=== PATIENT | male | born 1960 | race Hispanic/Latino ===

== ENCOUNTER 2019-07-04 15:20 | Emergency (ER) | payer MEDICARE, SELFPAY ==
--- NOTE | ~2019-07-04 | CT_ITS ---
EXAMINATION: CTA brain carotid EXAM DATE: 07/04/2019 16:27 INDICATION: Altered mental status, right hemiparesis. TECHNIQUE: Noncontrast head CT. Spiral CTA of the carotid arteries was performed with intravenous i njection 100 cc of Omnipaque 350. Axial, coronal, sagittal reformatted images reviewed. Additional r eformatted images created on dedicated 3-D workstation. NASCET comparable standard used to assess th e degree of arterial stenosis. Spiral CT angiogram cerebral arteries performed with the same intrave nous injection of contrast. Source images of the brain CTA transferred to dedicated workstation for 3 -D rotational image creation. Coronal, sagittal maximum intensity pixel images also reviewed. The d ose-length product (DLP) for this examination was 1791.91 mGy-cm. The exposure was tailored accordi ng to patient size, and iterative reconstruction (ASIR) was used as additional dose reduction techniq ue. There is no prior study for comparison. FINDINGS: There is 0% carotid stenosis bilaterally, no appreciable focal carotid plaque. There is no carotid or vertebral basilar arterial dissection or fibromuscular dysplasia. There are no cerebral a rtery aneurysms. There is symmetric cerebral artery arborization. The sagittal, transverse and sigmoi d sinuses enhance normally, no venous sinus thrombosis. Internal cerebral veins also enhance normally . There is no acute intraparenchymal hemorrhage. No evidence of intraparenchymal brain mass lesion. N o evidence of acute infarction. There is mild periventricular and subcortical hypodensity, nonspecifi c but probably related to small vessel ischemic disease. There is mild prominence of the sulci and ventricles related to cerebral atrophy. There is intracranial carotid arteriosclerosis. There is no mass effect or midline shift. There is no obstructive hydrocephalus suspected. There are no extra -axial collections. There are no calvarial acute fractures. There is varying degrees but overall mo derate mucoperiosteal thickening, opacity within the ethmoid sphenoid and maxillary sinuses. IMPRESSION: 1. No cervical arterial dissection or cerebral artery aneurysm. 2. No carotid stenosis. 3. Moderate sinus opacity. Reviewed, dictated and finalized at location B.
[2019-07-04 15:30] VITALS: BP 175/79; PULSE 99; RESP 16; TEMP 36.3; O2SAT 95
[2019-07-04 15:57] VITALS: BP 162/95; PULSE 95; RESP 23; TEMP 36.6; O2SAT 97
--- NOTE | 2019-07-04 16:02 | ED.SEIZURE ---
HPI - Seizure General Chief Complaint: Seizure Stated Complaint: seizure Time Seen by Provider: 07/04/19 16:04 Source: patient, family ( at bedside), RN notes reviewed and other (ED nurse) Mode of arrival: ambulatory Limitations: no limitations History of Present Illness HPI Narrative: Pt is a 59 y/o male presenting to the ED c/o Sz's. ED nurse reports the pt has had 3 Sz's within his time in the ED. Per nurse, the first episode lasted 1.5 minutes and the pt was given Ativan x2 IM. The pt's 2nd episode lasted a minute a few minutes after the 1st episode and the pt was given another dose of Ativan intranasal. Pt's ED nurse states the pt's 3rd episode lasted 45 seconds and the pt has been given Valium. Pt's at bedside reports the pt has not been feeling well since he had a different brand of his prescription of Dilantin switched 6 days ago. Per , the pt reported his Sx of not feeling well worsened 2 days ago and developed mild aphasia along with a frontal TALAVERA 2 days ago. Pt's notes the pt took a nap earlier today around 1300 and woke up with slurred speech. Pt's notes the pt did not have a Sz at home, stating his first episode was in the car on the way to the ED, and reports his current Sz's are similar to previous Sz's. Pt's notes the pt sees Dr. Delgado as his Neurologist and has been having Sz's since 2007 after having a Liver transplant. Per , the pt is normally able to ambulate and states his last Sz was a year ago. Pt's notes the pt had a different brand of Dilantin prescribed to him today as well in which he has taken 2 doses of. HPI is limited due to pt's clinical condition. All information provided by ED nurse and pt's at bedside. Onset (ago): unknown (Earlier today) Description of Episode: tonic-clonic movement Seizure History: Yes Associated symptoms: other (Slurred speech; Mild aphasia; Frontal TALAVERA) Related Data Home Medications Medication Instructions Recorded Confirmed donepezil mg 07/04/19 phenytoin sodium extended PO 07/04/19 Allergies Allergy/AdvReac Type Severity Reaction Status Date / Time No Known Allergies Allergy Unverified 02/14/15 15:35 Review of Systems Review of Systems: Narrative: Neurological: Positive for slurred speech, frontal headache, mild aphasia, and Seizures. ROS is limited due to pt's clinical condition. All Sx's provided by pt's at bedside. All systems reviewed & are unremarkable except as noted in HPI and below PMFSH Past Medical History Medical History Bronchitis COPD (chronic obstructive pulmonary disease) CVA (cerebral vascular accident) Depression Encephalopathy ESRD (end stage renal disease) Hepatitis C History of renal dialysis HLD (hyperlipidemia) IBS (irritable bowel syndrome) Peripheral neuropathy Pneumonia Seizures Surgical History Surgical History History of cholecystectomy Liver transplanted Family History Family History Father Family history of heart disease in male family member before age 55 Mother Family history of liver disease Social History Social History Smoking status: Current every day smoker Second hand tobacco smoke exposure: No Alcohol intake: never Exam Const: General: no acute distress and well developed Orientation/consciousness: oriented to person HENMT: Head: normocephalic Ears: external ears normal General nose exam: Normal external nose present Eyes: General: appearance normal, both eyes and all related structures Conjunctivae: conjunctivae normal Neck: Neck: normal visual inspection and full ROM Chest: Chest palpation & inspection: normal inspection of the chest and no tenderness Resp: Effort & Inspection: normal respiratory effort Auscultation: clear to auscultation bilaterally Cardio: Rate: regular
[2019-07-04 16:35] LABS: Basophils Absolute Auto 0.1 K/mm3 (0.0-0.1); Basophils Percent Auto 0.6 % (0.2-1.2); Eosinophils Absolute Auto 0.9 K/mm3 (0-0.3); Eosinophils Percent Auto 10.1 % (0-4.4); Hematocrit 44.4 % (42.0-52.0); Hemoglobin 15.3 g/dL (14.0-18.0); Immature Granulocyte Absolute 0.06 K/mm3 (0.00-0.031); Immature Granulocyte Percent A 0.7 % (0-0.5); Lymphocytes Absolute Auto 2.94 K/mm3 (0.9-3.2); Mean Corpuscular HGB Conc 34.5 g/dl (32-36); Mean Corpuscular Hemoglobin 30.7 pg (26-34); Mean Corpuscular Volume 89.2 fl (80-100); Mean Platelet Volume 10.6 fl (7.4-10.4); Monocytes Absolute Auto 0.7 K/mm3 (0.1-0.6); Monocytes Percent Auto 8.1 % (2.6-8.5); Neutrophils Percent Auto 46.5 % (45.5-73.1); Platelet Count Result 232 k/mm3 (150-375); Red Blood Count 4.98 M/mm3 (4.6-6.20); Red Cell Distribution Width 12.3 % (11.5-14.5); White Blood Count 8.6 K/mm3 (4.5-10.0)
--- NOTE | 2019-07-04 16:43 | PC.NURSE ---
1540: Patient noted to be seizing in wheelchair, Nursing staff with patient. Verbal order of Dr. Nettles to give 2 mg IN ativan q 5 minutes for seizure control prior to IV access. After IV access he has verbal order for 5 mg of diazepam given q 5 minutes for seizure control. This seizure lasted 45 seconds and involved a right gaze with eye and facial twitching along with shaking of his right arm and right leg. 1545: Patient had seizure that lasted approximately one minute. Seizure the same as the one described prior. Patient was given 2 mg Ativan IN at this time as per the above orders. Following this seizure the patient would respond to verbal stimuli however he was not oriented and was not able to answer questions. 1553: Patient had another seizure, this one lasted approximately 55 seconds and resolved shortly after medication. Seizure was the same as previously described. Per the verbal order of Dr. Nettles, the patient was given 2 mg Ativan IN. This was followed by similar postictal period as with previous seizures. states that these are how his seizures happen and are what she describes as his normal seizure activity. 1600: Seizure activity noted again lasting 1 minute, resolving shortly after medication administered. Same as previously described. IV in place and 5 mg diazepam was given IVP as per verbal order of Dr. Nettles. Charge nurse called and EDP requested to room at this time. 1608: Patient again noted to have seizure activity as previously described. This seizure lasted approximately 1 and a half minutes and was slower to respond after IV diazepam was given. the order was per the verbal order of Dr. Nettles as written above for [address] Montano in room as medications were given to the patient. Similar postictal period of confusion noted following the seizure.
[2019-07-04 16:46] VITALS: BP 122/69; PULSE 96; RESP 19; TEMP 36.4; O2SAT 98
[2019-07-04 16:46] LABS: Prothrombin Time 12.5 Seconds (11.1-14.7)
[2019-07-04 16:47] LABS: Partial Thromboplastin Time 29.5 SECONDS (22.3-36.8)
[2019-07-04 16:52] LABS: Alanine Aminotransferase 24 U/L (4-50); Albumin Level 4.2 g/dL (3.5-5.1); Alkaline Phosphatase 191 U/L (38-126); Aspartate Amino Transferase 25 U/L (17-59); Bilirubin,Total 0.4 mg/dL (0.2-1.3); Blood Urea Nitrogen 12 mg/dL (9-20); Calcium 8.9 mg/dL (8.4-10.2); Carbon Dioxide 25 mmol/L (22-30); Chloride 103 mmol/L (98-107); Estimated CRCL calculation 127 ml/min; Estimated Glomerular Filt Rate > 60; Glucose 125 mg/dL (75-110); Phenytoin Dilantin 8 ug/mL (10-20); Potassium 3.7 mmol/L (3.4-5.0); Sodium 138 mmol/L (137-145)
[2019-07-04 17:41] VITALS: O2SAT 98
--- NOTE | 2019-07-04 18:26 | PC.NURSE ---
This RN went into pts room to give medication. Pt stated that he wanted to go home. I informed pt that he would not receive medication if he went home. Pt stated that he had Keppra at home. Pt stated that he wanted to go home and have his take care of him, because she can take better care of him . I asked pt several times if he was sure that he wanted to go home. Pt stated that yes. I informed Dr. Albright that pt wanted to leave AMA and he stated that was fine. This RN took AMA paper into room and again asked pt if he wanted to leave, pt stated yes and signed paper. Pt was wheeled out to awaiting to vehicle.
== END 2019-07-04 19:44 | disposition left against medical advice (07) ==
PROVIDERS: Emergency Provider Emergency Medicine; PCP Family Medicine
DX: G40.909 Epilepsy, unspecified, not intractable, without status epilepticus (principal); G81.91 Hemiplegia, unspecified affecting right dominant side; Z94.4 Liver transplant status; J44.9 Chronic obstructive pulmonary disease, unspecified; Z86.73 Personal history of transient ischemic attack (TIA), and cerebral infarction without residual deficits; N18.6 End stage renal disease; Z99.2 Dependence on renal dialysis; E78.5 Hyperlipidemia, unspecified; K58.9 Irritable bowel syndrome, unspecified; G62.9 Polyneuropathy, unspecified; F17.200 Nicotine dependence, unspecified, uncomplicated
CPT/HCPCS: 36415; 70496; 70498; 80053; 80185; 85025; 85610; 85730; 99284; J2060; J3360; Q9967

== ENCOUNTER 2019-10-28 12:30 | Emergency (ER) | payer MEDICARE, SELFPAY ==
--- NOTE | ~2019-10-28 | XR_ITS ---
XR shoulder RT min 2V DATE: 10/28/2019 13:33 INDICATION: Shoulder pain and anterior chest pain following a fall 3 days ago TECHNIQUE: 3 views COMPARISON: None FINDINGS: Mild degenerative spurring at the right acromioclavicular joint. No fracture or dislocation, periosteal reaction or bone destruction. No abnormal soft tissue calcif ication. Surgical clips overlying the upper abdomen. IMPRESSION: Mild degenerative change at the right acromioclavicular joint Reviewed, dictated and finalized at location B.
--- NOTE | ~2019-10-28 | XR_ITS ---
EXAMINATION: [id number]_[id number]_CR DATE: 10/28/2019 13:33 INDICATION: Right anterior chest pain. TECHNIQUE: A frontal view of the chest and 2 views of the right ribs were obtained. COMPARISON: Chest 2 views 04/26/2018 FINDINGS: There is mild atelectasis in lingula. No pleural effusion or pneumothorax. The heart size i s normal. There are surgical clips in right abdomen. IMPRESSION: 1. No rib fracture. 2. Mild atelectasis in lingula. Reviewed, dictated and finalized at location A.
[2019-10-28 12:46] VITALS: BP 113/76; PULSE 86; RESP 16; TEMP 37; O2SAT 98
--- NOTE | 2019-10-28 12:57 | ED.GENADULT ---
HPI - General Adult General Chief complaint: Fall Stated complaint: right side pain,fall Time Seen by Provider: 10/28/19 12:57 Source: patient Mode of arrival: ambulatory Limitations: no limitations History of Present Illness HPI narrative: 59-year-old male patient presents to the [facility] with complaints right shoulder and right-sided chest pain after a fall Monday night. Patient states that he got up to go to the bathroom late at night when he was walking back tripped hitting his dresser, his dressers, some drawers and then fell onto some carpet. Denies hitting his head or loss of consciousness. Patient states he is having pain when he tries to take a deep breath then laugh or cough to the right side of the chest. Patient also complaining of some right shoulder pain and states that he is not able to raise it all the way or wrap around his back. Related Data Home Medications Medication Instructions Recorded Confirmed donepezil mg 07/04/19 phenytoin sodium extended PO 07/04/19 Aspir-81 10/28/19 Vimpat 10/28/19 cyclosporine 10/28/19 gabapentin 10/28/19 levetiracetam PO 10/28/19 Allergies Allergy/AdvReac Type Severity Reaction Status Date / Time No Known Allergies Allergy Unverified 02/14/15 15:35 Review of Systems Review of Systems: Narrative: CONSTITUTIONAL: Denies fever, chills, or sweats. EYES: Denies visual changes, redness, or discharge. ENT: Denies rhinorrhea, congestion, sore throat, or otalgia. CARDIOVASCULAR: Positive right-sided chest pain, denies palpitations, or edema. RESPIRATORY: Denies cough or dyspnea. GASTROINTESTINAL: Denies abdominal pain, nausea, vomiting, or diarrhea. GENITOURINARY: Denies dysuria or hematuria. SKIN: Denies rash or itching. MUSCULOSKELETAL: Denies back pain, joint pain, or myalgia. Positive right shoulder pain NEUROLOGIC: Denies headache, numbness, or weakness. PSYCHIATRIC: Denies anxiety or depression. [facility] Past Medical History Medical History Bronchitis COPD (chronic obstructive pulmonary disease) CVA (cerebral vascular accident) Depression Encephalopathy ESRD (end stage renal disease) Hepatitis C History of renal dialysis HLD (hyperlipidemia) IBS (irritable bowel syndrome) Peripheral neuropathy Pneumonia Seizures Surgical History Surgical History History of cholecystectomy Liver transplanted Family History Family History Father Family history of heart disease in male family member before age 55 Mother Family history of liver disease Social History Social History Smoking status: Current every day smoker Second hand tobacco smoke exposure: No Alcohol intake: never Comments At the time of my signature I agree with nursing past medical history, surgical, social, and family history. There is no relevant family history pertinent to the presenting complaint. Exam Narrative: Exam Narrative: GENERAL: Well-appearing, well-nourished, and in no acute distress. HEAD: Normocephalic, atraumatic. EYES: PERRLA and EOMI. ENT: Nares clear, no rhinorrhea or epistaxis. Mucous membranes moist. NECK: Supple. No lymphadenopathy CHEST: Clear to auscultation. No respiratory distress. Patient does have some bruising noted around the right third and fourth rib. Patient has tenderness all over the right chest and unable to really palpate very deeply. Patient has pain under the axilla to the lateral side of the right chest. Patient unable to take a deep breath due to pain. HEART: Regular rate and rhythm. No murmur heard. Normal peripheral pulses. ABDOMEN: Soft, nontender, nondistended, normal active bowel sounds. EXTREMITIES: The R shoulder is without obvious asymmetry or deformity when compared to the L shoulder. No surface trauma, ecchymos
== END 2019-10-28 14:32 | disposition home or self-care (01) ==
PROVIDERS: Emergency Provider Nurse Practitioner Family; PCP Family Medicine
DX: J98.11 Atelectasis (principal); M25.511 Pain in right shoulder; R07.89 Other chest pain; W01.0XXA Fall on same level from slipping, tripping and stumbling without subsequent striking against object, initial encounter; J44.9 Chronic obstructive pulmonary disease, unspecified; F32.9 Major depressive disorder, single episode, unspecified; G40.909 Epilepsy, unspecified, not intractable, without status epilepticus; E78.5 Hyperlipidemia, unspecified; Z86.19 Personal history of other infectious and parasitic diseases; Z86.73 Personal history of transient ischemic attack (TIA), and cerebral infarction without residual deficits; G62.9 Polyneuropathy, unspecified; Z94.4 Liver transplant status; G93.40 Encephalopathy, unspecified
CPT/HCPCS: 71101; 73030; 99214; G0463

== ENCOUNTER 2020-04-20 09:36 | Inpatient (IN) | payer MEDICARE, SELFPAY ==
[2020-04-20] VITALS (33 sets, daily range): BP systolic 98–169; BP diastolic 64–107; PULSE 72–106; RESP 18–41; TEMP 36.6–37.2; O2SAT 93–99; BMI 35.3
--- NOTE | ~2020-04-20 | XR_ITS ---
EXAMINATION: XR chest 1V EXAM DATE: 04/20/2020 10:32 INDICATION: Transient Level Of Awareness . TECHNIQUE: Portable AP frontal chest x-ray was obtained. Comparison is made to prior examination from 04/26/2018. FINDINGS: Moderate amount of scattered bilateral peripheral predominant opacities, appearance suspici ous for subacute COVID pneumonia. No pneumothorax or pleural effusion. Elevated right hemidiaphragm. Cardiomediastinal silhouette is normal. There are mild bony degenerative changes. IMPRESSION: Moderate amount of bilateral peripheral opacities suspicious for COVID pneumonia. Reviewed, dictated and finalized at location B. [employer]ULLER IMPRESSION: Moderate amount of bilateral peripheral opacities suspicious for CO VID pneumonia.
--- NOTE | ~2020-04-20 | CT_ITS ---
EXAMINATION: CT abdomen pelvis wo con EXAM DATE: 04/20/2020 10:27 INDICATION: hematuria. TECHNIQUE: Spiral CT of the abdomen and pelvis was performed without contrast. Axial, coronal and s agittal images were reviewed. The dose-length product (DLP) for this examination was 1730.24 mGy-cm. The exposure was tailored according to patient size (auto mA exposure control), and iterative recon struction (ASIR) was used as additional dose reduction technique. There is no prior study for compar sarah. FINDINGS: The liver, spleen, adrenal glands and pancreas are unremarkable. Gallbladder is unremarkab le. No biliary obstruction. There is no nephrolithiasis or hydronephrosis. The prostate is unrema rkable. The bladder is unremarkable. There is no retroperitoneal or pelvic lymphadenopathy. The appendix is normal. The stomach and small bowel are unremarkable. There is expected amount of c olonic stool. No free intraperitoneal gas. The heart is normal in size. There are no pericardial or pleural effusions. Moderate amount of bilateral peripheral opacities with regions of confluence, thickened reticulation, most likely subacute COVID pneumonia. The bones are unremarkable. IMPRESSION: 1. Basilar peripheral opacities most likely COVID pneumonia. 2. No nephrolithiasis, hydronephrosis or suspicious genitourinary findings. Reviewed, dictated and finalized at location B. GER FRONT
--- NOTE | ~2020-04-20 | CT_ITS ---
EXAMINATION: CT brain wo con EXAM DATE: 04/20/2020 10:27 INDICATION: Transient level of awareness. Altered mental status. TECHNIQUE: Spiral CT of the head was performed without contrast. Axial, coronal and sagittal images were reviewed. The dose-length product (DLP) for this examination was 605.33 mGy-cm. The exposure w as tailored according to patient size, and iterative reconstruction (ASIR) was used as additional dos e reduction technique. Comparison is made to prior examination from 07/04/2019. FINDINGS: There is no acute intraparenchymal hemorrhage. No evidence of intraparenchymal brain mass lesion. No evidence of acute infarction. Please note that initial head CT has limited sensitivity f or small or acute infarctions. There is mild to moderate periventricular and subcortical hypodensity, nonspecific but probably related to small vessel ischemic disease. There is ventricular prominence out of proportion to sulci which is suspected most likely central atrophy rather than hydrocephalus. Normal pressure hydrocephalus cannot be excluded (clinical triad ataxia/gait disturbance, dementia, urinary incontinence). There is intracranial carotid arteriosclerosis. There are no extra-axial c ollections. There is no mass effect or midline shift. The orbits are unremarkable. Soft tissue is unremarkable. Chronically opacified right sphenoid sinus with wall thickening. There is no interval change. IMPRESSION: 1. No acute intracranial findings. 2. Dilated ventricles, probably central atrophy. 3. Microangiopathy. Reviewed, dictated and finalized at location B. LER
--- NOTE | ~2020-04-20 | CT_ITS ---
EXAMINATION: CTA chest PE protocol EXAM DATE: 04/20/2020 11:43 INDICATION: Shortness of breath, COVID. TECHNIQUE: Spiral CTA of the chest (pulmonary arteries) was performed with 100 cc Omnipaque 350 intr avenous contrast injection. Images were acquired during the pulmonary arterial phase. Coronal maxi mum intensity projection 3D-reconstructions were created by the technologist on dedicated workstation . Axial, coronal and sagittal reformatted images were reviewed. The dose-length product (DLP) for t his examination was 860.45 mGy-cm. The exposure was tailored according to patient size (auto mA exp osure control), and iterative reconstruction (ASIR) was used as additional dose reduction technique. There is no prior study for comparison. FINDINGS: There are no pulmonary emboli in the 1st through 3rd order (central and interlobar) pulmon mary arteries. Some loss of attenuation in the segmental pulmonary arteries due to respiratory motion , but no intraluminal filling defects suspected. No thoracic aortic dissection. Moderate amount of peripheral patchy regions of consolidation, appearance is most consistent with subacute COVID 19 pne umonia. There are no pleural or pericardial effusions. Tracheobronchial tree is patent. Some jes ctive right hilar lymphadenopathy. There is no pneumothorax. Heart normal in size. There is mild to moderate coronary arterial calcification, arterial sclerosis. Upper abdomen is unremarkable. T here is thoracic spondylosis without osteoblastic or osteolytic lesions identified. IMPRESSION: 1. Limited segmental evaluation, but no pulmonary emboli are suspected. 2. Moderate amount of airspace disease likely COVID pneumonia. Reviewed, dictated and finalized at location B. [employer] OPERATOR
[2020-04-20 09:58] LABS: Basophils Absolute Auto 0.1 K/mm3 (0.0-0.1); Basophils Percent Auto 0.9 % (0.2-1.2); Eosinophils Absolute Auto 0.2 K/mm3 (0-0.3); Eosinophils Percent Auto 2.6 % (0-4.4); Hematocrit 43.2 % (42.0-52.0); Hemoglobin 14.7 g/dL (14.0-18.0); Immature Granulocyte Absolute 0.31 K/mm3 (0.00-0.031); Immature Granulocyte Percent A 4.5 % (0-0.5); Lymphocytes Absolute Auto 2.38 K/mm3 (0.9-3.2); Lymphocytes Percent Auto 34.7 % (18.3-44.2); Mean Corpuscular Hemoglobin 30.2 pg (26-34); Mean Corpuscular Volume 88.7 fl (80-100); Mean Platelet Volume 9.7 fl (7.4-10.4); Monocytes Absolute Auto 0.8 K/mm3 (0.1-0.6); Monocytes Percent Auto 12.3 % (2.6-8.5); Neutrophils Absolute Auto 3.1 K/mm3 (1.3-6.7); Platelet Count Result 336 k/mm3 (150-375); Red Blood Count 4.87 M/mm3 (4.6-6.20); Red Cell Distribution Width 12.2 % (11.5-14.5); White Blood Count 6.9 K/mm3 (4.5-10.0)
--- NOTE | 2020-04-20 10:02 | ED.GENADULT ---
HPI - General Adult General Chief complaint: Seizure Stated complaint: having seizures Time Seen by Provider: 04/20/20 09:38 Source: patient, family and old records reviewed Mode of arrival: ambulatory Limitations: altered mental status History of Present Illness HPI narrative: Patient is a 59-year-old male who presents with his from home for evaluation of altered mentation and tremors over the course of the last 2 to 3 days patient was brought in by his today as he became more altered this morning but has been confused over the last several days with uncontrolled shaking denies similar occurrence in the past patient is a liver transplant patient followed by [facility] transplant was around 2007 patient has not had any complications from this per his . denies any injury or trauma. denies any seizure activity. notes that sometimes he shakes like this before he is about to have a seizure. notes that he has been compliant with all his medications and took his Keppra this morning and takes Dilantin at night and Vimpat as well. Patient on arrival denying any pain. Patient is alert and oriented to person place and is able to follow commands and answer questions. Patient does have some issues with fluency as well as uncontrolled shaking on arrival. does note history of CVA. notes that he did have a few loose stools over the last couple of days which has resolved and also notes that she noticed what could have been blood in his urine. and patient denies any URI symptoms. Patient denies headache lightheadedness or dizziness chest pain shortness of breath. Related Data Home Medications Medication Instructions Recorded Confirmed phenytoin sodium extended 400 mg PO HS 07/04/19 Aspir-81 10/28/19 cyclosporine 25 mg BID 10/28/19 gabapentin 800 mg TID 10/28/19 levetiracetam 1,500 mg PO BID 10/28/19 budesonide-formoterol [Symbicort] INHALATION BID 04/20/20 cyclosporine 100 mg PO BID 04/20/20 lacosamide [Vimpat] 200 mg PO Q12H 04/20/20 Allergies Allergy/AdvReac Type Severity Reaction Status Date / Time No Known Allergies Allergy Unverified 02/14/15 15:35 Review of Systems Review of Systems: Narrative: Limited secondary to altered mentation All systems reviewed & are unremarkable except as noted in HPI and below PMFSH Past Medical History Medical History (Updated 04/20/20 @ 13:03 by Murtaza Cisneros PA-C) Bronchitis COPD (chronic obstructive pulmonary disease) CVA (cerebral vascular accident) Depression Encephalopathy ESRD (end stage renal disease) Hepatitis C History of renal dialysis HLD (hyperlipidemia) IBS (irritable bowel syndrome) Peripheral neuropathy Pneumonia Seizures Surgical History Surgical History History of cholecystectomy Liver transplanted Family History Family History Father Family history of heart disease in male family member before age 55 Mother Family history of liver disease Social History Social History Smoking status: Current every day smoker Second hand tobacco smoke exposure: No Alcohol intake: never Exam Narrative: Exam Narrative: GENERAL: Well-appearing, obese, and in no acute distress. HEAD: Normocephalic, atraumatic. EYES: PERRLA and EOMI. ENT: Nares clear, no rhinorrhea or epistaxis. Mucous membranes moist. Oropharynx without tonsillar hypertrophy exudate or other lesions. Bilateral TMs pearly chandra nonbulging NECK: Supple. No adenopathy or masses. No carotid bruits or JVD CHEST: Clear to auscultation. No respiratory distress. No wheezes rales or rhonchi HEART: Regular rate and rhythm. No murmur heard. Normal peripheral pulses. ABDOMEN: Soft, mild tenderness abdomen on palpation, nondistended, EXTREMITIES: Normal range of motion. No kermit
[2020-04-20 10:10] LABS: Alveolar/Arterial O2 Gradient 48.8 mmHg; Base Excess ABG -0.5 mEq/l (+/-2.0); Fractional Inspired Oxygen 21 %; HCO3 ABG 23.4 mEq/l (22.0-26.0); Methemoglobin ABG 0.2 %THb (0-1.5); Oxygen Saturation ABG 90.8 % (95.0-100.0); Oxyhemoglobin 88.9 % THb (90.0-100.0); PCO2 ABG 36.2 mmHg (35.0-45.0); PO2 ABG 57.6 mmHg (80.0-100.0); PO2 FiO2 Ratio Arterial Blood 2.74 %; Reduced Hemoglobin 9.9 %THb (0-5.0); Total Hemoglobin 14.4 g/dL (12.0-18.0); pH ABG 7.428 (7.350-7.450)
[2020-04-20] MEDS: LORazepam INJ (*CRX) 2 MG/ML VIAL 1 MG IV PUSH (10:10)
[2020-04-20] MEDS: SODIUM CHLORIDE 0.9% IV 1,000 ML 999 ML IV CONT (10:10)
[2020-04-20 10:11] LABS: Device ROOM AIR; Modified Allen's Test Pass; Site Drawn RIGHT RADIAL
[2020-04-20 10:16] LABS: INR 1.1; Prothrombin Time 14.4 Seconds (11.1-14.7)
[2020-04-20 10:17] LABS: Partial Thromboplastin Time 30.6 SECONDS (22.3-36.8)
[2020-04-20 10:20] LABS: Lactic Acid Reflex 2.7 mmol/L (0.7-2.1)
[2020-04-20 10:24] LABS: Alanine Aminotransferase 196 U/L (4-50); Albumin Level 3.6 g/dL (3.5-5.1); Alkaline Phosphatase 108 U/L (38-126); Anion Gap 7 mmol/L (8-16); Aspartate Amino Transferase 200 U/L (17-59); Bilirubin,Total 0.8 mg/dL (0.2-1.3); Blood Urea Nitrogen 9 mg/dL (9-20); Calcium 8.6 mg/dL (8.4-10.2); Carbon Dioxide 31 mmol/L (22-30); Chloride 101 mmol/L (98-107); Estimated Glomerular Filt Rate > 60; Glucose 131 mg/dL (75-110); Lipase 128 U/L (23-300); Phenytoin Dilantin 6 ug/mL (10-20); Potassium 4.3 mmol/L (3.4-5.0); Sodium 139 mmol/L (137-145)
[2020-04-20 10:27] LABS: D Dimer 1.05 ug/mL (<0.48)
[2020-04-20 10:32] LABS: Troponin I < 0.012 ng/mL (0.000-0.034)
[2020-04-20 10:33] LABS: Creatine Kinase 68 U/L (55-170); Lactate Dehydrogenase 1038 U/L (313-618)
[2020-04-20 11:38] LABS: Ammonia 12 umol/L (9-30)
[2020-04-20 11:47] LABS: Add Urine Microscopic? YES; Appearance Urine Clear (Clear); Bacteria Urine Trace /hpf; Bilirubin Urine 1+ (Negative); Blood Urine Negative (Negative); Color Urine Amber (Yellow); Glucose Urine UA Negative (Negative); Ketones Urine Trace mg/dL (Negative); Leukocyte Esterase Ur Negative LEU/UL (Negative); Mucus Urine Rare /lpf; Nitrate Urine Negative (Negative); Protein Urine 2+ mg/dL (Negative); RBC Urine 0-2 /hpf (0-2); WBC Urine 0-3 /hpf
[2020-04-20 11:48] LABS: Specific Grav Ur 1.033 (1.001-1.035)
[2020-04-20 11:59] LABS: Amphetamine Screen Urine Negative (Negative); Barbiturate Screen Urine Negative (Negative); Benzodiazepines Screen Urine Negative (Negative); Cannabinoid Screen Urine Negative (Negative); Cocaine Screen Urine Negative (Negative); Methadone Screen Urine Negative (Negative); Opiate Screen Urine Negative (Negative); Phencyclidine Screen Urine Negative (Negative)
[2020-04-20 12:56] LABS: Reflex Lactic Acid Yes or No Add Lactic
[2020-04-20] MEDS: DEXAMETHASONE SOD PHOS INJ 4 MG/ML VIAL 6 MG IV PUSH (13:02)
--- NOTE | 2020-04-20 13:03 | ECG_ITS ---
Measurements Intervals [place] Rate: 74 P: 51 MD: 139 QRS: -4 QRSD: 118 T: 27 QT: 405 QTc: 450 Interpretive Statements SINUS RHYTHM INCOMPLETE RIGHT BUNDLE BRANCH BLOCK BORDERLINE ST-T WAVE ABNORMALITY- ANTEROLAT/INF LEADS BASELINE WANDER- I, II, AVR, AVL, AVF, V1-V6 BORDERLINE ECG Electronically Signed On 04-20-2020 13:19:13 [employer] by Jonathon Payne D.O.
[2020-04-20] MEDS: SODIUM CHLORIDE 0.9% IV 1,000 ML 80 ML IV CONT (15:30)
[2020-04-20 15:58] LABS: Lactic Acid 1.4 mmol/L (0.7-2.1)
[2020-04-20] MEDS: LACOSAMIDE (*CRX) 200 MG TABLET PO (18:48)
[2020-04-20] MEDS: levETIRAcetam 500 MG TABLET 1500 MG PO (18:50)
[2020-04-20] MEDS: GABAPENTIN 400 MG CAPSULE 800 MG PO (18:50)
--- NOTE | 2020-04-20 20:00 | PC.NURSE ---
Per BULMARO Escalante verbal order read back, hold off on dose of Phenytoin that is administered with cyclosporine.
--- NOTE | 2020-04-20 20:46 | PM.IMHP ---
H&P: HPI History of Present Illness Date/Time: 04/20/20 20:46 Chief Complaint: Right upper extremity tremors, dyspnea, diarrhea Narrative: Yonis Boone is a 59 year old male with past medical history of hepatitis C cirrhosis status post liver transplant in [address] [facility] on cyclosporine following Dr. Velez, seizure history, CVA with right side deficits, and recent COVID-19 diagnosis presents to ED with complaints of shaking with concerns for seizure. History was taken with patient bedside and over the phone. Patient has some expressive aphasia likely from his previous stroke. Patient states he he got COVID-19 from his daughter around 04/04/2020 despite asking her not to come over. His felt symptoms before he did. Now he has fevers T-max 102? and cough and worsening dyspnea. He also developed significant diarrhea from the that went to the treated with Imodium. He states he has not really had much p.o. intake since the . He has been managing at home but now started developing the shaking on his right upper extremity concerning for seizure activity so he came to the hospital. Patient takes Keppra, Dilantin, Vimpat without problems. Patient has history of CVA with right-sided deficits. Patient lives with his and his sister and his [id number]. His adult daughter lives nearby. In the ED: EKG shows normal sinus rhythm, head CT no acute abnormality/dilated ventricles probably central atrophy, chest x-ray shows moderate bilateral opacities suspicious for COVID-19, abdominal CT was benign, CTA chest showed no PE and did show airspace disease likely COVID-19. PA from the ER discussed with Dr. Velez at [facility] recommended to continue cyclosporine this evening and to get a trough at 6:30 a.m. tomorrow prior to next dose of cyclosporine in a.m.. For COVID-19 we will be doing supportive care. Patient has been accepted at [facility] however is awaiting a bed. In the meantime, he will come in to our hospital while awaiting a bed. Diagnose COVID-19 pneumonia. Review of Systems Review of Systems: Narrative: Constitutional: No Chills, No Night Sweats, No Fatigue, No Malaise. Endorses fevers T-max 102?. ENT/Mouth: No Hearing Changes, No Ear Pain, No Nasal Congestion, No Sinus Pain, No Hoarseness, No sore throat, No Rhinorrhea, No Swallowing Difficulty Eyes: No Eye Pain, No Redness, No Vision Changes Cardiovascular: No Chest Pain, No Palpitations, No Dyspnea on Exertion, No Orthopnea, No Claudication, No Edema Respiratory: No Sputum, No Wheezing. Endorses shortness of breath and dry cough. Gastrointestinal: No Constipation, No Abdominal Pain, No Heartburn, No Hematochezia, No Melena. Endorses nausea, vomiting, diarrhea. Genitourinary: No Dysuria, No Urinary Frequency, No Hematuria, No Urinary Incontinence, No Urgency Musculoskeletal: No Arthralgias, No Myalgias, No Joint Swelling, No Joint Stiffness, No Back Pain Skin: No Skin Lesions, No Pruritis, No Hair Changes Neuro: No Weakness, No Numbness, No Paresthesias, No Loss of Consciousness, No Syncope, No Dizziness, No Headache. Endorses tremor right upper extremity. Psych: No Anxiety/Panic, No Depression, No Insomnia Heme: No Bruising, No Bleeding Lymph: No Adenopathy Endocrine: No Polyuria, No Polydipsia, No Temperature Intolerance [facility] Past Medical History Medical History (Updated 04/20/20 @ 23:13 by Oliver Dillard DO) Bronchitis COPD (chronic obstructive pulmonary disease) CVA (cerebral vascular accident) Depression Encephalopathy ESRD (end stage renal disease) Hepatitis C Status post treatment History of renal dialysis HLD (hyperlipidemia) IBS (irritable bowel syndrome) Peripheral neuropathy Pneumonia Seizures Surgical History Surgical History (Updated 04/20/20 @ 23:08 by Oliver Dillard DO) History of cholecystectomy Liver transplant recipient Liver transplanted Family History Family History
[2020-04-21] VITALS (11 sets, daily range): BP systolic 112–150; BP diastolic 61–87; PULSE 78–104; RESP 16–20; TEMP 36.3–37.1; O2SAT 94–98; BMI 35.3
[2020-04-21] MEDS: LACOSAMIDE (*CRX) 200 MG TABLET PO ×3 (03:41→20:02)
[2020-04-21] MEDS: FAMOTIDINE 20 MG/2 ML VIAL IV PUSH ×3 (03:42→20:02)
[2020-04-21] MEDS: LACTATED RINGERS 1,000 ML 75 ML IV CONT (03:43)
[2020-04-21] MEDS: cycloSPORINE (NEORAL) 25 MG CAPSULE 125 MG PO ×2 (05:43→18:10)
[2020-04-21 08:27] LABS: Basophils Percent Auto 0.5 % (0.2-1.2); Eosinophils Absolute Auto 0.1 K/mm3 (0-0.3); Eosinophils Percent Auto 1.6 % (0-4.4); Hemoglobin 13.8 g/dL (14.0-18.0); Immature Granulocyte Absolute 0.16 K/mm3 (0.00-0.031); Immature Granulocyte Percent A 2.5 % (0-0.5); Lymphocytes Absolute Auto 1.86 K/mm3 (0.9-3.2); Lymphocytes Percent Auto 29.5 % (18.3-44.2); Mean Corpuscular HGB Conc 34.5 g/dl (32-36); Mean Corpuscular Hemoglobin 30.4 pg (26-34); Mean Corpuscular Volume 88.1 fl (80-100); Monocytes Absolute Auto 0.8 K/mm3 (0.1-0.6); Monocytes Percent Auto 11.9 % (2.6-8.5); Neutrophils Absolute Auto 3.4 K/mm3 (1.3-6.7); Platelet Count Result 290 k/mm3 (150-375); Red Blood Count 4.54 M/mm3 (4.6-6.20); Red Cell Distribution Width 12.2 % (11.5-14.5); White Blood Count 6.3 K/mm3 (4.5-10.0)
[2020-04-21 08:42] LABS: Alanine Aminotransferase 237 U/L (4-50); Albumin Level 3.4 g/dL (3.5-5.1); Alkaline Phosphatase 105 U/L (38-126); Anion Gap 8 mmol/L (8-16); Aspartate Amino Transferase 203 U/L (17-59); Bilirubin,Total 0.7 mg/dL (0.2-1.3); Blood Urea Nitrogen 5 mg/dL (9-20); Calcium 8.7 mg/dL (8.4-10.2); Carbon Dioxide 28 mmol/L (22-30); Chloride 104 mmol/L (98-107); Estimated CRCL calculation 175 ml/min; Estimated Glomerular Filt Rate > 60; Glucose 101 mg/dL (75-110); Potassium 3.9 mmol/L (3.4-5.0); Sodium 140 mmol/L (137-145)
[2020-04-21] MEDS: ALBUTEROL SULFATE (*SP) AEROSOL 1 PUFF 4 PUFF INHALATION ×4 (09:11→19:54)
[2020-04-21] MEDS: ENOXAPARIN 40 MG/0.4 ML SYRINGE SUB-Q (09:21)
[2020-04-21] MEDS: GABAPENTIN 400 MG CAPSULE 800 MG PO ×3 (09:22→16:16)
[2020-04-21] MEDS: ASPIRIN 81 MG CHEWABLE TABLET PO (09:22)
[2020-04-21] MEDS: CHOLECALCIFEROL 1,000 UNITS TABLET 5000 UNITS PO (09:22)
[2020-04-21] MEDS: levETIRAcetam 500 MG TABLET 1500 MG PO ×2 (09:22→20:02)
--- NOTE | 2020-04-21 13:55 | PM.IMPN ---
Progress Note: A&P Assessment and Plan (1) Pneumonia due to 2019 novel coronavirus: Code(s): U07.1 - COVID-19; J12.89 - Other viral pneumonia Status: Acute Assessment and Plan: Patient reports diagnosed 04/04/20 COVID positive. Retested yesterday awaiting results. Continue supportive care with supplemental oxygen, wean to keep O2 saturations > 90%, currently tolerating 2L NC. Vitamin D supplementation, Tylenol as needed for fevers, albuterol MDI, mucinex. Continue dexamethasone (day 2). No remdesivir due to transaminitis and symptoms outside time window. (2) Elevated liver enzymes: Code(s): R74.8 - Abnormal levels of other serum enzymes Status: Acute Assessment and Plan: Monitor trend of LFTs. May be related to viral illness vs. transplant. (3) Liver transplant recipient: Code(s): Z94.4 - Liver transplant status Status: Acute Assessment and Plan: history of hepatitis-C cirrhosis, completed treatment for hepatitis-C Liver transplant 2007 [facility], follows Dr. Velez. Patient needs to continue cyclosporine b.i.d Accepted by Dr Francisco with [facility] transplant team pending bed availability. (4) Seizures: Code(s): R56.9 - Unspecified convulsions Status: Acute Assessment and Plan: History of seizures reported last in December. Continue home Keppra, Dilantin, Vimpat and seizure precautions. Subjective Date/time seen: 04/21/20 1230 Interval history: Mr. Boone is a 59yo M admitted with acute respiratory failure and COVID pneumonia, altered mental status. He is sleeping upon my arrival but wakes easily to verbal stimuli. Speech is slow but understandable. He answers many questions appropriately but remains a bit disoriented especially having just been woken up. He denies being in any pain. Tells me his shortness of breath feels improved. Denies chest pain. Hungry for lunch. Review of Systems Review of Systems: All systems reviewed & are unremarkable except as noted in HPI and below Exam Narrative: Exam Narrative: General: Male resting supine in bed in no acute distress. Neuro: Wakes easily to verbal stimuli. Alert and oriented to self, able to tell me his date after much thinking, disoriented to place but knows his is not at home, easily reoriented. Right upper extremity and right lower extremity are weaker compared to left, chronic with h/o CVA. HEENT: Normocephalic, EOMI, oral mucosa tacky. Cardiovascular: Rate and rhythm are regular. Respiratory: Diminished breath sounds KEVON. Respirations even and non-labored. Abdomen: Soft, non-tender, non-distended, bowel sounds present. Extremities: Peripheral pulses intact. No edema. Objective Data Vital Signs Vital Signs: Last Vital Signs Temp 97.7 F 04/21/20 12:00 Pulse 79 04/21/20 12:00 Resp 16 04/21/20 12:00 BP 130/81 04/21/20 12:00 Pulse Ox 97 04/21/20 12:00 Intake/Output Intake/Output: Intake & Output 04/18/20 04/19/20 04/20/20 04/21/20 23:59 23:59 23:59 23:59 Intake Total 1000 300 Output Total 400 Balance 1000 -100 Meds/Results Medications: Active Medications Generic Name Dose Route Start Last Admin Trade Name Freq PRN Reason Stop Dose Admin Albuterol 4 puff 04/21/20 08:00 04/21/20 12:10 Albuterol Sulfate (*Sp) Aerosol 1 Puff INHALATION 4 puff QIDRT [facility] Administration Aspirin 81 mg 04/21/20 08:00 04/21/20 09:22 Aspirin 81 Mg Chewable Tablet PO 81 mg DAILY@0800 [facility] Administration Budesonide/Formoterol Fumarate 1 puff 04/21/20 08:00 04/21/20 09:11 Budesonide/Form 160-4.5 Mcg (*Sp) INHALATION 1 puff Q12HRT [facility] Administration Cyclosporine 125 mg 04/21/20 19:00 Cyclosporine (Neoral) 25 Mg Capsule PO 0700,1900 JUL[facility]OC[facility]
[2020-04-21] MEDS: DEXAMETHASONE 2 MG TABLET 6 MG PO (16:16)
[2020-04-21 18:44] LABS: SARS-CoV-2 RNA PCR Negative
[2020-04-21] MEDS: PHENYTOIN SODIUM 100 MG CAP 400 MG PO (20:02)
[2020-04-22] VITALS (10 sets, daily range): BP systolic 140–148; BP diastolic 71–80; PULSE 75–103; RESP 18–20; TEMP 36.6–36.7; O2SAT 92–97
[2020-04-22] MEDS: LACTATED RINGERS 1,000 ML 75 ML IV CONT (03:05)
[2020-04-22] MEDS: cycloSPORINE (NEORAL) 25 MG CAPSULE 125 MG PO ×2 (06:00→18:03)
[2020-04-22 06:41] LABS: Basophils Absolute Auto 0.1 K/mm3 (0.0-0.1); Basophils Percent Auto 0.9 % (0.2-1.2); Eosinophils Percent Auto 0.3 % (0-4.4); Hematocrit 36.4 % (42.0-52.0); Hemoglobin 12.1 g/dL (14.0-18.0); Immature Granulocyte Absolute 0.17 K/mm3 (0.00-0.031); Immature Granulocyte Percent A 2.9 % (0-0.5); Lymphocytes Absolute Auto 1.36 K/mm3 (0.9-3.2); Lymphocytes Percent Auto 23.2 % (18.3-44.2); Mean Corpuscular HGB Conc 33.2 g/dl (32-36); Mean Corpuscular Hemoglobin 29.5 pg (26-34); Mean Corpuscular Volume 88.8 fl (80-100); Mean Platelet Volume 10.1 fl (7.4-10.4); Monocytes Absolute Auto 0.6 K/mm3 (0.1-0.6); Monocytes Percent Auto 10.4 % (2.6-8.5); Neutrophils Absolute Auto 3.7 K/mm3 (1.3-6.7); Neutrophils Percent Auto 62.3 % (45.5-73.1); Platelet Count Result 243 k/mm3 (150-375); Red Cell Distribution Width 12.4 % (11.5-14.5); White Blood Count 5.9 K/mm3 (4.5-10.0)
[2020-04-22 07:21] LABS: Alanine Aminotransferase 267 U/L (4-50); Albumin Level 3.1 g/dL (3.5-5.1); Alkaline Phosphatase 86 U/L (38-126); Anion Gap 4 mmol/L (8-16); Aspartate Amino Transferase 211 U/L (17-59); Bilirubin,Total 0.5 mg/dL (0.2-1.3); Blood Urea Nitrogen 4 mg/dL (9-20); Calcium 8.4 mg/dL (8.4-10.2); Carbon Dioxide 26 mmol/L (22-30); Chloride 106 mmol/L (98-107); Estimated CRCL calculation 175 ml/min; Estimated Glomerular Filt Rate > 60; Glucose 141 mg/dL (75-110); Magnesium 1.6 mg/dL (1.6-2.3); Potassium 4.1 mmol/L (3.4-5.0); Sodium 136 mmol/L (137-145)
[2020-04-22] MEDS: ALBUTEROL SULFATE (*SP) AEROSOL 1 PUFF 4 PUFF INHALATION ×4 (07:48→20:01)
[2020-04-22] MEDS: ENOXAPARIN 40 MG/0.4 ML SYRINGE SUB-Q (07:48)
[2020-04-22] MEDS: CHOLECALCIFEROL 1,000 UNITS TABLET 5000 UNITS PO (07:49)
[2020-04-22] MEDS: levETIRAcetam 500 MG TABLET 1500 MG PO ×2 (07:49→20:00)
[2020-04-22] MEDS: DEXAMETHASONE 2 MG TABLET 6 MG PO (07:49)
[2020-04-22] MEDS: ASPIRIN 81 MG CHEWABLE TABLET PO (07:49)
[2020-04-22] MEDS: GABAPENTIN 400 MG CAPSULE 800 MG PO ×3 (07:50→18:03)
[2020-04-22] MEDS: FAMOTIDINE 20 MG/2 ML VIAL IV PUSH ×2 (07:50→20:00)
[2020-04-22] MEDS: LACOSAMIDE (*CRX) 200 MG TABLET PO ×2 (07:53→20:00)
[2020-04-22] MEDS: MAGNESIUM SULF 2 GM/WATER 50ML 2 GM/50 ML BAG IVPB (09:04)
[2020-04-22 09:20] LABS: Ammonia < 9 umol/L (9-30)
--- NOTE | 2020-04-22 12:45 | PM.IMPN ---
Progress Note: A&P Assessment and Plan (1) Pneumonia: Qualifiers: Pneumonia type: due to unspecified organism Laterality: bilateral Lung location: lower lobe of lung Qualified Code(s): J18.9 - Pneumonia, unspecified organism Code(s): J18.9 - Pneumonia, unspecified organism Status: Acute Assessment and Plan: Patient presents with altered mental status, requiring oxygen on arrival. Patient's was ill with COVID earlier this month but he wasn't tested at that time. His COVID test now is negative 04/20/20. Start antibiotic therapy with azithromycin and rocephin for now. Tolerating room air today. Continue dexamethasone (day 3). Tylenol as needed for fevers, albuterol MDI, mucinex. (2) Liver transplant recipient: Code(s): Z94.4 - Liver transplant status Status: Acute Assessment and Plan: History of hepatitis-C cirrhosis, completed treatment for hepatitis-C Liver transplant 2007 [facility], follows with Dr. Velez. Patient needs to continue cyclosporine b.i.d Accepted by Dr Francisco with [facility] transplant team pending bed availability. (3) Elevated liver enzymes: Code(s): R74.8 - Abnormal levels of other serum enzymes Status: Acute Assessment and Plan: Monitor trend of LFTs, slightly trending up today. (4) Seizures: Code(s): R56.9 - Unspecified convulsions Status: Acute Assessment and Plan: History of seizures, reported last in December. Continue home Keppra, Dilantin, Vimpat and seizure precautions. (5) Acute alteration in mental status: Code(s): R41.82 - Altered mental status, unspecified Status: Acute Assessment and Plan: Improving, much more awake today and alert. Suspect more near his cognitive baseline. Suspect may have been related to acute illness with pneumonia. Ammonia normal again today. (6) CVA (cerebral vascular accident): Qualifiers: CVA mechanism: unspecified Qualified Code(s): I63.9 - Cerebral infarction, unspecified Code(s): I63.9 - Cerebral infarction, unspecified Status: Chronic Assessment and Plan: History of CVA in past with residual right-sided deficits. Continue ASA therapy. Subjective Date/time seen: 04/22/20 12:30 Interval history: Mr. Boone is a 59yo M admitted with altered mental status and PNA. Feeling better today. Much more awake and alert today than yesterday. Denies shortness of breath or chest pain. No nausea or vomiting, tolerating oral intake. Review of Systems Review of Systems: All systems reviewed & are unremarkable except as noted in HPI and below Exam Narrative: Exam Narrative: General: Male resting supine in bed in no acute distress. Neuro: Awake, alert. Oriented to self and place. Able to follow simple commands. More awake than yesterday. Dysarthric speech but near his baseline h/o CVA. Right upper extremity discoordinated is also chronic. HEENT: Normocephalic, EOMI, oral mucosa moist. Cardiovascular: Rate and rhythm are regular. Respiratory: Diminished breath sounds KEVON. Respirations even and non-labored. Abdomen: Soft, non-tender, non-distended, bowel sounds present. Extremities: Peripheral pulses intact. No edema. Objective Data Vital Signs Vital Signs: Last Vital Signs Temp 98.0 F 04/22/20 14:00 Pulse 91 04/22/20 16:00 Resp 18 04/22/20 14:00 BP 140/71 04/22/20 14:00 Pulse Ox 94 04/22/20 14:00 Intake/Output Intake/Output: Intake & Output 04/19/20 04/20/20 04/21/20 04/22/20 23:59 23:59 23:59 23:59 Intake Total 1000 1210 1300 Output Total 750 300 Balance 1688 252 4841 Meds/Results Medications: Active Medications
[2020-04-22] MEDS: PHENYTOIN SODIUM 100 MG CAP 400 MG PO (20:00)
[2020-04-23] VITALS: PULSE 73
--- NOTE | 2020-04-23 05:20 | PM.TDS ---
Transfer Discharge Sum: Prov Provider Date of admission: 04/21/20 15:30 Primary care physician: Ashley Anne, Admitting clinician: Howard Dillard DO DS: Admitting Diagnosis Admitting Diagnosis Admitting Diagnosis: Altered mental status, pneumonia DS: Discharge Diagnosis Discharge Diagnosis (1) Pneumonia: Qualifiers: Pneumonia type: due to unspecified organism Laterality: bilateral Lung location: lower lobe of lung Qualified Code(s): J18.9 - Pneumonia, unspecified organism Code(s): J18.9 - Pneumonia, unspecified organism Status: Acute Assessment and Plan: Date of Admission 04/20/20 Date of Transfer 04/23/20 Mr. Boone is a pleasant 59yo M with history of prior CVA with right-sided residual weakness, seziure disorder, history of hepatitis C s/p liver transplant at [facility] in 2007, who presented to the ED for evaluation of altered mental status and trouble speaking over the last 1 week prior to arrival, worsening. His was concerned as she had tested positive for COVID around 04/04/20, but Kalia was not tested at that time. He was found to have KEVON pneumonia on imaging and requiring up to 2L/min supplemental O2. CT brain demonstrated dilated ventricles without acute intracranial findings. Ammonia level was within normal limits. He is noted to have elevated LFTs. The ED provider contacted his transplant team at [facility] (he follows with Dr Velez), spoke with Dr Francisco who accepted the patient in transfer. Patient was admitted to the hospitalist service while awaiting bed availability due to long wait times. He was maintained on his home cyclosporine BID. His COVID testing was ultimately negative 04/20/20 thus he was started on azithromycin and rocephin to cover for possible community acquired pneumonia. He was treated with 3 days of dexamethasone. He was able to be weaned off supplemental O2 and was tolerating room air with adequate oxygen saturations prior to transfer. His mental status did improve and he appeared more near his baseline the day prior to transfer. He was hemodynamically stable for transfer and last seen on 04/22/20 and patient transferred after midnight 04/23/20. Most recent vital signs are as follows: Last Vital Signs Temp 98.0 F 04/22/20 22:00 Pulse 73 04/23/20 00:00 Resp 20 04/22/20 22:00 BP 148/80 H 04/22/20 22:00 Pulse Ox 92 04/22/20 22:00 Patient presents with altered mental status, requiring oxygen on arrival. Patient's was ill with COVID earlier this month but he wasn't tested at that time. His COVID test now is negative 04/20/20. Start antibiotic therapy with azithromycin and rocephin for now. Improving, tolerating room air today. Continue dexamethasone (day 3). Tylenol as needed for fevers, albuterol MDI, mucinex. (2) Liver transplant recipient: Code(s): Z94.4 - Liver transplant status Status: Acute Assessment and Plan: History of hepatitis-C cirrhosis, completed treatment for hepatitis-C Liver transplant 2007 [facility], follows with Dr. Velez. Patient needs to continue cyclosporine b.i.d Accepted by Dr Francisco with [facility] transplant team pending bed availability. (3) Elevated liver enzymes: Code(s): R74.8 - Abnormal levels of other serum enzymes Status: Acute Assessment and Plan: Monitor trend of LFTs, slightly trending up today. (4) Seizures: Code(s): R56.9 - Unspecified convulsions Status: Acute Assessment and Plan: History of seizures, reported last in December. Continue home Keppra, Dilantin, Vimpat and seizure precautions. (5) Acute alteration in mental status: Code(s): R41.82 - Altered mental status, unspecified Status: Acute Assessment and Plan: Improving,
[2020-04-23 22:59] LABS: Cyclosporine 626 mcg/L (100-300)
[2020-04-24 13:02] LABS: Levetiracetam Keppra 47.9 mcg/mL (12.0-46.0)
== END 2020-04-23 02:40 | disposition short-term general hospital (02) | DRG 193 ==
LOC: ANHED 20:47 → ANH3MEDSUR 22:29
PROVIDERS: Emergency Medicine Emergency Medical Services; Physician Assistant; Admitting Provider Student in an Organized Health Care Education/Training Program; Emergency Provider Emergency Medicine; PCP Family Medicine; Visit Provider Family Medicine
DX: J18.9 Pneumonia, unspecified organism (principal); N18.6 End stage renal disease; I69.351 Hemiplegia and hemiparesis following cerebral infarction affecting right dominant side; Z94.4 Liver transplant status; J44.0 Chronic obstructive pulmonary disease with (acute) lower respiratory infection; Z20.828 Contact with and (suspected) exposure to other viral communicable diseases; I69.320 Aphasia following cerebral infarction; G40.909 Epilepsy, unspecified, not intractable, without status epilepticus; R41.82 Altered mental status, unspecified; R74.8 Abnormal levels of other serum enzymes; G62.9 Polyneuropathy, unspecified; E78.5 Hyperlipidemia, unspecified; K58.9 Irritable bowel syndrome, unspecified; Z86.19 Personal history of other infectious and parasitic diseases; Z87.891 Personal history of nicotine dependence
CPT/HCPCS: 36415; 36600; 51701; 70450; 71045; 71275; 74176; 80053; 80158; 80177; 80185; 80307; 81001; 82140; 82375; 82550; 82805; 83050; 83605; 83615; 83690; 83735; 84484; 85025; 85380; 85610; 85730; 87040; 87635; 93005; 94640; 96361; 96372; 96374; 96375; 96376; 99285; A9270; C9803; G0378; J0456; J0696; J1100; J1650; J2060; J3475; J7030; J7120; J7515; J8540; Q9967; U0003

== ENCOUNTER 2021-05-17 08:39 | Emergency (ER) | payer MEDICARE, SELFPAY ==
[2021-05-17 08:58] VITALS: BP 145/80; PULSE 92; RESP 20; TEMP 36.4; O2SAT 92
--- NOTE | 2021-05-17 09:06 | ED.URI ---
HPI - URI/Sore Throat General Chief Complaint: Upper Respiratory Infection Stated Complaint: Cough,Congestion Time Seen by Provider: 05/17/21 09:07 Source: patient, family, RN notes reviewed and old records reviewed Mode of arrival: ambulatory Limitations: no limitations History of Present Illness HPI Narrative: 60-year-old male presents to the [facility] with complaints of cough, congestion and shortness of breath that has increased over the last 2 weeks. Patient has a history of a stroke, wrist and liver transplant. Patient denies being on oxygen at home. Appears acutely ill, low saturations noted on triage. Related Data Home Medications Medication Instructions Recorded Confirmed Aspir-81 1 tablet PO DAILY 10/28/19 04/21/20 cyclosporine 25 mg PO BID 10/28/19 04/21/20 gabapentin 800 mg PO TID 10/28/19 04/21/20 levetiracetam 1,500 mg PO BID 10/28/19 04/21/20 budesonide-formoterol [Symbicort] 2 puff INHALATION BID 04/20/20 04/21/20 cyclosporine 100 mg PO BID 04/20/20 04/21/20 lacosamide [Vimpat] 200 mg PO Q12H 04/20/20 04/21/20 Allergies Allergy/AdvReac Type Severity Reaction Status Date / Time No Known Allergies Allergy Unverified 02/14/15 15:35 Review of Systems Review of Systems: All systems reviewed & are unremarkable except as noted in HPI and below Constitutional: Constitutional: Reports as per HPI, Reports chills, Reports fatigue, Denies fever(s), Denies headache(s) and Reports weakness Eyes: Eyes: Reports no additional eye complaints ENT: Reports as per HPI, Denies vertigo, Denies dizziness, Denies headache(s), Denies nasal congestion and Denies sore throat Cardiovascular: Cardiovascular: Reports no additional cardiovascular complaints, Denies chest pain, Denies syncope, Denies rapid heart rate and Denies dyspnea Respiratory: Respiratory: Reports as per HPI, Reports cough, Reports dyspnea and Reports wheezing Gastrointestinal: Gastrointestinal: Reports no additional gastrointestinal complaints, Denies abdominal pain, Denies diarrhea, Denies nausea and Denies vomiting Musculoskeletal: Musculoskeletal: Reports as per HPI, Reports myalgias and Denies numbness Integumentary/Breasts: Skin/Breast: Reports system reviewed and no additional complaints, except as docu Neurologic: Reports system reviewed and no additional complaints, except as documented, Denies vertigo, Denies dizziness, Denies syncope, Denies headache(s), Denies focal weakness and Denies numbness Psychiatric: Psychiatric: Reports no additional psychiatric complaints Allergic/Immunologic: Allergic/Immunologic: Reports no additional allergic/immunologic complaints [facility] Past Medical History Medical History Bronchitis COPD (chronic obstructive pulmonary disease) CVA (cerebral vascular accident) Depression Encephalopathy ESRD (end stage renal disease) Hepatitis C Status post treatment History of renal dialysis HLD (hyperlipidemia) IBS (irritable bowel syndrome) Peripheral neuropathy Pneumonia Seizures Surgical History Surgical History History of cholecystectomy Liver transplant recipient Liver transplanted Family History Family History Father Family history of heart disease in male family member before age 55 Mother Family history of liver disease Social History Social History Social History: Independent, family shares responsibility around the house including buying groceries. Smoking packs per day: 1 Smoking cigarettes per day: 20.0 Years smoked: 23 Smoking pack-years: 23.00 Smoking status: Former smoker Second hand tobacco smoke exposure: No Smoking end date: 04/24/96 Alcohol intake: former Alcohol use details: Quit 1996 Substance use: never Additional living arrangements comments: Lives with , sister, si
== END 2021-05-17 09:23 | disposition short-term general hospital (02) ==
LOC: EXPCOLL 08:45
PROVIDERS: Emergency Provider Nurse Practitioner; PCP Physician Assistant
DX: R06.02 Shortness of breath (principal); Z87.891 Personal history of nicotine dependence; J44.9 Chronic obstructive pulmonary disease, unspecified; Z86.73 Personal history of transient ischemic attack (TIA), and cerebral infarction without residual deficits; G40.909 Epilepsy, unspecified, not intractable, without status epilepticus; E78.5 Hyperlipidemia, unspecified; G62.9 Polyneuropathy, unspecified; Z94.4 Liver transplant status
CPT/HCPCS: 99212; G0463

== ENCOUNTER 2021-07-25 07:44 | Inpatient (IN) | payer MEDICARE, SELFPAY ==
[2021-07-25] VITALS (28 sets, daily range): BP systolic 104–153; BP diastolic 66–85; PULSE 80–100; RESP 0–27; TEMP 36.8–37.4; O2SAT 89–96; BMI 38.2
--- NOTE | ~2021-07-25 | XR_ITS ---
EXAMINATION: XR chest 1V portable INDICATION: Right-sided weakness TECHNIQUE: Portable AP chest at 0814 hours COMPARISON: 04/20/2020 FINDINGS: There is mild atelectasis of the lung bases. No pleural effusion or pneumothorax is identif ied. The cardiomediastinal silhouette is normal. IMPRESSION: 1. Mild atelectasis of the lung bases. Reviewed, dictated and finalized at location A.
--- NOTE | ~2021-07-25 | MR_ITS ---
EXAMINATION: MR brain/brain stem wo/w con DATE: 07/26/2021 12:16 INDICATION: Right hemiparesis. Seizure. TECHNIQUE: Magnetic resonance imaging (MRI) of the brain and brainstem was performed without and with 20 mL MultiHance intravenous contrast. Sequences included sagittal and axial T1-weighted FSE, axial diffusion-weighted FS EPI, axial T2*-weighted GRE, axial T2-weighted FLAIR Propeller, and axial T2-we ighted Propeller. Postcontrast sequences included axial and coronal T1-weighted FSE. Apparent diffusi on coefficient (ADC) maps were created. COMPARISON: Brain MRI 02/20/2015, head CT 07/25/2021 FINDINGS: There is chronic asymmetry mild volume loss in left parietal lobe. There is an old lacunar infarct in right caudate nucleus. There are scattered areas of nonspecific increased T2-weighted sign al intensity in the cerebral white matter. There is no intracranial hemorrhage, acute infarction, or abnormal intracranial mass lesion. The ventricles are normal in size. The mastoid air cells are raymon l. There is mucosal thickening in the paranasal sinuses. The orbits are normal. IMPRESSION: 1. Stable mild nonspecific cerebral white matter disease, which likely represents chronic small vesse l ischemic disease. 2. Old lacunar infarct in right caudate nucleus. 3. Chronic asymmetric mild volume loss of left parietal lobe. Reviewed, dictated and finalized at location A. IMPRESSION: 1. Stable mild nonspecific cerebral white matter disease, which likely represen ts chronic small vessel ischemic disease. 2. Old lacunar infarct in right caudate nucleus. 3. Chronic asymmetric mild volume loss of left parietal lobe.
--- NOTE | ~2021-07-25 | CT_ITS ---
EXAMINATION: CT brain wo con EXAM DATE: 07/27/2021 16:17 INDICATION: Seizures. TECHNIQUE: Spiral CT of the head was performed without contrast. Axial, coronal and sagittal images were reviewed. The dose-length product (DLP) for this examination was 681.00 mGy-cm. The exposure w as tailored according to patient size, and iterative reconstruction (ASIR) was used as additional dos e reduction technique. Comparison is made to prior examination from 07/25/2021. FINDINGS: There is no acute intraparenchymal hemorrhage. No evidence of intraparenchymal brain mass lesion. No evidence of acute infarction. Please note that initial head CT has limited sensitivity f or small or acute infarctions. There is mild to moderate periventricular and subcortical hypodensity, nonspecific but probably related to small vessel ischemic disease. There is ventricular prominence out of proportion to sulci which is suspected most likely central atrophy rather than hydrocephalus. Normal pressure hydrocephalus cannot be excluded (clinical triad ataxia/gait disturbance, dementia, urinary incontinence). There is intracranial carotid arteriosclerosis. There are no extra-axial c ollections. There is no mass effect or midline shift. The orbits are unremarkable. Soft tissue is unremarkable. Moderate ethmoid mucoperiosteal thickening. IMPRESSION: 1. No acute intracranial findings or interval change. 2. Chronic age related findings. Reviewed, dictated and finalized at location A.
--- NOTE | ~2021-07-25 | CT_ITS ---
EXAMINATION: CTA brain carotid DATE: 07/25/2021 09:16 INDICATION: Weakness, intermittent aphasia, confusion TECHNIQUE: Computed tomographic angiography (CTA) of the head was performed without and with 100 mL O mnipaque-350 intravenous contrast. CTA of the neck was performed with intravenous contrast. The dose- length product was 1859.35 mGy-cm. Maximum intensity projection and volume rendered 3D-reconstruction s were created by the technologist on a separate workstation. Automated exposure control and iterativ e reconstruction technique were employed. COMPARISON: 04/20/2020 FINDINGS: HEAD CTA: There is no acute intraparenchymal hemorrhage. No evidence of mass lesion. No evidence of a cute infarction. There is mild periventricular and subcortical hypodensity probably related to small vessel ischemic disease. There is mild prominence of the sulci and ventricles related to cerebral atr ophy. Intracranial calcified cerebral atherosclerosis is noted. There are no extra-axial collections. There is no mass effect or midline shift. The orbits and soft tissues are unremarkable. The visualiz ed sinuses and mastoid air cells are well aerated. There is no significant stenosis of the basilar artery or posterior cerebral arteries. There is no si gnificant stenosis of the intracranial internal carotid arteries or the anterior or middle cerebral a rteries. The anterior communicating artery and right posterior communicating arteries are normal. The left posterior communicating arteries hypoplastic. There is no aneurysm. NECK CTA: The thyroid gland is unremarkable. The submandibular and parotid glands are symmetric. Ther e is no lymphadenopathy. There are no masses identified. The airway is unremarkable. There is moderat e cervical spondylosis. The superior mediastinum is unremarkable. There is 39% stenosis of the proximal right internal carotid artery relative to normal distal artery lumen diameter (NASCET criteria). There is 0% stenosis of the proximal left internal carotid artery r elative to normal distal artery lumen diameter. IMPRESSION: 1. No acute intracranial abnormality. Unremarkable head CTA. 2. 39% stenosis of the proximal right internal carotid artery relative to normal distal artery lumen diameter (NASCET criteria). 3. 0% stenosis of the proximal left internal carotid artery relative to normal distal artery lumen di ameter. 4. Age-related changes. Reviewed, dictated and finalized at location A. IMPRESSION: 1. No acute intracranial abnormality. Unremarkable head CTA. 2. 39% stenosis of the proximal right internal carotid artery relative to raymon l distal artery lumen diameter (NASCET criteria). 3. 0% stenosis of the proximal left internal carotid artery relative to normal distal artery lumen diameter. 4. Age-related changes.
--- NOTE | 2021-07-25 07:59 | PC.NURSE ---
Dr. Patel at bedside to assess pt.
--- NOTE | 2021-07-25 08:03 | ECG_ITS ---
Measurements Intervals [place] Rate: 88 P: 46 OR: 145 QRS: -4 QRSD: 114 T: 31 QT: 342 QTc: 415 Interpretive Statements SINUS RHYTHM INCOMPLETE RIGHT BUNDLE BRANCH BLOCK [90+ ms QRS DURATION, TERMINAL R IN V1/V2, 40+ ms S IN I/aVL/V4/V5/V6] BASELINE ARTIFACT ST DEVIATION AND MODERATE T-WAVE ABNORMALITY, CONSIDER ANTEROLATERAL ISCHEMIA [-0.1+ mV T WAVE IN V3-V6] COMPARED TO ECG 04/20/2020 13:10:14 NO SIGNIFICANT CHANGES Electronically Signed On 07-25-2021 16:19:50 CDT by Joel Murillo M.D.
--- NOTE | 2021-07-25 08:05 | ED.NEUROSD ---
HPI - Neuro Symptoms/Deficit General Chief Complaint: Neuro Symptoms/Deficit Stated Complaint: confusion, vision change, weakness rt side x 3 day Time Seen by Provider: 07/25/21 07:56 Source: patient and family Mode of arrival: ambulatory Limitations: no limitations History of Present Illness HPI Narrative: 61-year-old male presents to emergency room accompanied by his . He comes in secondary to weakness to the right side of his body with difficulty in speaking from time to times been gone for approximately 3 days. Apparently has underlying history of epilepsy. He sounds like he may have had some TIAs in the past has had a work-up and evaluation. He is having difficulty at this time ambulating at all without assistance. He is outside the window for any interventions at this been going on for a couple days. Patient has had a prior liver transplant. Denies any chills or fevers. Related Data Home Medications Medication Instructions Recorded Confirmed Aspir-81 1 tablet PO DAILY 10/28/19 04/21/20 gabapentin 800 mg PO TID 10/28/19 04/21/20 levetiracetam 1,500 mg PO BID 10/28/19 04/21/20 cyclosporine 100 mg PO BID 04/20/20 04/21/20 lacosamide [Vimpat] 200 mg PO Q12H 04/20/20 04/21/20 Allergies Allergy/AdvReac Type Severity Reaction Status Date / Time No Known Allergies Allergy Verified 07/25/21 08:28 Review of Systems Review of Systems: CONSTITUTIONAL: Denies fever, chills, or sweats. EYES: Denies visual changes, redness, or discharge. ENT: Denies rhinorrhea, congestion, sore throat, or otalgia. CARDIOVASCULAR: Denies chest pain, palpitations, or edema. RESPIRATORY: Denies cough or dyspnea. GASTROINTESTINAL: Denies abdominal pain, nausea, vomiting, or diarrhea. GENITOURINARY: Denies dysuria or hematuria. SKIN: Denies rash or itching. MUSCULOSKELETAL: Denies back pain, joint pain, or myalgia. NEUROLOGIC: Complaining of nonspecific headache. Also having weakness to the right side of his body and difficulty in eating from time to time PSYCHIATRIC: Denies anxiety or depression. [facility] Past Medical History Medical History Bronchitis COPD (chronic obstructive pulmonary disease) CVA (cerebral vascular accident) Depression Encephalopathy ESRD (end stage renal disease) Hepatitis C Status post treatment History of renal dialysis HLD (hyperlipidemia) IBS (irritable bowel syndrome) Peripheral neuropathy Pneumonia Seizures Surgical History Surgical History History of cholecystectomy Liver transplant recipient Liver transplanted Family History Family History Father Family history of heart disease in male family member before age 55 Mother Family history of liver disease Social History Social History Social History: Independent, family shares responsibility around the house including buying groceries. Smoking packs per day: 1 Smoking cigarettes per day: 20.0 Years smoked: 23 Smoking pack-years: 23.00 Smoking status: Former smoker Second hand tobacco smoke exposure: No Smoking end date: 04/24/96 Alcohol intake: former Alcohol use details: Quit 1996 Substance use: never Additional living arrangements comments: Lives with , sister, [id number] Gender identity (if verbalized by the patient): Male Sexual Orientation (if Verbalized by the Patient): Straight or Heterosexual Spiritual care concerns: No Exam Narrative: APPEARANCE: Well appearing, no pain in distress. It is obese Head normocephalic atraumtaic. EYES: PERRLA/EOMI, conjunctivae very clear. NOSE: Normal no drainage EARS:TMS clear Liz Guevara, with good light reflex. THROAT: Pharynx clear, no exudate. NECK: Supple. No adenopathy, no masses. RESPIRATORY: Airway patent, repsirations nonlabored. Clear
--- NOTE | 2021-07-25 08:11 | PC.NURSE ---
Radiology at bedside for chest xray.
[2021-07-25 08:13] LABS: Basophils Absolute Auto 0.1 K/mm3 (0.0-0.1); Basophils Percent Auto 0.5 % (0.2-1.2); Eosinophils Absolute Auto 0.4 K/mm3 (0-0.3); Eosinophils Percent Auto 4.1 % (0-4.4); Hematocrit 45.1 % (42.0-52.0); Hemoglobin 15.1 g/dL (14.0-18.0); Immature Granulocyte Absolute 0.09 K/mm3 (0.00-0.031); Immature Granulocyte Percent A 0.8 % (0-0.5); Lymphocytes Absolute Auto 3.28 K/mm3 (0.9-3.2); Lymphocytes Percent Auto 30.8 % (18.3-44.2); Mean Corpuscular HGB Conc 33.5 g/dl (32-36); Mean Corpuscular Hemoglobin 30.4 pg (26-34); Mean Corpuscular Volume 90.9 fl (80-100); Mean Platelet Volume 9.8 fl (7.4-10.4); Monocytes Absolute Auto 0.9 K/mm3 (0.1-0.6); Monocytes Percent Auto 8.1 % (2.6-8.5); Neutrophils Absolute Auto 5.9 K/mm3 (1.3-6.7); Neutrophils Percent Auto 55.7 % (45.5-73.1); Platelet Count Result 225 k/mm3 (150-375); Red Blood Count 4.96 M/mm3 (4.6-6.20); Red Cell Distribution Width 12.4 % (11.5-14.5); White Blood Count 10.6 K/mm3 (4.5-10.0)
[2021-07-25 08:22] LABS: Prothrombin Time 12.8 Seconds (11.1-14.7)
[2021-07-25 08:23] LABS: Partial Thromboplastin Time 21.8 SECONDS (22.3-36.8)
[2021-07-25 08:25] LABS: Alanine Aminotransferase 24 U/L (4-50); Albumin Level 3.9 g/dL (3.5-5.1); Alkaline Phosphatase 147 U/L (38-126); Anion Gap 7 mmol/L (8-16); Aspartate Amino Transferase 23 U/L (17-59); Bilirubin,Total 0.4 mg/dL (0.2-1.3); Blood Urea Nitrogen 10 mg/dL (9-20); Carbon Dioxide 26 mmol/L (22-30); Chloride 102 mmol/L (98-107); Estimated Glomerular Filt Rate > 60; Glucose 135 mg/dL (65-110); Potassium 3.6 mmol/L (3.4-5.0); Sodium 135 mmol/L (137-145)
[2021-07-25 08:35] LABS: Troponin I < 0.012 ng/mL (0.000-0.034)
--- NOTE | 2021-07-25 09:01 | PC.NURSE ---
Patient off unit to Radiology for head CT.
--- NOTE | 2021-07-25 09:27 | PC.NURSE ---
patient returned from CT. Resting comfortably in stretcher with at bedside. No requests or complaints at this time. Awaiting results. Will continue to monitor.
[2021-07-25] MEDS: ONDANSETRON INJ 4 MG/2 ML VIAL IV PUSH (10:07)
[2021-07-25] MEDS: ASPIRIN 81 MG CHEWABLE TABLET (12:02)
[2021-07-25] MEDS: CLOPIDOGREL BISULFATE 75 MG TABLET (12:03)
--- NOTE | 2021-07-25 12:46 | ADMGEN ---
This patient, Yonis Boone, was admitted to [facility] Room 325-01 at 1245. Patient/family oriented to hospital policies and general routines including ID bracelet, bed and alarms, visiting hours, pain management, procedures, bathroom and other care routines, personal items, smoking policy, room service/diet, and visiting hours. Information on how to activate the Rapid Response Team has been discussed. Patient/Family are encouraged to report perceived risks to care and to ask questions if they do not understand what they are told or what they should do.
--- NOTE | 2021-07-25 13:20 | PM.IMHP ---
H&P: HPI History of Present Illness Date/Time: 07/25/21 13:20 Chief Complaint: Right side weakness. Narrative: This is a 61-year-old male with history of stroke, seizures, herpes encephalitis, COPD, and cirrhosis with hepatitis C status post liver transplant in 2007 who presented to the emergency department for evaluation of right sided weakness for the last 3 days. He has mild residual right-sided weakness from a previous stroke but his weakness has become more pronounced. Additionally he has had some periods of confusion, intermittent slurred speech, and he has had a mild headache for about 3 days. Aside from just feeling off, he cannot really provide any other specific details. was concerned that he may have had another stroke though a CTA of the head and neck done on arrival showed no acute abnormalities despite having symptoms for the last 3 days. He states compliance with his anti seizure medications and she does not think he has had a seizure over the last several days. At the time my evaluation his only complaint is that of a continued, mild diffuse headache. He is also hungry and is asking for a food tray. He denies visual changes, paresthesias, dysphagia, fever, chills, sweats, cold and flu symptoms, chest pain, pleuritic pain, palpitations, nausea, vomiting, diarrhea, and dysuria. He has not had any recent falls. Review of Systems Review of Systems: Twelve systems are reviewed and are negative except for as per HPI. [facility] Past Medical History Medical History (Updated 07/25/21 @ 19:22 by Sariah Covarrubias PA-C) Cerebrovascular accident (2011) Mild right sided weakness. Chronic obstructive pulmonary disease Depression Hepatitis C Status post liver transplant in 2007 followed by successful hepatitis C treatment in 2013. Herpes encephalitis History of renal dialysis Hyperlipidemia Irritable bowel syndrome Peripheral neuropathy Pneumonia Renal failure Required dialysis before liver transplant. Seizures Surgical History Surgical History History of cholecystectomy History of liver transplant (2007) For cirrhosis and hepatitis C. Family History Family History Father Family history of heart disease in male family member before age 55 Mother Family history of liver disease Sibling Diabetes mellitus Social History Social History (Updated 07/25/21 @ 19:16 by Sariah Covarrubias PA-C) Social History: Surrogate decision maker: Elyse Boone, . Code status: Full code. Smoking packs per day: 1 Smoking cigarettes per day: 20.0 Years smoked: 23 Smoking pack-years: 23.00 Smoking status: Former smoker Second hand tobacco smoke exposure: No Additional smoking assessment comments: Quit in 1997. Alcohol intake: former Alcohol use details: Quit in 1996. Substance use: never Additional living arrangements comments: Lives with , sister, [id number]. Spiritual care concerns: No Meds Home Medications and Allergies Home Medications Medication Instructions Recorded Confirmed Type Aspir-81 1 tablet PO DAILY 10/28/19 07/25/21 History gabapentin 800 mg PO TID 10/28/19 07/25/21 History levetiracetam 1,500 mg PO BID 10/28/19 07/25/21 History cyclosporine 100 mg PO BID 04/20/20 07/25/21 History lacosamide [Vimpat] 200 mg PO Q12H 04/20/20 07/25/21 History phenytoin sodium extended 100 mg 100 mg PO QID #120 cap 09/23/20 07/25/21 Rx capsule cyclosporine 25 mg PO BID 07/25/21 07/25/21 History Allergies Allergy/AdvReac Type Severity Reaction Status Date / Time No Known Allergies Allergy Verified 07/25/21 08:28 Vital Signs Vital Signs - 24 hr 07/25/21 07:55 07/25/21 08:04 07/25/21 08:09 Pulse Rate 91 90 Respiratory Rate 20 27 H Blood Pressure 104/66 Pulse Oximetry 92 92 96 07/25/21 08:15 07/25/21 08:30 07/25/21 08:31 Pulse Rate 82
--- NOTE | 2021-07-25 14:47 | WPDNEURCNPN ---
Assessment and Plan Additional Plan 1 history of right-sided weakness in addition to the history of multiple neurological problem in the past as mention will need the MRI of the brain to document the recurrence of intracranial pathology 2 EEG to document the seizure from the previous stroke and herpes encephalitis Consult date: 07/25/21 HPI: Yonis Boone is a 61 year old male admitted to the hospital for the complaints of right-sided weakness in addition to the history of 1. Previous stroke 2. Seizures 3. Herpes encephalitis 4. COPD 5. Cirrhosis with hepatitis-C and status post liver transplant in 2007. Past history consistent with the stroke in 2011 along with COPD, years smoked 23 his smoking pack years of 23 but former smoker and also former alcohol intake, taking aspirin 81 mg daily along with Keppra 1500 mg twice a day gabapentin 800 mg 3 times a day lacosamide 200 mg q.12 hours and Dilantin 100 mg q.i.d. evaluation documented normal CBC normal basic metabolic panel, head neck CTA unremarkable with 39% stenosis of the proximal right internal carotid artery Review of Systems Review of Systems: All systems reviewed & are unremarkable except as noted in HPI and below PMFSH Past Medical History Medical History Cerebrovascular accident (2011) Mild right sided weakness. Chronic obstructive pulmonary disease Depression Hepatitis C Status post liver transplant in 2007 followed by successful hepatitis C treatment in 2013. Herpes encephalitis History of renal dialysis Hyperlipidemia Irritable bowel syndrome Peripheral neuropathy Pneumonia Renal failure Required dialysis before liver transplant. Seizures Surgical History Surgical History History of cholecystectomy History of liver transplant (2007) For cirrhosis and hepatitis C. Family History Family History Father Family history of heart disease in male family member before age 55 Mother Family history of liver disease Sibling Diabetes mellitus Social History Social History Social History: Surrogate decision maker: Code status: Full code. Smoking packs per day: 1 Smoking cigarettes per day: 20.0 Years smoked: 23 Smoking pack-years: 23.00 Smoking status: Former smoker Second hand tobacco smoke exposure: No Additional smoking assessment comments: Quit in 1997. Alcohol intake: former Alcohol use details: Quit in 1996. Substance use: never Additional living arrangements comments: Lives with , sister, [id number]. Gender identity (if verbalized by the patient): Male Sexual Orientation (if Verbalized by the Patient): Straight or Heterosexual Spiritual care concerns: No Meds Home Medications and Allergies Home Medications Medication Instructions Recorded Confirmed Type Aspir-81 1 tablet PO DAILY 10/28/19 07/25/21 History gabapentin 800 mg PO TID 10/28/19 07/25/21 History levetiracetam 1,500 mg PO BID 10/28/19 07/25/21 History cyclosporine 100 mg PO BID 04/20/20 07/25/21 History lacosamide [Vimpat] 200 mg PO Q12H 04/20/20 07/25/21 History phenytoin sodium extended 100 mg 100 mg PO QID #120 cap 09/23/20 07/25/21 Rx capsule cyclosporine 25 mg PO BID 07/25/21 07/25/21 History Allergies Allergy/AdvReac Type Severity Reaction Status Date / Time No Known Allergies Allergy Verified 07/25/21 08:28 Vital Signs Vital Signs - 24 hr 07/25/21 07:55 07/25/21 08:04 07/25/21 08:09 Pulse Rate 91 90 Respiratory Rate 20 27 H Blood Pressure 104/66 Pulse Oximetry 92 92 96 07/25/21 08:15 07/25/21 08:30 07/25/21 08:31 Pulse Rate 82 83 80 Respiratory Rate 21 H 22 H 26 H Blood Pressure 115/77 Pulse Oximetry 91 89 L 07/25/21 08:32 07/25/21 08:45 07/25/21 08:47 Pulse Rate 82 84 82 Respiratory Rate
[2021-07-25] MEDS: ACETAMINOPHEN 325 MG TABLET 650 MG PO (15:42)
[2021-07-25 16:07] LABS: Phenytoin Dilantin 12 ug/mL (10-20)
[2021-07-25] MEDS: ALBUTEROL SULFATE NEB 2.5 MG/0.5 ML INH INHALATION (19:43)
[2021-07-25] MEDS: IPRATROPIUM BR 0.02% INH SOLN 0.5 MG/2.5 ML VIAL INHALATION (19:43)
[2021-07-25 21:04] LABS: Glucose Point of Care 120 mg/dl (65-105)
[2021-07-25] MEDS: LORazepam INJ (*CRX) 2 MG/ML VIAL IV PUSH (21:31)
[2021-07-26] VITALS (12 sets, daily range): BP systolic 118–140; BP diastolic 62–80; PULSE 81–105; RESP 18–24; TEMP 36.3–37; O2SAT 93–94
[2021-07-26] MEDS: GABAPENTIN 400 MG CAPSULE 800 MG PO ×3 (05:13→20:22)
[2021-07-26 06:07] LABS: Hematocrit 45.8 % (42.0-52.0); Hemoglobin 15.5 g/dL (14.0-18.0); Mean Corpuscular HGB Conc 33.8 g/dl (32-36); Mean Corpuscular Hemoglobin 30.5 pg (26-34); Mean Platelet Volume 9.7 fl (7.4-10.4); Platelet Count Result 222 k/mm3 (150-375); Red Blood Count 5.09 M/mm3 (4.6-6.20)
[2021-07-26 06:09] LABS: Anion Gap 6 mmol/L (8-16); Blood Urea Nitrogen 8 mg/dL (9-20); Calcium 8.7 mg/dL (8.4-10.2); Carbon Dioxide 28 mmol/L (22-30); Chloride 99 mmol/L (98-107); Estimated CRCL calculation 151 ml/min; Estimated Glomerular Filt Rate > 60; Glucose 136 mg/dL (65-110); Magnesium 1.9 mg/dL (1.6-2.3); Potassium 3.6 mmol/L (3.4-5.0); Sodium 133 mmol/L (137-145)
[2021-07-26] MEDS: UMECLIDINIUM BROMIDE 62.5 MCG ELLIPTA 1 PUFF INHALATION (08:17)
[2021-07-26] MEDS: PHENYTOIN SODIUM 100 MG EXTENDED RELEASE CAP 400 MG PO (09:12)
[2021-07-26] MEDS: predniSONE 20 MG TABLET PO (09:12)
[2021-07-26] MEDS: LACOSAMIDE (*CRX) 200 MG TABLET PO ×2 (09:16→20:33)
--- NOTE | 2021-07-26 10:04 | PM.IMPN ---
Progress Note: A&P Assessment and Plan (1) Difficulty speaking: Code(s): R47.9 - Unspecified speech disturbances Status: Acute Assessment and Plan: Concern for TIA/stroke Pending MRI of the brain Neurology following Pending EEG (2) Right sided weakness: Code(s): R53.1 - Weakness Status: Acute Assessment and Plan: CTA of the head negative for acute stroke Patient passed the window for tPA Pending MRI of the brain Pending EEG (3) Headache: Code(s): R51.9 - Headache, unspecified Status: Acute Assessment and Plan: Pain control (4) Seizures: Code(s): R56.9 - Unspecified convulsions Status: Acute Assessment and Plan: Continue home medication follow Keppra level and Dilantin level At home patient on Vimpat phenytoin and Keppra (5) Liver transplant recipient: Code(s): Z94.4 - Liver transplant status Status: Acute Assessment and Plan: Continue cyclosporin check cyclosporine level (6) Chronic obstructive pulmonary disease: Code(s): J44.9 - Chronic obstructive pulmonary disease, unspecified Status: Chronic Assessment and Plan: With acute exacerbation nebulizer treatment steroid antibiotic At home patient on 20 mg p.o. daily of steroid was held Plan to resume once lung function improve and DCd IV steroid Subjective Date/time seen: 07/26/21 10:04 Interval history: 61-year-old male with history of stroke, seizures, herpes encephalitis, COPD, and cirrhosis with hepatitis C status post liver transplant in 2007 who presented to the emergency department for evaluation of right sided weakness for the last 3 days Neurology was consulted CTA of the head was negative for acute stroke positive for mild coronary artery disease MRI of the brain EEG pending Also patient has COPD exacerbation started on nebulizer treatment steroid and antibiotic on 07/26/2021 Patient feels weak complain of cough and shortness of breath still have right-sided weakness Patient denies fever headache chest pain I am seeing the patient for right-sided weakness Exam Narrative: Alert Chest bilateral wheezing crackles Abdomen nontender nondistended CVS S1 + S2 Neurology right-sided weakness Negative Lower extremity edema Objective Data Vital Signs Vital Signs: Vital Signs - 24 hr 07/25/21 10:17 07/25/21 10:32 07/25/21 10:47 Temperature Pulse Rate Respiratory Rate Blood Pressure 143/75 H 134/68 136/78 Pulse Oximetry 04/03/22 12:26 07/25/21 12:30 07/25/21 14:00 Temperature 99.3 F Pulse Rate 100 95 97 Respiratory Rate 26 H 19 20 Blood Pressure 120/81 Pulse Oximetry 93 93 94 07/25/21 16:00 07/25/21 19:47 07/25/21 19:48 Temperature Pulse Rate 91 94 Respiratory Rate 22 H Blood Pressure Pulse Oximetry 92 07/25/21 20:00 07/25/21 22:00 07/26/21 00:00 Temperature 98.3 F Pulse Rate 100 87 100 Respiratory Rate 20 Blood Pressure 147/84 H Pulse Oximetry 93 07/26/21 04:00 07/26/21 06:00 07/26/21 08:18 Temperature 97.8 F Pulse Rate 105 H 89 Respiratory Rate 20 Blood Pressure 140/70 Pulse Oximetry 94 93 Intake/Output Intake/Output: Intake & Output 07/23/21 07/24/21 07/25/21 07/26/21 23:59 23:59 23:59 23:59 Intake Total 235 100 Output Total 200 Balance 35 100 Meds/Results Medications: Active Medications Generic Name Dose Route Start Last Admin Trade Name Freq PRN Reason Stop Dose Admin Acetaminophen 650 mg 07/25/21 15:28 07/25/21 15:42 Acetaminophen 325 Mg Tablet PO 650 mg Q6H PRN Administration Mild Pain (1-3) or Fever Albuterol 2.5 mg 07/26/21 10:01 Albuterol Sulfate Neb 2.5 Mg/0.5 Ml Inh INHALATION Q6HRT PRN Shortness Of Breath Aspirin 81 mg 07/26/21 09:00 07/25/21 12:37 Aspirin 81 Mg Enteric Tablet PO Not Given QAM [facility] Clopidogrel Bisulfate 75 mg 07/26/21 09:00 07/25/21 12:37 Clopidogrel Bis
[2021-07-26] MEDS: methylPREDNISolone SOD SUCC 40 MG VIAL IV PUSH ×2 (14:52→20:27)
[2021-07-26] MEDS: IPRATROPIUM BR 0.02% INH SOLN 0.5 MG/2.5 ML VIAL INHALATION (21:06)
[2021-07-27] VITALS (22 sets, daily range): BP systolic 122–138; BP diastolic 21–83; PULSE 76–111; RESP 15–22; TEMP 35.9–37.5; O2SAT 90–97
[2021-07-27] MEDS: IPRATROPIUM BR 0.02% INH SOLN 0.5 MG/2.5 ML VIAL INHALATION ×4 (02:47→21:11)
[2021-07-27] MEDS: methylPREDNISolone SOD SUCC 40 MG VIAL IV PUSH (05:35)
[2021-07-27] MEDS: GABAPENTIN 400 MG CAPSULE 800 MG PO ×3 (05:35→21:15)
[2021-07-27] MEDS: MAGNESIUM SULF 2 GM/WATER 50ML 2 GM/50 ML BAG IVPB (07:55)
[2021-07-27] MEDS: POTASSIUM CHLORIDE INJ 40 MEQ in SODIUM CHLORIDE 0.9% IV 500 ML 130 MEQ IVPB (07:55)
[2021-07-27 07:58] LABS: Alveolar/Arterial O2 Gradient 47.1 mmHg; Base Excess ABG -5.4 mEq/l (+/-2.0); Fractional Inspired Oxygen 21 %; HCO3 ABG 19.5 mEq/l (22.0-26.0); Oxygen Content ABG 20.1 %vol (16.0-22.0); Oxygen Saturation ABG 89.3 % (95.0-100.0); Oxyhemoglobin 88.9 % THb (90.0-100.0); PCO2 ABG 36.7 mmHg (35.0-45.0); PO2 ABG 58.7 mmHg (80.0-100.0); Total Hemoglobin 16.1 g/dL (12.0-18.0); pH ABG 7.344 (7.350-7.450)
[2021-07-27 07:59] LABS: Device ROOM AIR; Modified Allen's Test Pass; Site Drawn RIGHT RADIAL
[2021-07-27 08:07] LABS: Basophils Percent Auto 0.2 % (0.2-1.2); Eosinophils Absolute Auto 0.1 K/mm3 (0-0.3); Eosinophils Percent Auto 0.5 % (0-4.4); Hematocrit 45.4 % (42.0-52.0); Hemoglobin 15.7 g/dL (14.0-18.0); Immature Granulocyte Percent A 0.7 % (0-0.5); Lymphocytes Absolute Auto 3.06 K/mm3 (0.9-3.2); Mean Corpuscular HGB Conc 34.6 g/dl (32-36); Mean Corpuscular Hemoglobin 30.8 pg (26-34); Mean Corpuscular Volume 89.2 fl (80-100); Mean Platelet Volume 9.9 fl (7.4-10.4); Monocytes Absolute Auto 1.1 K/mm3 (0.1-0.6); Monocytes Percent Auto 7.6 % (2.6-8.5); Neutrophils Absolute Auto 10.2 K/mm3 (1.3-6.7); Platelet Count Result 236 k/mm3 (150-375); Red Blood Count 5.09 M/mm3 (4.6-6.20); Red Cell Distribution Width 11.8 % (11.5-14.5); White Blood Count 14.6 K/mm3 (4.5-10.0)
[2021-07-27 08:11] LABS: Ammonia 14 umol/L (9-30)
[2021-07-27 08:17] LABS: Alkaline Phosphatase 160 U/L (38-126); Anion Gap 14 mmol/L (8-16); Aspartate Amino Transferase 30 U/L (17-59); Bilirubin,Total 0.5 mg/dL (0.2-1.3); Blood Urea Nitrogen 14 mg/dL (9-20); Calcium 8.9 mg/dL (8.4-10.2); Carbon Dioxide 20 mmol/L (22-30); Chloride 101 mmol/L (98-107); Estimated CRCL calculation 131 ml/min; Estimated Glomerular Filt Rate > 60; Glucose 125 mg/dL (65-110); Potassium 3.7 mmol/L (3.4-5.0); Sodium 135 mmol/L (137-145)
[2021-07-27 08:27] LABS: Alanine Aminotransferase 38 U/L (4-50)
[2021-07-27] MEDS: UMECLIDINIUM BROMIDE 62.5 MCG ELLIPTA 1 PUFF INHALATION (08:28)
[2021-07-27] MEDS: ASPIRIN 81 MG ENTERIC TABLET PO (08:29)
[2021-07-27] MEDS: PHENYTOIN SODIUM 100 MG EXTENDED RELEASE CAP 400 MG PO (08:29)
[2021-07-27] MEDS: CLOPIDOGREL BISULFATE 75 MG TABLET PO (08:30)
[2021-07-27] MEDS: LACOSAMIDE (*CRX) 200 MG TABLET PO ×2 (08:32→21:27)
--- NOTE | 2021-07-27 09:10 | PM.IMPN ---
Progress Note: A&P Assessment and Plan (1) Difficulty speaking: Code(s): R47.9 - Unspecified speech disturbances Status: Acute Assessment and Plan: Concern for TIA/stroke Pending MRI of the brain Neurology following Pending EEG (2) Right sided weakness: Code(s): R53.1 - Weakness Status: Acute Assessment and Plan: CTA of the head negative for acute stroke Patient passed the window for tPA Pending MRI of the brain Pending EEG (3) Headache: Code(s): R51.9 - Headache, unspecified Status: Acute Assessment and Plan: Patient has history of herpes encephalitis will discuss with Nephrology may need LP and possible acyclovir Patient had multiple episodes of seizure on the morning of 07/27/2021 (4) Seizures: Code(s): R56.9 - Unspecified convulsions Status: Acute Assessment and Plan: Continue home medication follow Keppra level pending and Dilantin level Dilantin level will be checked on 6th and on the 8th monitor closely to follow-up Dilantin level following provider to continue to follow up on the Dilantin level and to ordered At home patient on Vimpat phenytoin and Keppra Patient had multiple episode of seizure on the morning of 07/27/2021 (5) Liver transplant recipient: Code(s): Z94.4 - Liver transplant status Status: Acute Assessment and Plan: Continue cyclosporin pending cyclosporine level (6) Chronic obstructive pulmonary disease: Code(s): J44.9 - Chronic obstructive pulmonary disease, unspecified Status: Chronic Assessment and Plan: With acute exacerbation nebulizer treatment antibiotic Resume home dose of prednisone Subjective Date/time seen: 07/27/21 09:10 Interval history: 61-year-old male with history of stroke, seizures, herpes encephalitis, COPD, and cirrhosis with hepatitis C status post liver transplant in 2007 who presented to the emergency department for evaluation of right sided weakness for the last 3 days Neurology was consulted CTA of the head was negative for acute stroke positive for mild coronary artery disease MRI of the brain EEG pending Also patient has COPD exacerbation started on nebulizer treatment and antibiotic on 07/26/2021 Patient is more confused today had multiple episodes of seizure on 07/27/2021 Dilantin and Keppra was switched to IV Continue to monitor Dilantin level Dilantin level will be checked on 6th and on the 8th monitor closely to follow-up Dilantin level Patient has history of for herpes encephalitis will discuss with Neurology may need LP Patient denies fever headache chest pain I am seeing the patient for right-sided weakness Exam Narrative: Patient had episode of seizure 20 minutes before I sewed the patient in postictal state but moves all extremity Chest bilateral wheezing crackles Abdomen nontender nondistended CVS S1 + S2 Neurology sleepy tired Negative Lower extremity edema Objective Data Vital Signs Vital Signs: Vital Signs - 24 hr 07/26/21 12:00 07/26/21 14:00 07/26/21 16:00 Temperature 97.4 F L Pulse Rate 87 91 87 Respiratory Rate 20 Blood Pressure 137/80 Pulse Oximetry 94 07/26/21 20:00 07/26/21 21:06 07/26/21 21:14 Temperature Pulse Rate 84 91 81 Respiratory Rate 20 24 H 20 Blood Pressure Pulse Oximetry 94 93 07/26/21 22:00 07/27/21 00:00 07/27/21 02:48 Temperature 98.6 F Pulse Rate 89 81 84 Respiratory Rate 18 16 Blood Pressure 118/62 Pulse Oximetry 93 07/27/21 03:00 07/27/21 04:00 07/27/21 05:56 Temperature 97.3 F L Pulse Rate 86 76 84 Respiratory Rate 16 20 Blood Pressure 133/83 Pulse Oximetry 94 07/27/21 08:29 07/27/21 08:31 07/27/21 08:37 Temperature Pulse Rate 87 88 Respiratory Rate 16 16 Blood Pressure Pulse Oximetry 90 Intake/Output Intake/Output: Intake & Output 07/24/21 07/25/21 07/26/21 07/27/21 23:59 23:59 23:59 23:59 Intake Total 235 650 100
--- NOTE | 2021-07-27 09:40 | PCOTNOTE ---
Attempted to see patient for OT evaluation at 0930. When moving in bed, patient began to have a seizure at 0937 where he froze, stopped responding, moaning, and his eyes became jerky. This lasted about 30 seconds. RN aware and she advises to hold therapy for today. Will continue to attempt.
--- NOTE | 2021-07-27 10:02 | PCPTNOTE ---
Attempted to see patient for PT evaluation at 0945. Per OT, When moving in bed, patient began to have a seizure at 0937 where he froze, stopped responding, moaning, and his eyes became jerky. This lasted about 30 seconds. RN aware and she advises to hold therapy for today. Will continue to attempt.
--- NOTE | 2021-07-27 11:06 | WPDNEUROLOGY ---
Neurology EEG Report General Information Date of Study: 07/26/21 TEST eeg DIAGNOSIS Neurological symptoms CONDITION OF RECORDING drowsy and sleep EEG NUMBER [id number] CLINICAL HISTORY patient was unable to give much history other than he has seizures EEG DESCRIPTION basic resting occipital frequency consists of small amount of poorly organized 8 to 10 hertz per 2nd alpha admixed with 5 to 6 hertz per 2nd theta. Paroxysmal discharges seen over the left hemispheric linkages consisting of low to medium voltage sharp waves with dysrhythmic theta and delta activity. Right hemispheric 2 to 3 hertz per 2nd delta activity seen admixed with 5 to 7 hertz per 2nd theta. Intermittently left hemispheric 2 to 3 hertz per 2nd delta activities noted. Bilateral sleep activity is noted. Paroxysmal focal and lateralizing hyperventilation not done photic stimulation not done IMPRESSION abnormal record due to the presence of paroxysmal activity intermittent over the left hemispheric linkages in addition to the asymmetry of the background rhythm as well. Clinical correlation recommended these abnormalities are suggestive of underlying focal structural lesion with paroxysmal activity.
[2021-07-27] MEDS: ACYCLOVIR SODIUM IVPB 750 MG in DEXTROSE 5% IN WATER 250 ML 150 MG IVPB (12:51)
[2021-07-27] MEDS: diazePAM (*CRX) 2 MG TABLET PO (13:45)
--- NOTE | 2021-07-27 14:32 | PC.NURSE ---
On 07/27/21, the student, Coreen Garcia, provided care and completed [facility] documentation on this patient. I have reviewed the student's documentation and agree with the findings.
[2021-07-27] MEDS: levETIRAcetam 1000MG/NACL100ML 1,000 MG/100 ML BAG 400 MG IVPB (15:33)
--- NOTE | 2021-07-27 16:55 | WPDNEUROPN ---
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 Eeg very abnormal due to the presence of paroxysmal activity intermittently over the left hemisphere could very well be related to the herpes encephalitis in the past involving the left hemisphere has been taking gabapentin 800 mg 3 times a day, lacosamide 200 mg q.12 hours and levetiracetam 1500 mg b.i.d. in addition to phenytoin 400 mg daily, patient has been under the care of epilepsy program at [facility] on a regular basis will be adjusting the anticonvulsants for the time being and according Review of Systems Review of Systems: All systems reviewed & are unremarkable except as noted in HPI and below Objective Data Vital Signs Vital Signs: Vital Signs - 24 hr 07/26/21 20:00 07/26/21 21:06 07/26/21 21:14 Temperature Pulse Rate 84 91 81 Respiratory Rate 20 24 H 20 Blood Pressure Pulse Oximetry 94 93 07/26/21 22:00 07/27/21 00:00 07/27/21 02:48 Temperature 37.0 C Pulse Rate 89 81 84 Respiratory Rate 18 16 Blood Pressure 118/62 Pulse Oximetry 93 07/27/21 03:00 07/27/21 04:00 07/27/21 05:56 Temperature 36.3 C L Pulse Rate 86 76 84 Respiratory Rate 16 20 Blood Pressure 133/83 Pulse Oximetry 94 07/27/21 08:00 07/27/21 08:29 07/27/21 08:31 Temperature 36.5 C Pulse Rate 111 H 87 Respiratory Rate 20 16 Blood Pressure 138/82 Pulse Oximetry 91 90 07/27/21 08:37 07/27/21 09:51 07/27/21 12:00 Temperature Pulse Rate 88 90 87 Respiratory Rate 16 Blood Pressure Pulse Oximetry 07/27/21 12:14 07/27/21 13:15 07/27/21 13:25 Temperature 35.9 C L Pulse Rate 88 84 86 Respiratory Rate 16 16 16 Blood Pressure 131/76 Pulse Oximetry 94 07/27/21 14:00 07/27/21 16:00 07/27/21 16:45 Temperature 36.6 C 37.5 C Pulse Rate 95 88 86 Respiratory Rate 16 22 H Blood Pressure 122/72 129/82 Pulse Oximetry 95 94 94 Intake/Output Intake/Output: Intake & Output 07/24/21 07/25/21 07/26/21 07/27/21 23:59 23:59 23:59 23:59 Intake Total 200 414 5348 Output Total 200 Balance 35 700 1150 Meds/Results Medications: Active Medications Generic Name Dose Route Start Last Admin Trade Name Freq PRN Reason Stop Dose Admin Acetaminophen 650 mg 07/25/21 15:28 07/25/21 15:42 Acetaminophen 325 Mg Tablet PO 650 mg Q6H PRN Administration Mild Pain (1-3) or Fever Albuterol 2.5 mg 07/26/21 10:01 Albuterol Sulfate Neb 2.5 Mg/0.5 Ml Inh INHALATION Q6HRT PRN Shortness Of Breath Aspirin 81 mg 07/26/21 09:00 07/27/21 08:29 Aspirin 81 Mg Enteric Tablet PO 81 mg QAM JULIOCESAR Administration Clopidogrel Bisulfate 75 mg 07/26/21 09:00 07/27/21 08:30 Clopidogrel Bisulfate 75 Mg Tablet PO 75 mg QAM JULIOCESAR Administration Cyclosporine 125 mg 07/25/21 21:00 07/27/21 08:30 Cyclosporine (Sandimmune) Cap 25 Mg Capsule PO 125 mg Q12HR JULIOCESAR Administration Gabapentin 800 mg 07/25/21 22:00 07/27/21 14:01 Gabapentin 400 Mg Capsule PO 800 mg Q8HR JULIOCESAR Administration Cefepime HCl 2 gm in 50 mls @ 100 mls/hr 07/27/21 11:00 07/27/21 11:50 Maxipime 2 Gm/D5w 50 Ml IVPB Infused Q8H JULIOCESAR Infusion Vancomycin HCl 2,000 mg in 500 mls @ 250 mls/hr 07/27/21 12:00 07/27/21 13:47 Vancomycin 2,000 Mg/D5w 500 Ml IVPB 250 mls/hr Q12H JULIOCESAR Administration Acyclovir Sodium 750 mg/ 265 mls @ 266 mls/hr 07/27/21 12:00 07/27/21 14:17 Dextrose IVPB Infused Q8H JULIOCESAR Infusion Levetiracetam 2,000 mg/ 120 mls @ 460 mls/hr 07/27/21 21:00 Dextrose IVPB Q12HR JULIOCESAR Ipratropium [place] 0.5 mg 07/26/21 14:00 07/27/21 13:15 Ipratrop
--- NOTE | 2021-07-27 17:09 | PC.NURSE ---
This patient, Yonis Boone, was received from [[id number] ] on 07/27/21 at 1645. Patient/family oriented to unit policies and routines
[2021-07-27] MEDS: LORazepam INJ (*CRX) 2 MG/ML VIAL 0.5 MG IV PUSH ×2 (17:19→20:43)
--- NOTE | 2021-07-27 17:24 | PC.NURSE ---
This patient, Yonis Boone, was transferred to ICU 9on 07/27/21 at 1630. Report given to Gracy MORAN . Personal belongings sent with patient. Report given to [ ]. Appropriate documentation sent with patient.
[2021-07-27] MEDS: ALBUTEROL SULFATE NEB 2.5 MG/0.5 ML INH INHALATION (21:12)
[2021-07-27] MEDS: ACYCLOVIR SODIUM IVPB 750 MG in DEXTROSE 5% IN WATER 250 ML 200 MG IVPB (21:14)
[2021-07-27] MEDS: levETIRAcetam IV 2,000 MG in DEXTROSE 5% 100 ML 460 MG IVPB (21:14)
--- NOTE | 2021-07-27 22:57 | PM.TDS ---
Transfer Discharge Sum: Prov Provider Date of admission: 07/27/21 09:46 Primary care physician: Maria L Benavides, PA Admitting clinician: Rubi Cain MD Consults: 07/25/21 Consult to Physician Routine Comment: Consulting Provider: Margarito Felipe Reason for consultation: CVA Has provider been notified: Yes DS: Admitting Diagnosis Discharge Date 07/28/21 Admitting Diagnosis Patient was admitted to the hospital with headache weakness difficulty walking sliding of speech concern for TIA/stroke neurology was consulted but during hospitalization patient developed multiple episodes of seizure it was concern for hepatic encephalitis as patient has history of herpetic encephalitis in the past unfortunately unable to get LP done as patient was on aspirin and Plavix, patient was transferred to tertiary cancer center continue with the of care and availability of specialist DS: Discharge Diagnosis Discharge Diagnosis (1) Difficulty speaking: Code(s): R47.9 - Unspecified speech disturbances Status: Acute Assessment and Plan: Concern for TIA/stroke Pending MRI of the brain Neurology following Pending EEG (2) Right sided weakness: Code(s): R53.1 - Weakness Status: Acute Assessment and Plan: CTA of the head negative for acute stroke Patient passed the window for tPA Pending MRI of the brain Pending EEG (3) Headache: Code(s): R51.9 - Headache, unspecified Status: Acute Assessment and Plan: Patient has history of herpes encephalitis will discuss with Nephrology may need LP and possible acyclovir Patient had multiple episodes of seizure on the morning of 07/27/2021 (4) Seizures: Code(s): R56.9 - Unspecified convulsions Status: Acute Assessment and Plan: Continue home medication follow Keppra level pending and Dilantin level Dilantin level will be checked on and on the monitor closely to follow-up Dilantin level following provider to continue to follow up on the Dilantin level and to ordered At home patient on Vimpat phenytoin and Keppra Patient had multiple episode of seizure on the morning of 07/27/2021 (5) Liver transplant recipient: Code(s): Z94.4 - Liver transplant status Status: Acute Assessment and Plan: Continue cyclosporin pending cyclosporine level (6) Chronic obstructive pulmonary disease: Code(s): J44.9 - Chronic obstructive pulmonary disease, unspecified Status: Chronic Assessment and Plan: With acute exacerbation nebulizer treatment antibiotic Resume home dose of prednisone Transfer Discharge Sum: Med Medications Active and Home Medications: Home Medications Aspir-81 1 tablet PO DAILY 10/28/19 [History Confirmed 07/25/21] gabapentin 800 mg PO TID 10/28/19 [History Confirmed 07/25/21] levetiracetam 1,500 mg PO BID 10/28/19 [History Confirmed 07/25/21] cyclosporine 100 mg PO BID 04/20/20 [History Confirmed 07/25/21] lacosamide [Vimpat] 200 mg PO Q12H 04/20/20 [History Confirmed 07/25/21] cyclosporine 25 mg PO BID 07/25/21 [History Confirmed 07/25/21] phenytoin sodium extended [Dilantin Extended] 400 mg PO DAILY 07/25/21 [History Confirmed 07/25/21] prednisone 20 mg PO DAILY 07/25/21 [History Confirmed 07/25/21] umeclidinium [Incruse Ellipta] 62.5 mcg INHALATION DAILY 07/25/21 [History Confirmed 07/25/21] Transfer Discharge Sum: Hosp Hospital Course Hospital course: Yonis Boone is a 61 year old male Time Spent with Patient Time attestation: Total time spent providing and/or coordinating transfer services: Exam Narrative: Patient had episode of seizure 20 minutes before I sewed the patient in postictal state but moves all extremity Chest bilateral wheezing crackles Abdomen nontender nondistended CVS S1 + S2 Neurology sleepy tired Negative Lower extremity edema DS: Data Data Completed and Pending Labs on day of discharge: Labs from last 24 hours
[2021-07-27 23:39] LABS: Levetiracetam Keppra 18.8 mcg/mL (12.0-46.0)
[2021-07-28] VITALS: BP 133/71; PULSE 84; RESP 18; TEMP 36.1; O2SAT 99
--- NOTE | 2021-07-28 01:07 | PC.NURSE ---
Patient left with [facility] at 0055. His belongings were sent with him, including his clothes, phone, pharmacist and glasses. I have spoken to his and informed her of where he is going and gave her the nurses name and phone number. I also called the RN at [facility] and let them know he is is on his way to them.
[2021-07-28 23:55] LABS: Cyclosporine 36 mcg/L (100-300)
[2021-07-30 20:43] LABS: HSV 1 IgM Screen Negative (Negative); HSV 2 IgM Screen Negative (Negative)
== END 2021-07-28 00:55 | disposition short-term general hospital (02) | DRG 101 ==
LOC: ANHED 11:40 → ANH3MEDSUR 12:18 → ANHICU 07-27 17:29 → ANH3MEDSUR 07-29 13:20 → ANHICU 07-29 13:20
PROVIDERS: Physician Assistant; Admitting Provider Family Medicine; Emergency Provider Emergency Medicine; PCP Physician Assistant; Visit Provider Internal Medicine
DX: R56.9 Unspecified convulsions (principal); Z94.4 Liver transplant status; I69.351 Hemiplegia and hemiparesis following cerebral infarction affecting right dominant side; J44.1 Chronic obstructive pulmonary disease with (acute) exacerbation; R47.9 Unspecified speech disturbances; R53.1 Weakness; R51.9 Headache, unspecified; Z87.891 Personal history of nicotine dependence; E78.5 Hyperlipidemia, unspecified; Z86.19 Personal history of other infectious and parasitic diseases; F32.9 Major depressive disorder, single episode, unspecified; G62.9 Polyneuropathy, unspecified; Z79.899 Other long term (current) drug therapy; E66.9 Obesity, unspecified; Z82.49 Family history of ischemic heart disease and other diseases of the circulatory system; Z83.3 Family history of diabetes mellitus; Z79.82 Long term (current) use of aspirin; Z79.51 Long term (current) use of inhaled steroids; Z86.61 Personal history of infections of the central nervous system; I65.21 Occlusion and stenosis of right carotid artery
CPT/HCPCS: 36415; 36600; 70450; 70496; 70498; 70553; 71045; 80048; 80053; 80158; 80177; 80185; 82140; 82607; 82805; 82948; 83735; 84443; 84484; 85025; 85027; 85610; 85730; 86695; 86696; 93005; 94640; 95816; 96365; 96366; 96367; 96368; 96374; 96375; 96376; 99285; A9270; A9577; G0378; J0133; J0692; J0696; J1953; J2060; J2405; J2920; J3370; J3475; J3480; J7040; J7060; J7512; J7515; Q9967

== ENCOUNTER 2021-11-05 10:44 | Inpatient (IN) | payer MEDICARE, SELFPAY ==
--- NOTE | ~2021-11-05 | XR_ITS ---
XR chest 1V portable DATE: 11/05/2021 13:39 INDICATION: Altered mental state TECHNIQUE: Portable AP chest on 11/05/2021 at 1336 hours COMPARISON: 07/25/2021 portable AP chest FINDINGS: Heart size appears normal for AP projection with associated magnification. There is moderate elevation of the right leaf of the diaphragm. There is mild infiltrate or atelectasis in the lower lung zone. Pulmonary vascularity is within normal limits. No pleural effusion or pneumothorax is evident. IMPRESSION: Moderate elevation of right diaphragm and mild infiltrate or atelectasis in the lower nancy g zones Reviewed, dictated and finalized at location A. IMPRESSION: Moderate elevation of right diaphragm and mild infiltrate or atelec tasis in the lower lung zones
--- NOTE | ~2021-11-05 | CT_ITS ---
EXAMINATION: CT brain wo con DATE: 11/05/2021 12:09 INDICATION: Altered mental status. Weakness. TECHNIQUE: Computed tomography (CT) of the head was performed without intravenous contrast. The mA wa s adjusted according to patient size. Iterative reconstruction technique was employed. The dose-lengt h product was 605.33 mGy-cm. COMPARISON: Head CT 07/27/2021, brain MRI 07/26/2021 FINDINGS: There is chronic asymmetric mild volume loss in left parietal lobe. There is an old lacunar infarct in right caudate nucleus. There is no intracranial hemorrhage, acute infarction, or abnormal intracranial mass lesion. There are scattered areas of low attenuation in the cerebral white matter. The ventricles are normal in size. There is mild mucosal thickening in the paranasal sinuses. The ma stoid air cells are normal. The orbits are normal. IMPRESSION: 1. Stable mild nonspecific cerebral white matter disease, which likely represents chronic small vesse l ischemic disease. 2. Old lacunar infarct in right caudate nucleus. 3. Chronic asymmetric mild volume loss of left parietal lobe. Reviewed, dictated and finalized at location A. IMPRESSION: 1. Stable mild nonspecific cerebral white matter disease, which likely represen ts chronic small vessel ischemic disease. 2. Old lacunar infarct in right caudate nucleus. 3. Chronic asymmetric mild volume loss of left parietal lobe.
[2021-11-05 10:49] VITALS: BP 123/87; PULSE 92; RESP 20; O2SAT 97
[2021-11-05 10:55] VITALS: PULSE 90
--- NOTE | 2021-11-05 10:58 | ED.GENADULT ---
HPI - General Adult General Chief complaint: Weakness Stated complaint: weakness Time Seen by Provider: 11/05/21 10:45 History of Present Illness HPI narrative: 61-year-old male with history of stroke, seizures, herpes encephalitis, COPD, and cirrhosis with hepatitis C status post liver transplant in 2007?presenting to the emergency department for evaluation of worsening physical deconditioning. Patient had a stroke approximately 2 months ago and had been at a rehab facility, [facility] and ultimately was dced to home. Patient is staying back at his home being cared for by his . states that the patient has had decreased physical activity and has not been doing his rehab since being discharged. states that she is unable to care for him at home. Related Data Home Medications Medication Instructions Recorded Confirmed aspirin 81 mg tablet 81 mg PO DAILY 10/28/19 11/05/21 gabapentin 800 mg tablet 800 mg PO TID 10/28/19 11/05/21 cyclosporine 100 mg capsule 100 mg PO BID 04/20/20 11/05/21 cyclosporine 25 mg capsule 50 mg PO BID 07/25/21 11/05/21 umeclidinium 62.5 mcg/actuation 62.5 mcg inhalation DAILY 07/25/21 11/05/21 blister powder for inhalation (Incruse Ellipta) buspirone 5 mg tablet 5 mg PO TID 11/05/21 11/05/21 lacosamide 150 mg tablet (Vimpat) 150 mg 11/05/21 lacosamide 150 mg tablet (Vimpat) 300 mg PO HS 11/05/21 11/05/21 levetiracetam 1,000 mg tablet 2,000 mg PO BID 11/05/21 11/05/21 phenytoin sodium extended 100 mg 300 mg PO HS 11/05/21 11/05/21 capsule (Dilantin Extended) phenytoin sodium extended 30 mg 270 cap PO 11/05/21 capsule (Dilantin) Allergies Allergy/AdvReac Type Severity Reaction Status Date / Time No Known Allergies Allergy Verified 07/25/21 08:28 Review of Systems Review of Systems: ROS unobtainable: Yes unobtainable due to medical condition PMFSH Past Medical History Medical History Cerebrovascular accident (2012) Mild right sided weakness. Chronic obstructive pulmonary disease Depression Hepatitis C Status post liver transplant in 2007 followed by successful hepatitis C treatment in 2014. Herpes encephalitis History of renal dialysis Hyperlipidemia Irritable bowel syndrome Peripheral neuropathy Pneumonia Renal failure Required dialysis before liver transplant. Seizures Surgical History Surgical History History of cholecystectomy History of liver transplant (2007) For cirrhosis and hepatitis C. Family History Family History Father Family history of heart disease in male family member before age 55 Mother Family history of liver disease Sibling Diabetes mellitus Social History Social History Social History: Surrogate decision maker: Elyse Boone, . Code status: Full code. Smoking packs per day: 1 Smoking cigarettes per day: 20.0 Years smoked: 23 Smoking pack-years: 23.00 Smoking status: Former smoker Second hand tobacco smoke exposure: No Additional smoking assessment comments: Quit in 1997. Alcohol intake: former Alcohol use details: Quit in 1996. Substance use: never Additional living arrangements comments: Lives with , sister, [id number]. Spiritual care concerns: No Exam Narrative: APPEARANCE: Well appearing, no pain, no distress, well-nourished. HEAD: normocephalic, atraumatic. EYES: PERRLA/EOMI, conjunctivae clear. NOSE: Normal no drainage EARS:TMS clear with good light reflex. THROAT: Pharynx clear, no exudate. NECK: Supple. No adenopathy, no masses. RESPIRATORY: Airway patent, respirations nonlabored. Clear to auscultation bilaterally, no rales, rhonchi, wheezing. CARDIOVASCULAR: Regular rate and rhythm without murmurs rubs or gallops. ABDOMINAL: Soft, n
--- NOTE | 2021-11-05 11:14 | ECG_ITS ---
Measurements Intervals [place] Rate: 91 P: 43 ND: 148 QRS: -4 QRSD: 106 T: 44 QT: 326 QTc: 403 Interpretive Statements SINUS RHYTHM INCOMPLETE RIGHT BUNDLE BRANCH BLOCK DELAYED PRECORDIAL R/S TRANSITION BORDERLINE ST-T WAVE ABNORMALITY- DIFFUSE LEADS BASELINE ARTIFACT- I, AVR, AVL, V1-V2 BORDERLINE ECG Electronically Signed On 11-05-2021 18:35:47 CDT by Jonathon Payne D.O.
[2021-11-05 11:23] LABS: Basophils Absolute Auto 0.1 K/mm3 (0.0-0.1); Basophils Percent Auto 0.7 % (0.2-1.2); Eosinophils Absolute Auto 0.5 K/mm3 (0-0.3); Hematocrit 45.1 % (42.0-52.0); Hemoglobin 15.7 g/dL (14.0-18.0); Immature Granulocyte Absolute 0.09 K/mm3 (0.00-0.031); Lymphocytes Absolute Auto 2.88 K/mm3 (0.9-3.2); Mean Corpuscular HGB Conc 34.8 g/dl (32-36); Mean Corpuscular Hemoglobin 30.6 pg (26-34); Mean Corpuscular Volume 87.9 fl (80-100); Mean Platelet Volume 9.6 fl (7.4-10.4); Monocytes Absolute Auto 0.6 K/mm3 (0.1-0.6); Neutrophils Absolute Auto 4.8 K/mm3 (1.3-6.7); Neutrophils Percent Auto 53.3 % (45.5-73.1); Platelet Count Result 331 k/mm3 (150-375); Red Blood Count 5.13 M/mm3 (4.6-6.20); Red Cell Distribution Width 13.1 % (11.5-14.5)
[2021-11-05 11:38] LABS: Lactic Acid Reflex 1.3 mmol/L (0.7-2.0)
[2021-11-05 11:50] LABS: SARS-CoV-2 RNA PCR Negative
[2021-11-05 11:56] LABS: Alanine Aminotransferase 68 U/L (6-50); Albumin Level 4.1 g/dL (3.5-5.1); Alkaline Phosphatase 135 U/L (38-126); Anion Gap 11 mmol/L (8-16); Aspartate Amino Transferase 47 U/L (17-59); Bilirubin,Total 0.6 mg/dL (0.2-1.3); Blood Urea Nitrogen 17 mg/dL (9-20); Calcium 9.1 mg/dL (8.4-10.2); Carbon Dioxide 30 mmol/L (22-30); Chloride 94 mmol/L (98-107); Estimated CRCL calculation 119 ml/min; Estimated Glomerular Filt Rate > 60; Glucose 134 mg/dL (65-110); Potassium 3.4 mmol/L (3.4-5.0); Sodium 135 mmol/L (137-145)
[2021-11-05 11:56] LABS: Phenytoin Dilantin 34 ug/mL (10-20)
[2021-11-05 12:12] LABS: Appearance Urine Clear (Clear); Bilirubin Urine 2+ (Negative); Blood Urine 1+ (Negative); Color Urine Yellow (Yellow); Glucose Urine UA Negative (Negative); Ketones Urine Trace mg/dL (Negative); Leukocyte Esterase Ur Trace LEU/UL (Negative); Nitrate Urine Negative (Negative); Protein Urine Trace mg/dL (Negative); pH Urine 5.5 (5.0-9.0)
[2021-11-05 12:24] LABS: Bacteria Urine 4+ /hpf; Mucus Urine Rare /lpf
[2021-11-05 12:41] LABS: Add Urine Microscopic? YES
--- NOTE | 2021-11-05 14:04 | PM.IMHP ---
H&P: HPI History of Present Illness Date/Time: 11/05/21 8462 Chief Complaint: Weakness Narrative: This 61 year old male patient with significant PMH of CVA, seizures, herpes encephalitis, COPD, cirrhosis of the liver, hepatitis-C status post liver transplant in 2007 presents to the emergency room today with complaints of having weakness, decreased appetite, cough and overall worsening of his physical condition since he chose to leave rehabilitation at [facility] and return home 2 months ago. Pt. has not been able to ambulate since his CVA. His spouse states that since he has gotten home, he will not do his therapy, that he seems increasingly fatigued, even moreso than usual with his doses of Vimpat and he is not eating as he should, or as he used to. He has also had a cough for the past couple of weeks without a temperature according to the spouse. The patient is A&Ox3-4, but is somnolent and drifts off back to sleep during our conversation. His ultimately states she is unable to care for him at home and he needs to be placed. In the ER, workup was performed and Chest x-ray demonstrates a moderate elevation of the right diaphragm and a mild infiltrate and/or atelectasis in the lower lung zones bilaterally. CT of the head demonstrates stable mild nonspecific cerebral white matter disease likely representing chronic small-vessel ischemic disease with an old lacunar infarct in the right caudate nucleus and chronic asymmetric mild volume loss of the left parietal lobe. Patient's urine is significant for 2+ bilirubin, 2.0 urobilinogen, trace leukocyte esterase, 10-15 wbc's and 4+ bacteria. Patient's Dilantin level is 34. Keppra level is pending. Patient is being admitted to hospitalist service at this time for continued management and ultimately placement. During this hospitalization he will be treated with antibiotics of Rocephin since given the fact that he does have potential pneumonia as well as potential UTI, in the setting taking cyclosporin status post liver transplant. Blood cultures and urine cultures are pending. His he will receive IV hydration while here. Patient is currently a full code. At the time of my assessment this patient denies any chest pain, dyspnea, nausea, vomiting, diarrhea or urinary complaints. He does note that he does not feel like he could eat and has a decreased appetite and he feels overall very weak. He shares with me that he cannot move his lower extremities to walk and is becoming more weak at home. Review of Systems Review of Systems: All systems reviewed & are unremarkable except as noted in HPI and below PMFSH Past Medical History Medical History Cerebrovascular accident (2011) Mild right sided weakness. Chronic obstructive pulmonary disease Depression Hepatitis C Status post liver transplant in 2007 followed by successful hepatitis C treatment in 2013. Herpes encephalitis History of renal dialysis Hyperlipidemia Irritable bowel syndrome Peripheral neuropathy Pneumonia Renal failure Required dialysis before liver transplant. Seizures Surgical History Surgical History History of cholecystectomy History of liver transplant (2007) For cirrhosis and hepatitis C. Family History Family History Father Family history of heart disease in male family member before age 55 Mother Family history of liver disease Sibling Diabetes mellitus Social History Social History Social History: Surrogate decision maker: Elyse Boone, . Code status: Full code. Smoking packs per day: 1 Smoking cigarettes per day: 20.0 Years smoked: 23 Smoking pack-years: 23.00 Smoking status: Former smoker Second hand tobacco smoke exposure: No Addit
[2021-11-05] MEDS: SODIUM CHLORIDE 0.9% IV 1,000 ML 125 ML IV CONT ×2 (14:17→19:05)
[2021-11-05 16:00] VITALS: BP 122/78; PULSE 87; RESP 22; O2SAT 97
--- NOTE | 2021-11-05 16:26 | ADMGEN ---
This patient, Yonsi Boone, was admitted to Medical Room 343-01. Patient/family oriented to hospital policies and general routines including ID bracelet, bed and alarms, visiting hours, pain management, procedures, bathroom and other care routines, personal items, smoking policy, room service/diet, and visiting hours. Information on how to activate the Rapid Response Team has been discussed. Patient/Family are encouraged to report perceived risks to care and to ask questions if they do not understand what they are told or what they should do.
[2021-11-05 16:27] VITALS: BP 127/74; PULSE 84; RESP 18; TEMP 36.7; O2SAT 98
[2021-11-05 16:34] VITALS: BMI 31.7
[2021-11-05 16:54] VITALS: BMI 31.7
[2021-11-05 17:39] LABS: Ammonia < 9 umol/L (9-30)
[2021-11-05 20:22] VITALS: BP 117/70; PULSE 83; RESP 16; TEMP 36.8; O2SAT 99
[2021-11-06] MEDS: SODIUM CHLORIDE 0.9% IV 1,000 ML 125 ML IV CONT ×3 (03:57→18:05)
[2021-11-06 05:43] VITALS: BP 124/67; PULSE 74; RESP 16; TEMP 36.2; O2SAT 98
[2021-11-06 05:44] LABS: Basophils Percent Auto 0.5 % (0.2-1.2); Eosinophils Absolute Auto 0.6 K/mm3 (0-0.3); Eosinophils Percent Auto 6.8 % (0-4.4); Hematocrit 35.3 % (42.0-52.0); Hemoglobin 11.9 g/dL (14.0-18.0); Immature Granulocyte Absolute 0.07 K/mm3 (0.00-0.031); Immature Granulocyte Percent A 0.8 % (0-0.5); Lymphocytes Percent Auto 29.4 % (18.3-44.2); Mean Corpuscular HGB Conc 33.7 g/dl (32-36); Mean Corpuscular Volume 88.9 fl (80-100); Mean Platelet Volume 9.7 fl (7.4-10.4); Monocytes Absolute Auto 0.8 K/mm3 (0.1-0.6); Monocytes Percent Auto 8.8 % (2.6-8.5); Neutrophils Absolute Auto 4.6 K/mm3 (1.3-6.7); Neutrophils Percent Auto 53.7 % (45.5-73.1); Platelet Count Result 294 k/mm3 (150-375); Red Blood Count 3.97 M/mm3 (4.6-6.20); Red Cell Distribution Width 13.1 % (11.5-14.5); White Blood Count 8.5 K/mm3 (4.5-10.0)
[2021-11-06 06:07] LABS: Alanine Aminotransferase 51 U/L (6-50); Albumin Level 3.4 g/dL (3.5-5.1); Alkaline Phosphatase 106 U/L (38-126); Anion Gap 7 mmol/L (8-16); Aspartate Amino Transferase 36 U/L (17-59); Bilirubin,Total 0.3 mg/dL (0.2-1.3); Blood Urea Nitrogen 8 mg/dL (9-20); Calcium 8.1 mg/dL (8.4-10.2); Carbon Dioxide 29 mmol/L (22-30); Chloride 100 mmol/L (98-107); Estimated CRCL calculation 164 ml/min; Estimated Glomerular Filt Rate > 60; Glucose 106 mg/dL (65-110); Magnesium 1.5 mg/dL (1.6-2.3); Potassium 3.2 mmol/L (3.4-5.0); Sodium 136 mmol/L (137-145)
[2021-11-06 06:09] LABS: Phenytoin Dilantin 33 ug/mL (10-20)
[2021-11-06] MEDS: POTASSIUM CHLORIDE 20 MEQ PACKET (FOR LIQUID) 40 MEQ PO (09:43)
[2021-11-06] MEDS: MAGNESIUM OXIDE 200 MG TABLET PO (09:43)
[2021-11-06] MEDS: ENOXAPARIN 40 MG/0.4 ML SYRINGE SUB-Q (09:43)
--- NOTE | 2021-11-06 09:46 | PM.IMPN ---
Progress Note: A&P Assessment and Plan (1) Weakness: Code(s): R53.1 - Weakness Status: Acute Assessment and Plan: - Pt. returned home on his own will out of rehab and has declined physically since being home, making him increasingly weak with poor appetite. Raises concern for potential for FTT. - Dietitian consult - Accurate I&O - Daily weights (2) Elevated Dilantin level: Code(s): R78.89 - Finding of other specified substances, not normally found in blood Status: Acute Assessment and Plan: - Dilantin level is elevated at 34. Concern for toxicity. -ammonia level less 9 - Hold Dilantin from home medications. - Daily Dilantin levels. (3) Physical deconditioning: Code(s): R53.81 - Other malaise Status: Acute Assessment and Plan: - Secondary to CVA - Spouse states not participating with his therapy at home. Will need ultimately to be placed. - PT and OT consults ordered for discharge recommendations. - Fall precautions (4) Pneumonia: Qualifiers: Pneumonia type: due to unspecified organism Laterality: bilateral Lung location: lower lobe of lung Qualified Code(s): J18.9 - Pneumonia, unspecified organism Code(s): J18.9 - Pneumonia, unspecified organism Status: Acute Assessment and Plan: - Suggested Atelectasis vs. Infiltrate on CXR. Given pt has been coughing according to his , pt. will be placed on Rocephin pending Blood cultures results and will be monitored given he is receiving Cyclosporine. - Pt. requiring supplemental oxygen at this time. - Monitor labs and VS. (5) Acute UTI: Code(s): N39.0 - Urinary tract infection, site not specified Status: Acute Assessment and Plan: - UA is suggestive of possible UTI. Given that the pt. is receiving Cyclosporine, he is already receiving Rocephin for possible PNA, so he will be covered with continued Rocephin for possible UTI as well. - Follow Urine culture to completion. - trend labs and VS. (6) Seizures: Code(s): R56.9 - Unspecified convulsions Status: Acute Assessment and Plan: - seizure precautions - Hold Dilantin as he is currently supratherapeutic. - Continue keppra dosing - keppra level is pending (7) Liver transplant status: Code(s): Z94.4 - Liver transplant status Status: Acute Assessment and Plan: - Status post and is receiving Cyclosporine and Prednisone that will be continued. - LFT's are normal. (8) CVA (cerebral vascular accident): Qualifiers: CVA mechanism: unspecified Qualified Code(s): I63.9 - Cerebral infarction, unspecified Code(s): I63.9 - Cerebral infarction, unspecified Status: Chronic Assessment and Plan: - Recent PMH this year. Signed himself out of rehab to return home. Unable to oppose gravity with BLE. (9) AMS (altered mental status): Code(s): R41.82 - Altered mental status, unspecified Status: Acute Assessment and Plan: - Increased somnolence at home. Suspicion secondary to supratherapeutic Dilantin level. - Seizure precautions and fall precautions in place. - Rechecking Dilantin level in AM and holding home dose for now. - Ammonia level ordered. - Monitor VS. - Neuro checks Q4 hrs. Subjective Date/time seen: 11/06/21 09:46 Interval history: Patient is awake and alert able to answer some questions. He does have intermittent episodes of is receptive information. Possibly due to elevated Dilantin levels and urinary tract infection. Patient just recently discharged from a group home facility 2 months ago. Family a home has been attempting to manage his care however they reported extremely difficult. Other surgeon for placement for the patient again. Patient's potassium level was 3.2 this morning as well as magnesium 1.5, serum electrolytes both were replaced. Dilantin 33 this morning. Patient was able to eat a regular diet without any to h
[2021-11-06] MEDS: ONDANSETRON INJ 4 MG/2 ML VIAL IV PUSH (12:11)
[2021-11-06] MEDS: levETIRAcetam 500 MG TABLET 2000 MG PO ×2 (12:32→22:47)
[2021-11-06] MEDS: ASPIRIN 81 MG ENTERIC TABLET PO (12:32)
[2021-11-06] MEDS: cycloSPORINE (NEORAL) 25 MG CAPSULE 150 MG PO ×2 (12:34→22:50)
[2021-11-06] MEDS: GABAPENTIN 400 MG CAPSULE 800 MG PO ×2 (12:35→18:04)
[2021-11-06] MEDS: busPIRone HCL 5 MG TABLET PO ×2 (12:35→18:04)
[2021-11-06 16:26] VITALS: BP 142/77; PULSE 83; RESP 14; TEMP 36.9; O2SAT 85
[2021-11-06 19:41] VITALS: BP 119/67; PULSE 89; RESP 20; TEMP 36.6; O2SAT 94
[2021-11-06] MEDS: LACOSAMIDE (*CRX) 100 MG TABLET 300 MG PO (22:47)
[2021-11-07] MEDS: SODIUM CHLORIDE 0.9% IV 1,000 ML 125 ML IV CONT ×2 (02:26→16:00)
[2021-11-07 04:20] VITALS: BP 126/69; PULSE 83; RESP 20; TEMP 36.8; O2SAT 94
[2021-11-07 05:41] LABS: Basophils Absolute Auto 0.1 K/mm3 (0.0-0.1); Eosinophils Absolute Auto 0.5 K/mm3 (0-0.3); Eosinophils Percent Auto 9.1 % (0-4.4); Hematocrit 40.2 % (42.0-52.0); Hemoglobin 12.8 g/dL (14.0-18.0); Immature Granulocyte Absolute 0.04 K/mm3 (0.00-0.031); Immature Granulocyte Percent A 0.7 % (0-0.5); Lymphocytes Absolute Auto 2.29 K/mm3 (0.9-3.2); Lymphocytes Percent Auto 38.7 % (18.3-44.2); Mean Corpuscular HGB Conc 31.8 g/dl (32-36); Mean Corpuscular Hemoglobin 30.9 pg (26-34); Mean Corpuscular Volume 97.1 fl (80-100); Mean Platelet Volume 10.2 fl (7.4-10.4); Monocytes Absolute Auto 0.6 K/mm3 (0.1-0.6); Monocytes Percent Auto 10.3 % (2.6-8.5); Neutrophils Absolute Auto 2.4 K/mm3 (1.3-6.7); Neutrophils Percent Auto 40.2 % (45.5-73.1); Platelet Count Result 247 k/mm3 (150-375); Red Blood Count 4.14 M/mm3 (4.6-6.20); Red Cell Distribution Width 13.5 % (11.5-14.5); White Blood Count 5.9 K/mm3 (4.5-10.0)
[2021-11-07 05:51] LABS: Alanine Aminotransferase 47 U/L (6-50); Albumin Level 3.4 g/dL (3.5-5.1); Alkaline Phosphatase 98 U/L (38-126); Anion Gap 4 mmol/L (8-16); Aspartate Amino Transferase 35 U/L (17-59); Bilirubin,Total 0.3 mg/dL (0.2-1.3); Blood Urea Nitrogen 3 mg/dL (9-20); Carbon Dioxide 27 mmol/L (22-30); Chloride 104 mmol/L (98-107); Estimated CRCL calculation 165 ml/min; Estimated Glomerular Filt Rate > 60; Glucose 113 mg/dL (65-110); Magnesium 1.5 mg/dL (1.6-2.3); Potassium 3.6 mmol/L (3.4-5.0); Sodium 135 mmol/L (137-145)
[2021-11-07 05:56] LABS: Phenytoin Dilantin 26 ug/mL (10-20)
--- NOTE | 2021-11-07 06:33 | PM.IMPN ---
Progress Note: A&P Assessment and Plan (1) Weakness: Code(s): R53.1 - Weakness Status: Acute Assessment and Plan: - Pt. returned home on his own will out of rehab and has declined physically since being home, making him increasingly weak with poor appetite. Raises concern for potential for FTT. - Dietitian consult - Accurate I&O - Daily weights (2) Elevated Dilantin level: Code(s): R78.89 - Finding of other specified substances, not normally found in blood Status: Acute Assessment and Plan: - Dilantin level is elevated at 26. Concern for toxicity. -ammonia level less 9 - Hold Dilantin from home medications. - Daily Dilantin levels. (3) Physical deconditioning: Code(s): R53.81 - Other malaise Status: Acute Assessment and Plan: - Secondary to CVA - Spouse states not participating with his therapy at home. Will need ultimately to be placed. - PT and OT consults ordered for discharge recommendations. - Fall precautions (4) Pneumonia: Qualifiers: Laterality: bilateral Lung location: lower lobe of lung Pneumonia type: due to unspecified organism Qualified Code(s): J18.9 - Pneumonia, unspecified organism Code(s): J18.9 - Pneumonia, unspecified organism Status: Acute Assessment and Plan: - Suggested Atelectasis vs. Infiltrate on CXR. Given pt has been coughing according to his , pt. will be placed on Rocephin pending Blood cultures results and will be monitored given he is receiving Cyclosporine. - Pt. requiring supplemental oxygen at this time. - Monitor labs and VS. (5) Acute UTI: Code(s): N39.0 - Urinary tract infection, site not specified Status: Acute Assessment and Plan: - UA is suggestive of possible UTI. Given that the pt. is receiving Cyclosporine, he is already receiving Rocephin for possible PNA, so he will be covered with continued Rocephin for possible UTI as well. - Follow Urine culture to completion. - trend labs and VS. (6) Seizures: Code(s): R56.9 - Unspecified convulsions Status: Acute Assessment and Plan: - seizure precautions - Hold Dilantin as he is currently supratherapeutic. - Continue keppra dosing - keppra level is pending (7) Liver transplant status: Code(s): Z94.4 - Liver transplant status Status: Acute Assessment and Plan: - Status post and is receiving Cyclosporine and Prednisone that will be continued. - LFT's are normal. (8) CVA (cerebral vascular accident): Qualifiers: CVA mechanism: unspecified Qualified Code(s): I63.9 - Cerebral infarction, unspecified Code(s): I63.9 - Cerebral infarction, unspecified Status: Chronic Assessment and Plan: - Recent PMH this year. Signed himself out of rehab to return home. Unable to oppose gravity with BLE. (9) AMS (altered mental status): Code(s): R41.82 - Altered mental status, unspecified Status: Acute Assessment and Plan: - Increased somnolence at home. Suspicion secondary to supratherapeutic Dilantin level. - Seizure precautions and fall precautions in place. - Rechecking Dilantin level in AM and holding home dose for now. - Ammonia level ordered. - Monitor VS. - Neuro checks Q4 hrs. (10) Hypomagnesemia: Code(s): E83.42 - Hypomagnesemia Status: Acute Assessment and Plan: Replaced serum electrolytes Subjective Date/time seen: 11/07/21 06:33 Interval history: Patient is awake and alert able to answer some questions. He does have intermittent episodes of decreased receptive information. Possibly due to elevated Dilantin levels and urinary tract infection. continue to pend blood and urine culture. Patient is continuing to receive Rocephin for a possible UTI. Continue Keppra Dilantin until levels are WNL. Monitor for seizure activity. Review of Systems Review of Systems: All systems reviewed & are unremarkable except as
[2021-11-07] MEDS: UMECLIDINIUM BROMIDE 62.5 MCG ELLIPTA 1 PUFF INHALATION (08:23)
[2021-11-07] MEDS: cycloSPORINE (NEORAL) 25 MG CAPSULE 150 MG PO (09:44)
[2021-11-07] MEDS: MAGNESIUM OXIDE 200 MG TABLET PO (09:44)
[2021-11-07] MEDS: ASPIRIN 81 MG ENTERIC TABLET PO (09:44)
[2021-11-07] MEDS: GABAPENTIN 400 MG CAPSULE 800 MG PO ×3 (09:44→18:30)
[2021-11-07] MEDS: ENOXAPARIN 40 MG/0.4 ML SYRINGE SUB-Q (09:44)
[2021-11-07] MEDS: levETIRAcetam 500 MG TABLET 2000 MG PO (09:44)
[2021-11-07] MEDS: busPIRone HCL 5 MG TABLET PO ×3 (09:44→18:30)
[2021-11-07 20:00] VITALS: PULSE 83; RESP 16; O2SAT 94
[2021-11-07 21:59] VITALS: BP 124/65; PULSE 83; RESP 16; TEMP 36.4; O2SAT 94
[2021-11-08 05:38] LABS: Basophils Percent Auto 0.6 % (0.2-1.2); Eosinophils Absolute Auto 0.5 K/mm3 (0-0.3); Eosinophils Percent Auto 7.5 % (0-4.4); Hematocrit 35.6 % (42.0-52.0); Hemoglobin 11.7 g/dL (14.0-18.0); Immature Granulocyte Absolute 0.06 K/mm3 (0.00-0.031); Immature Granulocyte Percent A 0.9 % (0-0.5); Lymphocytes Absolute Auto 2.62 K/mm3 (0.9-3.2); Lymphocytes Percent Auto 40.1 % (18.3-44.2); Mean Corpuscular HGB Conc 32.9 g/dl (32-36); Mean Corpuscular Volume 91.3 fl (80-100); Mean Platelet Volume 9.8 fl (7.4-10.4); Monocytes Absolute Auto 0.6 K/mm3 (0.1-0.6); Monocytes Percent Auto 9.8 % (2.6-8.5); Neutrophils Absolute Auto 2.7 K/mm3 (1.3-6.7); Neutrophils Percent Auto 41.1 % (45.5-73.1); Platelet Count Result 233 k/mm3 (150-375); Red Cell Distribution Width 13.3 % (11.5-14.5); White Blood Count 6.5 K/mm3 (4.5-10.0)
[2021-11-08 06:00] VITALS: BP 135/63; PULSE 78; RESP 16; TEMP 37.1; O2SAT 96
[2021-11-08 06:40] LABS: Alanine Aminotransferase 38 U/L (6-50); Albumin Level 3.1 g/dL (3.5-5.1); Alkaline Phosphatase 103 U/L (38-126); Anion Gap 4 mmol/L (8-16); Aspartate Amino Transferase 25 U/L (17-59); Bilirubin,Total 0.2 mg/dL (0.2-1.3); Blood Urea Nitrogen 3 mg/dL (9-20); Calcium 8.5 mg/dL (8.4-10.2); Carbon Dioxide 30 mmol/L (22-30); Chloride 101 mmol/L (98-107); Estimated CRCL calculation 161 ml/min; Estimated Glomerular Filt Rate > 60; Glucose 108 mg/dL (65-110); Phenytoin Dilantin 26 ug/mL (10-20); Potassium 3.6 mmol/L (3.4-5.0); Sodium 135 mmol/L (137-145)
--- NOTE | 2021-11-08 06:48 | PM.IMPN ---
Progress Note: A&P Assessment and Plan (1) Weakness: Code(s): R53.1 - Weakness Status: Acute Assessment and Plan: - Pt. returned home on his own will out of rehab and has declined physically since being home, making him increasingly weak with poor appetite. Raises concern for potential for FTT. - Dietitian consult - Accurate I&O - Daily weights PT/OT eval and treat (2) Elevated Dilantin level: Code(s): R78.89 - Finding of other specified substances, not normally found in blood Status: Acute Assessment and Plan: - Dilantin level is elevated at 26. Concern for toxicity. -ammonia level less 9 - Hold Dilantin from home medications. - Daily Dilantin levels. Continue monitor (3) Physical deconditioning: Code(s): R53.81 - Other malaise Status: Acute Assessment and Plan: - Secondary to CVA - Spouse states not participating with his therapy at home. Will need ultimately to be placed. - PT and OT consults ordered for discharge recommendations. - Fall precautions (4) Pneumonia: Qualifiers: Laterality: bilateral Lung location: lower lobe of lung Pneumonia type: due to unspecified organism Qualified Code(s): J18.9 - Pneumonia, unspecified organism Code(s): J18.9 - Pneumonia, unspecified organism Status: Acute Assessment and Plan: - Suggested Atelectasis vs. Infiltrate on CXR. Given pt has been coughing according to his , pt. will be placed on Rocephin pending Blood cultures results and will be monitored given he is receiving Cyclosporine. - Pt. requiring supplemental oxygen at this time. - Monitor labs and VS. (5) Acute UTI: Code(s): N39.0 - Urinary tract infection, site not specified Status: Acute Assessment and Plan: - UA is suggestive of possible UTI. Given that the pt. is receiving Cyclosporine, he is already receiving Rocephin for possible PNA, so he will be covered with continued Rocephin for possible UTI as well. - Follow Urine culture to completion. - trend labs and VS. (6) Seizures: Code(s): R56.9 - Unspecified convulsions Status: Acute Assessment and Plan: - seizure precautions - Hold Dilantin as he is currently supratherapeutic. - Continue keppra dosing - keppra level is pending (7) Liver transplant status: Code(s): Z94.4 - Liver transplant status Status: Acute Assessment and Plan: - Status post and is receiving Cyclosporine and Prednisone that will be continued. - LFT's are normal. (8) CVA (cerebral vascular accident): Qualifiers: CVA mechanism: unspecified Qualified Code(s): I63.9 - Cerebral infarction, unspecified Code(s): I63.9 - Cerebral infarction, unspecified Status: Chronic Assessment and Plan: - Recent PMH this year. Signed himself out of rehab to return home. Unable to oppose gravity with BLE. (9) AMS (altered mental status): Code(s): R41.82 - Altered mental status, unspecified Status: Acute Assessment and Plan: - Increased somnolence at home. Suspicion secondary to supratherapeutic Dilantin level. - Seizure precautions and fall precautions in place. - Rechecking Dilantin level in AM and holding home dose for now. - Ammonia level ordered. - Monitor VS. - Neuro checks Q4 hrs. (10) Hypomagnesemia: Code(s): E83.42 - Hypomagnesemia Status: Acute Assessment and Plan: Replaced serum electrolytes Subjective Date/time seen: 11/08/21 06:48 Patient is doing well this morning. Does not level continues to be elevated. Monitor Dilantin level until WNL. Patient is pending placement at a skilled facility. Family is aware of the. Case Management currently working to facilitate this. No significant change today, patient was transitioned to oral antibiotics, however these can be deescalated. Urine cultures pending which revealed no significant urinary tract infection. Patient denies any symptom
[2021-11-08 08:13] VITALS: PULSE 83; RESP 18; O2SAT 93
[2021-11-08] MEDS: SODIUM CHLORIDE 0.9% IV 1,000 ML 125 ML IV CONT ×2 (09:17→20:46)
[2021-11-08] MEDS: GABAPENTIN 400 MG CAPSULE 800 MG PO ×3 (09:55→17:25)
[2021-11-08] MEDS: busPIRone HCL 5 MG TABLET PO ×3 (09:56→17:25)
[2021-11-08] MEDS: ASPIRIN 81 MG ENTERIC TABLET PO (09:56)
[2021-11-08] MEDS: levETIRAcetam 500 MG TABLET 2000 MG PO ×3 (09:56→20:39)
[2021-11-08] MEDS: CEFDINIR 300 MG CAPSULE PO ×2 (09:56→20:39)
[2021-11-08] MEDS: ENOXAPARIN 40 MG/0.4 ML SYRINGE SUB-Q (09:57)
[2021-11-08] MEDS: cycloSPORINE (NEORAL) 25 MG CAPSULE 150 MG PO ×3 (10:26→20:39)
[2021-11-08] MEDS: ACETAMINOPHEN 325 MG TABLET 650 MG PO (12:08)
[2021-11-08 13:55] VITALS: BP 129/63; PULSE 78; RESP 14; TEMP 35.9; O2SAT 97
[2021-11-08 19:31] VITALS: BP 117/66; PULSE 98; RESP 16; TEMP 36.6; O2SAT 98
[2021-11-08 20:00] VITALS: PULSE 98; RESP 16; O2SAT 98
[2021-11-08] MEDS: LACOSAMIDE (*CRX) 100 MG TABLET 300 MG PO ×2 (20:38)
[2021-11-09 04:52] VITALS: BP 128/72; PULSE 90; RESP 20; TEMP 36.5; O2SAT 95
[2021-11-09] MEDS: SODIUM CHLORIDE 0.9% IV 1,000 ML 125 ML IV CONT ×3 (04:55→20:27)
[2021-11-09 05:59] LABS: Basophils Absolute Auto 0.1 K/mm3 (0.0-0.1); Basophils Percent Auto 0.7 % (0.2-1.2); Eosinophils Absolute Auto 0.6 K/mm3 (0-0.3); Eosinophils Percent Auto 8.3 % (0-4.4); Hematocrit 38.6 % (42.0-52.0); Hemoglobin 13.2 g/dL (14.0-18.0); Immature Granulocyte Absolute 0.04 K/mm3 (0.00-0.031); Immature Granulocyte Percent A 0.6 % (0-0.5); Lymphocytes Percent Auto 42.5 % (18.3-44.2); Mean Corpuscular HGB Conc 34.2 g/dl (32-36); Mean Corpuscular Hemoglobin 30.6 pg (26-34); Mean Corpuscular Volume 89.6 fl (80-100); Mean Platelet Volume 10.1 fl (7.4-10.4); Monocytes Absolute Auto 0.7 K/mm3 (0.1-0.6); Monocytes Percent Auto 9.5 % (2.6-8.5); Neutrophils Absolute Auto 2.6 K/mm3 (1.3-6.7); Neutrophils Percent Auto 38.4 % (45.5-73.1); Platelet Count Result 239 k/mm3 (150-375); Red Blood Count 4.31 M/mm3 (4.6-6.20); Red Cell Distribution Width 13.3 % (11.5-14.5); White Blood Count 6.8 K/mm3 (4.5-10.0)
[2021-11-09 06:14] LABS: Alanine Aminotransferase 40 U/L (6-50); Albumin Level 3.5 g/dL (3.5-5.1); Alkaline Phosphatase 112 U/L (38-126); Anion Gap 4 mmol/L (8-16); Aspartate Amino Transferase 26 U/L (17-59); Bilirubin,Total 0.3 mg/dL (0.2-1.3); Blood Urea Nitrogen 3 mg/dL (9-20); Calcium 8.3 mg/dL (8.4-10.2); Carbon Dioxide 32 mmol/L (22-30); Chloride 104 mmol/L (98-107); Estimated CRCL calculation 164 ml/min; Estimated Glomerular Filt Rate > 60; Glucose 124 mg/dL (65-110); Potassium 3.5 mmol/L (3.4-5.0); Sodium 140 mmol/L (137-145)
[2021-11-09 06:54] LABS: Phenytoin Dilantin 20 ug/mL (10-20)
--- NOTE | 2021-11-09 06:57 | PC.NURSE ---
Tila mckeon called from lab Dr. Garcia called with no return call. Lab passes on to Claribel Shultz RN.
[2021-11-09] MEDS: cycloSPORINE (NEORAL) 25 MG CAPSULE 150 MG PO ×2 (08:23→20:28)
[2021-11-09] MEDS: ASPIRIN 81 MG ENTERIC TABLET PO (08:23)
[2021-11-09] MEDS: levETIRAcetam 500 MG TABLET 2000 MG PO ×2 (08:23→20:28)
[2021-11-09] MEDS: GABAPENTIN 400 MG CAPSULE 800 MG PO ×3 (08:23→16:47)
[2021-11-09] MEDS: busPIRone HCL 5 MG TABLET PO ×3 (08:23→16:47)
[2021-11-09] MEDS: CEFDINIR 300 MG CAPSULE PO ×2 (08:23→20:28)
--- NOTE | 2021-11-09 08:23 | PCOTNOTE ---
Attempted to see patient at this time, however patient just received breakfast tray. RN and respiratory entering room at this time.
[2021-11-09] MEDS: ENOXAPARIN 40 MG/0.4 ML SYRINGE SUB-Q (08:24)
[2021-11-09] MEDS: UMECLIDINIUM BROMIDE 62.5 MCG ELLIPTA 1 PUFF INHALATION (08:25)
[2021-11-09 08:26] VITALS: PULSE 90; RESP 18; O2SAT 93
[2021-11-09 14:00] VITALS: BP 118/76; PULSE 88; RESP 18; TEMP 37.1; O2SAT 98
--- NOTE | 2021-11-09 15:59 | PM.IMPN ---
Progress Note: A&P Assessment and Plan (1) Weakness: Code(s): R53.1 - Weakness Status: Acute Assessment and Plan: - Pt. returned home on his own will out of rehab and has declined physically since being home, making him increasingly weak with poor appetite. Raises concern for potential for FTT. - Dietitian consult - Accurate I&O - Daily weights PT/OT eval and treat - patient is awaiting rehab placement (2) Elevated Dilantin level: Code(s): R78.89 - Finding of other specified substances, not normally found in blood Status: Acute Assessment and Plan: - Dilantin level is elevated at 26. Concern for toxicity. on 11/09/2021 phenytoin is 20. Repeat in the a.m.. -ammonia level less 9 - Hold Dilantin from home medications. - Daily Dilantin levels. Continue monitor (3) Physical deconditioning: Code(s): R53.81 - Other malaise Status: Acute Assessment and Plan: - Secondary to CVA - Spouse states not participating with his therapy at home. Will need ultimately to be placed. - PT and OT consults ordered for discharge recommendations. - Fall precautions - Is a agreeable to rehab facility. Patient would prefer not to go back to [facility] at home. (4) Pneumonia: Qualifiers: Pneumonia type: due to unspecified organism Laterality: bilateral Lung location: lower lobe of lung Qualified Code(s): J18.9 - Pneumonia, unspecified organism Code(s): J18.9 - Pneumonia, unspecified organism Status: Acute Assessment and Plan: - Suggested Atelectasis vs. Infiltrate on CXR. Given pt has been coughing according to his , pt. will be placed on Rocephin pending Blood cultures results and will be monitored given he is receiving Cyclosporine. - Pt. requiring supplemental oxygen at this time. - Monitor labs and VS. - He is already being treated with Omnicef. (5) Acute UTI: Code(s): N39.0 - Urinary tract infection, site not specified Status: Acute Assessment and Plan: - UA is suggestive of possible UTI. Given that the pt. is receiving Cyclosporine . - Follow Urine culture to completion. Urine culture showed ESBL. - trend labs and VS. - Patient currently on Omnicef. (6) Seizures: Code(s): R56.9 - Unspecified convulsions Status: Acute Assessment and Plan: - seizure precautions - Hold Dilantin as He is on borderline normal. - Continue keppra dosing - P.r.n. Ativan for seizure (7) Liver transplant status: Code(s): Z94.4 - Liver transplant status Status: Acute Assessment and Plan: - Status post and is receiving Cyclosporine and Prednisone that will be continued. - LFT's are normal. (8) CVA (cerebral vascular accident): Qualifiers: CVA mechanism: unspecified Qualified Code(s): I63.9 - Cerebral infarction, unspecified Code(s): I63.9 - Cerebral infarction, unspecified Status: Chronic Assessment and Plan: - Recent PMH this year. Signed himself out of rehab to return home. Unable to oppose gravity with BLE. (9) AMS (altered mental status): Code(s): R41.82 - Altered mental status, unspecified Status: Acute Assessment and Plan: - Increased somnolence at home. Suspicion secondary to supratherapeutic Dilantin level. now resolved - Seizure precautions and fall precautions in place. - Rechecking Dilantin level in AM and holding home dose for now. - Ammonia level ordered.= wnl - Monitor VS. - Neuro checks Q4 hrs. (10) Hypomagnesemia: Code(s): E83.42 - Hypomagnesemia Status: Acute Assessment and Plan: Replaced serum electrolytes Subjective Date/time seen: 11/09/21 15:59 This is a 61-year-old male patient who has a history of TIA/ stroke. The patient was admitted on 11/05/2021 with complaints of weakness. The patient was found to have ESBL in his urine. Patient's Dilantin level was also elevated. The patient has been undergo
[2021-11-09 20:00] VITALS: PULSE 80; RESP 16; O2SAT 97
[2021-11-09] MEDS: LACOSAMIDE (*CRX) 100 MG TABLET 300 MG PO (20:28)
[2021-11-09 20:39] VITALS: BP 133/74; PULSE 80; RESP 16; TEMP 36.6; O2SAT 97
[2021-11-10 05:20] VITALS: BP 112/69; PULSE 77; RESP 16; TEMP 36.2; O2SAT 96
[2021-11-10 06:00] LABS: Basophils Percent Auto 0.6 % (0.2-1.2); Eosinophils Absolute Auto 0.6 K/mm3 (0-0.3); Eosinophils Percent Auto 8.9 % (0-4.4); Hematocrit 37.7 % (42.0-52.0); Hemoglobin 12.8 g/dL (14.0-18.0); Immature Granulocyte Absolute 0.05 K/mm3 (0.00-0.031); Immature Granulocyte Percent A 0.8 % (0-0.5); Lymphocytes Absolute Auto 2.65 K/mm3 (0.9-3.2); Lymphocytes Percent Auto 41.3 % (18.3-44.2); Mean Corpuscular Hemoglobin 30.4 pg (26-34); Mean Corpuscular Volume 89.5 fl (80-100); Mean Platelet Volume 9.9 fl (7.4-10.4); Monocytes Absolute Auto 0.6 K/mm3 (0.1-0.6); Monocytes Percent Auto 8.6 % (2.6-8.5); Neutrophils Absolute Auto 2.6 K/mm3 (1.3-6.7); Neutrophils Percent Auto 39.8 % (45.5-73.1); Platelet Count Result 231 k/mm3 (150-375); Red Blood Count 4.21 M/mm3 (4.6-6.20); Red Cell Distribution Width 13.4 % (11.5-14.5); White Blood Count 6.4 K/mm3 (4.5-10.0)
[2021-11-10 06:17] LABS: Alanine Aminotransferase 38 U/L (6-50); Albumin Level 3.4 g/dL (3.5-5.1); Alkaline Phosphatase 101 U/L (38-126); Anion Gap 2 mmol/L (8-16); Aspartate Amino Transferase 26 U/L (17-59); Bilirubin,Total 0.3 mg/dL (0.2-1.3); Blood Urea Nitrogen 4 mg/dL (9-20); Calcium 8.3 mg/dL (8.4-10.2); Carbon Dioxide 32 mmol/L (22-30); Chloride 104 mmol/L (98-107); Estimated CRCL calculation 165 ml/min; Estimated Glomerular Filt Rate > 60; Glucose 115 mg/dL (65-110); Magnesium 1.3 mg/dL (1.6-2.3); Potassium 3.4 mmol/L (3.4-5.0); Sodium 138 mmol/L (137-145)
[2021-11-10 06:24] LABS: Phenytoin Dilantin 20 ug/mL (10-20)
[2021-11-10 07:48] VITALS: O2SAT 93
[2021-11-10] MEDS: UMECLIDINIUM BROMIDE 62.5 MCG ELLIPTA 1 PUFF INHALATION (07:48)
[2021-11-10] MEDS: MAGNESIUM SULF 2 GM/WATER 50ML 2 GM/50 ML BAG IVPB (08:39)
[2021-11-10] MEDS: SODIUM CHLORIDE 0.9% IV 1,000 ML 125 ML IV CONT ×2 (08:39→17:08)
[2021-11-10] MEDS: ASPIRIN 81 MG ENTERIC TABLET PO (08:40)
[2021-11-10] MEDS: levETIRAcetam 500 MG TABLET 2000 MG PO ×2 (08:40→21:09)
[2021-11-10] MEDS: cycloSPORINE (NEORAL) 25 MG CAPSULE 150 MG PO ×2 (08:40→21:08)
[2021-11-10] MEDS: GABAPENTIN 400 MG CAPSULE 800 MG PO ×3 (08:40→17:05)
[2021-11-10] MEDS: busPIRone HCL 5 MG TABLET PO ×3 (08:40→17:06)
[2021-11-10] MEDS: ENOXAPARIN 40 MG/0.4 ML SYRINGE SUB-Q (08:40)
[2021-11-10] MEDS: polyethylene glycoL 3350 17 GM POWD.PACK PO (12:27)
[2021-11-10 14:00] VITALS: BP 108/54; PULSE 83; RESP 16; TEMP 35.6; O2SAT 96
--- NOTE | 2021-11-10 16:33 | PM.IMPN ---
Progress Note: A&P Assessment and Plan (1) Weakness: Code(s): R53.1 - Weakness Status: Acute Assessment and Plan: - Pt. returned home on his own and signed out of rehab and has declined physically since being home, making him increasingly weak with poor appetite. Raises concern for potential for FTT. - Dietitian consulted - Accurate I&O - Daily weights - PT/OT eval and treat - rehab placement pending. (2) Elevated Dilantin level: Code(s): R78.89 - Finding of other specified substances, not normally found in blood Status: Acute Assessment and Plan: - Dilantin level is elevated at 34 on admission, trended down to 20 today. -ammonia level less 9 - Holding Dilantin since admission. - Repeat Dilantin level tomorrow, resume home medication at current dose when level 12-15, then repeat level in 1 week. (3) Physical deconditioning: Code(s): R53.81 - Other malaise Status: Acute Assessment and Plan: -as above. (4) Pneumonia: Qualifiers: Pneumonia type: due to unspecified organism Laterality: bilateral Lung location: lower lobe of lung Qualified Code(s): J18.9 - Pneumonia, unspecified organism Code(s): J18.9 - Pneumonia, unspecified organism Status: Acute Assessment and Plan: - Suggested Atelectasis vs. Infiltrate on CXR. Given pt has been coughing according to his - Treated with IV Rocephin starting 11/05, then transitioned to omnicef on 11/08 to 11/10. Patient treated with 6 days cephalosporin for possible pneumonia. - No respiratory complaints, supplemental O2 needs or fevers. (5) Acute UTI: Code(s): N39.0 - Urinary tract infection, site not specified Status: Acute Assessment and Plan: - UA is suggestive of possible UTI. Patient is receiving Cyclosporine and prednisone outpatient for transplant history. - Urine culture showed ESBL klebsiella sensitive to Bactrim and Ertapenem. - Stop Omnicef. Trial Bactrim DS 1 tab BID x 10 days. (6) AMS (altered mental status): Code(s): R41.82 - Altered mental status, unspecified Status: Acute Assessment and Plan: - Increased somnolence at home. Suspicion secondary to supratherapeutic Dilantin level, poor PO intake and acute infection. - Resolved. At baseline mentation. (7) Hypomagnesemia: Code(s): E83.42 - Hypomagnesemia Status: Acute Assessment and Plan: -Magnesium level 1.3. Given mag sulfate 2 grams IVPB x1. -Repeat magnesium level tomorrow. (8) Seizures: Code(s): R56.9 - Unspecified convulsions Status: Chronic Assessment and Plan: - seizure precautions - Hold Dilantin as above. - Continue keppra at home dosing. - P.r.n. Ativan for seizure. (9) Liver transplant status: Code(s): Z94.4 - Liver transplant status Status: Chronic Assessment and Plan: - s/p transplant 2007. On Cyclosporine and prednisone at home. - continue cyclosporine. - Resume prednisone after antibiotic course. - LFT's are normal. (10) CVA (cerebral vascular accident): Qualifiers: CVA mechanism: unspecified Qualified Code(s): I63.9 - Cerebral infarction, unspecified Code(s): I63.9 - Cerebral infarction, unspecified Status: Chronic Assessment and Plan: - Recent PMH this year. Signed himself out of rehab to return home. Unable to oppose gravity with BLE. - Continue PT/OT, aspirin and monitor BP control. Plan CODE STATUS: FULL CODE Disposition: SNF rehab pending authorization. Time Spent With Patient Time with patient: 15 - 25 minutes Subjective Date/time seen: 11/10/21 16:33 Interval history: Patient is a 61 yo male with history of stroke, herpes encephalitis, IBS, Hepatitis C s/p liver transplant in 2007, and seizure disorder. He presented to the ED for evaluation of weakness and failure to thrive. The patient was found to have E
[2021-11-10 20:28] VITALS: BP 102/56; PULSE 75; RESP 18; TEMP 36.2; O2SAT 97
[2021-11-10] MEDS: LACOSAMIDE (*CRX) 100 MG TABLET 300 MG PO (21:07)
[2021-11-11] MEDS: SODIUM CHLORIDE 0.9% IV 1,000 ML 125 ML IV CONT ×2 (02:26→09:39)
[2021-11-11 04:45] VITALS: BP 124/82; PULSE 76; RESP 16; TEMP 36.6; O2SAT 97
[2021-11-11 06:46] LABS: Anion Gap 3 mmol/L (8-16); Blood Urea Nitrogen 5 mg/dL (9-20); Calcium 8.2 mg/dL (8.4-10.2); Carbon Dioxide 29 mmol/L (22-30); Chloride 107 mmol/L (98-107); Estimated CRCL calculation 140 ml/min; Estimated Glomerular Filt Rate > 60; Glucose 116 mg/dL (65-110); Magnesium 1.7 mg/dL (1.6-2.3); Potassium 3.7 mmol/L (3.4-5.0); Sodium 139 mmol/L (137-145)
[2021-11-11] MEDS: GABAPENTIN 400 MG CAPSULE 800 MG PO ×3 (09:24→17:02)
[2021-11-11] MEDS: ASPIRIN 81 MG ENTERIC TABLET PO (09:24)
[2021-11-11] MEDS: levETIRAcetam 500 MG TABLET 2000 MG PO ×2 (09:24→22:51)
[2021-11-11] MEDS: polyethylene glycoL 3350 17 GM POWD.PACK PO (09:24)
[2021-11-11] MEDS: busPIRone HCL 5 MG TABLET PO ×3 (09:25→17:02)
[2021-11-11] MEDS: ENOXAPARIN 40 MG/0.4 ML SYRINGE SUB-Q (09:26)
[2021-11-11] MEDS: cycloSPORINE (NEORAL) 25 MG CAPSULE 150 MG PO ×2 (09:26→22:50)
[2021-11-11] MEDS: UMECLIDINIUM BROMIDE 62.5 MCG ELLIPTA 1 PUFF INHALATION (10:00)
[2021-11-11 10:01] VITALS: PULSE 88; RESP 12
--- NOTE | 2021-11-11 12:32 | PM.IMPN ---
Progress Note: A&P Assessment and Plan (1) Weakness: Code(s): R53.1 - Weakness Status: Acute Assessment and Plan: - Pt. returned home on his own and signed out of rehab and has declined physically since being home, making him increasingly weak with poor appetite. Raises concern for potential for FTT. - Dietitian consulted - Accurate I&O - Daily weights - PT/OT eval and treat - rehab placement pending. (2) Elevated Dilantin level: Code(s): R78.89 - Finding of other specified substances, not normally found in blood Status: Acute Assessment and Plan: - Dilantin level is elevated at 34 on admission, trended down to 20 today. Free phenytoin level pending. -ammonia level less 9 - Holding Dilantin since admission. - Repeat Dilantin level tomorrow, resume home medication at current dose when level 12-15, then repeat level in 1 week. (3) Physical deconditioning: Code(s): R53.81 - Other malaise Status: Acute Assessment and Plan: -as above. (4) Pneumonia: Qualifiers: Laterality: bilateral Lung location: lower lobe of lung Pneumonia type: due to unspecified organism Qualified Code(s): J18.9 - Pneumonia, unspecified organism Code(s): J18.9 - Pneumonia, unspecified organism Status: Acute Assessment and Plan: - Suggested Atelectasis vs. Infiltrate on CXR. Given pt has been coughing according to his - Treated with IV Rocephin starting 11/05, then transitioned to omnicef on 11/08 to 11/10. Patient treated with 6 days cephalosporin for possible pneumonia. - No respiratory complaints, supplemental O2 needs or fevers. (5) Acute UTI: Code(s): N39.0 - Urinary tract infection, site not specified Status: Acute Assessment and Plan: - UA is suggestive of possible UTI. Patient is receiving Cyclosporine and prednisone outpatient for transplant history. - Urine culture showed ESBL klebsiella sensitive to Bactrim and Ertapenem. - Stop Omnicef. Started 11/10 Bactrim DS 1 tab BID x 10 days. Antibiotic day 2 (6) AMS (altered mental status): Code(s): R41.82 - Altered mental status, unspecified Status: Acute Assessment and Plan: - Increased somnolence at home. Suspicion secondary to supratherapeutic Dilantin level, poor PO intake and acute infection. - Resolved. At baseline mentation. (7) Hypomagnesemia: Code(s): E83.42 - Hypomagnesemia Status: Acute Assessment and Plan: -Magnesium level 1.7 today. -Stable. (8) Seizures: Code(s): R56.9 - Unspecified convulsions Status: Chronic Assessment and Plan: - seizure precautions - Hold Dilantin as above. - Continue keppra at home dosing. - P.r.n. Ativan for seizure. (9) Liver transplant status: Code(s): Z94.4 - Liver transplant status Status: Chronic Assessment and Plan: - s/p transplant 2007. On Cyclosporine and prednisone at home. - continue cyclosporine. - Resume prednisone after antibiotic course. - LFT's are normal. (10) CVA (cerebral vascular accident): Qualifiers: CVA mechanism: unspecified Qualified Code(s): I63.9 - Cerebral infarction, unspecified Code(s): I63.9 - Cerebral infarction, unspecified Status: Chronic Assessment and Plan: - Recent PMH this year. Signed himself out of rehab to return home. Unable to oppose gravity with BLE. - Continue PT/OT, aspirin and monitor BP control. Plan CODE STATUS: FULL CODE Disposition: SNF rehab pending authorization. Time Spent With Patient Time with patient: 15 - 25 minutes Subjective Date/time seen: 11/11/21 12:32 Interval history: Patient is a 61 yo male with history of stroke, herpes encephalitis, IBS, Hepatitis C s/p liver transplant in 2007, and seizure disorder. He presented to the ED for evaluation of weakness and failure to thrive. The patient was found to have ESBL
[2021-11-11 14:00] VITALS: BP 111/62; PULSE 79; RESP 18; TEMP 36.4; O2SAT 97
[2021-11-11 22:00] VITALS: BP 126/68; PULSE 76; RESP 16; TEMP 36.3; O2SAT 98
[2021-11-11] MEDS: LACOSAMIDE (*CRX) 100 MG TABLET 300 MG PO (22:55)
[2021-11-12 06:00] VITALS: BP 143/65; PULSE 83; RESP 18; TEMP 36.9; O2SAT 99
[2021-11-12] MEDS: UMECLIDINIUM BROMIDE 62.5 MCG ELLIPTA 1 PUFF INHALATION (07:26)
[2021-11-12] MEDS: BISACODYL 5 MG TABLET EC PO (09:59)
[2021-11-12] MEDS: polyethylene glycoL 3350 17 GM POWD.PACK PO (09:59)
[2021-11-12] MEDS: busPIRone HCL 5 MG TABLET PO (09:59)
[2021-11-12] MEDS: levETIRAcetam 500 MG TABLET 2000 MG PO (09:59)
[2021-11-12] MEDS: GABAPENTIN 400 MG CAPSULE 800 MG PO (09:59)
[2021-11-12] MEDS: ENOXAPARIN 40 MG/0.4 ML SYRINGE SUB-Q (09:59)
[2021-11-12] MEDS: ASPIRIN 81 MG ENTERIC TABLET PO (09:59)
[2021-11-12] MEDS: cycloSPORINE (NEORAL) 25 MG CAPSULE 150 MG PO (09:59)
--- NOTE | 2021-11-12 11:38 | PM.DS ---
DS: Admitting Diagnosis Discharge Date 11/12/2021 1142 Admitting Diagnosis Generalized weakness Physical deconditioning Possible pneumonia Acute UTI Supratherapeutic dilantin levels DS: Discharge Diagnosis Discharge Diagnosis (1) Weakness: Code(s): R53.1 - Weakness Status: Acute Assessment and Plan: Pt. returned home on his own and signed out of rehab and has declined physically since being home, making him increasingly weak with poor appetite. Raises concern for potential for FTT. - Dietitian consulted for nutrition assessment.?- PT/OT was consulted for eval and treat - rehab placement was recommended and patient was agreeable.? - Care coordination was consulted for assistance with placement. Patient was [facility] to [facility].? (2) Elevated Dilantin level: Code(s): R78.89 - Finding of other specified substances, not normally found in blood Status: Acute Assessment and Plan: Dilantin level is elevated at 34 on admission,?- Dilantin levels were monitored and trended down to 20 on 11/10/21.? - Free phenytoin level was drawn on 11/11/21 and still pending at discharge. - Dilantin medication was held during his admission due to supratherapeutic levels and altered mental status.? - Dilantin to be resumed on 11/13/21 at previous dose with repeat level to be drawn on 11/16? (3) Physical deconditioning: Code(s): R53.81 - Other malaise Status: Acute Assessment and Plan: Thought to be secondary to acute infection, deconditioning and recent ischemic stroke. (4) Pneumonia: Qualifiers: Laterality: bilateral Lung location: lower lobe of lung Pneumonia type: due to unspecified organism Qualified Code(s): J18.9 - Pneumonia, unspecified organism Code(s): J18.9 - Pneumonia, unspecified organism Status: Acute Assessment and Plan: Chest x-ray on admission suggested Atelectasis vs. Infiltrates. He reportedly had been coughing prior to admission, per his .? - He was treated with IV Rocephin 1 gram Q24 hours starting 11/05, then transitioned to omnicef on 11/08 and continued until 11/10. Patient treated with 6 days cephalosporin therapy for possible pneumonia. - No respiratory complaints, supplemental O2 needs or fevers were noted at discharge.? (5) Acute UTI: Code(s): N39.0 - Urinary tract infection, site not specified Status: Acute Assessment and Plan: UA was positive for trace leukocytes, 10-15 WBC, 4+ bacteria. Patient is receiving Cyclosporine and prednisone outpatient for transplant history and immunocompromised.- He was treated with IV Rocephin Q24 hours and transitioned to oral Omnicef as listed above. This was stopped and he was changed to Bactrim DS 1 tab BID x 10 days on 11/10 when urine culture showed ESBL klebsiella sensitive to Bactrim and Ertapenem only. Patient's renal function was normal and monitored on therapy while inpatient.? (6) AMS (altered mental status): Code(s): R41.82 - Altered mental status, unspecified Status: Acute Assessment and Plan: Metabolic encephalopathy and somnolence secondary to supratherapeutic Dilantin level, poor PO intake and acute infection. Mental status returned to baseline with above medical management. ? (7) Hypomagnesemia: Code(s): E83.42 - Hypomagnesemia Status: Acute Assessment and Plan: Magnesium level was noted to be 1.3 during hospital stay. He was treated with 2 grams magnesium sulfate and repeat level was 1.7. (8) Seizures: Code(s): R56.9 - Unspecified convulsions Status: Chronic Assessment and Plan: H/O seizures. No seizure activity during hospital stay. Keppra PO and Vimpat continued inpatient. Dilantin was held as detailed above for elevated levels. Stable. (9) Liver transplant status: Code(s): Z94.4 - Liver transplant status Status: Chronic Assessment and Plan: [place]
[2021-11-12 13:28] LABS: EDCOVIDSCREEN Negative (Negative)
== END 2021-11-12 14:00 | DRG 689 ==
LOC: ANHED 13:32 → ANH3MED 14:58
PROVIDERS: Nurse Practitioner; Nurse Practitioner Adult Health; Nurse Practitioner Family; Admitting Provider Chiropractor; Emergency Provider Emergency Medicine; PCP Physician Assistant; Visit Provider Nurse Practitioner Family
DX: N39.0 Urinary tract infection, site not specified (principal); G93.41 Metabolic encephalopathy; J18.9 Pneumonia, unspecified organism; I69.351 Hemiplegia and hemiparesis following cerebral infarction affecting right dominant side; Z94.4 Liver transplant status; J44.0 Chronic obstructive pulmonary disease with (acute) lower respiratory infection; R62.7 Adult failure to thrive; R53.1 Weakness; G40.909 Epilepsy, unspecified, not intractable, without status epilepticus; E83.42 Hypomagnesemia; K59.00 Constipation, unspecified; G62.9 Polyneuropathy, unspecified; Z20.822 Contact with and (suspected) exposure to COVID-19; T42.0X5A Adverse effect of hydantoin derivatives, initial encounter; Z79.899 Other long term (current) drug therapy; Z79.52 Long term (current) use of systemic steroids; Z79.82 Long term (current) use of aspirin; F80.2 Mixed receptive-expressive language disorder; R63.0 Anorexia; Z86.19 Personal history of other infectious and parasitic diseases; Z90.49 Acquired absence of other specified parts of digestive tract; Z87.891 Personal history of nicotine dependence
CPT/HCPCS: 36415; 70450; 71045; 80048; 80053; 80177; 80185; 80186; 81001; 82140; 83605; 83735; 84443; 85025; 87040; 87077; 87086; 87147; 87181; 87186; 87426; 93005; 94640; 96361; 96365; 96372; 96375; 97110; 97162; 97166; 97530; 97535; 99285; A9270; C9803; G0378; J0696; J1650; J2405; J3475; J7030; J7515; U0003; U0005

== ENCOUNTER 2021-11-26 08:26 | Inpatient (IN) | payer MEDICARE, SELFPAY ==
[2021-11-26] VITALS (22 sets, daily range): BP systolic 88–151; BP diastolic 55–86; PULSE 79–140; RESP 14–28; TEMP 36.6–37.8; O2SAT 92–100; BMI 31.8
--- NOTE | ~2021-11-26 | XR_ITS ---
EXAMINATION: XR barium swallow modified DATE: 11/28/2021 09:49 INDICATION: Dysphagia. TECHNIQUE: The patient was given barium-containing material of multiple consistencies to swallow by champ sosa speech pathologist while I performed fluoroscopy. Dose-area product was 1.01 Gy-cm2. 2 minutes fluoroscopy time FINDINGS: Oral Stage: Within functional limits Pharyngeal Phase: Within functional limits Cervical/Esophageal Stage: Within functional limits IMPRESSION: Modified esophagram findings as above. Please refer to the speech therapy report for [facility] recommendations. Reviewed, dictated and finalized at [facility]. Reviewed, dictated and finalized at [facility]. IMPRESSION: Modified esophagram findings as above. Please refer to the speech t herapy report for specific recommendations.
--- NOTE | ~2021-11-26 | XR_ITS ---
EXAMINATION: XR chest 1V portable DATE: 11/26/2021 09:24 INDICATION: Cough. TECHNIQUE: A single frontal view of the chest was obtained. COMPARISON: Chest single view 11/05/2021, chest CT 04/20/2020 FINDINGS: Again seen is chronic elevation of right hemidiaphragm. There are airspace opacities in the mid and lower lung zones. No pleural effusion or pneumothorax. The heart size is normal. IMPRESSION: 1. Stable mild airspace opacities in the lower lung zones, consistent with atelectasis/scarring versu s pneumonia. 2. Chronic elevation of right hemidiaphragm. Reviewed, dictated and finalized at [facility]. IMPRESSION: 1. Stable mild airspace opacities in the lower lung zones, consistent with atel ectasis/scarring versus pneumonia. 2. Chronic elevation of right hemidiaphragm.
--- NOTE | ~2021-11-26 | CT_ITS ---
EXAMINATION: CT brain wo con DATE: 11/27/2021 07:44 INDICATION: Seizure. Uneven pupil. Left upper extremity paresis. TECHNIQUE: Computed tomography (CT) of the head was performed without intravenous contrast. The mA wa s adjusted according to patient size. Iterative reconstruction technique was employed. Exam dose: 68 1.00 mGy-cm total exam DLP. COMPARISON: 11/05/2021 CT brain FINDINGS: Cerebral atherosclerosis and chronic small vessel ischemic changes of the cerebral white ma tter. Small chronic lacunar infarct of the right caudate nucleus. No intracranial mass lesion or hemorrhage, midline shift or mass effect. No recent cerebrovascular ac cident is detected. No subdural or epidural hematoma. No fracture or bone destruction of the cranial vault. Included paranasal sinuses and the mastoid air cells are normally developed and aerated. IMPRESSION: Cerebral atherosclerosis and chronic small vessel ischemic changes of the cerebral white matter No significant change since 11/05/2021 Reviewed, dictated and finalized at [facility]. Reviewed, dictated and finalized at [facility].
--- NOTE | ~2021-11-26 | XR_ITS ---
EXAMINATION: XR chest 2V Exam Date/Time: 11/28/2021 13:40 CDT HISTORY: pna Comparison: 11/26/2021. RESULT: Lines, tubes, and devices: None. Lungs and pleura: Clear. Cardiomediastinal silhouette: Stable. Other: No acute osseous or upper abdominal finding. IMPRESSION: No acute cardiopulmonary process. Reviewed, dictated and finalized at location [facility].
--- NOTE | 2021-11-26 08:38 | ECG_ITS ---
Measurements Intervals [place] Rate: 136 P: 66 MO: 147 QRS: -7 QRSD: 98 T: 73 QT: 330 QTc: 497 Interpretive Statements SINUS TACHYCARDIA WITH OCCASIONAL VENTRICULAR PREMATURE COMPLEXES INCOMPLETE RIGHT BUNDLE BRANCH BLOCK NONSPECIFIC ST & T-WAVE ABNORMALITY ABNORMAL RHYTHM ECG COMPARED TO ECG 11/05/2021 10:55:20 SINUS TACHYCARDIA NOW PRESENT Electronically Signed On 11-26-2021 16:25:19 CDT by Amaury Pandey M.D.
--- NOTE | 2021-11-26 08:41 | ED.GENADULT ---
HPI - General Adult General Chief complaint: Shortness of Breath/Dyspnea Stated complaint: SOB & CP Source: RN notes reviewed History of Present Illness HPI narrative: Patient presents emergency department from home via EMS for shortness of breath. Patient states that he has been feeling short of breath since yesterday states he has COPD is not normally on oxygen patient noted to be 88% on room air when EMS arrived. Patient states that with this he is having left-sided chest pain described as a pressure states he had a cough this been nonproductive also notes that he threw up 3 times last night he denies any fevers at home but is noted to have a low-grade fever in the emergency department he denies any abdominal pain or diarrhea Related Data Home Medications Medication Instructions Recorded Confirmed aspirin 81 mg tablet 81 mg PO DAILY 10/28/19 11/05/21 gabapentin 800 mg tablet 800 mg PO TID 10/28/19 11/05/21 umeclidinium 62.5 mcg/actuation 62.5 mcg inhalation DAILY 07/25/21 11/05/21 blister powder for inhalation (Incruse Ellipta) buspirone 5 mg tablet 5 mg PO TID 11/05/21 11/05/21 levetiracetam 1,000 mg tablet 2,000 mg PO BID 11/05/21 11/05/21 phenytoin sodium extended 100 mg 300 mg PO HS 11/05/21 11/05/21 capsule (Dilantin Extended) cyclosporine modified 100 mg 100 mg PO Q12H 11/06/21 11/06/21 capsule (Neoral) Allergies Allergy/AdvReac Type Severity Reaction Status Date / Time No Known Allergies Allergy Verified 07/25/21 08:28 Review of Systems Review of Systems: Gen.: Denies fevers or chills ENT: Denies congestion Respiratory: See HPI CV: Reports left-sided chest pain GI: Denies abdominal pain reports nausea vomiting Musculoskeletal: Denies back pain or muscle pain Neuro: Denies numbness, tingling, weakness or focal weakness Skin: Denies rash Except as documented, all other systems reviewed and negative PMFSH Past Medical History Medical History Cerebrovascular accident (2011) Mild right sided weakness. Chronic obstructive pulmonary disease Depression Hepatitis C Status post liver transplant in 2007 followed by successful hepatitis C treatment in 2013. Herpes encephalitis History of renal dialysis Hyperlipidemia Irritable bowel syndrome Peripheral neuropathy Pneumonia Renal failure Required dialysis before liver transplant. Seizures Surgical History Surgical History History of cholecystectomy History of liver transplant (2007) For cirrhosis and hepatitis C. Family History Family History Father Family history of heart disease in male family member before age 55 Mother Family history of liver disease Sibling Diabetes mellitus Social History Social History Social History: Surrogate decision maker: Elyse Boone, . Code status: Full code. Smoking packs per day: 1 Smoking cigarettes per day: 20.0 Years smoked: 23 Smoking pack-years: 23.00 Smoking status: Former smoker Second hand tobacco smoke exposure: No Additional smoking assessment comments: Quit in 1997. Alcohol intake: former Alcohol use details: Quit in 1996. Substance use: never Additional living arrangements comments: Lives with , sister, [id number]. Spiritual care concerns: No Exam Narrative: APPEARANCE: No acute distress, nontoxic, resting in bed EYES: EOMI HEENT: Normocephalic, atraumatic, OMM RESPIRATORY: Moderate respiratory distress, is sitting upright speaking in short phrases wheezing throughout bilateral lung morfin with decreased breath sounds in the bases CARDIOVASCULAR: Regular rate and rhythm without murmurs rubs or gallops. ABDOMINAL: Soft, nontender, nondistended, no rebound or guarding MUSCULOSKELETAl: Moves all extremities. N
[2021-11-26] MEDS: IPRATROPIUM BR 0.02% INH SOLN 0.5 MG/2.5 ML VIAL INHALATION ×3 (08:58→21:01)
[2021-11-26] MEDS: SODIUM CHLORIDE 0.9% IV 1,000 ML 999 ML IV CONT (09:14)
[2021-11-26] MEDS: methylPREDNISolone SOD SUCC 125 MG VIAL IV PUSH (09:14)
[2021-11-26 09:17] LABS: Basophils Absolute Auto 0.1 K/mm3 (0.0-0.1); Basophils Percent Auto 0.6 % (0.2-1.2); Eosinophils Absolute Auto 0.7 K/mm3 (0-0.3); Eosinophils Percent Auto 4.8 % (0-4.4); Hematocrit 44.4 % (42.0-52.0); Hemoglobin 14.8 g/dL (14.0-18.0); Immature Granulocyte Absolute 0.15 K/mm3 (0.00-0.031); Immature Granulocyte Percent A 1.1 % (0-0.5); Lymphocytes Absolute Auto 4.16 K/mm3 (0.9-3.2); Lymphocytes Percent Auto 29.7 % (18.3-44.2); Mean Corpuscular HGB Conc 33.3 g/dl (32-36); Mean Corpuscular Hemoglobin 31.1 pg (26-34); Mean Corpuscular Volume 93.3 fl (80-100); Mean Platelet Volume 9.7 fl (7.4-10.4); Monocytes Absolute Auto 0.9 K/mm3 (0.1-0.6); Monocytes Percent Auto 6.6 % (2.6-8.5); Neutrophils Percent Auto 57.2 % (45.5-73.1); Platelet Count Result 278 k/mm3 (150-375); Red Blood Count 4.76 M/mm3 (4.6-6.20); Red Cell Distribution Width 13.7 % (11.5-14.5)
[2021-11-26 09:18] LABS: Alveolar/Arterial O2 Gradient 99.2 mmHg; Base Excess ABG 1.4 mEq/l (+/-2.0); Carboxyhemoglobin 0.5 % THb (0-2.0); Fractional Inspired Oxygen 32 %; HCO3 ABG 28.4 mEq/l (22.0-26.0); Methemoglobin ABG 0.2 %THb (0-1.5); Oxygen Content ABG 18.6 %vol (16.0-22.0); Oxygen Saturation ABG 91.2 % (95.0-100.0); Oxyhemoglobin 90.7 % THb (90.0-100.0); PCO2 ABG 54.6 mmHg (35.0-45.0); PO2 ABG 65.1 mmHg (80.0-100.0); PO2 FiO2 Ratio Arterial Blood 2.03 %; Reduced Hemoglobin 8.6 %THb (0-5.0); Total Hemoglobin 14.6 g/dL (12.0-18.0); pH ABG 7.334 (7.350-7.450)
[2021-11-26 09:19] LABS: Device NASAL CANNULA; Modified Allen's Test Pass; Site Drawn LEFT RADIAL
[2021-11-26 09:28] LABS: Prothrombin Time 12.9 Seconds (11.1-14.7)
[2021-11-26 09:29] LABS: Partial Thromboplastin Time 26.2 SECONDS (22.3-36.8)
[2021-11-26 09:35] LABS: Alanine Aminotransferase 28 U/L (6-50); Albumin Level 4.3 g/dL (3.5-5.1); Alkaline Phosphatase 139 U/L (38-126); Anion Gap 12 mmol/L (8-16); Aspartate Amino Transferase 22 U/L (17-59); Bilirubin,Total 0.4 mg/dL (0.2-1.3); Blood Urea Nitrogen 12 mg/dL (9-20); Calcium 8.9 mg/dL (8.4-10.2); Carbon Dioxide 27 mmol/L (22-30); Chloride 101 mmol/L (98-107); Estimated CRCL calculation 134 ml/min; Estimated Glomerular Filt Rate > 60; Glucose 145 mg/dL (65-110); Lactic Acid Reflex 2.4 mmol/L (0.7-2.0); Potassium 4.2 mmol/L (3.4-5.0); Sodium 140 mmol/L (137-145)
[2021-11-26 09:45] LABS: Lipase 142 U/L (23-300); NT Pro B Type Natriuretic Pept 127 pg/mL (5-100); Troponin I < 0.012 ng/mL (0.000-0.034)
[2021-11-26 09:45] LABS: SARS-CoV-2 RNA PCR Negative
[2021-11-26 12:13] LABS: Reflex Lactic Acid Yes or No Add Lactic
[2021-11-26] MEDS: ALBUTEROL SULFATE NEB 2.5 MG/3 ML INH 5 MG INHALATION ×2 (12:45→21:02)
--- NOTE | 2021-11-26 12:58 | PC.NURSE ---
Patient care report reviewed with LUISA Carlos. All questions answered at this time. Patient to be transported to assigned inpatient room after breathing treatment finishes.
--- NOTE | 2021-11-26 13:15 | PM.IMHP ---
H&P: HPI History of Present Illness Date/Time: 11/26/21 13:15 Chief Complaint: Shortness of breath. Narrative: This is a 61-year-old male with history of stroke, seizures, herpes encephalitis, COPD, and cirrhosis with hepatitis C status post liver transplant in 2007 who presented to the emergency department via EMS from [facility] for evaluation of shortness of breath. He was recently hospitalized with altered mental status and he was discharged to the care facility on 11/12/2021 after being treated for UTI and possible pneumonia. Also noted that he had an elevated Dilantin level at that time. He has apparently been doing well since discharge however last night after eating dinner he began to feel nauseated and reports having an episode of emesis. According to the patient he had a coughing fit thereafter however he does not think that he aspirated with the emesis. Since that time however he has had increasing shortness of breath and wheezing and he was brought in after he was found to have an SpO2 in the upper 80s on room air. He had a low-grade temperature of 100.1? and he was tachypneic and tachycardic on arrival. Chest x-ray showed stable mild airspace opacities consistent with atelectasis/scarring versus pneumonia. His white blood cell count was elevated at 14 and he also had an elevated lactic acid level. SARS-CoV-2 by PCR was negative. Due to concerns for pneumonia he was started on antibiotics and admitted to the floor. Review of Systems Review of Systems: 12 systems were reviewed. He has had a cough occasionally productive of green phlegm. No sinus congestion or sore throat. He denies fever, chills, and sweats. No chest or pleuritic pain. No nausea or vomiting. Except as documented, all other systems were reviewed and are negative. [facility] Past Medical History Medical History Cerebrovascular accident (2011) Mild right sided weakness. Chronic obstructive pulmonary disease Depression Hepatitis C Status post liver transplant in 2007 followed by successful hepatitis C treatment in 2013. Herpes encephalitis History of renal dialysis Hyperlipidemia Irritable bowel syndrome Peripheral neuropathy Pneumonia Renal failure Required dialysis before liver transplant. Seizures Surgical History Surgical History History of cholecystectomy History of liver transplant (2007) For cirrhosis and hepatitis C. Family History Family History Father Family history of heart disease in male family member before age 55 Mother Family history of liver disease Sibling Diabetes mellitus Social History Social History Social History: Surrogate decision maker: Elyse Boone, . Code status: Full code. Smoking packs per day: 1 Smoking cigarettes per day: 20.0 Years smoked: 23 Smoking pack-years: 23.00 Smoking status: Former smoker Second hand tobacco smoke exposure: No Additional smoking assessment comments: Quit in 1997. Alcohol intake: unknown Alcohol use details: Quit in 1996. Substance use: unknown Additional living arrangements comments: Lives with , sister, [id number]. Spiritual care concerns: No Meds Home Medications and Allergies Home Medications Medication Instructions Recorded Confirmed Type aspirin 81 mg tablet 81 mg PO DAILY 10/28/19 11/26/21 History gabapentin 800 mg tablet 800 mg PO TID 10/28/19 11/26/21 History umeclidinium 62.5 mcg/actuation 62.5 mcg inhalation DAILY 07/25/21 11/26/21 History blister powder for inhalation (Incruse Ellipta) buspirone 5 mg tablet 5 mg PO TID 11/05/21 11/26/21 History levetiracetam 1,000 mg tablet 1,500 mg PO BID 11/05/21 11/26/21 History phenytoin sodium extended 100 mg 300 mg PO HS 11/05/21
--- NOTE | 2021-11-26 16:07 | ADMGEN ---
This patient, Yonis Boone, was admitted to IMU Room 213-01 at 1326. Patient/family oriented to hospital policies and general routines including ID bracelet, bed and alarms, visiting hours, pain management, procedures, bathroom and other care routines, personal items, smoking policy, room service/diet, and visiting hours. Information on how to activate the Rapid Response Team has been discussed. Patient/Family are encouraged to report perceived risks to care and to ask questions if they do not understand what they are told or what they should do.
[2021-11-26 16:33] LABS: Lactic Acid 6.6 mmol/L (0.7-2.0)
[2021-11-26 16:37] LABS: Troponin I < 0.012 ng/mL (0.000-0.034)
[2021-11-26] MEDS: SODIUM CHLORIDE 0.9% IV 1,000 ML 125 ML IV CONT (16:40)
[2021-11-26] MEDS: methylPREDNISolone SOD SUCC 125 MG VIAL 60 MG IV PUSH ×2 (17:36→22:30)
[2021-11-26 19:41] LABS: Troponin I < 0.012 ng/mL (0.000-0.034)
[2021-11-27] VITALS (23 sets, daily range): BP systolic 111–160; BP diastolic 66–96; PULSE 77–155; RESP 14–28; TEMP 35.8–36.5; O2SAT 95–100
[2021-11-27] MEDS: IPRATROPIUM BR 0.02% INH SOLN 0.5 MG/2.5 ML VIAL INHALATION ×3 (02:49→14:42)
[2021-11-27] MEDS: ALBUTEROL SULFATE NEB 2.5 MG/3 ML INH 5 MG INHALATION ×3 (02:49→14:42)
[2021-11-27 04:46] LABS: Basophils Percent Auto 0.2 % (0.2-1.2); Hemoglobin 12.5 g/dL (14.0-18.0); Immature Granulocyte Absolute 0.09 K/mm3 (0.00-0.031); Immature Granulocyte Percent A 0.9 % (0-0.5); Lymphocytes Absolute Auto 0.81 K/mm3 (0.9-3.2); Lymphocytes Percent Auto 8.2 % (18.3-44.2); Mean Corpuscular HGB Conc 33.8 g/dl (32-36); Mean Corpuscular Hemoglobin 31.2 pg (26-34); Mean Corpuscular Volume 92.3 fl (80-100); Mean Platelet Volume 9.7 fl (7.4-10.4); Monocytes Absolute Auto 0.4 K/mm3 (0.1-0.6); Monocytes Percent Auto 4.3 % (2.6-8.5); Neutrophils Absolute Auto 8.5 K/mm3 (1.3-6.7); Neutrophils Percent Auto 86.4 % (45.5-73.1); Platelet Count Result 223 k/mm3 (150-375); Red Blood Count 4.01 M/mm3 (4.6-6.20); Red Cell Distribution Width 13.6 % (11.5-14.5); White Blood Count 9.8 K/mm3 (4.5-10.0)
[2021-11-27 05:02] LABS: Lactic Acid Reflex 4.1 mmol/L (0.7-2.0)
[2021-11-27 05:14] LABS: Alanine Aminotransferase 30 U/L (6-50); Albumin Level 3.5 g/dL (3.5-5.1); Alkaline Phosphatase 103 U/L (38-126); Anion Gap 11 mmol/L (8-16); Aspartate Amino Transferase 23 U/L (17-59); Bilirubin,Total 0.3 mg/dL (0.2-1.3); Blood Urea Nitrogen 11 mg/dL (9-20); CRP 6.4 mg/dL (<1.0); Carbon Dioxide 22 mmol/L (22-30); Chloride 102 mmol/L (98-107); Estimated CRCL calculation 163 ml/min; Estimated Glomerular Filt Rate > 60; Glucose 163 mg/dL (65-110); Potassium 3.9 mmol/L (3.4-5.0); Sodium 135 mmol/L (137-145)
[2021-11-27 05:33] LABS: Procalcitonin 0.1 ng/mL
--- NOTE | 2021-11-27 05:42 | PCDIET ---
Request submitted for midline per Dr Gonzalez. Multiple attempts for peripheral IV.
[2021-11-27] MEDS: LIDOCAINE HCL 1% LOCAL INJ 2 ML AMPUL 5 ML INFILTRATE (07:00)
[2021-11-27] MEDS: diazePAM INJ (*CRX) 10 MG/2 ML SYRINGE IV PUSH (07:19)
[2021-11-27] MEDS: methylPREDNISolone SOD SUCC 125 MG VIAL 60 MG IV PUSH ×3 (07:20→22:15)
[2021-11-27] MEDS: SODIUM CHLORIDE 0.9% IV 1,000 ML 125 ML IV CONT (07:22)
[2021-11-27] MEDS: levETIRAcetam 1000MG/NACL100ML 1,000 MG/100 ML BAG 400 MG IVPB (07:27)
[2021-11-27 07:43] LABS: Reflex Lactic Acid Yes or No Add Lactic
--- NOTE | 2021-11-27 07:52 | PM.IMHP ---
H&P: HPI History of Present Illness Date/Time: 11/27/21 07:52 [facility] Past Medical History Medical History Cerebrovascular accident (2011) Mild right sided weakness. Chronic obstructive pulmonary disease Depression Hepatitis C Status post liver transplant in 2007 followed by successful hepatitis C treatment in 2013. Herpes encephalitis History of renal dialysis Hyperlipidemia Irritable bowel syndrome Peripheral neuropathy Pneumonia Renal failure Required dialysis before liver transplant. Seizures Surgical History Surgical History History of cholecystectomy History of liver transplant (2007) For cirrhosis and hepatitis C. Family History Family History Father Family history of heart disease in male family member before age 55 Mother Family history of liver disease Sibling Diabetes mellitus Social History Social History Social History: Surrogate decision maker: Elyse Boone, . Code status: Full code. Smoking packs per day: 1 Smoking cigarettes per day: 20.0 Years smoked: 23 Smoking pack-years: 23.00 Smoking status: Former smoker Second hand tobacco smoke exposure: No Additional smoking assessment comments: Quit in 1997. Alcohol intake: unknown Alcohol use details: Quit in 1996. Substance use: unknown Additional living arrangements comments: Lives with , sister, [id number]. Spiritual care concerns: No Meds Home Medications and Allergies Home Medications Medication Instructions Recorded Confirmed Type aspirin 81 mg tablet 81 mg PO DAILY 10/28/19 11/26/21 History gabapentin 800 mg tablet 800 mg PO TID 10/28/19 11/26/21 History umeclidinium 62.5 mcg/actuation 62.5 mcg inhalation DAILY 07/25/21 11/26/21 History blister powder for inhalation (Incruse Ellipta) buspirone 5 mg tablet 5 mg PO TID 11/05/21 11/26/21 History levetiracetam 1,000 mg tablet 1,500 mg PO BID 11/05/21 11/26/21 History phenytoin sodium extended 100 mg 300 mg PO HS 11/05/21 11/26/21 History capsule (Dilantin Extended) acetaminophen 325 mg tablet (Mapap 650 mg PO Q6H PRN Mild Pain (1-3) 11/12/21 11/26/21 Rx (acetaminophen)) Or Fever #30 tabs bisacodyl 10 mg rectal suppository 10 mg RECTAL QAM PRN Constipation 11/12/21 11/26/21 Rx #2 ea lacosamide 150 mg tablet 300 mg PO HS #10 tabs 11/12/21 11/26/21 Rx polyethylene glycol 3350 17 gram 17 g PO QAM #14 ea 11/12/21 11/26/21 Rx oral powder packet (Miralax) cyclosporine 100 mg capsule 150 mg PO Q12H 11/26/21 11/26/21 History (Sandimmune) prednisone 20 mg tablet 20 mg PO DAILY 11/26/21 11/26/21 History Allergies Allergy/AdvReac Type Severity Reaction Status Date / Time No Known Allergies Allergy Verified 07/25/21 08:28 Vital Signs Vital Signs - 24 hr 11/26/21 08:28 11/26/21 08:50 11/26/21 08:50 Temperature 100.1 F H Pulse Rate 137 H 140 H Respiratory Rate 28 H Blood Pressure 113/80 Pulse Oximetry 96 96 Oxygen Delivery Nasal Cannula Nasal Cannula Oxygen Flow Rate 4 4 Fraction of Inspired Oxygen 11/26/21 09:00 11/26/21 09:10 11/26/21 12:47 Temperature Pulse Rate 130 H 135 H 110 H Respiratory Rate 22 H 20 20 Blood Pressure Pulse Oximetry Oxygen Delivery Oxygen Flow Rate Fraction of Inspired Oxygen 11/26/21 10:21 11/26/21 10:31 11/26/21 10:46 Temperature Pulse Rate 114 H 112 H 108 H Respiratory Rate 21 H 22 H 18 Blood Pressure 88/59 L 103/61 126/73 Pulse Oximetry 94 94 94 Oxygen Delivery Oxygen Flow Rate Fraction of Inspired Oxygen 11/26/21 11:31 11/26/21 11:46 11/26/21 12:01 Temperature Pulse Rate 102 H 104 H 107 H Respiratory Rate 23 H 24 H 27 H Blood Pressure 105/55 L 140/77 151/86 H Pulse Oximetry O
[2021-11-27] MEDS: CENTRAL LINE FLUSH 20 ML IV PUSH (08:45)
[2021-11-27 08:46] LABS: Lactic Acid 6.5 mmol/L (0.7-2.0)
[2021-11-27] MEDS: GABAPENTIN 400 MG CAPSULE 800 MG PO ×3 (09:45→22:13)
[2021-11-27] MEDS: ASPIRIN 81 MG CHEWABLE TABLET PO (09:45)
[2021-11-27] MEDS: busPIRone HCL 5 MG TABLET PO ×3 (09:45→16:14)
[2021-11-27] MEDS: ENOXAPARIN 40 MG/0.4 ML SYRINGE SUB-Q (09:46)
[2021-11-27] MEDS: guaiFENesin 12 HR 600 MG TABCR PO ×2 (09:46→22:12)
[2021-11-27] MEDS: UMECLIDINIUM BROMIDE 62.5 MCG ELLIPTA 1 PUFF INHALATION (11:39)
[2021-11-27] MEDS: CENTRAL LINE FLUSH 10 ML IV PUSH ×2 (13:16→22:16)
--- NOTE | 2021-11-27 16:07 | PM.IMPN ---
Progress Note: A&P Assessment and Plan (1) Hypoxia: Code(s): R09.02 - Hypoxemia Status: Acute Assessment and Plan: Resolved (2) Abnormal chest x-ray: Code(s): R93.89 - Abnormal findings on diagnostic imaging of other specified body structures Status: Acute Assessment and Plan: Day 2 of azithromycin with Rocephin (3) Lactic acidosis: Code(s): E87.2 - Acidosis Status: Acute Assessment and Plan: Repeat lactate pending Subjective Date/time seen: 11/27/21 16:07 Interval history: Patient had 2 rapid responses called when he had a seizure. He then had a postictal state which eventually resolved. No chest pain or shortness of breath. No nausea, vomiting or diarrhea. No fevers or chills. Review of Systems Review of Systems: 12 point review of systems was assessed and was negative except as noted in the HPI Exam Narrative: General: No acute distress, alert and oriented per baseline, slowed speech and cognition post ictally HEENT: Atraumatic, normocephalic, mucous membranes moist CV: Regular rate and rhythm, S1, S2 Lungs: Clear to auscultation bilaterally, no rales or crackles noted, no wheezes, good air entry Abdomen: Soft, nontender, nondistended Extremities: Normal to inspection Skin: No rashes noted, no lesions or wounds seen Psych: Euthymic, normal affect Objective Data Vital Signs Vital Signs: Vital Signs - 24 hr 11/26/21 18:00 11/26/21 20:00 11/26/21 21:05 Temperature 98.2 F Pulse Rate 108 H 90 88 Respiratory Rate 20 14 Blood Pressure 147/75 H Pulse Oximetry 100 Oxygen Delivery Oxygen Flow Rate Fraction of Inspired Oxygen 11/26/21 20:00 11/26/21 20:00 11/26/21 21:22 Temperature Pulse Rate 90 89 Respiratory Rate 15 Blood Pressure Pulse Oximetry 100 Oxygen Delivery Nasal Cannula Oxygen Flow Rate 4 Fraction of Inspired Oxygen 11/26/21 22:00 11/27/21 00:00 11/27/21 00:00 Temperature 97.7 F Pulse Rate 98 86 90 Respiratory Rate 16 Blood Pressure 133/75 Pulse Oximetry 100 Oxygen Delivery Oxygen Flow Rate Fraction of Inspired Oxygen 11/27/21 00:00 11/27/21 01:49 11/27/21 02:00 Temperature Pulse Rate 92 Respiratory Rate Blood Pressure Pulse Oximetry 100 100 Oxygen Delivery Nasal Cannula Nasal Cannula Oxygen Flow Rate 4 4 Fraction of Inspired Oxygen 11/27/21 02:47 11/27/21 02:48 11/27/21 02:51 Temperature Pulse Rate 86 87 77 Respiratory Rate 14 14 14 Blood Pressure Pulse Oximetry 97 95 Oxygen Delivery Nasal Cannula Room Air Oxygen Flow Rate 2 Fraction of Inspired Oxygen 28 21 11/27/21 04:00 11/27/21 04:00 11/27/21 04:00 Temperature 97.2 F L Pulse Rate 110 H 101 H Respiratory Rate 18 Blood Pressure 146/73 H Pulse Oximetry 98 98 Oxygen Delivery Nasal Cannula Oxygen Flow Rate 2 Fraction of Inspired Oxygen 11/27/21 03:01 11/27/21 06:00 11/27/21 07:17 Temperature Pulse Rate 78 96 148 H Respiratory Rate 16 28 H Blood Pressure Pulse Oximetry Oxygen Delivery Oxygen Flow Rate Fraction of Inspired Oxygen 11/27/21 07:49 11/27/21 08:05 11/27/21 08:19 Temperature Pulse Rate 155 H Respiratory Rate Blood Pressure 160/96 H Pulse Oximetry 100 100 95 Oxygen Delivery Nasal Cannula Room Air Oxygen Flow Rate 4 Fraction of Inspired Oxygen 11/27/21 08:28 11/27/21 08:11 11/27/21 08:53 Temperature 97.7 F Pulse Rate 114 H 120 H Respiratory Rate 20 22 H Blood Pressure 136/82 Pulse Oximetry 99 96 Oxygen Delivery Room Air Oxygen Flow Rate Fraction of Inspired Oxygen 11/27/21 08:00 11/27/21 08:00 11/27/21 12:00 Temperature 96.5 F L Pulse Rate 121 H 103 H Respiratory Rate 20 Blood Pressure 111/66 Pulse Oximetry 96 97 Oxygen Delivery Room Air Oxygen Flow Rate Fraction of Inspired Oxygen 11/27/21 14:43 11/27/21 14:57 Tempera
[2021-11-27 16:38] LABS: Lactic Acid Reflex 3.6 mmol/L (0.7-2.0)
--- NOTE | 2021-11-27 17:57 | PC.NURSE ---
This patient, Yonis Boone, was transferred to [[id number] ] on 11/27/21 at 1800. Personal belongings sent with patient. Report given to [LUISA Sherwood @ [phone] ]. Appropriate documentation sent with patient.
--- OUTSIDE RECORDS SUMMARY | 2021-11-27 18:24 | XMS_ITS ---
:1960 Author Care Team Providers Name Role Phone DIEGO CHADWICK PA-C Primary Care Provider [phone] Allergies Code Code System Name Reaction Severity Status Onset NKDA ? Medications Name Status Start Date Stop Date ? ? Afluria Quad [id number] (PF) 60 mcg (15 mcg x 4)/0.5 mL Completed ? 03/12/2020 IM syringe albuterol sulfate 2.5 mg/3 mL (0.083 %) solution for nebulizatio n Active ? Not available Inhale 2 vials in nebulizer every 4 hours as needed albuterol sulfate HFA 90 mcg/actuation aerosol inhaler Active ? Not available 2 puffs every four hours as needed amoxicillin 875 mg-potassium clavulanate 125 mg tablet Completed ? 03/25/2021 aspirin 81 mg tablet,delayed release Active ? Not available Take 1 tablet every day by oral route. azithromycin 250 mg tablet Completed ? 10/03 cyclobenzaprine 10 mg tablet Completed ? 05/2020 cyclosporine 100 mg capsule Active ? Not available Take 1 capsule twice a day by oral route. cyclosporine 25 mg capsule Active ? Not a vailable Take 1 capsule twice a day by oral route. cyclosporine modified 100 mg capsule Completed ? 05/19/2021 TAKE 1 CAPSULE 2 TIMES DAILY. ( IN KAREN TION TO 25 MG CAPSULE) [employer] RECIPIENT cyclosporine modified 25 mg capsule Completed ? 05/19/2021 TAKE 1 CAPSULE BY MOUTH 2 TIMES DAILY IN ADDITION TO 100MG CAPS ULE Dilantin 30 mg capsule Active ? Not avail able TAKE 9 (NINE) CAPSULES BY MOUTH ONCE DAILY Dilantin Extended 100 mg capsule Active ? Not available TAKE 4 CAPSULES BY MOUTH EACH DAY
[2021-11-27] MEDS: levETIRAcetam 500 MG TABLET 1500 MG PO (22:10)
[2021-11-27] MEDS: PHENYTOIN SODIUM 100 MG EXTENDED RELEASE CAP 300 MG PO (22:14)
[2021-11-27] MEDS: LACOSAMIDE (*CRX) 100 MG TABLET 300 MG PO (23:39)
[2021-11-28] VITALS (10 sets, daily range): BP systolic 119–131; BP diastolic 74–99; PULSE 75–98; RESP 16–22; TEMP 35.8–36.3; O2SAT 94–95
[2021-11-28] MEDS: GABAPENTIN 400 MG CAPSULE 800 MG PO ×3 (04:28→20:40)
[2021-11-28] MEDS: CENTRAL LINE FLUSH 10 ML IV PUSH ×3 (04:29→21:04)
[2021-11-28] MEDS: methylPREDNISolone SOD SUCC 125 MG VIAL 60 MG IV PUSH ×3 (04:29→20:40)
[2021-11-28 05:02] LABS: Phenytoin Dilantin 4 ug/mL (10-20)
[2021-11-28] MEDS: busPIRone HCL 5 MG TABLET PO ×3 (08:28→16:52)
[2021-11-28] MEDS: polyethylene glycoL 3350 17 GM POWD.PACK PO (08:28)
[2021-11-28] MEDS: levETIRAcetam 500 MG TABLET 1500 MG PO ×2 (08:28→20:39)
[2021-11-28] MEDS: guaiFENesin 12 HR 600 MG TABCR PO ×2 (08:28→20:37)
[2021-11-28] MEDS: ENOXAPARIN 40 MG/0.4 ML SYRINGE SUB-Q (08:28)
[2021-11-28] MEDS: ASPIRIN 81 MG CHEWABLE TABLET PO (08:29)
[2021-11-28] MEDS: ALBUTEROL SULFATE NEB 2.5 MG/3 ML INH 5 MG INHALATION ×3 (09:11→21:15)
[2021-11-28] MEDS: IPRATROPIUM BR 0.02% INH SOLN 0.5 MG/2.5 ML VIAL INHALATION ×3 (09:11→21:15)
--- NOTE | 2021-11-28 09:53 | PCSTNOTE ---
Please refer to the Modified Barium Swallow Evaluation in the EMR.
[2021-11-28 11:19] LABS: Basophils Percent Auto 0.1 % (0.2-1.2); Hemoglobin 12.3 g/dL (14.0-18.0); Immature Granulocyte Absolute 0.07 K/mm3 (0.00-0.031); Immature Granulocyte Percent A 0.6 % (0-0.5); Lymphocytes Absolute Auto 1.37 K/mm3 (0.9-3.2); Lymphocytes Percent Auto 11.8 % (18.3-44.2); Mean Corpuscular HGB Conc 33.2 g/dl (32-36); Mean Corpuscular Hemoglobin 31.2 pg (26-34); Mean Corpuscular Volume 93.9 fl (80-100); Mean Platelet Volume 9.9 fl (7.4-10.4); Monocytes Percent Auto 8.2 % (2.6-8.5); Neutrophils Absolute Auto 9.3 K/mm3 (1.3-6.7); Neutrophils Percent Auto 79.3 % (45.5-73.1); Platelet Count Result 218 k/mm3 (150-375); Red Blood Count 3.94 M/mm3 (4.6-6.20); Red Cell Distribution Width 14.1 % (11.5-14.5); White Blood Count 11.7 K/mm3 (4.5-10.0)
[2021-11-28 11:32] LABS: Lactic Acid Reflex 1.8 mmol/L (0.7-2.0)
[2021-11-28 11:35] LABS: Alanine Aminotransferase 25 U/L (6-50); Albumin Level 3.4 g/dL (3.5-5.1); Alkaline Phosphatase 87 U/L (38-126); Anion Gap 8 mmol/L (8-16); Aspartate Amino Transferase 30 U/L (17-59); Bilirubin,Total 0.3 mg/dL (0.2-1.3); Blood Urea Nitrogen 13 mg/dL (9-20); Calcium 8.6 mg/dL (8.4-10.2); Carbon Dioxide 29 mmol/L (22-30); Chloride 99 mmol/L (98-107); Estimated CRCL calculation 142 ml/min; Estimated Glomerular Filt Rate > 60; Glucose 114 mg/dL (65-110); Potassium 4.3 mmol/L (3.4-5.0); Sodium 136 mmol/L (137-145)
--- NOTE | 2021-11-28 15:37 | PM.IMPN ---
Progress Note: A&P Assessment and Plan (1) Hypoxia: Code(s): R09.02 - Hypoxemia Status: Acute Assessment and Plan: SpO2 is currently 100% on room air. No evidence of COPD exacerbation. (2) Abnormal chest x-ray: Code(s): R93.89 - Abnormal findings on diagnostic imaging of other specified body structures Status: Acute Assessment and Plan: Stable infiltrates, atelectasis/scarring versus pneumonia. Aspiration a possibility given coughing fit after emesis last evening. Continue antibiotics and scheduled bronchodilators. Swallow study ordered. 11/28: Evaluated by speech therapy, no signs of aspiration, may have happened during a seizure episode, no symptoms remain at this time, will complete course of antibiotics for possible aspiration pneumonia, currently on day 3 of azithromycin with Rocephin, will be discharged on Augmentin and azithromycin (3) Lactic acidosis: Code(s): E87.2 - Acidosis Status: Acute Assessment and Plan: Initial lactic acid was mildly elevated and repeat following fluid bolus jumped to 6.6. He is nontoxic in appearance. May very well be related to lab draw technique. No seizures today. He had a liver transplant done many years ago and liver enzymes are well within normal limits. Blood cultures have been ordered. Repeat in a.m. (4) Seizures: Code(s): R56.9 - Unspecified convulsions Status: Chronic Assessment and Plan: No reports of recent seizures. Continue phenytoin, lacosamide, and levetiracetam. Check phenytoin level. (5) Liver transplant status: Code(s): Z94.4 - Liver transplant status Status: Chronic Assessment and Plan: Continue cyclosporine. Subjective Date/time seen: 11/28/21 15:37 Interval history: Patient here to leave, no complaints, feels much better. No overnight events noted. No chest pain or shortness of breath. No nausea, vomiting or diarrhea. No fevers or chills. Review of Systems Review of Systems: 12 point review of systems was assessed and was negative except as noted in the HPI Exam Narrative: General: No acute distress, alert and oriented per baseline, slowed speech and cognition post ictally HEENT: Atraumatic, normocephalic, mucous membranes moist CV: Regular rate and rhythm, S1, S2 Lungs: Clear to auscultation bilaterally, no rales or crackles noted, no wheezes, good air entry Abdomen: Soft, nontender, nondistended Extremities: Normal to inspection Skin: No rashes noted, no lesions or wounds seen Psych: Euthymic, normal affect Objective Data Vital Signs Vital Signs: Vital Signs - 24 hr 11/27/21 16:43 11/27/21 22:00 11/27/21 20:30 Temperature 96.6 F L 97.1 F L Pulse Rate 103 H 87 87 Respiratory Rate 20 18 18 Blood Pressure 111/69 111/72 Pulse Oximetry 95 96 96 Oxygen Delivery Room Air Fraction of Inspired Oxygen 21 11/28/21 06:00 11/28/21 09:12 11/28/21 09:19 Temperature 96.5 F L Pulse Rate 77 75 82 Respiratory Rate 18 20 20 Blood Pressure 131/99 H Pulse Oximetry 95 Oxygen Delivery Fraction of Inspired Oxygen 11/28/21 08:00 11/28/21 14:00 11/28/21 14:30 Temperature 97.3 F L Pulse Rate 98 Respiratory Rate 16 Blood Pressure 123/80 Pulse Oximetry 95 Oxygen Delivery Room Air Room Air Fraction of Inspired Oxygen 11/28/21 15:08 11/28/21 15:22 Temperature Pulse Rate 93 94 Respiratory Rate 20 20 Blood Pressure Pulse Oximetry Oxygen Delivery Fraction of Inspired Oxygen Intake/Output Intake/Output: Intake & Output 11/25/21 11/26/21 11/27/21 11/28/21 23:59 23:59 23:59 23:59 Intake Total 1640 3530 930 Output Total 375 1001 50 Balance 1265 2529 880 Meds/Results Medications: Active Medications Generic Name Dose Route Start Last Admin Trade Name Himanshuq PRN Reason Stop Dose Admin Acetaminophen 650 mg 11/27/21 07:49 Acetaminophen 325 Mg Tablet PO Q6H PRN Mil
[2021-11-28] MEDS: LACOSAMIDE (*CRX) 100 MG TABLET 300 MG PO (20:38)
[2021-11-28] MEDS: PHENYTOIN SODIUM 100 MG EXTENDED RELEASE CAP 300 MG PO (20:39)
[2021-11-29] VITALS (9 sets, daily range): BP systolic 117–137; BP diastolic 66–81; PULSE 81–96; RESP 18–22; TEMP 36.1–36.4; O2SAT 96–98
[2021-11-29] MEDS: IPRATROPIUM BR 0.02% INH SOLN 0.5 MG/2.5 ML VIAL INHALATION ×3 (03:45→13:51)
[2021-11-29] MEDS: ALBUTEROL SULFATE NEB 2.5 MG/3 ML INH 5 MG INHALATION ×3 (03:45→13:51)
[2021-11-29] MEDS: methylPREDNISolone SOD SUCC 125 MG VIAL 60 MG IV PUSH ×2 (07:07→13:38)
[2021-11-29] MEDS: GABAPENTIN 400 MG CAPSULE 800 MG PO ×2 (07:08→13:37)
[2021-11-29] MEDS: CENTRAL LINE FLUSH 10 ML IV PUSH ×2 (07:09→13:39)
[2021-11-29] MEDS: ENOXAPARIN 40 MG/0.4 ML SYRINGE SUB-Q (08:57)
[2021-11-29] MEDS: guaiFENesin 12 HR 600 MG TABCR PO (08:57)
[2021-11-29] MEDS: levETIRAcetam 500 MG TABLET 1500 MG PO (08:58)
[2021-11-29] MEDS: busPIRone HCL 5 MG TABLET PO ×2 (08:58→13:39)
[2021-11-29] MEDS: ASPIRIN 81 MG CHEWABLE TABLET PO (08:58)
[2021-11-29] MEDS: polyethylene glycoL 3350 17 GM POWD.PACK PO (08:58)
--- NOTE | 2021-11-29 09:18 | PM.DS ---
DS: Admitting Diagnosis Discharge Date November 29, 2021 Admitting Diagnosis Shortness of breath DS: Discharge Diagnosis Discharge Diagnosis (1) Hypoxia: Code(s): R09.02 - Hypoxemia Status: Acute Assessment and Plan: SpO2 is currently 100% on room air. No evidence of COPD exacerbation. (2) Abnormal chest x-ray: Code(s): R93.89 - Abnormal findings on diagnostic imaging of other specified body structures Status: Acute Assessment and Plan: Stable infiltrates, atelectasis/scarring versus pneumonia. Aspiration a possibility given coughing fit after emesis last evening. Continue antibiotics and scheduled bronchodilators. Swallow study ordered. 11/28: Evaluated by speech therapy, no signs of aspiration, may have happened during a seizure episode, no symptoms remain at this time, will complete course of antibiotics for possible aspiration pneumonia, currently on day 3 of azithromycin with Rocephin, will be discharged on Levaquin (3) Lactic acidosis: Code(s): E87.2 - Acidosis Status: Acute Assessment and Plan: Initial lactic acid was mildly elevated and repeat following fluid bolus jumped to 6.6. He is nontoxic in appearance. May very well be related to lab draw technique. No seizures today. He had a liver transplant done many years ago and liver enzymes are well within normal limits. Blood cultures have been ordered. Repeat in a.m. 11/28: Lactate down to 1.8 (4) Seizures: Code(s): R56.9 - Unspecified convulsions Status: Chronic Assessment and Plan: No reports of recent seizures. Continue phenytoin, lacosamide, and levetiracetam. Check phenytoin level. (5) Liver transplant status: Code(s): Z94.4 - Liver transplant status Status: Chronic Assessment and Plan: Continue cyclosporine. DS: Summary Hospital Course Hospital Course: 61-year-old male with past medical history significant for stroke, seizures, COPD and cirrhosis with hepatitis-C status post liver transplant. Presenting from nursing facility for evaluation of shortness of breath. He was treated for UTI and pneumonia in October and had elevated Dilantin level at that time. He had been doing well at the facility until yesterday when he started feeling nauseated and had emesis and appeared to have aspirated. He did have a temperature of a 100.1? and chest x-ray showed possible pneumonia. He was started on antibiotics and improved significantly. Upon arrival to the floor, he did have a seizure episode due to his medications possibly be thrown up on his at the facility. He was stabilized with Keppra through his IV symptoms resolved completely. He was able to go back on his home medications and no further seizure activity was noted. He was stable on room air and felt much better. He denied any further shortness of breath and was discharged in good condition back to the facility on Levaquin. Time Spent with Patient Time attestation: Total time spent providing and/or coordinating discharge services: Exam Narrative: General: No acute distress, alert and oriented per baseline, slowed speech and cognition post ictally HEENT: Atraumatic, normocephalic, mucous membranes moist CV: Regular rate and rhythm, S1, S2 Lungs: Clear to auscultation bilaterally, no rales or crackles noted, no wheezes, good air entry Abdomen: Soft, nontender, nondistended Extremities: Normal to inspection Skin: No rashes noted, no lesions or wounds seen Psych: Euthymic, normal affect DS: Data Data Completed and Pending Labs on day of discharge: Labs from last 24 hours 11/28/21 11/28/21 11/28/21 11:13 11:13 11:13 WBC 11.7 H RBC 3.94 L Hgb 12.3 L Hct 37.0 L MCV 93.9 MCH 31.2 MCHC 33.2 RDW 14.1 Plt Count 218 MPV 9.9 Immature Gran % (Auto) 0.6 H Neut % (Auto) 79.3 H Lymph % (Auto) 11.8 L [place] % (Auto) 8.2 Eos % (Auto) 0.0 Baso % (Auto) 0.1
[2021-11-29] MEDS: UMECLIDINIUM BROMIDE 62.5 MCG ELLIPTA 1 PUFF INHALATION (14:24)
--- NOTE | 2021-11-29 14:52 | PM.IMPN ---
Progress Note: A&P Assessment and Plan (1) Hypoxia: Code(s): R09.02 - Hypoxemia Status: Acute Assessment and Plan: SpO2 is currently 100% on room air. No evidence of COPD exacerbation. (2) Abnormal chest x-ray: Code(s): R93.89 - Abnormal findings on diagnostic imaging of other specified body structures Status: Acute Assessment and Plan: Stable infiltrates, atelectasis/scarring versus pneumonia. Aspiration a possibility given coughing fit after emesis last evening. Continue antibiotics and scheduled bronchodilators. Swallow study ordered. 11/28: Evaluated by speech therapy, no signs of aspiration, may have happened during a seizure episode, no symptoms remain at this time, will complete course of antibiotics for possible aspiration pneumonia, currently on day 3 of azithromycin with Rocephin, will be discharged on Augmentin and azithromycin 11/29: Stable for discharge at this time, awaiting insurance authorization (3) Lactic acidosis: Code(s): E87.2 - Acidosis Status: Acute Assessment and Plan: Initial lactic acid was mildly elevated and repeat following fluid bolus jumped to 6.6. He is nontoxic in appearance. May very well be related to lab draw technique. No seizures today. He had a liver transplant done many years ago and liver enzymes are well within normal limits. Blood cultures have been ordered. Repeat in a.m. 11/29: Resolved (4) Seizures: Code(s): R56.9 - Unspecified convulsions Status: Chronic Assessment and Plan: No reports of recent seizures. Continue phenytoin, lacosamide, and levetiracetam. Check phenytoin level. No further seizures (5) Liver transplant status: Code(s): Z94.4 - Liver transplant status Status: Chronic Assessment and Plan: Continue cyclosporine. Subjective Date/time seen: 11/29/21 14:52 Exam Narrative: General: No acute distress, alert and oriented per baseline, slowed speech and cognition post ictally HEENT: Atraumatic, normocephalic, mucous membranes moist CV: Regular rate and rhythm, S1, S2 Lungs: Clear to auscultation bilaterally, no rales or crackles noted, no wheezes, good air entry Abdomen: Soft, nontender, nondistended Extremities: Normal to inspection Skin: No rashes noted, no lesions or wounds seen Psych: Euthymic, normal affect Objective Data Vital Signs Vital Signs: Vital Signs - 24 hr 11/28/21 15:08 11/28/21 15:22 11/28/21 21:22 Temperature Pulse Rate 93 94 96 Respiratory Rate 20 20 22 H Blood Pressure Pulse Oximetry Oxygen Delivery Fraction of Inspired Oxygen 11/28/21 22:00 11/28/21 20:20 11/28/21 21:34 Temperature 97.3 F L Pulse Rate 94 94 92 Respiratory Rate 18 18 18 Blood Pressure 119/74 Pulse Oximetry 94 94 Oxygen Delivery Room Air Fraction of Inspired Oxygen 21 11/29/21 03:45 11/29/21 04:15 11/29/21 05:55 Temperature 97.0 F L Pulse Rate 96 95 90 Respiratory Rate 22 H 22 H 18 Blood Pressure 117/66 Pulse Oximetry 98 Oxygen Delivery Fraction of Inspired Oxygen 11/29/21 08:23 11/29/21 08:37 11/29/21 08:38 Temperature Pulse Rate 89 92 Respiratory Rate 20 20 Blood Pressure Pulse Oximetry 96 Oxygen Delivery Room Air Fraction of Inspired Oxygen 11/29/21 09:00 11/29/21 13:48 11/29/21 14:06 Temperature Pulse Rate 81 83 Respiratory Rate 20 18 Blood Pressure Pulse Oximetry Oxygen Delivery Room Air Fraction of Inspired Oxygen 11/29/21 14:00 Temperature 97.5 F L Pulse Rate 94 Respiratory Rate 20 Blood Pressure 137/81 Pulse Oximetry 96 Oxygen Delivery Fraction of Inspired Oxygen Intake/Output Intake/Output: Intake & Output 11/26/21 11/27/21 11/28/21 11/29/21 23:59 23:59 23:59 23:59 Intake Total 1640 3530 1920 480 Output Total 375 8343 731 4490 Balance 1263 6458 977 -533 Meds/Results Medications: Active Medications Generic Name
[2021-11-29 15:12] LABS: EDCOVIDSCREEN Negative (Negative)
--- NOTE | 2021-11-29 15:17 | PCPTNOTE ---
PT returned this afternoon to review LE exercises due to patient receiving lunch following transfer from bed to chair this A.M.. Patient participated in LE exercises supine for strengthening and performed sit to stand transfer from bed min to contact guard assist x 1 using w/w. Patient's present during exercises and transfer. Patient and report that they would be able to transfer to the SNF by car if assist would be provided to get in and out of car. Abiagil from care coordination called the facility to confirm assist would be provided when patient arrives at the facility.
[2021-11-29] MEDS: NEOMYCIN/POLYMYXIN/BACITRACIN OINTMENT PACKET 1 PACKET (15:20)
[2021-11-30 21:22] LABS: Prolactin 8.3 ng/mL (***)
== END 2021-11-29 16:00 | DRG 178 ==
LOC: ANHED 12:02 → ANHIMU 11-27 18:22 → ANH3MEDSUR 11-27 18:24
PROVIDERS: Physician Assistant; Admitting Provider Family Medicine; Emergency Provider Emergency Medicine; PCP Physician Assistant; Visit Provider Student in an Organized Health Care Education/Training Program
DX: J69.0 Pneumonitis due to inhalation of food and vomit (principal); Z94.4 Liver transplant status; I69.351 Hemiplegia and hemiparesis following cerebral infarction affecting right dominant side; E87.2 Acidosis; R09.02 Hypoxemia; R93.89 Abnormal findings on diagnostic imaging of other specified body structures; R56.9 Unspecified convulsions; Z20.822 Contact with and (suspected) exposure to COVID-19; E78.5 Hyperlipidemia, unspecified; F32.A Depression, unspecified; G62.9 Polyneuropathy, unspecified; J44.9 Chronic obstructive pulmonary disease, unspecified; K74.60 Unspecified cirrhosis of liver; K58.9 Irritable bowel syndrome, unspecified; R50.9 Fever, unspecified; Z90.49 Acquired absence of other specified parts of digestive tract; Z79.82 Long term (current) use of aspirin; Z86.19 Personal history of other infectious and parasitic diseases; Z87.891 Personal history of nicotine dependence
CPT/HCPCS: 36415; 36569; 36600; 70450; 71045; 71046; 80053; 80185; 82375; 82805; 83050; 83605; 83690; 83880; 84145; 84146; 84484; 85025; 85610; 85730; 86140; 87040; 87070; 87205; 87426; 92611; 93005; 94640; 94667; 96361; 96365; 96367; 96375; 97110; 97161; 97165; 97530; 97535; 99285; A9270; C1751; C9803; J0131; J0456; J0696; J1650; J1953; J2930; J3360; J7030; J7515; U0003; U0005

== ENCOUNTER 2022-01-12 11:50 | Emergency (ER) | payer MEDICARE, SELFPAY ==
[2022-01-12] VITALS (20 sets, daily range): BP systolic 125–149; BP diastolic 83–97; PULSE 87–94; RESP 14–20; TEMP 37.6; O2SAT 89–99
--- NOTE | ~2022-01-12 | CT_ITS ---
EXAMINATION: CT brain wo con DATE: 01/12/2022 12:54 INDICATION: Weakness. Lethargy. TECHNIQUE: Computed tomography (CT) of the head was performed without intravenous contrast. The mA wa s adjusted according to patient size. Iterative reconstruction technique was employed. The dose-lengt h product was 605.33 mGy-cm. COMPARISON: Head CT 11/27/2021 FINDINGS: There are scattered areas of low attenuation in the cerebral white matter. There is no intr acranial hemorrhage, acute infarction, or abnormal intracranial mass lesion. The ventricles are raymon l in size. The orbits are normal. There is mucosal thickening in the paranasal sinuses. There is thic kening and sclerosis of the hines of sphenoid sinus, consistent with chronic sinusitis. The mastoid a ir cells are normal. IMPRESSION: 1. Stable mild nonspecific cerebral white matter disease, which likely represents chronic small vesse l ischemic disease. 2. Chronic sinusitis. Reviewed, dictated and finalized at location A. IMPRESSION: 1. Stable mild nonspecific cerebral white matter disease, which likely represen ts chronic small vessel ischemic disease. 2. Chronic sinusitis.
--- NOTE | ~2022-01-12 | XR_ITS ---
EXAMINATION: XR chest 1V portable DATE: 01/12/2022 12:38 INDICATION: Weakness and lethargy. TECHNIQUE: A single frontal view of the chest was obtained. COMPARISON: Chest 2 views 11/28/21, chest CT 04/20/20 FINDINGS: There is chronic elevation of right hemidiaphragm. There is mild atelectasis at the lung ba ses. No pleural effusion or pneumothorax. The heart size is normal. IMPRESSION: 1. Chronic elevation of right hemidiaphragm with mild atelectasis at the lung bases. Reviewed, dictated and finalized at location A. IMPRESSION: 1. Chronic elevation of right hemidiaphragm with mild atelectasis at the lung b ases.
--- NOTE | 2022-01-12 12:02 | ECG_ITS ---
Measurements Intervals [place] Rate: 92 P: 56 VT: 141 QRS: -5 QRSD: 117 T: 204 QT: 369 QTc: 459 Interpretive Statements SINUS RHYTHM INCOMPLETE RIGHT BUNDLE BRANCH BLOCK ST-T WAVE ABNORMALITY IN ANTEROLATERAL LEADS- CONSIDER ISCHEMIA ABNORMAL ECG COMPARED TO ECG 11/26/2021 08:35:43 HEART RATE HAS DECREASED ST-T WAVE ABNORMALITY IN ANTEROLATERAL LEADS- CONSIDER ISCHEMIA NOW PRESENT Electronically Signed On 01-12-2022 13:52:41 CDT by Jonathon Payne D.O.
--- NOTE | 2022-01-12 12:23 | ED.WEAKNESS ---
HPI - Weakness General Chief complaint: Weakness Stated complaint: weakness Time Seen by Provider: 01/12/22 12:01 History of Present Illness HPI Narrative: Pt presents with complaints of generalized weakness for the last week. Pt denies fever, chills, vomiting, cough urinary symptoms, chest pain or SOB. Pt is post liver transplant. Pt denies TALAVERA or one sided weakness. Related Data Home Medications Medication Instructions Recorded Confirmed aspirin 81 mg tablet 81 mg PO DAILY 10/28/19 11/26/21 gabapentin 800 mg tablet 800 mg PO TID 10/28/19 11/26/21 umeclidinium 62.5 mcg/actuation 62.5 mcg inhalation DAILY 07/25/21 11/26/21 blister powder for inhalation (Incruse Ellipta) buspirone 5 mg tablet 5 mg PO TID 11/05/21 11/26/21 levetiracetam 1,000 mg tablet 1,500 mg PO BID 11/05/21 11/26/21 phenytoin sodium extended 100 mg 300 mg PO HS 11/05/21 11/26/21 capsule (Dilantin Extended) cyclosporine 100 mg capsule 150 mg PO Q12H 11/26/21 11/26/21 (Sandimmune) prednisone 20 mg tablet 20 mg PO DAILY 11/26/21 11/26/21 Allergies Allergy/AdvReac Type Severity Reaction Status Date / Time No Known Allergies Allergy Verified 01/12/22 11:54 Review of Systems Review of Systems: All systems reviewed & are unremarkable except as noted in HPI and below PMFSH Past Medical History Medical History Cerebrovascular accident (2011) Mild right sided weakness. Chronic obstructive pulmonary disease Depression Hepatitis C Status post liver transplant in 2007 followed by successful hepatitis C treatment in 2013. Herpes encephalitis History of renal dialysis Hyperlipidemia Irritable bowel syndrome Peripheral neuropathy Pneumonia Renal failure Required dialysis before liver transplant. Seizures Surgical History Surgical History History of cholecystectomy History of liver transplant (2007) For cirrhosis and hepatitis C. Family History Family History Father Family history of heart disease in male family member before age 55 Mother Family history of liver disease Sibling Diabetes mellitus Social History Social History Social History: Surrogate decision maker: Elyse Boone, . Code status: Full code. Smoking packs per day: 1 Smoking cigarettes per day: 20.0 Years smoked: 23 Smoking pack-years: 23.00 Smoking status: Former smoker Second hand tobacco smoke exposure: No Additional smoking assessment comments: Quit in 1997. Alcohol intake: unknown Alcohol use details: Quit in 1996. Substance use: unknown Additional living arrangements comments: Lives with , sister, [id number]. Spiritual care concerns: No Exam Const: General: healthy appearing, no acute distress and alert Nutritional Appearance: obese Orientation/consciousness: patient oriented x3 Limitations: no limitations Other: somewhat slow to respond but appropriate HENMT: Mouth: Yes Normal oral and palatal mucosa present Throat: posterior oropharynx normal Eyes: Conjunctivae: conjunctivae normal EOM: EOMs intact bilaterally Neck: Neck: normal visual inspection, no lymphadenopathy and no meningeal signs Resp: Effort & Inspection: normal respiratory effort Auscultation: clear to auscultation bilaterally Cardio: Rate: regular rate Rhythm: regular rhythm GI: GI Palp: Yes Soft to palpation Auscultation: normal bowel sounds Other: scar from liver transplant Back/Spine/Pelvis: Back: no CVA tenderness Skin: General skin exam: normal color Rashes: no rashes Wounds: no wounds Neuro: General: patient oriented x3, moves all extremities, no meningeal signs, no focal motor deficits and CN's II-XI intact bilaterally Cranial nerves: Yes Nystagmus not present Speech: normal speech Ex
[2022-01-12 12:35] LABS: Basophils Absolute Auto 0.1 K/mm3 (0.0-0.1); Basophils Percent Auto 0.5 % (0.2-1.2); Eosinophils Absolute Auto 0.2 K/mm3 (0-0.3); Eosinophils Percent Auto 1.8 % (0-4.4); Hematocrit 45.2 % (42.0-52.0); Hemoglobin 15.1 g/dL (14.0-18.0); Immature Granulocyte Absolute 0.06 K/mm3 (0.00-0.031); Immature Granulocyte Percent A 0.6 % (0-0.5); Lymphocytes Absolute Auto 3.52 K/mm3 (0.9-3.2); Mean Corpuscular HGB Conc 33.4 g/dl (32-36); Mean Corpuscular Hemoglobin 30.8 pg (26-34); Mean Corpuscular Volume 92.2 fl (80-100); Mean Platelet Volume 9.8 fl (7.4-10.4); Monocytes Absolute Auto 1.1 K/mm3 (0.1-0.6); Monocytes Percent Auto 11.4 % (2.6-8.5); Neutrophils Absolute Auto 4.6 K/mm3 (1.3-6.7); Neutrophils Percent Auto 48.7 % (45.5-73.1); Platelet Count Result 235 k/mm3 (150-375); Red Cell Distribution Width 12.1 % (11.5-14.5); White Blood Count 9.5 K/mm3 (4.5-10.0)
[2022-01-12 12:45] LABS: INR 1.1; Prothrombin Time 13.5 Seconds (11.1-14.7)
[2022-01-12 12:52] LABS: Alanine Aminotransferase 15 U/L (6-50); Albumin Level 4.3 g/dL (3.5-5.1); Alkaline Phosphatase 161 U/L (38-126); Anion Gap 15 mmol/L (8-16); Aspartate Amino Transferase 19 U/L (17-59); Bilirubin,Total 0.5 mg/dL (0.2-1.3); Blood Urea Nitrogen 22 mg/dL (9-20); CRP 6.6 mg/dL (<1.0); Calcium 9.1 mg/dL (8.4-10.2); Carbon Dioxide 25 mmol/L (22-30); Chloride 101 mmol/L (98-107); Estimated CRCL calculation 127 ml/min; Estimated Glomerular Filt Rate > 60; Glucose 135 mg/dL (65-110); Potassium 3.6 mmol/L (3.4-5.0); Sodium 141 mmol/L (137-145)
[2022-01-12 13:15] LABS: SARS-CoV-2 RNA PCR Negative
[2022-01-12 14:52] LABS: Appearance Urine Clear (Clear); Bilirubin Urine Negative (Negative); Blood Urine Negative (Negative); Color Urine Yellow (Yellow); Glucose Urine UA Negative (Negative); Ketones Urine Negative (Negative); Leukocyte Esterase Ur Negative LEU/UL (Negative); Nitrate Urine Negative (Negative); Protein Urine Negative (Negative); Specific Grav Ur 1.025 (1.001-1.035); Urobilinogen Urine 0.2 mg/dL (<2.0); pH Urine 5.5 (5.0-9.0)
[2022-01-12 15:00] LABS: Add Urine Microscopic? NO
--- NOTE | 2022-01-12 17:45 | PC.NURSE ---
did speak to POC and DC all questions answered awaiting EMS to transport the pt home
== END 2022-01-12 19:13 | disposition home or self-care (01) ==
PROVIDERS: Emergency Provider Emergency Medicine; PCP Physician Assistant
DX: R53.1 Weakness (principal); Z94.4 Liver transplant status; I69.351 Hemiplegia and hemiparesis following cerebral infarction affecting right dominant side; J44.9 Chronic obstructive pulmonary disease, unspecified; E78.5 Hyperlipidemia, unspecified; G62.9 Polyneuropathy, unspecified; G40.909 Epilepsy, unspecified, not intractable, without status epilepticus; K58.9 Irritable bowel syndrome, unspecified; F32.A Depression, unspecified; Z79.82 Long term (current) use of aspirin; Z86.19 Personal history of other infectious and parasitic diseases; Z87.891 Personal history of nicotine dependence; Z20.822 Contact with and (suspected) exposure to COVID-19
CPT/HCPCS: 36415; 70450; 71045; 80053; 81003; 84484; 85025; 85610; 85730; 86140; 87040; 93005; 99284; C9803; U0003; U0005

== ENCOUNTER 2022-02-03 14:46 | Inpatient (IN) | payer MEDICARE, SELFPAY ==
[2022-02-03] VITALS (17 sets, daily range): BP systolic 121–147; BP diastolic 69–97; PULSE 76–84; RESP 13–22; TEMP 36.4–36.7; O2SAT 93–99; BMI 30.6
--- NOTE | ~2022-02-03 | XR_ITS ---
EXAM: XR abdomen NG/feed tube insert DATE: 02/06/2022 19:17 HISTORY: NG tube placement . COMPARISON: None available. FINDINGS: Right hemidiaphragm elevation. Bibasilar atelectasis. New NG tube, tip projecting over the stomach, side port near the GE junction. Normal bowel gas pattern. No organomegaly. No abnormal abdo nellie calcification. Regional bones and soft tissues normal for age. IMPRESSION: Shallow positioning of the NG tube, correlate with tube function and consider advancing b y 5 cm. Reviewed, dictated and finalized at location K. IMPRESSION: Shallow positioning of the NG tube, correlate with tube function an d consider advancing by 5 cm.
--- NOTE | ~2022-02-03 | XR_ITS ---
EXAM: XR abdomen NG/feed tube rechec DATE: 02/06/2022 21:01 HISTORY: NG placement, advanced by 5 . COMPARISON: X-ray abdomen, same date at 7:11 PM. FINDINGS/IMPRESSION: NG tube appears to been advanced, tip and side port now project more definitivel y over the stomach. Reviewed, dictated and finalized at location K.
--- NOTE | ~2022-02-03 | XR_ITS ---
EXAMINATION: XR chest PICC line Exam Date/Time: 02/06/2022 18:30 CDT HISTORY: Picc Insert Comparison: 02/03/2022. RESULT: Lines, tubes, and devices: New right upper extremity PICC, terminating at the cavoatrial junction. Lungs and pleura: Low volumes with right hemidiaphragm elevation. Bibasilar atelectasis. No focal co nsolidation. Cardiomediastinal silhouette: Stable. Other: No acute osseous or upper abdominal finding. IMPRESSION: New right upper extremity PICC, in good position. Reviewed, dictated and finalized at location K.
--- NOTE | ~2022-02-03 | XR_ITS ---
EXAMINATION: XR lumbar puncture diagnostic DATE: 02/04/2022 14:30 INDICATION: Encephalopathy. TECHNIQUE: The patient's spouse gave informed consent for the procedure. A timeout was performed to verify the patient's name, date of , and procedure to be performed. The skin overlying the L3- L4 level was prepped and draped in usual sterile fashion. Subcutaneous 1% lidocaine was used for loc al anesthesia. A 20 gauge spinal needle was advanced under fluoroscopic guidance. The needle was rem veronica and the entry site was cleaned and dressed. There were no immediate complications. Fluoroscopy exposure time was 0.0 minutes. The total number of images was 1. FINDINGS: Real-time fluoroscopy demonstrates the needle at the L3-L4 level. The opening pressure was 6 cm water (Normal range is variably defined as 6-20 cm water and up to 25 cm water in obese patients . Pressure >25 cm water is one of the modified Dandy criteria for idiopathic intracranial hypertensio n). 14 mL of clear, colorless fluid was collected in 4 tubes. IMPRESSION: 1. Successful fluoro-guided lumbar puncture. Reviewed, dictated and finalized at location A.
--- NOTE | ~2022-02-03 | CT_ITS ---
EXAMINATION: CT brain wo con INDICATION: Altered mental status COMPARISON: 01/12/2022 TECHNIQUE: Standard unenhanced head CT. The dose-length product (DLP) was 983.67 mGy-cm. The mA was a djusted according to patient size. Iterative reconstruction technique was employed. FINDINGS: There is no intracranial hemorrhage, acute infarction, or abnormal mass lesion. The ventric les are normal. There is no abnormal mass effect or midline shift. Scattered areas of low attenuation in the cerebral white matter are again noted. The basal cisterns are patent. The orbits are normal. Mild mucosal thickening is noted in the ethmoidal air cells as well as the right maxillary sinus Ther e is chronic right sphenoid sinusitis. IMPRESSION: 1. No acute intracranial abnormality. Reviewed, dictated and finalized at location F.
--- NOTE | ~2022-02-03 | XR_ITS ---
EXAMINATION: XR chest 1V portable INDICATION: Altered mental status TECHNIQUE: Portable AP chest at 1735 hours COMPARISON: 01/12/2022 FINDINGS: There is elevation of the right hemidiaphragm. There is mild atelectasis of the lung bases. No pleural effusion or pneumothorax. The cardiomediastinal silhouette is normal. IMPRESSION: 1. Mild atelectasis of the lung bases. Reviewed, dictated and finalized at location F.
--- NOTE | ~2022-02-03 | MR_ITS ---
EXAMINATION: MR brain/brain stem wo con DATE: 02/04/2022 18:27 INDICATION: Encephalopathy. TECHNIQUE: Magnetic resonance imaging (MRI) of the brain and brainstem was performed without intraven ous contrast. COMPARISON: Brain MRI 07/26/2021, head CT 02/03/2022 FINDINGS: There is chronic asymmetric volume loss of the left parietal lobe. There is an old lacunar infarct in the right caudate nucleus. There is no intracranial hemorrhage, acute infarction, or abnor mal intracranial mass lesion. There are scattered areas of nonspecific increased T2-weighted signal i ntensity in the cerebral white matter. There is ex vacuo dilatation of trigone of left lateral ventri gage. There is mucosal thickening in the paranasal sinuses. The orbits are normal. The mastoid air mya ls are normal. IMPRESSION: 1. Stable mild nonspecific cerebral white matter disease, which likely represents chronic small vesse l ischemic disease. 2. Old lacunar infarct in right caudate nucleus. 3. Chronic asymmetric volume loss of left parietal lobe. Reviewed, dictated and finalized at location A. IMPRESSION: 1. Stable mild nonspecific cerebral white matter disease, which likely represen ts chronic small vessel ischemic disease. 2. Old lacunar infarct in right caudate nucleus. 3. Chronic asymmetric volume loss of left parietal lobe.
--- NOTE | 2022-02-03 14:57 | ECG_ITS ---
Measurements Intervals [place] Rate: 79 P: 46 CO: 149 QRS: -15 QRSD: 116 T: 161 QT: 393 QTc: 451 Interpretive Statements SINUS RHYTHM INCOMPLETE RIGHT BUNDLE BRANCH BLOCK [90+ ms QRS DURATION, TERMINAL R IN V1/V2, 40+ ms S IN I/aVL/V4/V5/V6] ST DEVIATION AND MODERATE T-WAVE ABNORMALITY, CONSIDER ANTEROLATERAL ISCHEMIA [-0.1+ mV T WAVE IN V3-V6] COMPARED TO ECG 01/12/2022 11:50:53 NO SIGNIFICANT CHANGES Electronically Signed On 02-03-2022 15:54:59 CDT by Frandy Graves M.D.
[2022-02-03 15:28] LABS: Basophils Percent Auto 0.5 % (0.2-1.2); Eosinophils Absolute Auto 0.8 K/mm3 (0-0.3); Eosinophils Percent Auto 8.9 % (0-4.4); Hematocrit 45.4 % (42.0-52.0); Hemoglobin 15.8 g/dL (14.0-18.0); Immature Granulocyte Absolute 0.04 K/mm3 (0.00-0.031); Immature Granulocyte Percent A 0.5 % (0-0.5); Lymphocytes Absolute Auto 3.42 K/mm3 (0.9-3.2); Lymphocytes Percent Auto 40.2 % (18.3-44.2); Mean Corpuscular HGB Conc 34.8 g/dl (32-36); Mean Corpuscular Hemoglobin 31.2 pg (26-34); Mean Corpuscular Volume 89.7 fl (80-100); Mean Platelet Volume 9.5 fl (7.4-10.4); Monocytes Absolute Auto 0.7 K/mm3 (0.1-0.6); Monocytes Percent Auto 8.5 % (2.6-8.5); Neutrophils Absolute Auto 3.5 K/mm3 (1.3-6.7); Neutrophils Percent Auto 41.4 % (45.5-73.1); Platelet Count Result 233 k/mm3 (150-375); Red Blood Count 5.06 M/mm3 (4.6-6.20); White Blood Count 8.5 K/mm3 (4.5-10.0)
[2022-02-03 15:42] LABS: Prothrombin Time 13.1 Seconds (11.1-14.7)
[2022-02-03 15:43] LABS: Partial Thromboplastin Time 29.2 SECONDS (22.3-36.8)
[2022-02-03 17:06] LABS: Alanine Aminotransferase 16 U/L (6-50); Alkaline Phosphatase 145 U/L (38-126); Anion Gap 10 mmol/L (8-16); Aspartate Amino Transferase 20 U/L (17-59); Bilirubin,Total 0.4 mg/dL (0.2-1.3); Blood Urea Nitrogen 12 mg/dL (9-20); Carbon Dioxide 32 mmol/L (22-30); Chloride 94 mmol/L (98-107); Estimated CRCL calculation 107 ml/min; Estimated Glomerular Filt Rate > 60; Glucose 121 mg/dL (65-110); Potassium 3.5 mmol/L (3.4-5.0); Sodium 136 mmol/L (137-145)
[2022-02-03 17:07] LABS: Add Urine Microscopic? YES; Amorphous Sediment Urine Few; Appearance Urine Cloudy (Clear); Bilirubin Urine Negative (Negative); Blood Urine Negative (Negative); Color Urine Yellow (Yellow); Glucose Urine UA Negative (Negative); Ketones Urine Negative (Negative); Leukocyte Esterase Ur Negative LEU/UL (Negative); Mucus Urine Rare /lpf; Nitrate Urine Negative (Negative); Protein Urine Negative (Negative); RBC Urine 0-2 /hpf (0-2); Specific Grav Ur 1.017 (1.001-1.035); Squamous Epithelial Cell Urine Rare /hpf (Few); Urobilinogen Urine Negative mg/dL (<2.0); WBC Urine 0-3 /hpf
[2022-02-03 17:30] LABS: Phenytoin Dilantin 56 ug/mL (10-20)
--- NOTE | 2022-02-03 17:37 | ED.AMS ---
HPI - Altered Mental Status General Chief Complaint: Altered Mental Status Stated Complaint: altered x 1 week Time Seen by Provider: 02/03/22 15:40 History of Present Illness HPI narrative: 61-year-old male with history of liver transplant, seizures, elevated Dilantin, COPD presenting to the emergency department for evaluation of worsening mental status. Family states since July patient has had declining mental status. They state in July patient was diagnosed with seizures and had been started on Dilantin. 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 Patient had been staying at a long term for rehab but family states he had been feeling to improve so he was discharged to home. Family has been caring for him at home and he states that he has continued to decline. Family states over the course of the last week he has been more combative and more confused. Family denies any fevers. Patient denies any complaints at this time. Related Data Home Medications Medication Instructions Recorded Confirmed aspirin 81 mg tablet 81 mg PO DAILY 10/28/19 11/26/21 gabapentin 800 mg tablet 800 mg PO TID 10/28/19 11/26/21 umeclidinium 62.5 mcg/actuation 62.5 mcg inhalation DAILY 07/25/21 11/26/21 blister powder for inhalation (Incruse Ellipta) buspirone 5 mg tablet 5 mg PO TID 11/05/21 11/26/21 levetiracetam 1,000 mg tablet 1,500 mg PO BID 11/05/21 11/26/21 phenytoin sodium extended 100 mg 300 mg PO HS 11/05/21 11/26/21 capsule (Dilantin Extended) cyclosporine 100 mg capsule 150 mg PO Q12H 11/26/21 11/26/21 (Sandimmune) prednisone 20 mg tablet 20 mg PO DAILY 11/26/21 11/26/21 Allergies Allergy/AdvReac Type Severity Reaction Status Date / Time No Known Allergies Allergy Verified 02/03/22 18:55 Review of Systems Review of Systems: CONSTITUTIONAL: Denies fever, chills, or sweats. EYES: Denies visual changes, redness, or discharge. ENT: Denies rhinorrhea, congestion, sore throat, or otalgia. CARDIOVASCULAR: Denies chest pain, palpitations, or edema. RESPIRATORY: Denies cough or dyspnea. GASTROINTESTINAL: Denies abdominal pain, nausea, vomiting, or diarrhea. GENITOURINARY: Denies dysuria or hematuria. SKIN: Denies rash or itching. MUSCULOSKELETAL: Denies back pain, joint pain, or myalgia. NEUROLOGIC: Altered mental status [facility] Past Medical History Medical History Cerebrovascular accident (2011) Mild right sided weakness. Chronic obstructive pulmonary disease Depression Hepatitis C Status post liver transplant in 2007 followed by successful hepatitis C treatment in 2013. Herpes encephalitis History of renal dialysis Hyperlipidemia Irritable bowel syndrome Peripheral neuropathy Pneumonia Renal failure Required dialysis before liver transplant. Seizures Surgical History Surgical History History of cholecystectomy History of liver transplant (2007) For cirrhosis and hepatitis C. Family History Family History Father Family history of heart disease in male family member before age 55 Mother Family history of liver disease Sibling Diabetes mellitus Social History Social History Social History: Surrogate decision maker: Elyse Boone, . Code status: Full code. Smoking packs per day: 1 Smoking cigarettes per day: 20.0 Years smoked: 23 Smoking pack-years: 23.00 Smoking status: Former smoker Second hand tobacco smoke exposure: No Additional smoking assessment comments: Quit in 1997. Alcohol intake: unknown Alcohol use details: Quit in 1996. Substance use: unknown Additional living arrangements comments: Lives with , sister, [id number]. Spiritual care concerns:
[2022-02-03 18:08] LABS: Ammonia 23 umol/L (9-30)
--- NOTE | 2022-02-03 19:02 | PC.NURSE ---
Report given to LUISA Vera
--- NOTE | 2022-02-03 20:58 | PM.IMHP ---
H&P: HPI History of Present Illness Date/Time: 02/03/22 20:58 Chief Complaint: confusion Narrative: this is a 61-year-old male patient with a past history of liver transplant on anti-rejection medication, seizures, elevated Dilantin levels, And COPD. The patient recently had been in a [place] [facility] for rehab and is now at home with family. Family states since July the patient has declining mental status. The patient had been diagnosed with seizures in July and has been started on Dilantin. 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 The patient had been at a rehab facility but failed to recover and then was discharged to home. The family has been caring for the patient and states that he continues to decline. The patient is talking to me but his speech is slurred. He is neurologically intact. His movement is slow. He is alert orientated to person and place but not time. Patient's feet between level was 56. The patient was started on IV fluids. Chest x-ray shows mild atelectasis of the lung bases. Head CT today shows no acute intracranial abnormalities. His urinalysis was negative. The patient is being admitted for observation status on the date of service of 02/04/2022. Review of Systems Review of Systems: See HPI All systems reviewed & are unremarkable except as noted in HPI and below Constitutional: Constitutional: Reports as per HPI and Reports no additional constitutional complaints Eyes: Eyes: Reports as per HPI and Reports no additional eye complaints ENT: Reports system reviewed and no additional complaints, except as documented and Reports Normal hearing present Cardiovascular: Cardiovascular: Reports no additional cardiovascular complaints Respiratory: Respiratory: Reports no additional respiratory complaints and Reports no additional respiratory complaints Gastrointestinal: Gastrointestinal: Reports as per HPI and Reports no additional gastrointestinal complaints Musculoskeletal: Musculoskeletal: Reports no additional musculoskeletal complaints Integumentary/Breasts: Skin/Breast: Reports system reviewed and no additional complaints, except as docu and Reports as per HPI Neurologic: Reports system reviewed and no additional complaints, except as documented, Reports as per HPI and Reports Normal hearing present Psychiatric: Psychiatric: Reports no additional psychiatric complaints and Reports as per HPI Endocrine: Endocrine: Reports no additional endocrine complaints Hematologic/Lymphatic: Hematologic/Lymphatic: Reports no additional hematologic/lymphatic complaints Allergic/Immunologic: Allergic/Immunologic: Reports no additional allergic/immunologic complaints PMFSH Past Medical History Medical History (Updated 02/04/22 @ 00:06 by Lisbeth Epps NP) Acute respiratory failure with hypoxia Acute UTI Cerebrovascular accident (2011) Mild right sided weakness. Chronic obstructive pulmonary disease Community acquired pneumonia Depression Elevated Dilantin level Hepatitis C Status post liver transplant in 2007 followed by successful hepatitis C treatment in 2013. Herpes encephalitis History of renal dialysis Hyperlipidemia Irritable bowel syndrome Peripheral neuropathy Pneumonia Pneumonia due to 2019 novel coronavirus Renal failure Required dialysis before liver transplant. Seizures Surgical History Surgical History History of cholecystectomy History of liver transplant (2007) For cirrhosis and hepatitis C. Family History Family History Father Family history of heart disease in male family member before age 55 Mother Family history of liver disease Sibling Diabetes mellitus Social History Social History (Updated 02/04/22 @ 00:02 by Lisbeth Epps NP) Social History: Surrogate de
--- NOTE | 2022-02-03 21:42 | PC.NURSE ---
[id number] TO LUISA WAGONER FOR ROOM NUMBER 342-1
--- NOTE | 2022-02-03 21:53 | ADMGEN ---
This patient, Yonis Boone, was admitted to Medical Room 342-01. Patient/family oriented to hospital policies and general routines including ID bracelet, bed and alarms, visiting hours, pain management, procedures, bathroom and other care routines, personal items, smoking policy, room service/diet, and visiting hours. Information on how to activate the Rapid Response Team has been discussed. Patient/Family are encouraged to report perceived risks to care and to ask questions if they do not understand what they are told or what they should do.
[2022-02-03 22:04] LABS: Influenza A QL RT-PCR Negative (Negative); Influenza B QL RT-PCR Negative (Negative); SARS-CoV-2 RNA PCR Negative
[2022-02-03] MEDS: SODIUM CHLORIDE 0.9% IV 1,000 ML 125 ML IV CONT (22:33)
[2022-02-04] MEDS: busPIRone HCL 5 MG TABLET PO ×4 (00:25→16:33)
[2022-02-04] MEDS: cycloSPORINE (NEORAL) 25 MG CAPSULE 150 MG PO ×3 (00:27→21:09)
[2022-02-04 01:08] LABS: Albumin Level 4.4 g/dL (3.5-5.1)
[2022-02-04 01:35] LABS: Phenytoin Dilantin 67 ug/mL (10-20)
[2022-02-04] MEDS: LORazepam INJ (*CRX) 2 MG/ML VIAL 1 MG IV PUSH (03:07)
[2022-02-04 05:32] LABS: Basophils Percent Auto 0.4 % (0.2-1.2); Eosinophils Absolute Auto 0.6 K/mm3 (0-0.3); Eosinophils Percent Auto 6.2 % (0-4.4); Hematocrit 41.9 % (42.0-52.0); Hemoglobin 14.8 g/dL (14.0-18.0); Immature Granulocyte Absolute 0.06 K/mm3 (0.00-0.031); Immature Granulocyte Percent A 0.6 % (0-0.5); Lymphocytes Absolute Auto 2.34 K/mm3 (0.9-3.2); Lymphocytes Percent Auto 23.3 % (18.3-44.2); Mean Corpuscular HGB Conc 35.3 g/dl (32-36); Mean Corpuscular Hemoglobin 30.6 pg (26-34); Mean Corpuscular Volume 86.7 fl (80-100); Mean Platelet Volume 9.5 fl (7.4-10.4); Monocytes Absolute Auto 0.8 K/mm3 (0.1-0.6); Monocytes Percent Auto 8.4 % (2.6-8.5); Neutrophils Absolute Auto 6.1 K/mm3 (1.3-6.7); Neutrophils Percent Auto 61.1 % (45.5-73.1); Platelet Count Result 210 k/mm3 (150-375); Red Blood Count 4.83 M/mm3 (4.6-6.20); Red Cell Distribution Width 11.8 % (11.5-14.5)
[2022-02-04 05:44] LABS: Lactic Acid Reflex 1.1 mmol/L (0.7-2.0)
[2022-02-04 05:45] LABS: Alanine Aminotransferase 16 U/L (6-50); Albumin Level 4.1 g/dL (3.5-5.1); Alkaline Phosphatase 161 U/L (38-126); Anion Gap 11 mmol/L (8-16); Aspartate Amino Transferase 19 U/L (17-59); Bilirubin,Total 0.6 mg/dL (0.2-1.3); Blood Urea Nitrogen 12 mg/dL (9-20); Calcium 9.1 mg/dL (8.4-10.2); Carbon Dioxide 30 mmol/L (22-30); Chloride 96 mmol/L (98-107); Estimated CRCL calculation 118 ml/min; Estimated Glomerular Filt Rate > 60; Glucose 135 mg/dL (65-110); Magnesium 1.7 mg/dL (1.6-2.3); Potassium 3.2 mmol/L (3.4-5.0); Sodium 137 mmol/L (137-145)
[2022-02-04 05:55] VITALS: BP 141/76; PULSE 70; RESP 18; TEMP 36.7; O2SAT 96
[2022-02-04 06:04] LABS: Phenytoin Dilantin 59 ug/mL (10-20)
[2022-02-04] MEDS: UMECLIDINIUM BROMIDE 62.5 MCG ELLIPTA 1 PUFF INHALATION (08:06)
[2022-02-04] MEDS: ASPIRIN 81 MG ENTERIC TABLET PO (08:27)
--- NOTE | 2022-02-04 10:30 | PM.IMPN ---
Progress Note: A&P Assessment and Plan (1) Acute metabolic encephalopathy: Code(s): G93.41 - Metabolic encephalopathy Status: Acute Assessment and Plan: Unknown baseline Seems to be A&O x 1-2 LP ordered Could be related to herpes encephalopathy Neuro consulted Head CT No acute intracranial abnormality MRI ordered Trend mental status (2) Seizures: Code(s): R56.9 - Unspecified convulsions Status: Chronic Assessment and Plan: - continue with p.r.n. Ativan at this time. - Consult Neurology - Neuro restarted Keppra (increased dose), Vimpat - Dilantin stopped at this time - Seizure precautions - Adjust therapy as indicated (3) Elevated Dilantin level: Code(s): R78.89 - Finding of other specified substances, not normally found in blood Status: Acute Assessment and Plan: Phenytoin level upon arrival was 56, currently 59 Neurology on board Continue to hold for now Ativan PRN if break through seizures Continue to trend labs (4) Chronic obstructive pulmonary disease: Code(s): J44.9 - Chronic obstructive pulmonary disease, unspecified Status: Chronic Assessment and Plan: Chronic problem Does not seem to be in acute exacerbation Continue home medications trend respiratory status (5) Liver transplant status: Code(s): Z94.4 - Liver transplant status Status: Chronic Assessment and Plan: - continue with cyclosporin. (6) Herpes: Code(s): B00.9 - Herpesviral infection, unspecified Status: Acute Assessment and Plan: Has had many episodes of outbreaks this has caused many episodes of encephalopathy Herpes PCR and IGM, IGG have been ordered LP ordered per neuro Time Spent With Patient Time with patient: Greater than 35 minutes Subjective Date/time seen: 02/04/22 1030 Interval history: 02/04/22 1030 Patient is doing fair. He was having a coughing fit. Every time he eats or drinks he was having some issues what seemed to be aspiration however he denies any chest pain, shortness a breath, nausea, abdominal pain, vomiting, weakness. I did talk to Neurology who is going to restart most of his meds and is recommending a lumbar puncture at this time. It is noted the patient does have multiple episodes of herpes that could be causing his encephalopathy. Patient was alert oriented times 1-2. He did not know the season nor did he know what hospital he was at. Speech therapy did a swallow function is recommending minced and moist with nectar thickened liquids. 02/03/22? 20:58 ?this is a 61-year-old male patient with a past history of liver transplant on anti-rejection medication, seizures, elevated Dilantin levels, And COPD.? The patient recently had been in a group home for rehab and is now at home with family.? Family states since July the patient has declining mental status.? The patient had been diagnosed with seizures in July and has been started on Dilantin.? 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 The patient had been at a rehab facility but failed to recover and then was discharged to home.? The family has been caring for the patient and states that he continues to decline.? The patient is talking to me but his speech is slurred.? He is neurologically intact.? His movement is slow.? He is alert orientated to person and place but not time.? Patient's feet between level was 56.? The patient was started on IV fluids.? Chest x-ray shows mild atelectasis of the lung bases.? Head CT today shows no acute intracranial abnormalities.? His urinalysis was negative.? The patient is being admitted for observation status on the date of service of 02/04/2022. Review of Systems Review of Systems: All systems reviewed & are unremarkable
--- NOTE | 2022-02-04 11:57 | PCSTNOTE ---
Please refer to the Bedside Swallow Evaluation in the EMR. Please note, silent aspiration cannot be ruled out at bedside.
--- NOTE | 2022-02-04 11:59 | WPDNEURCNPN ---
Assessment and Plan Assessment and plan (1) Elevated Dilantin level: Code(s): R78.89 - Finding of other specified substances, not normally found in blood Status: Acute (2) AMS (altered mental status): Code(s): R41.82 - Altered mental status, unspecified Status: Acute (3) Seizures: Code(s): R56.9 - Unspecified convulsions Status: Chronic (4) Liver transplant recipient: Code(s): Z94.4 - Liver transplant status Status: Acute Plan Mr. Boone is a 61 year old male with a history of liver transplant, HSV encephalitis, and epilepsy presenting with decline in mental status in the setting of supratherapeutic Dilantin level. Change in mental status may be secondary to elevated Dilantin level, but given patient is on chronic immunosuppression and has previously had HSV encephalitis, also considering infectious process. - Holding Dilantin - Resume Keppra (increase dose to 2000mg BID) and Lacosamide 300mg BID - Ativan 2mg for break through seizures - If having seizures despite resuming meds, will consider adding third agent (maybe Topamax?) - Will obtain MRI brain w/wo contrast and LP with routine CSF studies including HSV PCR - Will recheck phenytoin level tomorrow AM Consult date: 02/04/22 Time Seen: 11:59 Reason for consult: altered mental status, supratherapeutic phenytoin level HPI: Yonis Janeth Boone is a 61 year old male with a history of liver transplant, epilepsy, and COPD. Patient presented to ED from home due to concerns for declining mental statuPatient first had seizures after his transplant in 2007. He was initially put on Dilantin at that time, but also eventually started on Keppra and Lacosamide due to incomplete seizure control. Patient has had issues with elevated Dilantin in the past. His level yesterday was 56. His current regimen is Dilantin 300mg qhs, Keppra 1500mg BID, and Lacosamide 300mg BID. He follows with [facility] neurology for his seizures. His last seizure was in July 2021, seemingly unprovoked. Prior to that seizure, his last seizure was over a year ago. In general, seizures have been well-controlled. Family denies any recent breakthrough seizures, but they do report recent agitation and hallucinations in the past week. Family also reports concern that he has been able to ambulate independently for the past few months. He has had HSV encephalitis twice in the past, most recently about a year ago. In the ED his CT head was negative for acute process. Family at bedside this morning, they feel that he is still not to his baseline. Dilantin level this morning was 59. Seizure medications are currently being held. Review of Systems Review of Systems: ROS unobtainable: Yes unobtainable due to mental status PMFSH Past Medical History Medical History Acute respiratory failure with hypoxia Acute UTI Cerebrovascular accident (2011) Mild right sided weakness. Chronic obstructive pulmonary disease Community acquired pneumonia Depression Elevated Dilantin level Hepatitis C Status post liver transplant in 2007 followed by successful hepatitis C treatment in 2013. Herpes encephalitis History of renal dialysis Hyperlipidemia Irritable bowel syndrome Peripheral neuropathy Pneumonia Pneumonia due to 2019 novel coronavirus Renal failure Required dialysis before liver transplant. Seizures Surgical History Surgical History History of cholecystectomy History of liver transplant (2007) For cirrhosis and hepatitis C. Family History Family History Father Family history of heart disease in male family member before age 55 Mother Family history of liver disease Sibling Diabetes mellitus Social History Social History Social History: Surrogate decision maker: Elyse
[2022-02-04 14:00] VITALS: BP 162/92; PULSE 88; RESP 16; TEMP 36.8; O2SAT 96
[2022-02-04 14:53] LABS: Glucose CSF 84 mg/dL (40-70); Total Protein CSF 89 mg/dL (12-60)
[2022-02-04 15:03] LABS: Appearance CSF Clear (Clear); CSF source CSF; Color CSF Colorless (Colorless); Nucleated Cell CSF 15 /uL (0-5); Red Blood Cell CSF 22 (0-2)
[2022-02-04 15:06] LABS: Lymphocytes CSF 96 % (40-80); Monocytes CSF 4 % (15-45); Neutrophils CSF 0 % (0-6)
--- NOTE | 2022-02-04 15:32 | PCPTNOTE ---
Attempted to evaluate patient, but patient had lumbar puncture this afternoon and must lie flat until 1700 this evening, will attempt to see tomorrow.
[2022-02-04] MEDS: SODIUM CHLORIDE 0.9% IV 1,000 ML 125 ML IV CONT (16:32)
[2022-02-04 16:57] VITALS: BP 123/101
[2022-02-04 19:53] VITALS: BP 144/70; PULSE 98; RESP 22; TEMP 36.7; O2SAT 98
[2022-02-04 20:00] VITALS: PULSE 98; RESP 22; O2SAT 98
[2022-02-04] MEDS: LACOSAMIDE (*CRX) 100 MG TABLET 300 MG PO (21:09)
[2022-02-04] MEDS: levETIRAcetam 500 MG TABLET 2000 MG PO (21:09)
--- NOTE | 2022-02-04 23:30 | PC.NURSE ---
During night med pass, pt refused to take his medication and stated you guys trying to kill me . Pt smacked the pills of hand and fell on the floor. Pt more combative when the nurse and tech were trying to clean him. Pt was refusing to roll over for clean sheets while fighting with us. Called pt's and explained the situation. Spouse talked to him which helped him calm enough to clean him up but not enough to take his meds.
[2022-02-05 05:35] VITALS: BP 154/77; PULSE 86; RESP 20; TEMP 36.6; O2SAT 97
[2022-02-05] MEDS: UMECLIDINIUM BROMIDE 62.5 MCG ELLIPTA 1 PUFF INHALATION (07:50)
[2022-02-05 07:52] VITALS: O2SAT 93
--- NOTE | 2022-02-05 08:00 | P.PNIM_ITS ---
Progress Note: A&P Assessment and Plan (1) Encephalitis due to human herpes simplex virus (HSV): Code(s): B00.4 - Herpesviral encephalitis Status: Acute Assessment and Plan: * CSF does show elevated lymphcytes, protein, and glucose * It appears the treatment is IV acyclovir * Neuro on board * MRI does have findings consistent with this illness * Does have history of multiple flare ups (2) Acute metabolic encephalopathy: Code(s): G93.41 - Metabolic encephalopathy Status: Acute Assessment and Plan: * Unknown baseline * Seems to be A&O x 1-2 * LP found colorless, fluid, neutrophils, protein, and glucose high * Could be related to herpes encephalopathy * Neuro consulted * Head CT No acute intracranial abnormality * MRI showed no acute infarcts, there is mention of weighted T2 * Seems that this could be a HSV encephalitis * Trend mental status (3) Seizures: Code(s): R56.9 - Unspecified convulsions Status: Chronic Assessment and Plan: - continue with p.r.n. Ativan at this time. - Consult Neurology - Neuro restarted Keppra (increased dose), Vimpat - Dilantin stopped at this time - Seizure precautions - Adjust therapy as indicated (4) Elevated Dilantin level: Code(s): R78.89 - Finding of other specified substances, not normally found in blood Status: Acute Assessment and Plan: * Phenytoin level upon arrival was 56, currently 59 (02/04/22) * Recheck level in the am * Neurology on board * Continue to hold for now * Ativan PRN if break through seizures * Continue to trend labs (5) Chronic obstructive pulmonary disease: Code(s): J44.9 - Chronic obstructive pulmonary disease, unspecified Status: Chronic Assessment and Plan: * Chronic problem * Does not seem to be in acute exacerbation * Continue home medications * trend respiratory status (6) Liver transplant status: Code(s): Z94.4 - Liver transplant status Status: Chronic Assessment and Plan: - continue with cyclosporin. (7) Herpes: Code(s): B00.9 - Herpesviral infection, unspecified Status: Acute Assessment and Plan: * Has had many episodes of outbreaks * this has caused many episodes of encephalopathy * Herpes PCR and IGM, IGG have been ordered * LP ordered per neuro Time Spent With Patient Time with patient: Greater than 35 minutes Subjective Date/time seen: 02/05/22 08:00 Interval history: 02/05/22 0800 Patient was naked upon entry. He stated that he was doing fine. He denied any complaints of chest pain, shortness of breath, nausea, vomiting, diarrhea, constipation. He stated that he was just cold and wanted a blanket. He also would not move his toes on command, and got a little disgruntle when checking for a Babinski, which was negative. He did not have an IV, however, one was placed by me this am. He seems to be a bit tired, and it was also noted that the patient did not have the best of nights last night. Did start an IV in the morning as the patient keeps pulling them out. He pulled it out again and another one was started in the afternoon, had conversation with and sister. Answered all questions and updated about plan of care 02/04/22 1030 Patient is doing fair. He was having a
--- NOTE | 2022-02-05 08:00 | PM.IMPN ---
Progress Note: A&P Assessment and Plan (1) Encephalitis due to human herpes simplex virus (HSV): Code(s): B00.4 - Herpesviral encephalitis Status: Acute Assessment and Plan: CSF does show elevated lymphcytes, protein, and glucose It appears the treatment is IV acyclovir Neuro on board MRI does have findings consistent with this illness Does have history of multiple flare ups (2) Acute metabolic encephalopathy: Code(s): G93.41 - Metabolic encephalopathy Status: Acute Assessment and Plan: Unknown baseline Seems to be A&O x 1-2 LP found colorless, fluid, neutrophils, protein, and glucose high Could be related to herpes encephalopathy Neuro consulted Head CT No acute intracranial abnormality MRI showed no acute infarcts, there is mention of weighted T2 Seems that this could be a HSV encephalitis Trend mental status (3) Seizures: Code(s): R56.9 - Unspecified convulsions Status: Chronic Assessment and Plan: - continue with p.r.n. Ativan at this time. - Consult Neurology - Neuro restarted Keppra (increased dose), Vimpat - Dilantin stopped at this time - Seizure precautions - Adjust therapy as indicated (4) Elevated Dilantin level: Code(s): R78.89 - Finding of other specified substances, not normally found in blood Status: Acute Assessment and Plan: Phenytoin level upon arrival was 56, currently 59 (02/04/22) Recheck level in the am Neurology on board Continue to hold for now Ativan PRN if break through seizures Continue to trend labs (5) Chronic obstructive pulmonary disease: Code(s): J44.9 - Chronic obstructive pulmonary disease, unspecified Status: Chronic Assessment and Plan: Chronic problem Does not seem to be in acute exacerbation Continue home medications trend respiratory status (6) Liver transplant status: Code(s): Z94.4 - Liver transplant status Status: Chronic Assessment and Plan: - continue with cyclosporin. (7) Herpes: Code(s): B00.9 - Herpesviral infection, unspecified Status: Acute Assessment and Plan: Has had many episodes of outbreaks this has caused many episodes of encephalopathy Herpes PCR and IGM, IGG have been ordered LP ordered per neuro Time Spent With Patient Time with patient: Greater than 35 minutes Subjective Date/time seen: 02/05/22 08:00 Interval history: 02/05/22 0800 Patient was naked upon entry. He stated that he was doing fine. He denied any complaints of chest pain, shortness of breath, nausea, vomiting, diarrhea, constipation. He stated that he was just cold and wanted a blanket. He also would not move his toes on command, and got a little disgruntle when checking for a Babinski, which was negative. He did not have an IV, however, one was placed by me this am. He seems to be a bit tired, and it was also noted that the patient did not have the best of nights last night. Did start an IV in the morning as the patient keeps pulling them out. He pulled it out again and another one was started in the afternoon, had conversation with and sister. Answered all questions and updated about plan of care 02/04/22 1030 Patient is doing fair. He was having a coughing fit. Every time he eats or drinks he was having some issues what seemed to be aspiration however he denies any chest pain, shortness a breath, nausea, abdominal pain, vomiting, weakness. I did talk to Neurology who is going to restart most of his meds and is recommending a lumbar puncture at this time. It is noted the patient does have multiple episodes of herpes that could be causing his encephalopathy. Patient was alert oriented times 1-2. He did not know the season nor did he know what hospital he was at. Speech therapy did a swallow function is recomme
--- NOTE | 2022-02-05 08:56 | PCOTNOTE ---
Attempted to see patient. Patient oriented to person, not place or date. Patient is resting and would not like to get up at this time.
--- NOTE | 2022-02-05 09:30 | PC.NURSE ---
PT unable to take 0900 medications. Attempted giving in pudding, with yoghurt, with water, patient is spitting pills out every single time stating he does not like the way it feels/and or tastes . by the bedside at the time to witness refusal.
[2022-02-05] MEDS: ASPIRIN 81 MG ENTERIC TABLET PO (10:03)
[2022-02-05] MEDS: busPIRone HCL 5 MG TABLET PO ×2 (10:03→17:30)
[2022-02-05] MEDS: levETIRAcetam 500 MG TABLET 2000 MG PO ×2 (10:04→20:07)
--- NOTE | 2022-02-05 12:04 | WPDNEUROPN ---
Progress Note: A&P Assessment and Plan (1) AMS (altered mental status): Code(s): R41.82 - Altered mental status, unspecified Status: Acute (2) Viral encephalitis: Code(s): A86 - Unspecified viral encephalitis Status: Acute (3) Elevated Dilantin level: Code(s): R78.89 - Finding of other specified substances, not normally found in blood Status: Acute (4) Seizures: Code(s): R56.9 - Unspecified convulsions Status: Chronic Plan Mr. Boone is a 61 year old male with a history of liver transplant, HSV encephalitis, and epilepsy presenting with decline in mental status in the setting of supratherapeutic Dilantin level. Change in mental status may be secondary to elevated Dilantin level, but given patient is on chronic immunosuppression and has previously had HSV encephalitis, there is concern for infectious process. CSF studies are also supportive of possible viral encephalitis. Also, would expect mental status to improve if this were due to Dilantin toxicity since he has been off of it for several days now. - Recommend starting acyclovir and antibiotics for coverage of meningitis/encephalitis - CSF infectious studies including culture and HSV PCR pending - Would like to get a repeat Dilantin level to see if still supratherapeutic - Continue Keppra 2000mg BID (increased from home dose) and Lacosamide 300mg BID; discontinued Dilantin - Ativan 2mg for breakthrough seizures - If having recurrent breakthrough seizures, will consider adding third agent (possibly Topamax) Subjective Date/time seen: 02/05/22 12:04 Interval history: Yonis Boone is a 61 year old male with a history of liver transplant, epilepsy, and COPD. Patient presented to ED from home due to concerns for declining mental status. Patient first had seizures after his transplant in 2007. He was initially put on Dilantin at that time, but also eventually started on Keppra and Lacosamide due to incomplete seizure control. Patient has had issues with elevated Dilantin in the past. His level on admission 56. His AEDs are Dilantin 300mg qhs, Keppra 1500mg BID, and Lacosamide 300mg BID. He follows with [facility] neurology for his seizures. His last seizure was in July 2021, seemingly unprovoked. Prior to that seizure, his last seizure was over a year ago. In general, seizures have been well-controlled. Family denies any recent breakthrough seizures, but they do report recent agitation and hallucinations in the past week. Family also reports concern that he has been able to ambulate independently for the past few months. He has had HSV encephalitis twice in the past, most recently about a year ago. In the ED his CT head was negative for acute process. Interval history: and sister at bedside, they think his mental status is worse today compared to yesterday. He has been more agitated, and combative at times. His PIV has been replaced several times due to him removing it. 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 LP was done yesterday - CSF cell count 15 (96% lymphocytes) and protein 89. Review of Systems Review of Systems: ROS unobtainable: Yes unobtainable due to mental status Exam Const: General: comfortable and no acute distress HENMT: Mouth: Yes moist mucous membranes Eyes: General: appearance normal, both eyes and all related structures Pupils: Equal, round and reactive pupils present EOM: EOMs intact bilaterally Resp: Effort & Inspection: normal respiratory effort Auscultation: clear to auscultation bilaterally Cardio: Rate: regular rate Rhythm: regular rhythm GI: GI Palp: Yes Soft to palpation Auscultation: normal bowel sounds Skin: General skin exam: normal color Neuro: Other: AOx1 (only to self, required a lot of prompting), EOMI, face appears symmetric, moving all extremities equally against gravity and resistance, sensation is intact to noxious stimuli. Extrem: General: nor
[2022-02-05 13:58] VITALS: BP 127/73; PULSE 91; RESP 18; TEMP 35.9; O2SAT 98
[2022-02-05 15:12] LABS: Basophils Absolute Auto 0.1 K/mm3 (0.0-0.1); Basophils Percent Auto 0.6 % (0.2-1.2); Eosinophils Absolute Auto 0.3 K/mm3 (0-0.3); Eosinophils Percent Auto 3.3 % (0-4.4); Hematocrit 41.7 % (42.0-52.0); Hemoglobin 14.8 g/dL (14.0-18.0); Immature Granulocyte Absolute 0.04 K/mm3 (0.00-0.031); Immature Granulocyte Percent A 0.4 % (0-0.5); Lymphocytes Absolute Auto 2.36 K/mm3 (0.9-3.2); Lymphocytes Percent Auto 24.4 % (18.3-44.2); Mean Corpuscular HGB Conc 35.5 g/dl (32-36); Mean Corpuscular Volume 87.2 fl (80-100); Mean Platelet Volume 9.9 fl (7.4-10.4); Monocytes Absolute Auto 1.1 K/mm3 (0.1-0.6); Monocytes Percent Auto 11.1 % (2.6-8.5); Neutrophils Absolute Auto 5.8 K/mm3 (1.3-6.7); Neutrophils Percent Auto 60.2 % (45.5-73.1); Platelet Count Result 203 k/mm3 (150-375); Red Blood Count 4.78 M/mm3 (4.6-6.20); Red Cell Distribution Width 11.9 % (11.5-14.5); White Blood Count 9.7 K/mm3 (4.5-10.0)
[2022-02-05] MEDS: SODIUM CHLORIDE 0.9% IV 1,000 ML 125 ML IV CONT (15:49)
[2022-02-05 15:50] LABS: Alanine Aminotransferase 17 U/L (6-50); Albumin Level 4.3 g/dL (3.5-5.1); Alkaline Phosphatase 156 U/L (38-126); Anion Gap 13 mmol/L (8-16); Aspartate Amino Transferase 26 U/L (17-59); Bilirubin,Total 0.7 mg/dL (0.2-1.3); Blood Urea Nitrogen 10 mg/dL (9-20); Carbon Dioxide 26 mmol/L (22-30); Chloride 99 mmol/L (98-107); Estimated CRCL calculation 160 ml/min; Estimated Glomerular Filt Rate > 60; Glucose 105 mg/dL (65-110); Magnesium 1.6 mg/dL (1.6-2.3); Potassium 3.3 mmol/L (3.4-5.0); Sodium 138 mmol/L (137-145)
[2022-02-05] MEDS: cefTRIAXone 2 GM in SODIUM CHLORIDE 0.9% IV 100 ML 200 ML IVPB (15:52)
[2022-02-05 16:07] LABS: Phenytoin Dilantin 53 ug/mL (10-20)
[2022-02-05] MEDS: AMPICILLIN 2 GM/NS 100 ML 2 GM/100 ML BAG IVPB ×2 (17:53→21:01)
[2022-02-05 20:00] VITALS: PULSE 88; RESP 20; O2SAT 98
[2022-02-05 20:04] VITALS: BP 138/71; PULSE 88; RESP 20; TEMP 36.9; O2SAT 98
[2022-02-05] MEDS: cycloSPORINE (NEORAL) 25 MG CAPSULE 150 MG PO (20:06)
[2022-02-05] MEDS: LACOSAMIDE (*CRX) 100 MG TABLET 300 MG PO (20:07)
[2022-02-06] VITALS (7 sets, daily range): BP systolic 127–188; BP diastolic 64–105; PULSE 77–109; RESP 18–22; TEMP 35.7–36.9; O2SAT 94–98
[2022-02-06] MEDS: POTASSIUM CHLORIDE 20 MEQ PACKET (FOR LIQUID) 40 MEQ PO (00:31)
[2022-02-06] MEDS: OLANZapine 10 MG INJ VIAL 5 MG IM (00:32)
[2022-02-06] MEDS: AMPICILLIN 2 GM/NS 100 ML 2 GM/100 ML BAG IVPB ×5 (02:57→20:34)
[2022-02-06] MEDS: cefTRIAXone 2 GM in SODIUM CHLORIDE 0.9% IV 100 ML 200 ML IVPB ×2 (05:06→20:32)
[2022-02-06] MEDS: UMECLIDINIUM BROMIDE 62.5 MCG ELLIPTA 1 PUFF INHALATION (07:49)
--- NOTE | 2022-02-06 10:00 | PM.IMPN ---
Progress Note: A&P Assessment and Plan (1) Encephalitis due to human herpes simplex virus (HSV): Code(s): B00.4 - Herpesviral encephalitis Status: Acute Assessment and Plan: CSF does show elevated lymphcytes, protein, and glucose It appears the treatment is IV acyclovir, which has been started Vanco, Ampicillin, and ceftriaxone all started as well Continue to trend mental status Seems stable at this time Neuro on board MRI does have findings consistent with this illness Does have history of multiple flare ups (2) Acute metabolic encephalopathy: Code(s): G93.41 - Metabolic encephalopathy Status: Acute Assessment and Plan: Unknown baseline Seems to be A&O x 1-2 LP found colorless, fluid, neutrophils, protein, and glucose high Could be related to herpes encephalopathy Neuro consulted Head CT No acute intracranial abnormality MRI showed no acute infarcts, there is mention of weighted T2 Seems that this could be a HSV encephalitis Trend mental status (3) Seizures: Code(s): R56.9 - Unspecified convulsions Status: Chronic Assessment and Plan: - continue with p.r.n. Ativan at this time. - Consult Neurology - Neuro restarted Keppra (increased dose), Vimpat - Dilantin stopped at this time - Seizure precautions - Adjust therapy as indicated (4) Elevated Dilantin level: Code(s): R78.89 - Finding of other specified substances, not normally found in blood Status: Acute Assessment and Plan: Phenytoin level upon arrival was 56, currently 53 (02/05/22) Recheck level in the am Neurology on board Continue to hold for now Ativan PRN if break through seizures Continue to trend labs (5) Chronic obstructive pulmonary disease: Code(s): J44.9 - Chronic obstructive pulmonary disease, unspecified Status: Chronic Assessment and Plan: Chronic problem Does not seem to be in acute exacerbation Continue home medications trend respiratory status (6) Liver transplant status: Code(s): Z94.4 - Liver transplant status Status: Chronic Assessment and Plan: - continue with cyclosporin. (7) Herpes: Code(s): B00.9 - Herpesviral infection, unspecified Status: Acute Assessment and Plan: Has had many episodes of outbreaks this has caused many episodes of encephalopathy Herpes PCR and IGM, IGG have been ordered LP ordered per neuro Time Spent With Patient Time with patient: Greater than 35 minutes Subjective Date/time seen: 02/06/22 10:00 Interval history: 02/06/22 1000 Patient seems a little exhausted today. According the nurse the patient had to be slightly sedated to get the IV placed in his leg yesterday. He denies any complaints however he does not know where his today nor does he know why he is here. I did have a small some water and he did well with that. His only complaint was is he is very very tired. 02/05/22 0800 Patient was naked upon entry. He stated that he was doing fine. He denied any complaints of chest pain, shortness of breath, nausea, vomiting, diarrhea, constipation. He stated that he was just cold and wanted a blanket. He also would not move his toes on command, and got a little disgruntle when checking for a Babinski, which was negative. He did not have an IV, however, one was placed by me this am. He seems to be a bit tired, and it was also noted that the patient did not have the best of nights last night. Did start an IV in the morning as the patient keeps pulling them out. He pulled it out again and another one was started in the afternoon, had conversation with and sister. Answered all questions and updated about plan of care 02/04/22 1030 Patient is doing fair. He was having a coughing fit. Every time he eats or drinks he was having some
--- NOTE | 2022-02-06 10:00 | P.PNIM_ITS ---
Progress Note: A&P Assessment and Plan (1) Encephalitis due to human herpes simplex virus (HSV): Code(s): B00.4 - Herpesviral encephalitis Status: Acute Assessment and Plan: * CSF does show elevated lymphcytes, protein, and glucose * It appears the treatment is IV acyclovir, which has been started * Vanco, Ampicillin, and ceftriaxone all started as well * Continue to trend mental status * Seems stable at this time * Neuro on board * MRI does have findings consistent with this illness * Does have history of multiple flare ups (2) Acute metabolic encephalopathy: Code(s): G93.41 - Metabolic encephalopathy Status: Acute Assessment and Plan: * Unknown baseline * Seems to be A&O x 1-2 * LP found colorless, fluid, neutrophils, protein, and glucose high * Could be related to herpes encephalopathy * Neuro consulted * Head CT No acute intracranial abnormality * MRI showed no acute infarcts, there is mention of weighted T2 * Seems that this could be a HSV encephalitis * Trend mental status (3) Seizures: Code(s): R56.9 - Unspecified convulsions Status: Chronic Assessment and Plan: - continue with p.r.n. Ativan at this time. - Consult Neurology - Neuro restarted Keppra (increased dose), Vimpat - Dilantin stopped at this time - Seizure precautions - Adjust therapy as indicated (4) Elevated Dilantin level: Code(s): R78.89 - Finding of other specified substances, not normally found in blood Status: Acute Assessment and Plan: * Phenytoin level upon arrival was 56, currently 53 (02/05/22) * Recheck level in the am * Neurology on board * Continue to hold for now * Ativan PRN if break through seizures * Continue to trend labs (5) Chronic obstructive pulmonary disease: Code(s): J44.9 - Chronic obstructive pulmonary disease, unspecified Status: Chronic Assessment and Plan: * Chronic problem * Does not seem to be in acute exacerbation * Continue home medications * trend respiratory status (6) Liver transplant status: Code(s): Z94.4 - Liver transplant status Status: Chronic Assessment and Plan: - continue with cyclosporin. (7) Herpes: Code(s): B00.9 - Herpesviral infection, unspecified Status: Acute Assessment and Plan: * Has had many episodes of outbreaks * this has caused many episodes of encephalopathy * Herpes PCR and IGM, IGG have been ordered * LP ordered per neuro Time Spent With Patient Time with patient: Greater than 35 minutes Subjective Date/time seen: 02/06/22 10:00 Interval history: 02/06/22 1000 Patient seems a little exhausted today. According the nurse the patient had to be slightly sedated to get the IV placed in his leg yesterday. He denies any complaints however he does not know where his today nor does he know why he is here. I did have a small some water and he did well with that. His only complaint was is he is very very tired. 02/05/22 0800 Patient was naked upon entry. He stated that he was doing fine. He denied any complaints of chest pain, shortness of breath, nausea, vomiting, diarrhea, constipation. He stated that he was just cold and wanted a blanket. He also would not move his toes on command, and got a little disgruntle wh
[2022-02-06] MEDS: SODIUM CHLORIDE 0.9% IV 1,000 ML 125 ML IV CONT ×2 (10:45→20:01)
[2022-02-06] MEDS: METOCLOPRAMIDE HCL INJ 10 MG/2 ML VIAL IV PUSH (14:40)
[2022-02-06] MEDS: busPIRone HCL 5 MG TABLET PO (14:46)
[2022-02-06] MEDS: cycloSPORINE (NEORAL) 25 MG CAPSULE 150 MG PO ×2 (14:50→22:58)
--- NOTE | 2022-02-06 14:56 | WPDNEUROPN ---
Progress Note: A&P Assessment and Plan (1) Viral encephalitis: Code(s): A86 - Unspecified viral encephalitis Status: Acute (2) Acute metabolic encephalopathy: Code(s): G93.41 - Metabolic encephalopathy Status: Acute (3) Elevated Dilantin level: Code(s): R78.89 - Finding of other specified substances, not normally found in blood Status: Acute Plan Mr. Boone is a 61 year old male with a history of liver transplant, HSV encephalitis, and epilepsy presenting with decline in mental status in the setting of supratherapeutic Dilantin level. Change in mental status may be secondary to elevated Dilantin level, but given patient is on chronic immunosuppression and has previously had HSV encephalitis, also considering infectious process. CSF studies supportive of viral process as well. Mental status has not improved, although he did receive Zyprexa yesterday evening. Dilantin level was still elevated yesterday -- not sure if liver transplant may be affecting metabolism (although liver enzymes and ammonia were raymon)l. After discussion with patient's hospitalist, may be best to transfer to [facility] hospital (where he had transplant) for further evaluation of encephalopathy, especially if he is not clinically improving. - Continue Rocephin, vancomycin, acyclovir; CSF cultures and HSV PCR pending - Holding Dilantin - Continue Keppra (increase dose to 2000mg BID) and Lacosamide 300mg BID - Ativan 2mg for break through seizures - If having recurrent seizures, will consider adding third agent (likely Topamax) - Recheck Dilantin level tomorrow AM Subjective Date/time seen: 02/06/22 14:56 Interval history: HPI: Yonis Boone is a 61 year old male with a history of liver transplant, epilepsy, and COPD. Patient presented to ED from home due to concerns for declining mental statuPatient first had seizures after his transplant in 2007. He was initially put on Dilantin at that time, but also eventually started on Keppra and Lacosamide due to incomplete seizure control. Patient has had issues with elevated Dilantin in the past. His level yesterday was 56. His current regimen is Dilantin 300mg qhs, Keppra 1500mg BID, and Lacosamide 300mg BID. He follows with [facility] neurology for his seizures. His last seizure was in July 2021, seemingly unprovoked. Prior to that seizure, his last seizure was over a year ago. In general, seizures have been well-controlled. Family denies any recent breakthrough seizures, but they do report recent agitation and hallucinations in the past week. Family also reports concern that he has been able to ambulate independently for the past few months. He has had HSV encephalitis twice in the past, most recently about a year ago. In the ED his CT head was negative for acute process. LP done which showed CSF protein 89, cell count 15 (96% lymphocytes). MRI brain showed old lacunar infarct in R caudate and chronic asymmetric volume loss of L parietal lobe. Interval history: Family at bedside this morning, they feel that his mental status is worse today, more somnolent/agitated. Received Zyprexa yesterday evening to place PIV. Dilantin level yesterday was 53. Spitting out medications. Review of Systems Review of Systems: ROS unobtainable: Yes unobtainable due to mental status Exam Const: General: no acute distress HENMT: Mouth: Yes moist mucous membranes Eyes: EOM: EOMs intact bilaterally Resp: Effort & Inspection: normal respiratory effort Skin: General skin exam: normal color Neuro: Other: Somnolent, did not open eyes to noxious stimulus but did grimace. Face symmetric, moaning occasionally. Moving all extremities spontaneously, antigravity but not purposefully. Not answer questions or following commands. Extrem: General: normal to inspection Psych: Other: abnormal mental status - AOx0 Objective Data Vital Signs Vital Signs: Vital Signs - 24 hr 02/05/22 20:04 02/05/22 20:00 10
[2022-02-06] MEDS: LACOSAMIDE (*CRX) 100 MG TABLET 300 MG PO (14:58)
[2022-02-06 15:46] LABS: Cryptococcus Antigen Not Detected (Not Detected); Cryptococcus Specimen Source CSF
[2022-02-06 18:11] LABS: Alveolar/Arterial O2 Gradient 45.7 mmHg; Base Excess ABG 0.5 mEq/l (+/-2.0); Fractional Inspired Oxygen 21 %; HCO3 ABG 25.1 mEq/l (22.0-26.0); Oxygen Content ABG 19.2 %vol (16.0-22.0); Oxygen Saturation ABG 89.6 % (95.0-100.0); Oxyhemoglobin 88.7 % THb (90.0-100.0); PCO2 ABG 40.1 mmHg (35.0-45.0); PO2 FiO2 Ratio Arterial Blood 2.67 %; Total Hemoglobin 15.4 g/dL (12.0-18.0); pH ABG 7.414 (7.350-7.450)
[2022-02-06 18:12] LABS: Device ROOM AIR; Site Drawn RIGHT BRACHIAL
[2022-02-06] MEDS: LEVETIRACETAM IVPB (19:58)
[2022-02-06] MEDS: SODIUM CHLORIDE 0.9% IVPB (19:58)
[2022-02-06] MEDS: CENTRAL LINE FLUSH 10 ML IV PUSH (21:53)
[2022-02-07] VITALS: PULSE 112
[2022-02-07 00:49] LABS: CMV DNA Quant PCR IU/mL Not Detected; Cytomegalovirus DNA Quant PCR Not Detected log IU/mL; Cytomegalovirus DNA Source Serum
[2022-02-07 01:57] VITALS: PULSE 107
--- NOTE | 2022-02-07 06:51 | P.TS_ITS ---
Transfer Discharge Sum: Prov Provider Date of admission: 02/05/22 14:00 Primary care physician: Maria L Benavides, PA Admitting clinician: Rubi Cain MD Attending physician on admission: Rubi Cain Consults: 02/03/22 Consult to Physician Routine Comment: Notified dr @ 8:05am Consulting Provider: Katerin Meyers call center support consultant/MD group to consult: neurology Reason for consultation: elevated Dilantin level and seizures Has provider been notified: Yes Attending physician on discharge: Freddy Elizabeth Discharging clinician: Hussein Jean Receiving physician/facility: [facility] Drs. Miller and Ascencion DS: Admitting Diagnosis Discharge Date 02/07/22 Admitting Diagnosis Acute metabolic encephlopathy DS: Discharge Diagnosis Discharge Diagnosis (1) Encephalitis due to human herpes simplex virus (HSV): Code(s): B00.4 - Herpesviral encephalitis Status: Acute Assessment and Plan: * CSF does show elevated lymphcytes, protein, and glucose * It appears the treatment is IV acyclovir, which has been started * Vanco, Ampicillin, and ceftriaxone all started as well * Continue to trend mental status * Seems stable at this time * Neuro on board * MRI does have findings consistent with this illness * Does have history of multiple flare ups (2) Acute metabolic encephalopathy: Code(s): G93.41 - Metabolic encephalopathy Status: Acute Assessment and Plan: * Unknown baseline * Seems to be A&O x 1-2 * LP found colorless, fluid, neutrophils, protein, and glucose high * Could be related to herpes encephalopathy * Neuro consulted * Head CT No acute intracranial abnormality * MRI showed no acute infarcts, there is mention of weighted T2 * Seems that this could be a HSV encephalitis * Trend mental status (3) Seizures: Code(s): R56.9 - Unspecified convulsions Status: Chronic Assessment and Plan: - continue with p.r.n. Ativan at this time. - Consult Neurology - Neuro restarted Keppra (increased dose), Vimpat - Dilantin stopped at this time - Seizure precautions - Adjust therapy as indicated (4) Elevated Dilantin level: Code(s): R78.89 - Finding of other specified substances, not normally found in blood Status: Acute Assessment and Plan: * Phenytoin level upon arrival was 56, currently 53 (02/05/22) * Recheck level in the am * Neurology on board * Continue to hold for now * Ativan PRN if break through seizures * Continue to trend labs (5) Chronic obstructive pulmonary disease: Code(s): J44.9 - Chronic obstructive pulmonary disease, unspecified Status: Chronic Assessment and Plan: * Chronic problem * Does not seem to be in acute exacerbation * Continue home medications * trend respiratory status (6) Liver transplant status: Code(s): Z94.4 - Liver transplant status Status: Chronic Assessment and Plan: - continue with cyclosporin. (7) Herpes: Code(s): B00.9 - Herpesviral infection, unspecified Status: Acute Assessment and Plan: * Has had many episodes of outbreaks * this has caused many episodes of encephalopathy * Herpes PCR and IGM, IGG have been ordered * LP ordere
--- NOTE | 2022-02-07 06:51 | PM.TDS ---
Transfer Discharge Sum: Prov Provider Date of admission: 02/05/22 14:00 Primary care physician: Maria L Benavides, PA Admitting clinician: Rubi Cain MD Attending physician on admission: Rubi Cain Consults: 02/03/22 Consult to Physician Routine Comment: Notified dr @ 8:05am Consulting Provider: Katerin Meyers machine scallop cutter/MD group to consult: neurology Reason for consultation: elevated Dilantin level and seizures Has provider been notified: Yes Attending physician on discharge: Freddy Elizabeth Discharging clinician: Hussein Jean Receiving physician/facility: [facility] Drs. Miller and Ascencion DS: Admitting Diagnosis Discharge Date 02/07/22 Admitting Diagnosis Acute metabolic encephlopathy DS: Discharge Diagnosis Discharge Diagnosis (1) Encephalitis due to human herpes simplex virus (HSV): Code(s): B00.4 - Herpesviral encephalitis Status: Acute Assessment and Plan: CSF does show elevated lymphcytes, protein, and glucose It appears the treatment is IV acyclovir, which has been started Vanco, Ampicillin, and ceftriaxone all started as well Continue to trend mental status Seems stable at this time Neuro on board MRI does have findings consistent with this illness Does have history of multiple flare ups (2) Acute metabolic encephalopathy: Code(s): G93.41 - Metabolic encephalopathy Status: Acute Assessment and Plan: Unknown baseline Seems to be A&O x 1-2 LP found colorless, fluid, neutrophils, protein, and glucose high Could be related to herpes encephalopathy Neuro consulted Head CT No acute intracranial abnormality MRI showed no acute infarcts, there is mention of weighted T2 Seems that this could be a HSV encephalitis Trend mental status (3) Seizures: Code(s): R56.9 - Unspecified convulsions Status: Chronic Assessment and Plan: - continue with p.r.n. Ativan at this time. - Consult Neurology - Neuro restarted Keppra (increased dose), Vimpat - Dilantin stopped at this time - Seizure precautions - Adjust therapy as indicated (4) Elevated Dilantin level: Code(s): R78.89 - Finding of other specified substances, not normally found in blood Status: Acute Assessment and Plan: Phenytoin level upon arrival was 56, currently 53 (02/05/22) Recheck level in the am Neurology on board Continue to hold for now Ativan PRN if break through seizures Continue to trend labs (5) Chronic obstructive pulmonary disease: Code(s): J44.9 - Chronic obstructive pulmonary disease, unspecified Status: Chronic Assessment and Plan: Chronic problem Does not seem to be in acute exacerbation Continue home medications trend respiratory status (6) Liver transplant status: Code(s): Z94.4 - Liver transplant status Status: Chronic Assessment and Plan: - continue with cyclosporin. (7) Herpes: Code(s): B00.9 - Herpesviral infection, unspecified Status: Acute Assessment and Plan: Has had many episodes of outbreaks this has caused many episodes of encephalopathy Herpes PCR and IGM, IGG have been ordered LP ordered per neuro Transfer Discharge Sum: Med Medications Active and Home Medications: Home Medications aspirin 81 mg tablet 81 mg PO DAILY 10/28/19 [History Confirmed 02/03/22] gabapentin 800 mg tablet 800 mg PO TID 10/28/19 [History Confirmed 02/03/22] umeclidinium 62.5 mcg/actuation blister powder for inhalation (Incruse Ellipta) 62.5 mcg inhalation DAILY 07/25/21 [History Confirmed 02/03/22] buspirone 5 mg tablet 5 mg PO TID 11/05/21 [History Confirmed 02/03/22] levetiracetam 1,000 mg tablet 1,500 mg PO BID 11/05/21 [History Confirmed 02/03/22] phenytoin sodium extended 100 mg capsule (Dilantin Extended) 300 mg PO HS 11/05/21 [History Confirme
[2022-02-07 14:32] LABS: West Nile Virus, IgM <0.90 index (<0.90)
[2022-02-07 16:37] LABS: VDRL Quantitative CSF Nonreactive (Nonreactive)
[2022-02-07 20:01] LABS: Herpes Simplex Type 1 DNA PCR Not Detected (Not Detected); Herpes Simplex Type 2 DNA PCR Not Detected (Not Detected)
[2022-02-08 12:47] LABS: Epstein Barr Virus DNA PCR Not Detected (Not Detected); Source Epstein Barr Virus CSF
[2022-02-08 16:47] LABS: Varicella IgM Antibody <=0.90 (<=0.90)
[2022-02-08 16:47] LABS: JC Polyoma Virus DNA, QL Plasma; JC Polyoma Virus Source Not Detected (Not Detected)
[2022-02-08 17:11] LABS: Phenytoin Dilantin Free <0.5 mg/L (1.0-2.0)
[2022-02-09 07:27] LABS: Albumin, CSF 29.9 mg/dL (8.0-42.0); Albumin, Serum 3.8 g/dL (3.5-5.2); IgG Index, CSF 0.56 (<0.66); IgG, CSF 4.6 mg/dL (0.8-7.7); Immunoglobulin G, Serum 1050 mg/dL (600-1640); Myelin Basic Protein, CSF <2.0 mcg/L (<=4.0)
[2022-02-09 09:22] LABS: Lyme Disease Ab (IgM), Blot Negative (Negative); Lyme Disease Ab(IgG), Blot Negative (Negative)
[2022-02-09 15:22] LABS: Herpes Simplex Type 1 DNA PCR Not Detected; Herpes Simplex Type 2 DNA PCR Not Detected
[2022-02-10 17:24] LABS: Coccidioides Ab to F Ag (IgG) NEGATIVE; Coccidioides Ab to TP Ag (IgM) NEGATIVE
[2022-02-11 09:59] LABS: HSV 1 IgM Screen Negative (Negative); HSV 2 IgM Screen Negative (Negative)
== END 2022-02-07 02:33 | disposition short-term general hospital (02) | DRG 98 ==
LOC: ANHED 18:05 → ANH3MEDSUR 21:02 → ANH3MED 21:08 → ANHIMU 02-06 17:03
PROVIDERS: Internal Medicine; Nurse Practitioner; Student in an Organized Health Care Education/Training Program; Admitting Provider Family Medicine; Emergency Provider Emergency Medicine; PCP Physician Assistant; Visit Provider Nurse Practitioner
DX: B00.4 Herpesviral encephalitis (principal); I69.351 Hemiplegia and hemiparesis following cerebral infarction affecting right dominant side; Z94.4 Liver transplant status; G40.909 Epilepsy, unspecified, not intractable, without status epilepticus; R79.89 Other specified abnormal findings of blood chemistry; Z20.822 Contact with and (suspected) exposure to COVID-19; B00.9 Herpesviral infection, unspecified; E78.5 Hyperlipidemia, unspecified; F32.A Depression, unspecified; G47.30 Sleep apnea, unspecified; G62.9 Polyneuropathy, unspecified; J44.9 Chronic obstructive pulmonary disease, unspecified; K58.9 Irritable bowel syndrome, unspecified; R47.81 Slurred speech; Z90.49 Acquired absence of other specified parts of digestive tract; Z87.891 Personal history of nicotine dependence; Z86.19 Personal history of other infectious and parasitic diseases; Z79.82 Long term (current) use of aspirin
CPT/HCPCS: 36415; 36569; 36600; 51701; 62328; 70450; 70551; 71045; 80053; 80185; 80186; 81001; 82040; 82042; 82140; 82784; 82805; 82945; 83605; 83735; 83873; 83916; 84157; 85025; 85610; 85730; 86403; 86592; 86617; 86635; 86695; 86696; 86787; 86788; 87015; 87070; 87102; 87116; 87205; 87206; 87497; 87502; 87529; 87798; 89051; 92610; 93005; 94640; 96374; 97162; 97166; 99285; A9270; C1751; C9803; G0378; J0133; J0290; J0696; J1953; J2060; J2765; J3370; J7030; J7060; J7515; U0003; U0005

== ENCOUNTER 2022-03-24 09:27 | Inpatient (IN) | payer MEDICARE, MEDICAID, SELFPAY ==
[2022-03-24] VITALS (26 sets, daily range): BP systolic 101–146; BP diastolic 69–93; PULSE 72–110; RESP 12–27; TEMP 36.2–36.8; O2SAT 91–100; BMI 31.1
--- NOTE | ~2022-03-24 | CT_ITS ---
Clinical Indication: Fever, pulmonary embolus CT Scan of the Chest, Abdomen, and Pelvis with Contrast: Technique: Contiguous sections were acquired throughout the chest, abdomen, and pelvis after intraven ous administration of 100 cc of Isovue 300. Coronal maximum intensity projection 3-D reconstructions were created by the technologist. Dose reduction technique was used on this scan by utilizing autom ated exposure control and iterative reconstruction technique. The dose-length product (DLP) was 2292. 85 mGy-cm. COMPARISON: 03/30/2022 Findings: Endotracheal tube and NG tube are in place. There is no evidence of any significant mediastinal, dawna r or axillary lymphadenopathy. No pulmonary embolus, aortic aneurysm, or aortic dissection. The media stinal soft tissues appear normal. There is no evidence of pleural or pericardial effusion. The lungs are clear, aside from minimal dependent atelectatic changes. Morphology of the liver and surgical clips in the region are consistent with history of liver transpl ant. Gallbladder absent. The spleen, pancreas, adrenals and kidneys are within normal limits. No jesenia dence of aortic aneurysm. No lymphadenopathy. Probable mild wall thickening of the distal sigmoid colon and rectum with minimal pericolonic inflamm atory stranding. No abscess or free air. No bowel obstruction. Urinary bladder is collapsed around a Negron catheter. Prostate gland mildly enlarged. Impression: Findings suggestive of infectious/inflammatory colitis involving the distal sigmoid colon and rectum. Ischemic bowel less likely. No pulmonary embolus. No significant pulmonary abnormality aside from minimal dependent atelectatic changes. Reviewed, dictated and finalized at location [] ENT ACCOUNT LIAISON Impression: Findings suggestive of infectious/inflammatory colitis involving the distal sig moid colon and rectum. Ischemic bowel less likely. No pulmonary embolus. No significant pulmonary abnormality aside from minimal dependent atelectatic c hanges.
--- NOTE | ~2022-03-24 | XR_ITS ---
EXAMINATION: XR chest 1V portable DATE: 04/07/2022 06:06 INDICATION: Respiratory failure. TECHNIQUE: A single frontal view of the chest was obtained. COMPARISON: Chest single view 04/06/2022, chest CT 04/06/2022 FINDINGS: There is mild elevation of left hemidiaphragm. There is mild atelectasis in the lower lung zones. No pleural effusion or pneumothorax. The heart size is normal. The endotracheal tube tip is 4. 1 cm above the doretha. The nasogastric tube tip is in the stomach. A right internal jugular central v enous catheter is seen with tip at the superior cavoatrial junction. IMPRESSION: 1. Mild atelectasis in the lower lung zones. 2. Chronic mild elevation of right hemidiaphragm. Reviewed, dictated and finalized at location A. DISTRIBUTOR TENDER
--- NOTE | ~2022-03-24 | XR_ITS ---
EXAMINATION: XR chest PICC line Exam Date/Time: 03/26/2022 18:00 POWER LINEWORKER HISTORY: picc line insertion Comparison: 03/24/2022. RESULT: Lines, tubes, and devices: New left upper extremity PICC, terminating in the SVC. Mid upper abdomina l surgical clips. Lungs and pleura: Persistent right hemidiaphragm elevation. Low lung volumes. Streaky bibasilar and subsegmental left basilar opacities, likely represent atelectasis. Cardiomediastinal silhouette: Stable. Other: No acute osseous or upper abdominal finding. IMPRESSION: Left upper extremity PICC, in good position. Presumed bibasilar atelectasis, infection not excluded. Reviewed, dictated and finalized at location K. R LINEWORKER IMPRESSION: Left upper extremity PICC, in good position. Presumed bibasilar atelectasis, in fection not excluded.
--- NOTE | ~2022-03-24 | US_ITS ---
Duplex Sonography of the bilateral lower extremities: Indication: Lower oliverio swelling Sagittal and transverse B-mode images as well as color-flow imaging were performed on the right and l eft femoral and popliteal veins. B-mode examination was done without and with compression in the tra nsverse plane. There is good visualization of the bilateral common femoral, proximal profunda femora l, superficial femoral, greater saphenous, and popliteal veins. Normal flow was seen on color-flow im aging. Normal compressibility was demonstrated. The visualized calf veins are patent. Impression: No DVT identified in either lower extremity. Reviewed, dictated and finalized at location [] CLUB HEAD INSPECTOR Impression: No DVT identified in either lower extremity.
--- NOTE | ~2022-03-24 | XR_ITS ---
EXAMINATION: XR lumbar puncture diagnostic DATE: 04/04/2022 11:56 INDICATION: Encephalopathy. TECHNIQUE: The skin overlying the L3-L4 level was prepped and draped in usual sterile fashion. Subcu taneous 1% lidocaine was used for local anesthesia. A 20 gauge spinal needle was advanced under fluo roscopic guidance. The needle was removed and the entry site was cleaned and dressed. There were no immediate complications. Fluoroscopy exposure time was 0.1 minutes. The total number of images was 1. FINDINGS: Real-time fluoroscopy demonstrates the needle at the L3-L4 level. The opening pressure was 16 cm water (Normal range is variably defined as 6-20 cm water and up to 25 cm water in obese patient s. Pressure >25 cm water is one of the modified Dandy criteria for idiopathic intracranial hypertensi on). 15 mL of clear, colorless fluid was collected in 4 tubes. IMPRESSION: 1. Successful fluoro-guided lumbar puncture. Reviewed, dictated and finalized at location A. EMS CHECKOUT MECHANIC
--- NOTE | ~2022-03-24 | XR_ITS ---
XR chest 1V portable 03/29/2022 10:37 Indication: The uterus. Procedure: AP portable chest Comparison: Comparison to multiple prior studies sequentially, with oldest reviewed study dated 01/22. Findings: Chronic elevation of the right diaphragm with underlying compressive atelectasis. Left basi lar infiltrates may represent atelectasis or developing pneumonia. Stable cardiomediastinal silhouett e. PICC line tip in the condyle aspect of the SVC. No pneumothorax. No acute osseous abnormality. Impression: 1: Left basilar infiltrates may represent atelectasis or developing pneumonia. 2: Chronic elevation the right diaphragm, suspicious for phrenic nerve paralysis. Reviewed, dictated and finalized at location A. RNMENT PROGRAM MANAGER Impression: 1: Left basilar infiltrates may represent atelectasis or developing pneumonia. 2: Chronic elevation the right diaphragm, suspicious for phrenic nerve paralys is.
--- NOTE | ~2022-03-24 | XR_ITS ---
EXAMINATION: XR chest 1V portable DATE: 04/02/2022 06:25 INDICATION: Respiratory failure TECHNIQUE: frontal view of the chest was obtained. COMPARISON: Chest radiograph dated 04/01/2022 FINDINGS: Endotracheal tube tip 2.7 cm above the doretha. Nasogastric tube extends below the left hemidiaphragm with distal tip collimated off the study. Right internal jugular central venous catheter with distal tip at the superior cavoatrial junction. The prior left upper extremity PICC line is no longer visua lized. Lung volumes are decreased particularly on the right where there is persistent elevation right hemidi aphragm. Persistent opacities in the bilateral lower lung zones. No pneumothorax or evident pleural e ffusion. Heart size is normal. IMPRESSION: 1. Small lung volumes with unchanged elevation of the right hemidiaphragm and persistent bibasilar op acities. Favor atelectasis over pneumonia. Reviewed, dictated and finalized at location A. LER IMPRESSION: 1. Small lung volumes with unchanged elevation of the right hemidiaphragm and p ersistent bibasilar opacities. Favor atelectasis over pneumonia.
--- NOTE | ~2022-03-24 | CT_ITS ---
CT head without contrast Indication: Fever COMPARISON: 03/30/2022 Technique: Serial scans were obtained through the brain without the administration of contrast. Dose reduction technique was used on this scan by utilizing automated exposure control and iterative recon struction technique. The dose-length product (DLP) was 681.00 mGy-cm. Findings: There is no evidence of intracranial hemorrhage, mass lesion, or acute infarct. The ventri cles and subarachnoid spaces are dilated, consistent with mild atrophy. Low attenuation regions are seen within the periventricular white matter bilaterally, likely representing changes from chronic mi crovascular ischemic disease. There is no evidence of edema, mass effect or midline shift. The visu alized paranasal sinuses and mastoid air cells are clear. Impression: No intracranial hemorrhage, mass, or acute infarct. Atrophy and chronic white matter changes, as above. Reviewed, dictated and finalized at location [] ING AND BUFFING MACHINE OPERATOR Impression: No intracranial hemorrhage, mass, or acute infarct. Atrophy and chronic white matter changes, as above.
--- NOTE | ~2022-03-24 | XR_ITS ---
XR chest port-a-cath/central 03/29/2022 16:01 Indication: Central line placement Procedure: AP portable chest Comparison: 03/29/2022 Findings: Right IJ central line tip near the cavoatrial junction. Heart size normal. Elevated right d iaphragm. Left basilar airspace disease. No pneumothorax. Endotracheal tube 4.6 cm above the doretha. Left subclavian PICC line tip in the SVC. NG tube in the stomach. Impression: 1: Left basilar airspace disease may represent atelectasis or developing pneumonia. Reviewed, dictated and finalized at location A. RITY SME Impression: 1: Left basilar airspace disease may represent atelectasis or developing pneumo esteban.
--- NOTE | ~2022-03-24 | XR_ITS ---
EXAMINATION: XR chest 1V portable INDICATION: Respiratory failure TECHNIQUE: Portable AP chest at 0554 hours COMPARISON: 04/08/2022 FINDINGS: There has been interval removal of the endotracheal and nasogastric tubes. A right internal jugular catheter ends with its tip in the distal superior vena cava. There is elevation of the right hemidiaphragm. No pleural effusion or pneumothorax. The cardiomediastinal silhouette is normal. Ther e is mild atelectasis of the lung bases. IMPRESSION: 1. Mild atelectasis of the lung bases. 2. Endotracheal and nasogastric tube removal. Reviewed, dictated and finalized at location A. OYEE DEVELOPMENT SPECIALIST
--- NOTE | ~2022-03-24 | XR_ITS ---
EXAMINATION: XR chest 1V portable DATE: 04/04/2022 07:15 INDICATION: Respiratory failure. TECHNIQUE: A single frontal view of the chest was obtained. COMPARISON: Chest single view 04/03/2022, chest CT 03/30/2022 FINDINGS: Again seen is mild elevation of right hemidiaphragm. There is mild atelectasis in the lower lung zones. No pleural effusion or pneumothorax. The heart size is normal. The endotracheal tube tip is 4.9 cm above the doretha. A right internal jugular central venous catheter is seen with tip at the superior cavoatrial junction. The nasogastric tube tip is in the distal stomach. IMPRESSION: 1. Mild atelectasis in the lower lung zones. 2. Chronic mild elevation of right hemidiaphragm. Reviewed, dictated and finalized at location A. ANIC AND WELDER
--- NOTE | ~2022-03-24 | XR_ITS ---
EXAMINATION: XR chest 1V portable INDICATION: Respiratory failure TECHNIQUE: Portable AP chest at 0529 hours COMPARISON: 03/30/2022 FINDINGS: The endotracheal tube ends approximately 3.8 cm above the doretha. The nasogastric tube is f ollowed as far as the stomach. Its tip is beyond the inferior margin of the radiograph. A right inter nal jugular central venous catheter ends with its tip in the distal superior vena cava. A left upper extremity PICC ends with its tip in the midsuperior vena cava. There is elevation of the right hemidi aphragm. There are unchanged bibasilar airspace opacities. No pleural effusion or pneumothorax. IMPRESSION: 1. Stable bibasilar airspace opacities, consistent with atelectasis. Reviewed, dictated and finalized at location A. WRITER
--- NOTE | ~2022-03-24 | XR_ITS ---
EXAMINATION: XR chest 1V portable DATE: 04/05/2022 05:48 INDICATION: Intubated. TECHNIQUE: A single frontal view of the chest was obtained. COMPARISON: Chest one view 04/04/2022, chest CT 03/30/2022 FINDINGS: There is mild atelectasis in the lower lung zones. There is persistent mild elevation of ri ght hemidiaphragm. No pleural effusion or pneumothorax. The heart size is normal. The endotracheal tu be tip is 3.0 cm above the doretha. The nasogastric tube tip is beyond the inferior margin of the radi ograph, but at least to the stomach. A right internal jugular central venous catheter is seen with ti p at the superior cavoatrial junction. IMPRESSION: 1. Mild atelectasis in the lower lung zones. 2. Chronic mild elevation of right hemidiaphragm. Reviewed, dictated and finalized at location A. OMES MANAGER
--- NOTE | ~2022-03-24 | US_ITS ---
US pelvic limited 03/28/2022 15:23 Indication: Bladder hemorrhage Procedure: Limited pelvic ultrasound using transabdominal technique Comparison: No prior studies for comparison. Findings: Bladder is within normal limits without focal bladder wall thickening or bladder wall mass. There are echogenic foci in the bladder lumen, likely blood clots. Impression: 1: Echogenic foci in the bladder lumen, likely blood clots. Reviewed, dictated and finalized at location A. H TENDER Impression: 1: Echogenic foci in the bladder lumen, likely blood clots.
--- NOTE | ~2022-03-24 | XR_ITS ---
XR chest ET placement 03/29/2022 12:44 Indication: Endotracheal tube insertion. Procedure: AP portable chest Comparison: Comparison to multiple prior studies sequentially, with oldest reviewed study dated 01/22. Findings: Endotracheal tube is 4.2 cm above the doretha. NG tube in the stomach. Heart size normal. El evated right diaphragm. Bibasilar atelectasis. No focal pneumonia, edema, pleural effusion or pneumot horax. Impression: 1: Bibasilar atelectasis. Reviewed, dictated and finalized at location A. RMATICS SCIENTIST Impression: 1: Bibasilar atelectasis.
--- NOTE | ~2022-03-24 | XR_ITS ---
EXAMINATION: XR chest 1V portable Exam Date/Time: 03/29/2022 19:40 PROFESSIONAL APPLICATION DESIGNER HISTORY: possible tracheal deviation Comparison: 03/29/2022 at 3:54 PM. RESULT: Lines, tubes, and devices: Endotracheal tube terminates 4.5 cm above the doretha. Nasogastric tube te rminates out of the [id number]. Right IJ central venous line terminating at cavoatrial junction. L eft upper extremity PICC terminating in the distal SVC. Lungs and pleura: Subtle increased lucency over the left lung. Visualization of a deep sulcus on the left. Subtle rightward tracheal deviation, which apparently is visible clinically. Cardiomediastinal silhouette: Stable. Other: No acute osseous or upper abdominal finding. IMPRESSION: Possible small to moderate left pneumothorax. Reviewed, dictated and finalized at location K. ESSIONAL APPLICATION DESIGNER
--- NOTE | ~2022-03-24 | CT_ITS ---
EXAMINATION: CTA brain carotid DATE: 03/24/2022 14:43 INDICATION: Right upper extremity weakness. TECHNIQUE: Computed tomographic angiography (CTA) of the head was performed with 100 mL Omnipaque-350 intravenous contrast. CTA of the neck was performed with intravenous contrast. Automated exposure co ntrol and iterative reconstruction technique were employed. The dose-length product was 1148.21 mGy-c m. Maximum intensity projection and volume rendered 3D-reconstructions were created by the karlo banerjee on a separate workstation. COMPARISON: Head CT 03/24/2022, brain MRI 02/04/2022 FINDINGS: HEAD CTA: There is chronic diffuse volume loss, worst in the left parietal lobe. There is an old lacu jose infarct in right caudate nucleus. There are scattered areas of low attenuation in the cerebral wh ite matter. There is no intracranial hemorrhage, acute infarction, or abnormal intracranial mass lesi on. The ventricles are normal in size. The orbits are normal. The mastoid air cells are normal. There is mucosal thickening in the paranasal sinuses. There is sclerosis of the hines of sphenoid sinus, c onsistent with chronic sinusitis. The vertebral arteries are codominant. There is no significant sten osis of basilar artery or the posterior cerebral arteries. The posterior communicating arteries are n ormal. There is no significant stenosis of the intracranial internal carotid arteries or anterior or middle cerebral arteries. Right A1 anterior cerebral artery segment is small, a normal variant. Anter ior communicating artery is normal. There is no aneurysm. NECK CTA: The visualized portions of the lung apices demonstrate mild atelectasis. There is severe st enosis of proximal right vertebral artery. There is plaque in the proximal internal carotid arteries. There is 0% stenosis of the proximal right internal carotid artery relative to normal distal artery lumen diameter (NASCET criteria). There is 0% stenosis of the proximal left internal carotid artery r elative to normal distal artery lumen diameter. There is moderate cervical spondylosis. IMPRESSION: 1. Old lacunar infarct in right caudate nucleus. 2. Mild nonspecific cerebral white matter disease, which likely represents chronic small vessel ische robyn disease. 3. No aneurysm or significant intracranial arterial stenosis. 4. 0% stenosis of the proximal internal carotid arteries relative to normal distal artery lumen diame ters (NASCET criteria). 5. Severe stenosis of proximal right vertebral artery. 6. Chronic sinusitis. Reviewed, dictated and finalized at location A. D CARE ATTENDANT SCHOOL IMPRESSION: 1. Old lacunar infarct in right caudate nucleus. 2. Mild nonspecific cerebral white matter disease, which likely represents clinical product specialist pérez small vessel ischemic disease. 3. No aneurysm or significant intracranial arterial stenosis. 4. 0% stenosis of the proximal internal carotid arteries relative to normal dis wilmar artery lumen diameters (NASCET criteria). 5. Severe stenosis of proximal right vertebral artery. 6. Chronic sinusitis.
--- NOTE | ~2022-03-24 | CT_ITS ---
EXAMINATION: CT chest abdomen pelvis wo con DATE: 03/30/2022 08:50 INDICATION: Ventilated with possible left pneumothorax on prior chest radiograph. Seizures. TECHNIQUE: Computed tomography (CT) of the chest, abdomen, and pelvis was performed without intraveno us contrast. Automated exposure control and iterative reconstruction technique were employed. The dos e-length product was 1838.42 mGy-cm. COMPARISON: Chest CT dated 04/20/2020 FINDINGS: CHEST CT: Endotracheal tube tip 3.8 cm above the doretha. Right internal jugular central venous catheter tip at the superior cavoatrial junction. Left upper extremity peripherally inserted central venous catheter (PICC) tip in the slightly more cephalad, caudal superior vena cava. Elevation the right hemidiaphrag m with basilar compressive atelectasis in the right lower lobe and distal band of discoid atelectasis in the right middle lobe. Mild dependent atelectasis in the left lower lobe. No pneumonia, pulmonary edema, pleural effusion or pneumothorax. Heart size is normal. Atherosclerotic coronary artery calci fication. No pericardial effusion. Decreased attenuation the blood pool relative to the myocardium co nsistent with anemia. Thoracic aorta is normal in caliber. No pathologically enlarged thoracic lympha denopathy. Mild thoracic spondylosis. ABDOMEN/PELVIS CT: Nasogastric tube tip at the gastric pylorus with proximal side-port at the gastric antrum. Multiple s urgical clips along the suprarenal inferior vena cava likely related to reported prior liver transpla nt. Gallbladder is also likely surgically absent. Spleen, pancreas, bilateral adrenal glands and kidn eys are normal. Bowels including the appendix are normal. There is a Negron catheter within the bladde r which demonstrates wall thickening with some surrounding inflammatory stranding suspicious for cyst itis. Prostatomegaly measuring 5.6 x 4.3 cm in maximal diameter. Trace amount of likely reactive free fluid in the pelvis. No abscess or free intraperitoneal gas. No pathologically enlarged abdominal or pelvic lymphadenopathy. Mild lumbar spondylosis. IMPRESSION: 1. Elevation the right hemidiaphragm with atelectasis at the bilateral lung bases, right greater than left. 2. No pneumothorax or other acute cardiopulmonary disease. 3. Nasogastric tube tip at the gastric pylorus and would consider withdrawal by [address] the dis wilmar tip at the gastric antrum. 4. Bladder wall thickening with surrounding inflammatory stranding and trace amount of likely reactiv e free fluid in the pelvis suggestive of cystitis. Reviewed, dictated and finalized at location A. COILING MACHINE OPERATOR IMPRESSION: 1. Elevation the right hemidiaphragm with atelectasis at the bilateral lung bas es, right greater than left. 2. No pneumothorax or other acute cardiopulmonary disease. 3. Nasogastric tube tip at the gastric pylorus and would consider withdrawal by [address] the distal tip at the gastric antrum. 4. Bladder wall thickening with surrounding inflammatory stranding and trace am ount of likely reactive free fluid in the pelvis suggestive of cystitis.
--- NOTE | ~2022-03-24 | US_ITS ---
EXAMINATION: US venous doppler UE DATE: 04/06/2022 13:35 INDICATION: Fever and swelling TECHNIQUE: Grayscale ultrasound images without and with compression and Doppler ultrasound images of the bilateral upper extremity veins were obtained. COMPARISON: None. FINDINGS: The right basilic vein is not evaluated due to patient positioning. There is right brachial vein thro mbosis. There is thrombosis in one of two right radial veins. The right internal jugular vein, subcla vian vein, axillary vein, cephalic vein, and ulnar vein are patent. There is left brachial and basilic vein thrombosis. The left ulnar vein is not seen due to edema. The left internal jugular vein, subclavian vein, axillary vein, cephalic vein, radial vein are patent. IMPRESSION: 1. Bilateral upper extremity venous thrombosis as detailed above. These findings were discussed with Terrance Holt RN in the ICU at 1400 hours on 04/06/2022. Reviewed, dictated and finalized at location A. ET PLATE MAKER
--- NOTE | ~2022-03-24 | MR_ITS ---
MRI of the brain Clinical History: CVA, seizure Technique: Axial and sagittal T1-weighted images were acquired. These were followed by axial T2-weigh jacqui, diffusion weighted, gradient, and FLAIR images. Findings: There is no acute infarct, intracranial hemorrhage, or mass lesion. There are mild to moder ate chronic white matter changes in the periventricular white matter. Ventricles and subarachnoid spaces are dilated. Orbits are unremarkable. Paranasal sinuses and mastoi d air cells are essentially clear. Major intracranial flow voids are grossly preserved. Sagittal midline structures are intact. IMPRESSION: No acute intracranial abnormality. Mild to moderate chronic white matter changes and moderate generalized atrophy. Reviewed, dictated and finalized at location . ITY CONTROL DIRECTOR
--- NOTE | ~2022-03-24 | XR_ITS ---
EXAMINATION: XR chest 1V DATE: 03/24/2022 10:02 INDICATION: Altered mental status. TECHNIQUE: A single frontal view of the chest was obtained. COMPARISON: Chest single view 02/06/2022, chest CT 04/20/2020 FINDINGS: There is chronic mild elevation of right hemidiaphragm. There is mild atelectasis versus sc arring in the lower lung zones. No pleural effusion or pneumothorax. The heart size is normal. There are surgical clips in right abdomen. IMPRESSION: 1. Mild atelectasis versus scarring in the lower lung zones. Reviewed, dictated and finalized at location A. ADMINISTRATOR OR MANAGER
--- NOTE | ~2022-03-24 | XR_ITS ---
EXAMINATION: XR chest 1V portable DATE: 04/01/2022 06:10 INDICATION: Respiratory failure TECHNIQUE: frontal view of the chest was obtained. COMPARISON: Chest radiograph dated 03/31/2022 FINDINGS: Endotracheal tube tip 3.7 cm above the doretha. Nasogastric tube tip in the right upper quadrant near the gastric outlet. Right internal jugular central venous catheter with distal tip at the superior ca voatrial junction. Left upper extremity peripherally inserted central venous catheter (PICC) tip at the caudal superior vena cava. Elevation the right hemidiaphragm. Mild airspace opacities in the bilateral lower lung zones. No pneu mothorax or evident pleural effusion. Heart size is normal. IMPRESSION: 1. Bibasilar atelectasis with unchanged elevation right hemidiaphragm. 2. Nasogastric tube near the gastric outlet and could consider withdrawal by 6-8 cm. Reviewed, dictated and finalized at location A. URERS IMPRESSION: 1. Bibasilar atelectasis with unchanged elevation right hemidiaphragm. 2. Nasogastric tube near the gastric outlet and could consider withdrawal by 6- 8 cm.
--- NOTE | ~2022-03-24 | XR_ITS ---
EXAMINATION: XR chest 1V portable Exam Date/Time: 03/29/2022 20:50 ASSOCIATE RESEARCH SCIENTIST HISTORY: RT SIDE DECUB TO CHECK FOR LT PNEUMO Comparison: Same date at 7:38 PM. FINDINGS/IMPRESSION: No left pneumothorax detected in the [id number]-[id number] lateral decubitus view. Worsened right lung airs pace opacities, presumably secondary to atelectasis from positioning. Reviewed, dictated and finalized at location K. CIATE RESEARCH SCIENTIST
--- NOTE | ~2022-03-24 | CT_ITS ---
EXAMINATION: CT BRAIN W/O DATE: 03/30/2022 08:50 INDICATION: Seizures. TECHNIQUE: Computed tomography (CT) of the head was performed without intravenous contrast. The dose- length product was 681.00 mGy-cm. Automated exposure control and iterative reconstruction technique w ere employed. COMPARISON: No prior studies for comparison. FINDINGS: Mild brain parenchymal volume loss. Normal chandra-white differentiation. No acute intracrania l hemorrhage, infarction, mass or mass effect. There are scattered mild periventricular and subcortic al white matter changes, most likely related to small vessel ischemic disease (microangiopathy). Ther e is mucosal thickening of the maxillary, ethmoid and sphenoid sinuses. Mastoids are pneumatized. No depressed skull fractures. No ventriculomegaly or midline shift. Midline sagittal images demonstrate a normal corpus callosum, c raniovertebral junction and sella turcica. Basilar cisterns are patent. Paranasal sinuses and mastoids are pneumatized. No depressed skull fractures. IMPRESSION: 1. No acute intracranial abnormality. 2: Moderate sinus disease. 3: Chronic age-related findings. Reviewed, dictated and finalized at location A. ICES COORDINATOR
--- NOTE | ~2022-03-24 | XR_ITS ---
EXAMINATION: XR chest 1V portable DATE: 04/08/2022 06:29 INDICATION: Respiratory failure. TECHNIQUE: A single frontal view of the chest was obtained. COMPARISON: Chest single view 04/07/2022 FINDINGS: There is elevation of right hemidiaphragm. There is mild atelectasis in the lower lung zone s. No pleural effusion or pneumothorax. The heart size is normal. The endotracheal tube tip is 3.7 cm above the doretha. The nasogastric tube tip is beyond the inferior margin of the radiograph, but at l east to the stomach. A right internal jugular central venous catheter is seen with tip at the superio r cavoatrial junction. IMPRESSION: 1. Worsened marked elevation of right hemidiaphragm. 2. Mild atelectasis at the lung bases. Reviewed, dictated and finalized at location A. TURNER
--- NOTE | ~2022-03-24 | XR_ITS ---
EXAMINATION: XR chest 1V portable DATE: 04/03/2022 06:55 INDICATION: Respiratory failure. TECHNIQUE: A single frontal view of the chest was obtained. COMPARISON: Chest single view 04/02/2022, chest CT 03/30/2022, 04/20/2020 FINDINGS: There is chronic mild elevation of right hemidiaphragm. There are chronic interstitial opac ities in the lungs bilaterally. There are airspace opacities in the lower lung zones. No pleural effu pastor or pneumothorax. The heart size is normal. The endotracheal tube tip is 4.4 cm above the doretha. The nasogastric tube tip is beyond the inferior margin of the radiograph, but at least to the stomac h. A right internal jugular central venous catheter is seen with tip in the right atrium. IMPRESSION: 1. Stable diffuse lung disease, consistent with chronic interstitial lung disease and basilar atelect asis. 2. Chronic mild elevation of right hemidiaphragm. Reviewed, dictated and finalized at location A. SITIONAL NURSE IMPRESSION: 1. Stable diffuse lung disease, consistent with chronic interstitial lung disea se and basilar atelectasis. 2. Chronic mild elevation of right hemidiaphragm.
--- NOTE | ~2022-03-24 | XR_ITS ---
EXAMINATION: XR chest 1V portable DATE: 04/06/2022 06:20 INDICATION: Respiratory failure. TECHNIQUE: A single frontal view of the chest was obtained. COMPARISON: Chest single view 04/05/2022, chest CT 03/30/2022 FINDINGS: Again seen is mild elevation of right hemidiaphragm. There are airspace opacities in the pe rihilar regions and at the lung bases. No pleural effusion or pneumothorax. The heart size is normal. The endotracheal tube tip is 3.8 cm above the doretha. A right internal jugular central venous cathet er is seen with tip at the superior cavoatrial junction. The nasogastric tube tip is beyond the infer ior margin of the radiograph, but at least to the stomach. IMPRESSION: 1. Airspace opacities in the perihilar regions and at the lung bases with mild worsening, consistent with atelectasis versus pneumonia. 2. Chronic mild elevation of right hemidiaphragm. Reviewed, dictated and finalized at location A. ICIAN PEDIATRICIAN
--- NOTE | ~2022-03-24 | CT_ITS ---
EXAMINATION: CT brain wo con DATE: 03/24/2022 09:59 INDICATION: Right upper extremity weakness. History of cerebrovascular accident TECHNIQUE: Computed tomography (CT) of the head was performed without intravenous contrast. The mA wa s adjusted according to patient size. Iterative reconstruction technique was employed. Exam dose: 60 5.33 mGy-cm total exam DLP. COMPARISON: 02/04/2022 MR brain/brainstem FINDINGS: Mild cerebellar there is mild cerebellar and more prominent central and cortical cerebral a trophy. Chronic lacunar infarct of the right caudate nucleus. There is nonspecific diminished attenuation of the cerebral white matter, likely due to chronic small vessel ischemic changes. No intracranial mass lesion or hemorrhage, midline shift or mass effect. No subdural or epidural luz elena martinez. Prominent mucoperiosteal thickening of the right sphenoid sinus and patchy soft tissue thickening/opa cification of the ethmoid air cells. Minimal mucoperiosteal thickening is noted at the included porti ons of the maxillary sinuses. The mastoid air cells are normally aerated. No fracture or bone destruction of the cranial vault. IMPRESSION: Mild cerebellar and more prominent central and cortical cerebral atrophy Chronic lacunar infarct right caudate nucleus No acute intracranial finding Reviewed, dictated and finalized at [facility]. Reviewed, dictated and finalized at [facility]. ONAUTICAL ENGINEER IMPRESSION: Mild cerebellar and more prominent central and cortical cerebral a trophy Chronic lacunar infarct right caudate nucleus No acute intracranial finding
--- NOTE | ~2022-03-24 | XR_ITS ---
XR abdomen NG/feed tube insert DATE: 03/29/2022 12:44 INDICATION: Orogastric tube insertion TECHNIQUE: Portable AP view on 03/29/2022 at 1239 hours COMPARISON: None FINDINGS: Orogastric tube is in the upper stomach, the proximal side-port 2 cm distal to the diaphrag matic hiatus. IMPRESSION: Orogastric tube in upper stomach Reviewed, dictated and finalized at [facility]. Reviewed, dictated and finalized at [facility]. AND AND CONTROL OFFICER
--- NOTE | ~2022-03-24 | XR_ITS ---
EXAMINATION: XR chest 1V portable INDICATION: Respiratory failure TECHNIQUE: Portable AP chest at 0521 hours COMPARISON: 04/09/2022 FINDINGS: A right internal jugular central venous catheter ends with its tip in the distal superior v sami cava. There is elevation of the right hemidiaphragm. Minimal airspace opacities of the lung bases persist without significant change. The cardiomediastinal silhouette is normal. IMPRESSION: 1. Mild atelectasis of lung bases. Reviewed, dictated and finalized at [facility]. [employer]
--- NOTE | ~2022-03-24 | XR_ITS ---
EXAMINATION: XR chest 1V portable DATE: 03/30/2022 06:17 INDICATION: Respiratory failure TECHNIQUE: frontal view of the chest was obtained. COMPARISON: Chest radiograph dated 03/29/2022 FINDINGS: Endotracheal tube tip 3.9 cm above the doretha. Nasogastric tube tip in the body of the stomach with p roximal side-port likely at or just above level of the gastroesophageal junction. Right internal jugu lar central venous catheter with distal tip near the superior cavoatrial junction. Decrease in the degree of elevation the right hemidiaphragm with improved aeration of the right lung. Mild streaky opacities at the left costophrenic angle. No pulmonary edema, pleural effusion or pneum othorax. The cardiomediastinal silhouette is normal. IMPRESSION: 1. Improved aeration of the right lung with decrease in the degree of the chronic elevation the right hemidiaphragm. 2. Minimal left basilar atelectasis. 3. Nasogastric tube tip in the stomach with proximal side-port after slightly above level of gastroes ophageal junction would recommend advancement by 5 cm. Reviewed, dictated and finalized at [facility]. OM SANDER IMPRESSION: 1. Improved aeration of the right lung with decrease in the degree of the chron ic elevation the right hemidiaphragm. 2. Minimal left basilar atelectasis. 3. Nasogastric tube tip in the stomach with proximal side-port after slightly a lalo level of gastroesophageal junction would recommend advancement by 5 cm.
--- NOTE | 2022-03-24 09:44 | ECG_ITS ---
Measurements Intervals [place] Rate: 91 P: 55 CT: 153 QRS: -7 QRSD: 101 T: -38 QT: 370 QTc: 455 Interpretive Statements SINUS RHYTHM MODERATE T-WAVE ABNORMALITY, CONSIDER ANTEROLATERAL ISCHEMIA [-0.1+ mV T-WAVE IN V3- V6] MODERATE T-WAVE ABNORMALITY, CONSIDER INFERIOR ISCHEMIA [-0.1+ mV T-WAVE IN II/aVF] COMPARED TO ECG 02/03/2022 15:08:12 NO SIGNIFICANT CHANGES Electronically Signed On 03-24-2022 11:26:17 SAMPLE SEWER by Chun Gutierrez M.D.
[2022-03-24 09:58] LABS: Basophils Absolute Auto 0.1 K/mm3 (0.0-0.1); Basophils Percent Auto 0.4 % (0.2-1.2); Eosinophils Absolute Auto 0.5 K/mm3 (0-0.3); Hematocrit 39.5 % (42.0-52.0); Hemoglobin 13.7 g/dL (14.0-18.0); Immature Granulocyte Absolute 0.08 K/mm3 (0.00-0.031); Immature Granulocyte Percent A 0.5 % (0-0.5); Lymphocytes Absolute Auto 2.64 K/mm3 (0.9-3.2); Mean Corpuscular HGB Conc 34.7 g/dl (32-36); Mean Corpuscular Hemoglobin 31.2 pg (26-34); Mean Platelet Volume 9.7 fl (7.4-10.4); Monocytes Percent Auto 6.2 % (2.6-8.5); Neutrophils Absolute Auto 12.2 K/mm3 (1.3-6.7); Neutrophils Percent Auto 73.9 % (45.5-73.1); Platelet Count Result 299 k/mm3 (150-375); Red Blood Count 4.39 M/mm3 (4.6-6.20); Red Cell Distribution Width 13.4 % (11.5-14.5); White Blood Count 16.5 K/mm3 (4.5-10.0)
[2022-03-24 10:13] LABS: Alanine Aminotransferase 16 U/L (6-50); Albumin Level 4.2 g/dL (3.5-5.1); Alkaline Phosphatase 154 U/L (38-126); Anion Gap 8 mmol/L (8-16); Aspartate Amino Transferase 22 U/L (17-59); Bilirubin,Total 0.6 mg/dL (0.2-1.3); Blood Urea Nitrogen 11 mg/dL (9-20); Calcium 9.3 mg/dL (8.4-10.2); Carbon Dioxide 28 mmol/L (22-30); Chloride 96 mmol/L (98-107); Estimated CRCL calculation 119 ml/min; Estimated Glomerular Filt Rate > 60; Glucose 115 mg/dL (65-110); Phenytoin Dilantin 9 ug/mL (10-20); Potassium 4.1 mmol/L (3.4-5.0); Sodium 132 mmol/L (137-145)
[2022-03-24 10:20] LABS: INR 1.1
[2022-03-24 10:21] LABS: Partial Thromboplastin Time 29.7 SECONDS (22.3-36.8)
[2022-03-24 10:22] LABS: Troponin I < 0.012 ng/mL (0.000-0.034)
--- NOTE | 2022-03-24 10:27 | PC.NURSE ---
When drawing labs on pt, pt starts beating the stretcher using his right hand without difficulty.
--- NOTE | 2022-03-24 10:35 | PC.NURSE ---
Pt began having seizure while in udong going to CT. Full body shaking with eyes deviated to the right. Seizure lasted approx 1 min. Pt returned to normal mentation immediately after.
[2022-03-24] MEDS: LORazepam INJ (*CRX) 2 MG/ML VIAL 0.5 MG IV PUSH (10:38)
--- NOTE | 2022-03-24 11:00 | PC.NURSE ---
Received call from CT. Pt had another seizure that lasted a few seconds and then pt was awake to normal. ERP aware.
--- NOTE | 2022-03-24 11:13 | ED.AMS ---
HPI - Altered Mental Status General Chief Complaint: Altered Mental Status Stated Complaint: increased ams, possible cva x days Time Seen by Provider: 03/24/22 09:33 History of Present Illness HPI narrative: Patient is a 61-year-old male who presents ER with concern for CVA. Physical therapy came in today and noticed that his right arm was flaccid. Patient had recent hospitalization for HSV encephalitis. He has complex seizure history and takes Keppra, Vimpat, and phenytoin. He has no complaints at this time. He is oriented x2 which is his baseline. Related Data Home Medications Medication Instructions Recorded Confirmed aspirin 81 mg tablet 81 mg PO DAILY 10/28/19 02/03/22 gabapentin 800 mg tablet 800 mg PO TID 10/28/19 02/03/22 umeclidinium 62.5 mcg/actuation 62.5 mcg inhalation DAILY 07/25/21 02/03/22 blister powder for inhalation (Incruse Ellipta) buspirone 5 mg tablet 5 mg PO TID 11/05/21 02/03/22 levetiracetam 1,000 mg tablet 1,500 mg PO BID 11/05/21 02/03/22 phenytoin sodium extended 100 mg 300 mg PO HS 11/05/21 02/03/22 capsule (Dilantin Extended) cyclosporine 100 mg capsule 150 mg PO Q12H 11/26/21 02/03/22 (Sandimmune) lacosamide 150 mg tablet (Vimpat) 300 mg PO BID 02/03/22 02/03/22 polyethylene glycol 3350 17 gram 17 g PO PRN 02/03/22 02/03/22 oral powder packet (Miralax) Allergies Allergy/AdvReac Type Severity Reaction Status Date / Time No Known Allergies Allergy Verified 03/24/22 15:57 Review of Systems Review of Systems: ROS unobtainable: Yes unobtainable due to medical condition PMFSH Past Medical History Medical History Acute respiratory failure with hypoxia Acute UTI Cerebrovascular accident (2011) Mild right sided weakness. Chronic obstructive pulmonary disease Community acquired pneumonia Depression Elevated Dilantin level Hepatitis C Status post liver transplant in 2007 followed by successful hepatitis C treatment in 2013. Herpes encephalitis History of renal dialysis Hyperlipidemia Irritable bowel syndrome Peripheral neuropathy Pneumonia Pneumonia due to 2019 novel coronavirus Renal failure Required dialysis before liver transplant. Seizures Surgical History Surgical History History of cholecystectomy History of liver transplant (2007) For cirrhosis and hepatitis C. Family History Family History Father Family history of heart disease in male family member before age 55 Mother Family history of liver disease Sibling Diabetes mellitus Social History Social History Social History: Surrogate decision maker: Elyse Boone, . the patient stated that he is disabled and has 5 children. The patient is a former smoker. He denies any alcohol or illicit drugs. Code status: Full code. Smoking packs per day: 1 Smoking cigarettes per day: 20.0 Years smoked: 23 Smoking pack-years: 23.00 Smoking status: Unknown if ever smoked Second hand tobacco smoke exposure: No Additional smoking assessment comments: Quit in 1997. Alcohol intake: never Alcohol use details: Quit in 1996. Substance use: never Additional living arrangements comments: Lives with , sister, [id number]. Spiritual care concerns: No Exam Narrative: GENERAL: Well-appearing, well-nourished, and in no acute distress. HEAD: Normocephalic, atraumatic. EYES: PERRL and EOMI. ENT: Mucous membranes moist. CHEST: Clear to auscultation. No respiratory distress. HEART: Regular rate and rhythm. Normal peripheral pulses. ABDOMEN: Soft, nontender, nondistended. EXTREMITIES: Normal range of motion. No edema. SKIN: Warm, dry, no rash. NEURO: Flaccid paralysis right upper extremity however does move when he is having a seizure. Moves upper extremities without i
[2022-03-24] MEDS: LORazepam INJ (*CRX) 2 MG/ML VIAL (11:33)
[2022-03-24 11:36] LABS: Appearance Urine Clear (Clear); Bilirubin Urine 1+ (Negative); Blood Urine Negative (Negative); Color Urine Yellow (Yellow); Glucose Urine UA Negative (Negative); Ketones Urine Negative (Negative); Leukocyte Esterase Ur Negative LEU/UL (Negative); Nitrate Urine Negative (Negative); Protein Urine 1+ mg/dL (Negative); Specific Grav Ur 1.015 (1.001-1.035); pH Urine 6.5 (5.0-9.0)
[2022-03-24 11:39] LABS: RBC Urine 0-2 /hpf (0-2); WBC Urine 0-3 /hpf
--- NOTE | 2022-03-24 11:40 | PC.NURSE ---
Patient report received from LUISA Jordan. All questions answered and care of patient assumed. Patient resting quietly in bed without complaints. However, patient has had multiple seizures lasting approx. 15-20 seconds in duration. IV Ativan administered and IV Keppra ordered. Attempting to obtain IV access via US for IV Keppra. Patient does not appear to be post-ictal at completion of seizure. Alert and able to answer questions appropriately. Family at bedside and call-light within reach. VSS. Awaiting available inpatient bed.
[2022-03-24] MEDS: levETIRAcetam 1000MG/NACL100ML 1,000 MG/100 ML BAG 400 MG IVPB (11:43)
[2022-03-24 11:45] LABS: Add Urine Microscopic? YES
[2022-03-24 12:49] LABS: Influenza A QL RT-PCR Negative (Negative); Influenza B QL RT-PCR Negative (Negative); SARS-CoV-2 RNA PCR Negative
--- NOTE | 2022-03-24 13:30 | PM.IMHP ---
H&P: HPI History of Present Illness Date/Time: 03/24/22 13:30 Chief Complaint: Right arm weakness. Narrative: This is a 61-year-old male with history of stroke, seizures, herpes encephalitis, COPD, and cirrhosis with hepatitis C status post liver transplant in 2007 who presented to the emergency department via EMS for evaluation of right arm weakness. At the time my evaluation he has difficulty speaking and is not able to provide much in the way of history and as such almost all of the following is obtained via a review of his electronic medical records. I have cared for this patient before and with those previous visits I do not recall him having such a significant deficit with regards to his speech. It is my understanding that physical therapy came today to work with him at which time his right arm was flaccid with unknown last known normal. While in the ED he had a couple of focal seizures and he was treated with lorazepam and was loaded with levetiracetam. Brain CT showed old infarcts and atrophy but no acute findings. ED physician discussed the patient's case with Neurology and they had no further treatment recommendations and he is being admitted in this setting to evaluate for possible CVA versus Jordin's paralysis versus other. At the time my evaluation, he is alert and follows commands. He has difficulties speaking and it took him quite a bit of time to slowly piece together a sentence were he was able to tell me my name is Yonis Boone. His arm remains flaccid and he has a right facial droop. He is able to move his right leg somewhat. He has no specific complaints, he is mainly only able to answer closed ended questions where he can shake or nod his head appropriately. Open-ended questions are difficult for him due to speech issues. He denies headache, chest pain, shortness a breath, nausea, vomiting, vertigo, and dysphagia. Review of Systems Review of Systems: Twelve systems were reviewed but limited as detailed above. Negative except for as far documented in HPI. [facility] Past Medical History Medical History (Updated 03/24/22 @ 23:40 by Sariah Covarrubias PA-C) Cerebrovascular accident (2011) Mild right sided weakness. Chronic obstructive pulmonary disease Depression Hepatitis C Status post liver transplant in 2007 followed by successful hepatitis C treatment in 2013. Herpes encephalitis Hyperlipidemia Irritable bowel syndrome Peripheral neuropathy Pneumonia due to 2019 novel coronavirus Renal failure Required dialysis before liver transplant. Seizures Surgical History Surgical History History of cholecystectomy History of liver transplant (2007) For cirrhosis and hepatitis C. Family History Family History Father Family history of heart disease in male family member before age 55 Mother Family history of liver disease Sibling Diabetes mellitus Social History Social History (Updated 03/24/22 @ 23:35 by Sariah Covarrubias PA-C) Social History: Surrogate decision maker: Elyse Boone, . Code status: Full code. Smoking packs per day: 1 Smoking cigarettes per day: 20.0 Years smoked: 23 Smoking pack-years: 23.00 Smoking status: Unknown if ever smoked Second hand tobacco smoke exposure: No Additional smoking assessment comments: Quit in 1997. Alcohol intake: never Alcohol use details: Quit in 1996. Substance use: never Additional living arrangements comments: Lives with , sister, [id number]. Additional occupation/education comments: Disabled. Spiritual care concerns: No Meds Home Medications and Allergies Home Medications Medication Instructions Recorded Confirmed Type aspirin 81 mg tablet 81 mg PO DAILY 10/28/19 02/03/22 History gabapentin 800 mg tablet 800 mg PO TID 10/28/19 02/03/22 History umeclidinium 62.5 mcg/actuation 62.5 mcg i
--- NOTE | 2022-03-24 13:42 | PC.NURSE ---
ARSH form signed by patient's and medical records requested from [facility].
--- NOTE | 2022-03-24 14:18 | WPDNEURCNPN ---
Assessment and Plan Assessment and plan (1) Breakthrough seizure: Code(s): G40.919 - Epilepsy, unspecified, intractable, without status epilepticus Status: Acute (2) Encephalitis due to human herpes simplex virus (HSV): Code(s): B00.4 - Herpesviral encephalitis Status: Acute (3) Intractable epilepsy: Code(s): G40.919 - Epilepsy, unspecified, intractable, without status epilepticus Status: Acute Plan intractable epilepsy in addition to the history of hepatic transplant patient has been started on Keppra at present he is seizure-free the dose will be adjusted accordingly Consult date: 03/25/22 HPI: Yonis Boone is a 61 year old male Admitted to the hospital through the emergency room with a changing mental status in addition to the possibility of cerebrovascular accident. Patient has ongoing history of taking aspirin 81 mg daily but in addition levetiracetam 1000 mg twice a day, Dilantin 300 mg at night, lacosamide 300 mg twice a day, BuSpar 5 mg t.i.d. gabapentin 800 mg 3 times a day reportedly he is not allergic to any medication and in the past has history of cerebrovascular accident with right-sided weakness, COPD, depression, hepatitis C with history of liver transplant in 2007 and successful hepatitis C treatment in 2013, history of herpes encephalitis, history of renal dialysis, and in additional history of peripheral neuropathy and seizures. He does have ongoing history of 23 years smoked, but former smoker, quitting in 1997 and unclear history of alcohol use up until 1996 vital signs stable normal routine lab negative for influenza SARS-CoV-2 COVID, EKG without any atrial fibrillation, CT of the head with cerebellar and central and cortical atrophy with lacunar infarct in right caudate nucleus chest x-ray negative has had MRI of the head on 02/05 again which was with cerebral white matter disease lacunar infarcts the right caudate nucleus and asymmetric volume loss of the left parietal lobe. He became nauseated after eating dinner night before subsequently developed cough and was found to have SpO2 in the upper 80s on room air with low-grade temperature also being tachypneic and tachycardic for the concerns of pneumonia he was started on antibiotic and has been admitted to the floor Review of Systems Review of Systems: All systems reviewed & are unremarkable except as noted in HPI and below PMFSH Past Medical History Medical History (Updated 12/02/22 @ 13:53 by Margarito Felipe MD) Cerebrovascular accident (2011) Mild right sided weakness. Chronic obstructive pulmonary disease Depression Hepatitis C Status post liver transplant in 2007 followed by successful hepatitis C treatment in 2013. Herpes encephalitis Hyperlipidemia Irritable bowel syndrome Peripheral neuropathy Pneumonia due to 2019 novel coronavirus Renal failure Required dialysis before liver transplant. Seizures Surgical History Surgical History History of cholecystectomy History of liver transplant (2007) For cirrhosis and hepatitis C. Family History Family History Father Family history of heart disease in male family member before age 55 Mother Family history of liver disease Sibling Diabetes mellitus Social History Social History (Updated 03/24/22 @ 23:35 by Sariah Covarrubias PA-C) Social History: Surrogate decision maker: Elyse Boone, . Code status: Full code. Smoking packs per day: 1 Smoking cigarettes per day: 20.0 Years smoked: 23 Smoking pack-years: 23.00 Smoking status: Unknown if ever smoked Second hand tobacco smoke exposure: No Additional smoking assessment comments: Quit in 1997. Alcohol intake: never Alcohol use details: Quit in 1996. Substance use: never Additional living arrangements comments: Lives with , sister, [id number]. Add
--- NOTE | 2022-03-24 15:32 | ADMGEN ---
This patient, Yonis Boone, was admitted to [facility] Surg Room 333-01. Patient/family oriented to hospital policies and general routines including ID bracelet, bed and alarms, visiting hours, pain management, procedures, bathroom and other care routines, personal items, smoking policy, room service/diet, and visiting hours. Information on how to activate the Rapid Response Team has been discussed. Patient/Family are encouraged to report perceived risks to care and to ask questions if they do not understand what they are told or what they should do.
[2022-03-24 19:58] LABS: Glucose Point of Care 115 mg/dl (65-105)
[2022-03-24] MEDS: LACOSAMIDE (*CRX) 200 MG TABLET PO (22:01)
[2022-03-25] VITALS (18 sets, daily range): BP systolic 92–145; BP diastolic 49–101; PULSE 92–130; RESP 15–22; TEMP 36.4–37.4; O2SAT 92–100
[2022-03-25] MEDS: LORazepam INJ (*CRX) 2 MG/ML VIAL IV PUSH ×7 (01:59→21:14)
[2022-03-25] MEDS: levETIRAcetam 500 MG TABLET 1000 MG PO (01:59)
[2022-03-25] MEDS: PHENYTOIN SODIUM 100 MG EXTENDED RELEASE CAP PO (02:00)
--- NOTE | 2022-03-25 02:03 | PC.NURSE ---
Pt. demonstrated multiple seizures within a short time frame; total time >5min; IVP ativan administered per orders.
[2022-03-25] MEDS: levETIRAcetam 1000MG/NACL100ML 1,000 MG/100 ML BAG 400 MG IVPB ×2 (03:33→11:04)
[2022-03-25 07:13] LABS: Anion Gap 5 mmol/L (8-16); Blood Urea Nitrogen 14 mg/dL (9-20); Calcium 9.1 mg/dL (8.4-10.2); Carbon Dioxide 23 mmol/L (22-30); Chloride 98 mmol/L (98-107); Estimated CRCL calculation 119 ml/min; Estimated Glomerular Filt Rate > 60; Glucose 94 mg/dL (65-110); Lipase 54 U/L (23-300); Potassium 4.2 mmol/L (3.4-5.0); Sodium 126 mmol/L (137-145)
[2022-03-25] MEDS: GABAPENTIN 100 MG CAPSULE PO (09:49)
[2022-03-25] MEDS: ESCITALOPRAM OXALATE 10 MG TABLET PO (09:49)
[2022-03-25] MEDS: ASPIRIN 81 MG CHEWABLE TABLET PO (09:50)
[2022-03-25] MEDS: PANTOPRAZOLE 40 MG TABLET PO (09:50)
[2022-03-25] MEDS: SACCHAROMYCES BOULARDII 250 MG CAPSULE PO (09:50)
[2022-03-25] MEDS: LACOSAMIDE (*CRX) 200 MG TABLET PO (09:53)
--- NOTE | 2022-03-25 10:14 | PCOTNOTE ---
Attempted to see patient for OT evaluation, RN reports patients status has changed and was transported to ICU and not currently appropriate to see.
[2022-03-25] MEDS: levETIRAcetam 500MG/NACL 100ML 500 MG/100 ML BAG 400 MG IVPB (10:47)
--- NOTE | 2022-03-25 10:50 | PCSTNOTE ---
Communication evaluation attempted but nsg indicated pt will not be receptive to this today due to medications needed.
[2022-03-25] MEDS: PANTOPRAZOLE SODIUM IV 40 MG VIAL IV PUSH (11:29)
[2022-03-25] MEDS: SODIUM CHLORIDE 0.9% IV 1,000 ML 100 ML IV CONT (11:29)
[2022-03-25 11:32] LABS: Glucose Point of Care 104 mg/dl (65-105)
--- NOTE | 2022-03-25 11:40 | WPDCNINT ---
Assessment and Plan Assessment and plan (1) Seizure: Code(s): R56.9 - Unspecified convulsions Status: Acute Assessment and Plan: Patient presented to the ED on 03/24/2022 with complains of altered mental status and right upper extremity flaccidity/weakness -on 03/25 early hours patient had multiple seizures lasting for approximately 30 seconds per neurologist -patient was transferred to the ICU for further management -patient is being loaded with Keppra, -started on Keppra 1 g IV Q 8 hours -started on phenytoin 100 mg IV Q 8 hours. Phenytoin level on 03/24/2021 was subtherapeutic -seizure precautions -neurology has been consulted -will obtain EEG -ABGs are normal on 2 L nasal cannula -will monitor seizure activity closely if patient is unable to protect his airway, will intubated him 03/24/2022: Head CT Mild cerebellar and more prominent central and cortical cerebral atrophy. Chronic lacunar infarct right caudate nucleus.No acute intracranial finding 03/24/2022: Head and neck CTA showed Old lacunar infarct in right caudate nucleus.. Mild nonspecific cerebral white matter disease, which likely represents chronic small vessel ischemic disease.. No aneurysm or significant intracranial arterial stenosis.. 0% stenosis of the proximal internal carotid arteries relative to normal distal artery lumen diameters (NASCET criteria). Severe stenosis of proximal right vertebral artery.. Chronic sinusitis (2) Cerebrovascular accident: Code(s): I63.9 - Cerebral infarction, unspecified Status: Acute Assessment and Plan: History of CVA and recent herpes encephalitis (3) Liver transplant status: Code(s): Z94.4 - Liver transplant status Status: Chronic Assessment and Plan: History of liver transplant in 2007, on cyclosporine which will currently be on hold as patient unable to take p.o. due to mental status changes (4) Leukocytosis: Code(s): D72.829 - Elevated white blood cell count, unspecified Status: Acute Assessment and Plan: Patient with leukocytosis likely related to seizures and stress -WBC count trending down -UA is negative, chest x-ray on admission showed mild atelectasis versus scarring in the lower lung zones Plan DVT prophylaxis: Lovenox Stress ulcer prophylaxis: Protonix Nutrition: NPO for now Code Status: Full code Critical Care Time Spent: 47 minutes Due to a high probability of clinically significant, life threatening deterioration, the patient required my highest level of preparedness to intervene emergently and I personally spent this critical care time directly and personally managing the patient. This critical care time included obtaining a history; examining the patient; pulse oximetry; ordering and review of studies; arranging urgent treatment with development of a management plan; evaluation of patient's response to treatment; frequent reassessment; and discussions with other providers. It was exclusive of separately billable procedures and treating other patients and teaching time. Please see Assessment and Plan section and the rest of the note for further information on patient assessment and treatment Beauty Artist Consult Note Consult date: 03/25/22 Reason for consult: Multiple Seizures, altered mental status, right upper extremity weakness HPI: Yonis Boone is a 61 year old male with significant past medical history of strokes, seizures, PEs encephalitis, COPD, cirrhosis with hep C status post liver transplant and 2019 presented the ED on 03/24/2022 for right upper extremity weakness, decreased mental status. In the ER patient was found to have flaccidity of his right upper extremity along with slight facial droop. CT scan of the brain - Mild cerebellar and more prominent central and cortical cerebral atrophy. Chronic lacunar infarct right caudate nucleus.No acute intracranial finding. Chest x-ray showed mild atelectasis versus scarring the
[2022-03-25 11:42] LABS: Basophils Absolute Auto 0.1 K/mm3 (0.0-0.1); Basophils Percent Auto 0.6 % (0.2-1.2); Eosinophils Absolute Auto 0.4 K/mm3 (0-0.3); Eosinophils Percent Auto 3.8 % (0-4.4); Hematocrit 38.5 % (42.0-52.0); Hemoglobin 13.2 g/dL (14.0-18.0); Immature Granulocyte Absolute 0.08 K/mm3 (0.00-0.031); Immature Granulocyte Percent A 0.7 % (0-0.5); Lymphocytes Percent Auto 19.7 % (18.3-44.2); Mean Corpuscular HGB Conc 34.3 g/dl (32-36); Mean Corpuscular Hemoglobin 31.1 pg (26-34); Mean Corpuscular Volume 90.8 fl (80-100); Monocytes Absolute Auto 0.9 K/mm3 (0.1-0.6); Monocytes Percent Auto 7.9 % (2.6-8.5); Neutrophils Absolute Auto 7.5 K/mm3 (1.3-6.7); Neutrophils Percent Auto 67.3 % (45.5-73.1); Platelet Count Result 272 k/mm3 (150-375); Red Blood Count 4.24 M/mm3 (4.6-6.20); Red Cell Distribution Width 13.5 % (11.5-14.5); White Blood Count 11.2 K/mm3 (4.5-10.0)
[2022-03-25 11:49] LABS: Lactic Acid Reflex 1.6 mmol/L (0.7-2.0)
[2022-03-25 11:51] LABS: Ammonia 10 umol/L (9-30)
[2022-03-25 11:52] LABS: Alveolar/Arterial O2 Gradient 62.8 mmHg; Base Excess ABG 0.7 mEq/l (+/-2.0); Fractional Inspired Oxygen 28 %; HCO3 ABG 25.8 mEq/l (22.0-26.0); Oxygen Content ABG 18.4 %vol (16.0-22.0); Oxygen Saturation ABG 96.4 % (95.0-100.0); PCO2 ABG 43.2 mmHg (35.0-45.0); PO2 ABG 85.9 mmHg (80.0-100.0); PO2 FiO2 Ratio Arterial Blood 3.07 %; Total Hemoglobin 13.7 g/dL (12.0-18.0); pH ABG 7.394 (7.350-7.450)
[2022-03-25 11:53] LABS: Device NASAL CANNULA; Modified Allen's Test Pass; Site Drawn LEFT RADIAL
[2022-03-25 12:07] LABS: Alanine Aminotransferase 16 U/L (6-50); Albumin Level 3.9 g/dL (3.5-5.1); Alkaline Phosphatase 145 U/L (38-126); Anion Gap 9 mmol/L (8-16); Aspartate Amino Transferase 19 U/L (17-59); Bilirubin,Total 0.5 mg/dL (0.2-1.3); Blood Urea Nitrogen 13 mg/dL (9-20); Calcium 8.9 mg/dL (8.4-10.2); Carbon Dioxide 25 mmol/L (22-30); Chloride 99 mmol/L (98-107); Creatine Kinase 54 U/L (55-170); Estimated CRCL calculation 119 ml/min; Estimated Glomerular Filt Rate > 60; Glucose 93 mg/dL (65-110); Magnesium 1.8 mg/dL (1.6-2.3); Phosphorus 4.3 mg/dL (2.5-4.5); Potassium 3.9 mmol/L (3.4-5.0); Sodium 133 mmol/L (137-145)
--- NOTE | 2022-03-25 12:22 | PM.IMPN ---
Progress Note: A&P Assessment and Plan (1) Seizure: Code(s): R56.9 - Unspecified convulsions Status: Acute Assessment and Plan: Patient presented to the ED on 03/24/2022 with complains of altered mental status and right upper extremity flaccidity/weakness -on 03/25 early hours patient had multiple seizures lasting for approximately 30 seconds per neurologist -patient was transferred to the ICU for further management -patient is being loaded with Keppra, -started on Keppra 1 g IV Q 8 hours -started on phenytoin 100 mg IV Q 8 hours. Phenytoin level on 03/24/2021 was subtherapeutic -seizure precautions -neurology has been consulted -will obtain EEG -ABGs are normal on 2 L nasal cannula -will monitor (2) Cerebrovascular accident: Code(s): I63.9 - Cerebral infarction, unspecified Status: Acute Assessment and Plan: History of CVA and recent herpes encephalitis (3) Liver transplant status: Code(s): Z94.4 - Liver transplant status Status: Chronic Assessment and Plan: History of liver transplant in 2007, on cyclosporine which will currently be on hold as patient unable to take p.o. due to mental status changes (4) Leukocytosis: Code(s): D72.829 - Elevated white blood cell count, unspecified Status: Acute Assessment and Plan: Patient with leukocytosis likely related to seizures and stress -WBC count trending down -UA is negative, chest x-ray on admission showed mild atelectasis versus scarring in the lower lung zones Plan DVT prophylaxis: Lovenox Stress ulcer prophylaxis: Protonix Nutrition: NPO for now Code Status: Full code Critical Care Time Spent: 47 minutes Due to a high probability of clinically significant, life threatening deterioration, the patient required my highest level of preparedness to intervene emergently and I personally spent this critical care time directly and personally managing the patient. This critical care time included obtaining a history; examining the patient; pulse oximetry; ordering and review of studies; arranging urgent treatment with development of a management plan; evaluation of patient's response to treatment; frequent reassessment; and discussions with other providers. It was exclusive of separately billable procedures and treating other patients and teaching time. Please see Assessment and Plan section and the rest of the note for further information on patient assessment and treatment Subjective Date/time seen: 03/25/22 12:22 Patient is currently not arousable. Status post seizure. No active seizure concurrently. Exam Narrative: General: Patient is awake, open his eyes, in no acute distress HEENT:? Pupils equal and reactive, sclera is clear Neck:? Supple Respiratory:? Coarse breath sounds, likely transmitted sounds, decreased at bases, adequate air entry, no wheezing Cardiac:? S1-S2 is normal, tachycardia Abdomen:? Soft, nontender, nondistended, hypoactive bowel sounds, old surgical scar noted Extremities:? No edema, normal pedal pulses Neuro:? Patient is somnolent after this seizure and Ativan given to him. Prior to that he was awake, did not follow any commands or answer questions for me Skin:? Warm and dry Psych:? Unable to assess Objective Data Vital Signs Vital Signs: Vital Signs - 24 hr 03/24/22 12:30 03/24/22 12:31 03/24/22 12:45 Temperature Pulse Rate 86 90 Respiratory Rate 15 16 Blood Pressure 112/69 Pulse Oximetry 97 98 Oxygen Delivery Oxygen Flow Rate 03/24/22 14:02 03/24/22 15:19 03/24/22 16:00 Temperature Pulse Rate 96 99 Respiratory Rate 16 Blood Pressure 106/79 Pulse Oximetry Oxygen Delivery Room Air Oxygen Flow Rate 03/24/22 16:16 03/24/22 20:00 03/24/22 20:00 Temperature 97.1 F L 97.9 F Pulse Rate 94 110 H 109 H Respiratory Rate 18 14 Blood Pressure 118/70 146/75 H Pulse Oximetry 96 98 Oxygen Delivery Oxygen Flow Rate
--- NOTE | 2022-03-25 13:11 | PCPTNOTE ---
Attempted to see patient for PT evaluation, RN reports patients status has changed and was transported to ICU and not currently appropriate to see.
[2022-03-25] MEDS: PHENYTOIN SODIUM INJ 100 MG/2 ML VIAL (*BKC) IV PUSH ×2 (13:55→22:18)
--- NOTE | 2022-03-25 14:04 | PCOTNOTE ---
Pt. not medically stable enough for therapy at this time. Nursing confirmed cancelation of orders. Re-order when safely able to participate in therapy.
--- NOTE | 2022-03-25 14:22 | WPDNEUROLOGY ---
Neurology EEG Report General Information Date of Study: 03/25/22 TEST eeg DIAGNOSIS seizures CONDITION OF RECORDING at present patient is sedated EEG NUMBER [id number] CLINICAL HISTORY patient was brought into hospital with recurrent seizures. Patient does have a history of liver transplant about 15 years ago. Started having seizures following the transplant on intermittent basis. EEG DESCRIPTION Background rhythm consists of low to medium voltage 1 to 2 hertz per 2nd delta activity over the left hemispheric linkages and 5 to 7 hertz per 2nd theta activity of medium voltage admixed with low-voltage beta activity and 3 to 4 hertz per 2nd delta activity over the right hemispheric linkages. non paroxysmal. Focal. And lateralizing. IMPRESSION Abnormal record due to the absence of 1. Normal background activity 2. Presence of bihemispheric theta activity and delta activity 3. Presence of significant delta activity over the right hemispheric linkages. These abnormalities are suggestive of focal structural lesion of right hemisphere in addition to bihemispheric postictal state clinical correlation recommended. compared to the previous tracing done on July 27, 2021 this EEG does not show any paroxysmal activity.
--- NOTE | 2022-03-25 15:20 | PC.NURSE ---
pt exhibiting multiple episodes of seizure activity, Dr Young at bedside to witness. EEG obtained and captured a seizure episode. Dr. Felipe called and increased IV keppra dose to 4gm/day, order updated in JUN.
[2022-03-25] MEDS: levETIRAcetam 1000MG/NACL100ML 1,000 MG/100 ML BAG 200 MG IVPB (17:30)
[2022-03-25 17:38] LABS: Glucose Point of Care 110 mg/dl (65-105)
[2022-03-26] VITALS (14 sets, daily range): BP systolic 107–152; BP diastolic 60–93; PULSE 82–107; RESP 14–23; TEMP 36.3–36.9; O2SAT 93–100
[2022-03-26] MEDS: levETIRAcetam 1000MG/NACL100ML 1,000 MG/100 ML BAG 200 MG IVPB ×5 (00:10→23:50)
[2022-03-26] MEDS: SODIUM CHLORIDE 0.9% IV 1,000 ML 75 ML IV CONT (00:15)
[2022-03-26 00:26] LABS: Glucose Point of Care 86 mg/dl (65-105)
[2022-03-26] MEDS: LORazepam INJ (*CRX) 2 MG/ML VIAL IV PUSH ×11 (02:21→22:03)
[2022-03-26] MEDS: PHENYTOIN SODIUM INJ 100 MG/2 ML VIAL (*BKC) IV PUSH ×3 (06:11→21:58)
[2022-03-26 06:48] LABS: Glucose Point of Care 85 mg/dl (65-105)
[2022-03-26 07:53] LABS: Glucose Point of Care 85 mg/dl (65-105)
[2022-03-26] MEDS: PANTOPRAZOLE SODIUM IV 40 MG VIAL IV PUSH (08:22)
--- NOTE | 2022-03-26 09:22 | PCSTNOTE ---
Communication evaluation attempted this morning. Nursing indicated pt. not appropriate on this date second to continued seizure activity.
[2022-03-26] MEDS: DEXTROSE 5%/0.9% SOD CHL 1,000 ML 75 ML IV CONT (10:29)
--- NOTE | 2022-03-26 11:01 | PM.IMPN ---
Progress Note: A&P Assessment and Plan (1) Seizure: Code(s): R56.9 - Unspecified convulsions Status: Acute Assessment and Plan: Patient presented to the ED on 03/24/2022 with complains of altered mental status and right upper extremity flaccidity/weakness -on 03/25 early hours patient had multiple seizures lasting for approximately 30 seconds per neurologist -patient was transferred to the ICU for further management -patient is being loaded with Keppra, -started on Keppra 1 g IV Q 8 hours -started on phenytoin 100 mg IV Q 8 hours. Phenytoin level on 03/24/2021 was subtherapeutic -seizure precautions -neurology has been consulted -will obtain EEG -ABGs are normal on 2 L nasal cannula -will monitor (2) Cerebrovascular accident: Code(s): I63.9 - Cerebral infarction, unspecified Status: Acute Assessment and Plan: History of CVA and recent herpes encephalitis (3) Liver transplant status: Code(s): Z94.4 - Liver transplant status Status: Chronic Assessment and Plan: History of liver transplant in 2007, on cyclosporine which will currently be on hold as patient unable to take p.o. due to mental status changes (4) Leukocytosis: Code(s): D72.829 - Elevated white blood cell count, unspecified Status: Acute Assessment and Plan: Patient with leukocytosis likely related to seizures and stress -WBC count trending down -UA is negative, chest x-ray on admission showed mild atelectasis versus scarring in the lower lung zones Plan DVT prophylaxis: Lovenox Stress ulcer prophylaxis: Protonix Nutrition: NPO for now Code Status: Full code Critical Care Time Spent: 47 minutes Due to a high probability of clinically significant, life threatening deterioration, the patient required my highest level of preparedness to intervene emergently and I personally spent this critical care time directly and personally managing the patient. This critical care time included obtaining a history; examining the patient; pulse oximetry; ordering and review of studies; arranging urgent treatment with development of a management plan; evaluation of patient's response to treatment; frequent reassessment; and discussions with other providers. It was exclusive of separately billable procedures and treating other patients and teaching time. Please see Assessment and Plan section and the rest of the note for further information on patient assessment and treatment Subjective Date/time seen: 03/26/22 11:01 patient is still postictal Exam Narrative: HEENT:? Pupils equal and reactive, sclera is clear Neck:? Supple Respiratory:? Coarse breath sounds, likely transmitted sounds, decreased at bases, adequate air entry, no wheezing Cardiac:? S1-S2 is normal, tachycardia Abdomen:? Soft, nontender, nondistended, hypoactive bowel sounds, old surgical scar noted Extremities:? No edema, normal pedal pulses Neuro:? Patient is somnolent after this seizure and Ativan given to him. Prior to that he was awake, did not follow any commands or answer questions for me Skin:? Warm and dry Psych:? Unable to assess Objective Data Vital Signs Vital Signs: Vital Signs - 24 hr 03/25/22 11:18 03/25/22 11:48 03/25/22 12:00 Temperature 99.2 F Pulse Rate 100 100 100 Respiratory Rate 20 22 H Blood Pressure 113/85 Pulse Oximetry 97 98 Oxygen Delivery Nasal Cannula Oxygen Flow Rate 2 03/25/22 13:59 03/25/22 14:00 03/25/22 15:30 Temperature 99.4 F Pulse Rate 114 H 114 H 98 Respiratory Rate 22 H 22 H Blood Pressure 145/101 H Pulse Oximetry 95 99 Oxygen Delivery Nasal Cannula Oxygen Flow Rate 2 03/25/22 16:00 03/25/22 16:00 03/25/22 17:50 Temperature 99.3 F Pulse Rate 110 H 100 Respiratory Rate 22 H Blood Pressure 136/75 Pulse Oximetry 98 100 Oxygen Delivery Nasal Cannula Oxygen Flow Rate 2 03/25/22 17:55 03/25/22 17:56 03/25/22 20:00 Temperature 99.4 F
[2022-03-26 11:30] LABS: Glucose Point of Care 90 mg/dl (65-105)
--- NOTE | 2022-03-26 12:29 | WPDINTPN ---
Progress Note: A&P Assessment and Plan (1) Seizure: Code(s): R56.9 - Unspecified convulsions Status: Acute Assessment and Plan: Patient presented to the ED on 03/24/2022 with complains of altered mental status and right upper extremity flaccidity/weakness -on 03/25 early hours patient had multiple seizures lasting for approximately 30 seconds per neurologist -patient was transferred to the ICU for further management IV Vimpat is not available at [facility] at this time -continue Keppra 1 g IV Q 8 hours -started on phenytoin 100 mg IV Q 8 hours. Phenytoin level on 03/24/2021 was subtherapeutic -discuss with neurologist, Dr. Salguero at [facility] who recommended loading with Depacon 3000 mg IV x1 and then Depacon 1000 mg q.8 hours. She also accepted patient in consult at [facility] -I spoke to [facility]. Rosales, [facility], who accepted the patient to [facility] under Dr. Don Sam. -continue seizure precautions -appreciate neurology evaluation and recommendation -03/25/2022 EEG showed focal structural lesion of the right hemisphere, seizure activity -ABGs are normal on 2 L nasal cannula -will monitor seizure activity closely if patient is unable to protect his airway, will intubated him 03/24/2022: Head CT Mild cerebellar and more prominent central and cortical cerebral atrophy. Chronic lacunar infarct right caudate nucleus.No acute intracranial finding 03/24/2022: Head and neck CTA showed Old lacunar infarct in right caudate nucleus.. Mild nonspecific cerebral white matter disease, which likely represents chronic small vessel ischemic disease.. No aneurysm or significant intracranial arterial stenosis.. 0% stenosis of the proximal internal carotid arteries relative to normal distal artery lumen diameters (NASCET criteria). Severe stenosis of proximal right vertebral artery.. Chronic sinusitis (2) Cerebrovascular accident: Code(s): I63.9 - Cerebral infarction, unspecified Status: Acute Assessment and Plan: History of CVA and recent herpes encephalitis (3) Liver transplant status: Code(s): Z94.4 - Liver transplant status Status: Chronic Assessment and Plan: History of liver transplant in 2007, on cyclosporine which will currently be on hold as patient unable to take p.o. due to mental status changes (4) Leukocytosis: Code(s): D72.829 - Elevated white blood cell count, unspecified Status: Acute Assessment and Plan: Patient with leukocytosis likely related to seizures and stress -WBC count trending down -UA is negative, chest x-ray on admission showed mild atelectasis versus scarring in the lower lung zones Plan DVT prophylaxis: Lovenox Stress ulcer prophylaxis: Protonix Nutrition: NPO for now 03/26/2022: Discussed with and updated her with patient's condition, plan of care. She is aware that patient has been accepted to [facility] ICU and will be transferred once bed is available. Updated bedside RN and Dr. Guo Code Status: Full code Critical Care Time Spent: 49 minutes Due to a high probability of clinically significant, life threatening deterioration, the patient required my highest level of preparedness to intervene emergently and I personally spent this critical care time directly and personally managing the patient. This critical care time included obtaining a history; examining the patient; pulse oximetry; ordering and review of studies; arranging urgent treatment with development of a management plan; evaluation of patient's response to treatment; frequent reassessment; and discussions with other providers. It was exclusive of separately billable procedures and treating other patients and teaching time. Please see Assessment and Plan section and the rest of the note for further information on patient assessment and treatment Subjective Date/time seen: 03/26/22 12:29 Int
[2022-03-26 16:28] LABS: Glucose Point of Care 81 mg/dl (65-105)
[2022-03-26] MEDS: CENTRAL LINE FLUSH 10 ML IV PUSH (21:59)
[2022-03-27] VITALS (12 sets, daily range): BP systolic 112–144; BP diastolic 67–97; PULSE 87–129; RESP 13–22; TEMP 36.3–37.3; O2SAT 93–99
[2022-03-27] LABS: Glucose Point of Care 103 mg/dl (65-105)
[2022-03-27] MEDS: DEXTROSE 5%/0.9% SOD CHL 1,000 ML 75 ML IV CONT ×2 (03:43→18:55)
[2022-03-27] MEDS: LORazepam INJ (*CRX) 2 MG/ML VIAL IV PUSH ×2 (03:51→08:04)
[2022-03-27 06:12] LABS: Basophils Absolute Auto 0.1 K/mm3 (0.0-0.1); Basophils Percent Auto 0.7 % (0.2-1.2); Eosinophils Absolute Auto 0.9 K/mm3 (0-0.3); Eosinophils Percent Auto 10.5 % (0-4.4); Hematocrit 32.7 % (42.0-52.0); Hemoglobin 11.3 g/dL (14.0-18.0); Immature Granulocyte Absolute 0.06 K/mm3 (0.00-0.031); Immature Granulocyte Percent A 0.7 % (0-0.5); Lymphocytes Absolute Auto 1.82 K/mm3 (0.9-3.2); Lymphocytes Percent Auto 20.5 % (18.3-44.2); Mean Corpuscular HGB Conc 34.6 g/dl (32-36); Mean Corpuscular Hemoglobin 31.1 pg (26-34); Mean Corpuscular Volume 90.1 fl (80-100); Mean Platelet Volume 9.9 fl (7.4-10.4); Monocytes Absolute Auto 0.6 K/mm3 (0.1-0.6); Monocytes Percent Auto 6.6 % (2.6-8.5); Neutrophils Absolute Auto 5.4 K/mm3 (1.3-6.7); Platelet Count Result 226 k/mm3 (150-375); Red Blood Count 3.63 M/mm3 (4.6-6.20); Red Cell Distribution Width 13.6 % (11.5-14.5); White Blood Count 8.9 K/mm3 (4.5-10.0)
[2022-03-27] MEDS: CENTRAL LINE FLUSH 10 ML IV PUSH ×3 (06:12→21:23)
[2022-03-27] MEDS: levETIRAcetam 1000MG/NACL100ML 1,000 MG/100 ML BAG 200 MG IVPB ×3 (06:12→17:34)
[2022-03-27] MEDS: PHENYTOIN SODIUM INJ 100 MG/2 ML VIAL (*BKC) IV PUSH ×3 (06:12→21:22)
[2022-03-27] MEDS: PANTOPRAZOLE SODIUM IV 40 MG VIAL IV PUSH (08:06)
[2022-03-27 08:19] LABS: Glucose Point of Care 94 mg/dl (65-105)
--- NOTE | 2022-03-27 09:11 | WPDINTPN ---
Progress Note: A&P Assessment and Plan (1) Seizure: Code(s): R56.9 - Unspecified convulsions Status: Acute Assessment and Plan: Patient presented to the ED on 03/24/2022 with complains of altered mental status and right upper extremity flaccidity/weakness -on 03/25 early hours patient had multiple seizures lasting for approximately 30 seconds per neurologist -patient was transferred to the ICU for further management IV Vimpat is not available at [facility] at this time -continue Keppra 1 g IV Q 8 hours -started on phenytoin 100 mg IV Q 8 hours. Phenytoin level on 03/24/2021 was subtherapeutic -discuss with neurologist, Dr. Salguero at [facility] who recommended loading with Depacon 3000 mg IV x1 and then Depacon 1000 mg q.8 hours. She also accepted patient in consult at [facility] -I [facility], who accepted the patient to [facility] under Dr. Don Sam. -currently on Keppra 1 g q.6 hours IV, phenytoin 100 mg q.8 hours IV, Depacon 1000 mg q.8 hours IV -p.r.n. Ativan -continue seizure precautions -appreciate neurology evaluation and recommendation -03/25/2022 EEG showed focal structural lesion of the right hemisphere, seizure activity -ABGs are normal on 2 L nasal cannula -will monitor seizure activity closely if patient is unable to protect his airway, will intubated him 03/24/2022: Head CT Mild cerebellar and more prominent central and cortical cerebral atrophy. Chronic lacunar infarct right caudate nucleus.No acute intracranial finding 03/24/2022: Head and neck CTA showed Old lacunar infarct in right caudate nucleus.. Mild nonspecific cerebral white matter disease, which likely represents chronic small vessel ischemic disease.. No aneurysm or significant intracranial arterial stenosis.. 0% stenosis of the proximal internal carotid arteries relative to normal distal artery lumen diameters (NASCET criteria). Severe stenosis of proximal right vertebral artery.. Chronic sinusitis (2) Cerebrovascular accident: Code(s): I63.9 - Cerebral infarction, unspecified Status: Acute Assessment and Plan: History of CVA and recent herpes encephalitis (3) Liver transplant status: Code(s): Z94.4 - Liver transplant status Status: Chronic Assessment and Plan: History of liver transplant in 2007, on cyclosporine which will currently be on hold as patient unable to take p.o. due to mental status changes (4) Leukocytosis: Code(s): D72.829 - Elevated white blood cell count, unspecified Status: Acute Assessment and Plan: Patient with leukocytosis likely related to seizures and stress -WBC count trending down -UA is negative, chest x-ray on admission showed mild atelectasis versus scarring in the lower lung zones Plan DVT prophylaxis: Lovenox Stress ulcer prophylaxis: Protonix Nutrition: NPO for now 03/26/2022: Discussed with and updated her with patient's condition, plan of care. She is aware that patient has been accepted to [facility] ICU and will be transferred once bed is available. Code Status: Full code Critical Care Time Spent: 33 minutes Due to a high probability of clinically significant, life threatening deterioration, the patient required my highest level of preparedness to intervene emergently and I personally spent this critical care time directly and personally managing the patient. This critical care time included obtaining a history; examining the patient; pulse oximetry; ordering and review of studies; arranging urgent treatment with development of a management plan; evaluation of patient's response to treatment; frequent reassessment; and discussions with other providers. It was exclusive of separately billable procedures and treating other patients and teaching time. Please see Assessment and Plan section and the rest of the note for further information on deena
--- NOTE | 2022-03-27 09:54 | PCSTNOTE ---
Communication evaluation attempted this morning. Nursing indicated pt. remains inappropriate to evaluate at this time.
[2022-03-27 09:57] LABS: Alanine Aminotransferase 18 U/L (6-50); Albumin Level 3.4 g/dL (3.5-5.1); Alkaline Phosphatase 129 U/L (38-126); Anion Gap 9 mmol/L (8-16); Aspartate Amino Transferase 27 U/L (17-59); Bilirubin,Total 0.6 mg/dL (0.2-1.3); Blood Urea Nitrogen 7 mg/dL (9-20); Calcium 8.2 mg/dL (8.4-10.2); Carbon Dioxide 21 mmol/L (22-30); Chloride 107 mmol/L (98-107); Estimated CRCL calculation 163 ml/min; Estimated Glomerular Filt Rate > 60; Glucose 92 mg/dL (65-110); Magnesium 1.8 mg/dL (1.6-2.3); Phosphorus 3.2 mg/dL (2.5-4.5); Potassium 3.9 mmol/L (3.4-5.0); Sodium 137 mmol/L (137-145)
--- NOTE | 2022-03-27 10:49 | WPDNEUROPN ---
Subjective Date/time seen: 03/27/22 10:49 Interval history: 61 years old has been hospitalized in the intensive care of [facility] with ongoing history of hepatic transplant and seizure disorder, his most recent EEG was abnormal with the 2 episodes of brief seizures but during the hospitalization here he continues to have the seizures for which the sentence in reversed [facility] has also been contacted where he has been receiving his regular treatment for the hepatic transplant and intractable epilepsy, he has been receiving multiple anticonvulsants which include lacosamide 150 mg b.i.d. 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 and obviously with [place] to control the every bit of the jerk is taking multiple anticonvulsants in a therapeutic dosage on examination today he was flaccid on the right side I did not see any twitching at this particular time but he was moving his left side very well though he did not respond to the verbal commands but again I have discussed with film reproducer and the treatment will be continued as such Objective Data Vital Signs Vital Signs: Vital Signs - 24 hr 03/26/22 12:00 03/26/22 12:00 03/26/22 12:00 Temperature 36.5 C Pulse Rate 95 95 Respiratory Rate 15 Blood Pressure 129/83 Pulse Oximetry 100 100 Oxygen Delivery Nasal Cannula Oxygen Flow Rate 2 03/26/22 14:00 03/26/22 14:00 03/26/22 14:00 Temperature 36.6 C Pulse Rate 84 84 84 Respiratory Rate 17 Blood Pressure 143/87 H Pulse Oximetry 100 Oxygen Delivery Oxygen Flow Rate 03/26/22 14:00 03/26/22 15:24 03/26/22 16:00 Temperature 36.7 C 36.5 C Pulse Rate 90 90 Respiratory Rate 17 14 Blood Pressure 143/87 H 131/78 Pulse Oximetry 100 100 100 Oxygen Delivery Nasal Cannula Oxygen Flow Rate 2 03/26/22 18:00 03/26/22 16:00 03/26/22 18:00 Temperature 36.5 C Pulse Rate 106 H 87 90 Respiratory Rate 20 Blood Pressure 145/85 H Pulse Oximetry 98 Oxygen Delivery Oxygen Flow Rate 03/26/22 20:00 03/26/22 20:00 03/26/22 20:00 Temperature 36.3 C L Pulse Rate 107 H 101 H Respiratory Rate 20 Blood Pressure 152/87 H Pulse Oximetry 94 98 Oxygen Delivery Room Air Oxygen Flow Rate 03/26/22 22:00 03/26/22 22:00 03/27/22 00:00 Temperature 36.4 C Pulse Rate 96 96 100 Respiratory Rate 16 Blood Pressure 139/93 H Pulse Oximetry 93 Oxygen Delivery Oxygen Flow Rate 03/27/22 00:00 03/27/22 00:00 03/27/22 02:00 Temperature 36.3 C L Pulse Rate 101 H 92 Respiratory Rate 17 Blood Pressure 142/85 H Pulse Oximetry 96 96 Oxygen Delivery Room Air Oxygen Flow Rate 03/27/22 02:00 03/27/22 04:00 03/27/22 04:00 Temperature 36.7 C 36.8 C Pulse Rate 92 96 Respiratory Rate 22 H 18 Blood Pressure 128/79 122/76 Pulse Oximetry 97 98 98 Oxygen Delivery Room Air Oxygen Flow Rate 03/27/22 04:00 03/27/22 06:00 03/27/22 06:00 Temperature 36.7 C Pulse Rate 102 H 87 87 Respiratory Rate 13 Blood Pressure 117/79 Pulse Oximetry 98 Oxygen Delivery Oxygen Flow Rate 03/27/22 08:00 03/27/22 08:00 03/27/22 08:00 Temperature 36.6 C Pulse Rate 97 97 97 Respiratory Rate 16 16 Blood Pressure 117/67 Pulse Oximetry 99 99 Oxygen Delivery Room Air Oxygen Flow Rate Intake/Output Intake/Output: Intake & Output 03/24/22 03/25/22 03/26/22 03/27/22 23:59 23:59 23:59 23:59 Intake Total 735 960 9302 310 Output Total 182 309 0095 Balance 081 487 8864 -740 Meds/Results Medications: Active Medications Generic Name Dose Route Start Last Adm
[2022-03-27 13:19] LABS: Glucose Point of Care 92 mg/dl (65-105)
[2022-03-27 17:57] LABS: Glucose Point of Care 87 mg/dl (65-105)
[2022-03-27] MEDS: SODIUM CHLORIDE 0.9% IV 1,000 ML 999 ML IV CONT (18:55)
[2022-03-28] VITALS (12 sets, daily range): BP systolic 114–165; BP diastolic 75–100; PULSE 93–138; RESP 18–29; TEMP 37–38.3; O2SAT 90–97
[2022-03-28] MEDS: levETIRAcetam 1000MG/NACL100ML 1,000 MG/100 ML BAG 200 MG IVPB ×5 (00:26→23:55)
[2022-03-28 00:32] LABS: Glucose Point of Care 81 mg/dl (65-105)
[2022-03-28 05:11] LABS: Hemoglobin 11.4 g/dL (14.0-18.0); Mean Corpuscular HGB Conc 34.5 g/dl (32-36); Mean Corpuscular Volume 89.7 fl (80-100); Platelet Count Result 224 k/mm3 (150-375); Red Blood Count 3.68 M/mm3 (4.6-6.20); Red Cell Distribution Width 14.1 % (11.5-14.5); White Blood Count 6.9 K/mm3 (4.5-10.0)
[2022-03-28] MEDS: PHENYTOIN SODIUM INJ 100 MG/2 ML VIAL (*BKC) IV PUSH ×3 (05:33→21:52)
[2022-03-28] MEDS: CENTRAL LINE FLUSH 10 ML IV PUSH ×3 (05:35→21:53)
[2022-03-28 06:19] LABS: Glucose Point of Care 97 mg/dl (65-105)
[2022-03-28 08:49] LABS: Alanine Aminotransferase 27 U/L (6-50); Albumin Level 3.9 g/dL (3.5-5.1); Alkaline Phosphatase 150 U/L (38-126); Anion Gap 12 mmol/L (8-16); Aspartate Amino Transferase 25 U/L (17-59); Bilirubin,Total 0.4 mg/dL (0.2-1.3); Blood Urea Nitrogen 3 mg/dL (9-20); Calcium 8.8 mg/dL (8.4-10.2); Carbon Dioxide 24 mmol/L (22-30); Chloride 100 mmol/L (98-107); Estimated CRCL calculation 161 ml/min; Estimated Glomerular Filt Rate > 60; Glucose 78 mg/dL (65-110); Magnesium 1.6 mg/dL (1.6-2.3); Potassium 2.9 mmol/L (3.4-5.0); Sodium 136 mmol/L (137-145)
[2022-03-28] MEDS: DEXTROSE 5%/0.9% SOD CHL 1,000 ML 75 ML IV CONT ×2 (09:33→23:50)
[2022-03-28] MEDS: PANTOPRAZOLE SODIUM IV 40 MG VIAL IV PUSH (09:33)
--- NOTE | 2022-03-28 10:08 | PCSTNOTE ---
Patient still unable to participate in speech therapy evaluation at this time. Recommend evaluation be ordered again when patient able. Thank you for the referral of this patient.
--- NOTE | 2022-03-28 11:26 | PC.NURSE ---
1030-PATIENT PULL OUT URINARY CATHETER. CLOTS AROUND PENIS AND COMING OUT OF PENIS. REPLACED URINARY CATHETER WITH BLOOD NOTED IN TUBING. WILL MONITOR AND FLUSH NEEDED. DR. JARON TURCIOS.
[2022-03-28] MEDS: SODIUM CHLORIDE 0.9% IVPB ×3 (11:39→21:26)
[2022-03-28] MEDS: LACOSAMIDE IVPB ×3 (11:39→21:26)
[2022-03-28 12:04] LABS: Glucose Point of Care 120 mg/dl (65-105)
--- NOTE | 2022-03-28 12:05 | WPDINTPN ---
Progress Note: A&P Assessment and Plan (1) Seizure: Code(s): R56.9 - Unspecified convulsions Status: Acute Assessment and Plan: Patient presented to the ED on 03/24/2022 with complains of altered mental status and right upper extremity flaccidity/weakness -on 03/25 early hours patient had multiple seizures lasting for approximately 30 seconds per neurologist -patient was transferred to the ICU for further management -03/25/2022: discussed with neurologist, Dr. Salguero at [facility] who recommended loading with Depacon 3000 mg IV x1 and then Depacon 1000 mg q.8 hours. Keppra 1 g q.6 hours IV and phenytoin 100 IV mg q.8 hours She also accepted patient in consult at [facility] -I spoke to Dr. Rosales, [facility] fellow, who accepted the patient to [facility] under Dr. Don Sam. -currently on Keppra 1 g q.6 hours IV, phenytoin 100 mg q.8 hours IV, Depacon 1000 mg q.8 hours IV -p.r.n. Ativan -012/05: discussed with neurologist, will add Vimpat 150 mg IV b.i.d. -continue seizure precautions -appreciate neurology evaluation and recommendation -03/25/2022 EEG showed focal structural lesion of the right hemisphere, seizure activity -ABGs are normal on 2 L nasal cannula -will monitor seizure activity closely if patient is unable to protect his airway, will intubated him 03/24/2022: Head CT Mild cerebellar and more prominent central and cortical cerebral atrophy. Chronic lacunar infarct right caudate nucleus.No acute intracranial finding 03/24/2022: Head and neck CTA showed Old lacunar infarct in right caudate nucleus.. Mild nonspecific cerebral white matter disease, which likely represents chronic small vessel ischemic disease.. No aneurysm or significant intracranial arterial stenosis.. 0% stenosis of the proximal internal carotid arteries relative to normal distal artery lumen diameters (NASCET criteria). Severe stenosis of proximal right vertebral artery.. Chronic sinusitis (2) Cerebrovascular accident: Code(s): I63.9 - Cerebral infarction, unspecified Status: Acute Assessment and Plan: History of CVA and recent herpes encephalitis (3) Liver transplant status: Code(s): Z94.4 - Liver transplant status Status: Chronic Assessment and Plan: History of liver transplant in 2007, on cyclosporine which will currently be on hold as patient unable to take p.o. due to mental status changes (4) Leukocytosis: Code(s): D72.829 - Elevated white blood cell count, unspecified Status: Acute Assessment and Plan: Patient with leukocytosis likely related to seizures and stress -WBC count trending down -UA is negative, chest x-ray on admission showed mild atelectasis versus scarring in the lower lung zones Plan DVT prophylaxis: Lovenox Stress ulcer prophylaxis: Protonix Nutrition: NPO for now 03/27/2022: Discussed with and updated her with patient's condition, plan of care. She is aware that patient has been accepted to [facility] ICU and will be transferred once bed is available. Code Status: Full code Critical Care Time Spent: 34 minutes Due to a high probability of clinically significant, life threatening deterioration, the patient required my highest level of preparedness to intervene emergently and I personally spent this critical care time directly and personally managing the patient. This critical care time included obtaining a history; examining the patient; pulse oximetry; ordering and review of studies; arranging urgent treatment with development of a management plan; evaluation of patient's response to treatment; frequent reassessment; and discussions with other providers. It was exclusive of separately billable procedures and treating other patients and teaching time. Please see Assessment and Plan section and the rest of the note for further information on patient assessment and treatment Subjective D
--- NOTE | 2022-03-28 14:45 | PC.NURSE ---
CBI INITIATED. ABLE TO REMOVE BLOOD CLOTS. NOW FLOWING READILY.
--- NOTE | 2022-03-28 16:10 | WPDURCON ---
Assessment and Plan Assessment and plan (1) Complication of Negron catheter: Code(s): T83.9XXA - Unspecified complication of genitourinary prosthetic device, implant and graft, initial encounter Status: Acute Assessment and Plan: At this point he has pulled his Negron catheter out twice with the balloon up. One time despite being restrained. I have no history of him not being able to void on his own. Apparently the Negron catheter was placed due to multiple seizures. At this point we may be causing more harm than good replacing the Negron catheter. All bleeding has stopped. I suggest allowing him to void on his own. If he is unable to void a 3 way catheter can be replaced, irrigated, and started on continuous bladder irrigation if necessary. In these situations most of the bleeding is generally prostatic or urethra and usually does not lead to clot retention. All active bleeding has currently stopped with pressure and he has been seen to void spontaneously. Plan discussed with the ICU nurses feel comfortable replacing the catheter if necessary. I would recommend periodic bladder scans if there is concerns about his emptying Urology Consult Note HPI Date Seen: 03/28/22 Requesting Physician: Marco Trotter MD Primary Care Provider: Maria L Benavides, PA Consult Narrative Narrative: Yonis Boone is a 61 year old male who is currently in the ICU. He has a seizure disorder as having multiple seizures. He had a Negron catheter in place. He pulled out his Negron today with the balloon up during 1 of his seizures. Negron catheter was replaced and he was restrained. CBI was started. They did irrigate out a few clots and the CBI ran fine. I came by to check on him. I walked in his room. There is a significant amount of water on the floor and blood on his sheets.. If I pull back the sheets. The 3 way Negron catheter was in his hand. It is unclear to me how long the catheter has been out at this point. He had some bleeding per meatus. I held pressure on the penis. The bleeding stopped. The nurses have witnessed him urinate since the catheter has been out. Review of Systems Review of Systems: ROS unobtainable: Yes unobtainable due to medical condition PMFSH Past Medical History Medical History Cerebrovascular accident (2011) Mild right sided weakness. Chronic obstructive pulmonary disease Depression Hepatitis C Status post liver transplant in 2007 followed by successful hepatitis C treatment in 2013. Herpes encephalitis Hyperlipidemia Irritable bowel syndrome Peripheral neuropathy Pneumonia due to 2019 novel coronavirus Renal failure Required dialysis before liver transplant. Seizures Surgical History Surgical History History of cholecystectomy History of liver transplant (2007) For cirrhosis and hepatitis C. Family History Family History Father Family history of heart disease in male family member before age 55 Mother Family history of liver disease Sibling Diabetes mellitus Social History Social History Social History: Surrogate decision maker: Elyse Boone, . Code status: Full code. Smoking packs per day: 1 Smoking cigarettes per day: 20.0 Years smoked: 23 Smoking pack-years: 23.00 Smoking status: Unknown if ever smoked Second hand tobacco smoke exposure: No Additional smoking assessment comments: Quit in 1997. Alcohol intake: never Alcohol use details: Quit in 1996. Substance use: never Additional living arrangements comments: Lives with , sister, [id number]. Additional occupation/education comments: Disabled. Spiritual care concerns: No Meds Home Medications and Allergies Home Medications Medication In
[2022-03-28] MEDS: KCL 40 MEQ/WATER 100 ML 100 ML 25 ML IVPB (21:53)
[2022-03-28 23:58] LABS: Glucose Point of Care 132 mg/dl (65-105)
[2022-03-29] VITALS (32 sets, daily range): BP systolic 78–216; BP diastolic 47–180; PULSE 67–151; RESP 14–33; TEMP 36.9–41.2; O2SAT 94–100; BMI 30.9
[2022-03-29] MEDS: PHENYTOIN SODIUM INJ 100 MG/2 ML VIAL (*BKC) IV PUSH ×3 (06:06→21:47)
[2022-03-29] MEDS: levETIRAcetam 1000MG/NACL100ML 1,000 MG/100 ML BAG 200 MG IVPB ×3 (06:07→17:59)
[2022-03-29] MEDS: CENTRAL LINE FLUSH 10 ML IV PUSH ×4 (06:07→21:49)
[2022-03-29 06:08] LABS: Hematocrit 33.4 % (42.0-52.0); Hemoglobin 11.9 g/dL (14.0-18.0); Mean Corpuscular HGB Conc 35.6 g/dl (32-36); Mean Corpuscular Hemoglobin 31.8 pg (26-34); Mean Corpuscular Volume 89.3 fl (80-100); Platelet Count Result 200 k/mm3 (150-375); Red Blood Count 3.74 M/mm3 (4.6-6.20); Red Cell Distribution Width 14.6 % (11.5-14.5); White Blood Count 21.9 K/mm3 (4.5-10.0)
[2022-03-29 06:30] LABS: Glucose Point of Care 174 mg/dl (65-105)
[2022-03-29 07:25] LABS: Alanine Aminotransferase 18 U/L (6-50); Albumin Level 3.8 g/dL (3.5-5.1); Alkaline Phosphatase 142 U/L (38-126); Anion Gap 8 mmol/L (8-16); Aspartate Amino Transferase 24 U/L (17-59); Bilirubin,Total 0.6 mg/dL (0.2-1.3); Blood Urea Nitrogen 5 mg/dL (9-20); Carbon Dioxide 26 mmol/L (22-30); Chloride 105 mmol/L (98-107); Estimated CRCL calculation 118 ml/min; Estimated Glomerular Filt Rate > 60; Glucose 149 mg/dL (65-110); Magnesium 1.5 mg/dL (1.6-2.3); Potassium 3.1 mmol/L (3.4-5.0); Sodium 139 mmol/L (137-145)
[2022-03-29 07:49] LABS: Alanine Aminotransferase 17 U/L (6-50); Albumin Level 3.5 g/dL (3.5-5.1); Alkaline Phosphatase 128 U/L (38-126); Anion Gap 9 mmol/L (8-16); Aspartate Amino Transferase 22 U/L (17-59); Bilirubin,Total 0.5 mg/dL (0.2-1.3); Blood Urea Nitrogen 6 mg/dL (9-20); Calcium 8.8 mg/dL (8.4-10.2); Carbon Dioxide 25 mmol/L (22-30); Chloride 105 mmol/L (98-107); Estimated CRCL calculation 136 ml/min; Estimated Glomerular Filt Rate > 60; Glucose 142 mg/dL (65-110); Phosphorus 2.3 mg/dL (2.5-4.5); Potassium 3.1 mmol/L (3.4-5.0); Sodium 139 mmol/L (137-145)
[2022-03-29] MEDS: PANTOPRAZOLE SODIUM IV 40 MG VIAL IV PUSH (08:04)
[2022-03-29] MEDS: SODIUM CHLORIDE 0.9% IVPB ×2 (09:30→21:34)
[2022-03-29] MEDS: LACOSAMIDE IVPB ×2 (09:30→21:34)
[2022-03-29] MEDS: MAGNESIUM SULF 2 GM/WATER 50ML 2 GM/50 ML BAG IVPB (10:48)
[2022-03-29] MEDS: KCL 40 MEQ/WATER 100 ML 100 ML 25 ML IVPB (10:51)
[2022-03-29 12:06] LABS: Glucose Point of Care 166 mg/dl (65-105)
[2022-03-29] MEDS: ETOMIDATE 20 MG/10 ML AMPUL IV PUSH (12:36)
[2022-03-29] MEDS: SUCCINYLCHOLINE CHLORIDE 20 MG/ML 10 ML VIAL 50 MG IV PUSH (12:37)
[2022-03-29] MEDS: PROPOFOL IV EMULSION 100 ML 3.02 MG IV CONT (12:45)
[2022-03-29 13:13] LABS: Triglycerides 189 mg/dL (<150)
--- NOTE | 2022-03-29 13:18 | WPDPROCEDUR ---
Procedures Intubation Intubation Date: 03/29/22 Intubation Time: 12:11 Consent: Consent obtained from patient's , Elyse who I discussed with on the phone as well as when she was here in person. A pre-procedural Time-Out was completed immediately before starting the procedure and confirmed: Patient Identification, Site, Procedure, Patient Position and the Availability of Requisite Equipment: Yes Sedative: etomidate Paralytic: rocuronium Laryngoscope: fiber optic video scope Assist device used: fiber optic device ET tube size: 8 Tube secured depth (cm): 25 Tube secured location: lips Tube placement confirmation: visualized tube passing through cords, equal breath sounds bilaterally, no breath sounds over epigastrium and confirmation by capnometry Patient tolerated procedure: well Intubation complications: none
--- NOTE | 2022-03-29 13:20 | WPDINTPN ---
Progress Note: A&P Assessment and Plan (1) Acute respiratory failure: Code(s): J96.00 - Acute respiratory failure, unspecified whether with hypoxia or hypercapnia Status: Acute Assessment and Plan: 03/29/2022: Patient using accessory muscles for respiration, increased work of breathing, febrile with leukocytosis, chest x-ray showed pneumonia which could be secondary to aspiration -it was decided to intubate the patient for airway protection -discussed with patient's Elyse was agreeable. -patient was uneventful, patient placed on mechanical ventilator, 50% FiO2 and peep of 5, maintain O2 sats greater than 92% -will sedated patient with propofol (2) Sepsis: Code(s): A41.9 - Sepsis, unspecified organism Status: Acute Assessment and Plan: Leukocytosis fevers could be related to pneumonia secondary to aspiration -patient started on Zosyn -03/29/2022 blood, urine, sputum cultures will be obtained Continue mechanical ventilation (3) Seizure: Code(s): R56.9 - Unspecified convulsions Status: Acute Assessment and Plan: Patient presented to the ED on 03/24/2022 with complains of altered mental status and right upper extremity flaccidity/weakness -on 03/25 early hours patient had multiple seizures lasting for approximately 30 seconds per neurologist -patient was transferred to the ICU for further management -03/25/2022: discussed with neurologist, Dr. Salguero at [facility] who recommended loading with Depacon 3000 mg IV x1 and then Depacon 1000 mg q.8 hours. Keppra 1 g q.6 hours IV and phenytoin 100 IV mg q.8 hours She also accepted patient in consult at [facility] -I spoke to [facility] Rosales, [facility] fellow, who accepted the patient to [facility] under Dr. Don Sam. -currently on Keppra 1 g q.6 hours IV, phenytoin 100 mg q.8 hours IV, Depacon 1000 mg q.8 hours IV -p.r.n. Ativan -012/05: added Vimpat 150 mg IV b.i.d. -continue seizure precautions -appreciate neurology evaluation and recommendation -03/25/2022 EEG showed focal structural lesion of the right hemisphere, seizure activity -ABGs are normal on 2 L nasal cannula -will monitor seizure activity closely if patient is unable to protect his airway, will intubated him 03/24/2022: Head CT Mild cerebellar and more prominent central and cortical cerebral atrophy. Chronic lacunar infarct right caudate nucleus.No acute intracranial finding 03/24/2022: Head and neck CTA showed Old lacunar infarct in right caudate nucleus.. Mild nonspecific cerebral white matter disease, which likely represents chronic small vessel ischemic disease.. No aneurysm or significant intracranial arterial stenosis.. 0% stenosis of the proximal internal carotid arteries relative to normal distal artery lumen diameters (NASCET criteria). Severe stenosis of proximal right vertebral artery.. Chronic sinusitis (4) Cerebrovascular accident: Code(s): I63.9 - Cerebral infarction, unspecified Status: Acute Assessment and Plan: History of CVA and recent herpes encephalitis (5) Liver transplant status: Code(s): Z94.4 - Liver transplant status Status: Chronic Assessment and Plan: History of liver transplant in 2007, on cyclosporine which will currently be on hold as patient unable to take p.o. due to mental status changes Plan DVT prophylaxis: Lovenox Stress ulcer prophylaxis: Protonix Nutrition: NPO for now 03/27/2022: Discussed with and updated her with patient's condition, plan of care. She is aware that patient has been accepted to [facility] ICU and will be transferred once bed is available. Code Status: Full code Critical Care Time Spent: 45 minutes Due to a high probability of clinically significant, life threatening deterioration, the patient required my highest level of preparedness to intervene emergently and I personally spent this critical care time
--- NOTE | 2022-03-29 13:26 | WPDUROPN2 ---
Progress Note: A&P Assessment and Plan (1) Acute respiratory failure: Code(s): J96.00 - Acute respiratory failure, unspecified whether with hypoxia or hypercapnia Status: Acute Assessment and Plan: D/T the need for intubation, a catheter will need to be replaced, but should be better tolerated d/t sedation. Please remove jewell before extubating so it is not pulled out again. Call urology for any other concerns. (2) Complication of Jewell catheter: Code(s): T83.9XXA - Unspecified complication of genitourinary prosthetic device, implant and graft, initial encounter Status: Acute Subjective Subjective Date/Time Seen: 03/29/22 13:26 Patient is being intubated and has had his jewell out since last night d/t pulling it out with balloon inflated twice. Dr. Way saw him and decided that leaving it out was best, since he had it in place for I&O purposes only. It was only to be replaced if he developed retention. Review of Systems Review of Systems: ROS unobtainable: Yes unobtainable due to endotracheal tube Exam Const: General: anxious Resp: Effort & Inspection: labored and tachypneic Cardio: Rate: tachycardic GI: GI Palp: Yes Soft to palpation and No Tenderness to palpation present (GI) : General: Yes no CVA tenderness Meatus: No Blood at meatus present Objective Data Vital Signs Vital Signs: Vital Signs - 24 hr 03/28/22 14:00 03/28/22 14:00 03/28/22 16:00 Temperature 99.9 F H Pulse Rate 130 H 130 H 130 H Respiratory Rate 25 H Blood Pressure 154/86 H Pulse Oximetry 95 Oxygen Delivery Oxygen Flow Rate Fraction of Inspired Oxygen 03/28/22 16:00 03/28/22 16:00 03/28/22 18:00 Temperature 100.7 F H Pulse Rate 130 H 130 H 133 H Respiratory Rate 28 H 28 H Blood Pressure 134/83 Pulse Oximetry 90 90 Oxygen Delivery Room Air Oxygen Flow Rate Fraction of Inspired Oxygen 03/28/22 18:00 03/28/22 20:00 03/28/22 20:00 Temperature 100.9 F H 98.8 F Pulse Rate 133 H 128 H Respiratory Rate 21 H 26 H Blood Pressure 152/82 H 129/76 Pulse Oximetry 94 95 Oxygen Delivery Room Air Oxygen Flow Rate Fraction of Inspired Oxygen 03/28/22 20:00 03/28/22 22:00 03/28/22 22:00 Temperature Pulse Rate 132 H 126 H 126 H Respiratory Rate 28 H Blood Pressure 129/76 Pulse Oximetry 95 Oxygen Delivery Oxygen Flow Rate Fraction of Inspired Oxygen 03/29/22 00:00 03/29/22 00:00 03/29/22 00:00 Temperature 98.6 F Pulse Rate 114 H 114 H Respiratory Rate 24 H Blood Pressure 116/72 Pulse Oximetry 100 100 Oxygen Delivery Nasal Cannula Oxygen Flow Rate 2 Fraction of Inspired Oxygen 03/29/22 02:00 03/29/22 02:00 03/29/22 04:00 Temperature 98.5 F Pulse Rate 126 H 126 H 124 H Respiratory Rate 30 H 25 H Blood Pressure 135/80 138/82 Pulse Oximetry 97 100 Oxygen Delivery Oxygen Flow Rate Fraction of Inspired Oxygen 03/29/22 04:00 03/29/22 04:00 03/29/22 06:00 Temperature Pulse Rate 126 H 91 Respiratory Rate 26 H Blood Pressure 126/64 Pulse Oximetry 99 97 Oxygen Delivery Nasal Cannula Oxygen Flow Rate 2 Fraction of Inspired Oxygen 03/29/22 06:00 03/29/22 06:30 03/29/22 08:00 Temperature 102.8 F H Pulse Rate 91 124 H Respiratory Rate Blood Pressure Pulse Oximetry Oxygen Delivery Oxygen Flow Rate Fraction of Inspired Oxygen 03/29/22 08:00 03/29/22 08:00 03/29/22 10:00 Temperature 100.6 F H Pulse Rate 124 H 124 H 122 H Respiratory Rate 25 H 25 H Blood Pressure 152/88 H Pulse Oximetry 97 97 Oxygen Delivery Nasal Cannula Oxygen Flow Rate 2 Fraction of Inspired Oxygen 03/29/22 10:00 03/29/22 12:30 03/29/22 12:00 Temperature Pulse Rate 122 H 130 H 131 H Respiratory Rate 25 H Blood Pressure 135/61 Pulse Oximetry 97 100 Oxygen Delivery Mechanical Ventilation Oxygen Flow Rate Fraction of Inspired Oxygen 5
[2022-03-29 13:30] LABS: Appearance Urine Cloudy (Clear); Bilirubin Urine Negative (Negative); Blood Urine 3+ (Negative); Color Urine Yellow (Yellow); Glucose Urine UA Negative (Negative); Ketones Urine 1+ mg/dL (Negative); Leukocyte Esterase Ur 1+ LEU/UL (NEGATIVE); Nitrate Urine Positive (Negative); Protein Urine 2+ mg/dL (Negative); Specific Grav Ur 1.025 (1.001-1.035); pH Urine 5.5 (5.0-9.0)
[2022-03-29 13:36] LABS: Mucus Urine Rare /lpf; RBC Urine >75 /hpf (0-2); WBC Urine >75 /hpf (0-3)
[2022-03-29 13:38] LABS: Add Urine Microscopic? YES
--- NOTE | 2022-03-29 13:50 | PC.NURSE ---
Patient noted to be significantly hyperthermic with core temperature of 104 degrees Fahrenheit via temp probe jewell. MH suspected due to recent administration of succinylcholine. Dr. Young notified and present at bedside. hotline consulted per Dr. Young. protocols followed as described below. Ice packs are applied to bilateral groin, underarms and neck. Mechanical Ventilator set to 20 RR/min with 100%FiO2 being administered. While cart is being obtained from PACU, pharmacy is consulted by Dr. Young and appropriate dantrolene dosage is established. Patient's OG and Jewell are irrigated with cool water and two liters of sodium chloride are cooled. No rigidity is noted in patient assessment. Propofol is increased to 40 mcg/kg/min per Dr. Young order. Anesthesia is notified and arrives to assist. Cooling blankets are applied. 252 mg Dantrolene is reconstituted with sterile water and administered via PICC line. Peripheral IV access is attempted but unsuccessful. Protocol labs are drawn and relayed to specialist per Dr. Young.
[2022-03-29 14:46] LABS: Hematocrit 31.4 % (42.0-52.0); Hemoglobin 10.8 g/dL (14.0-18.0)
[2022-03-29] MEDS: DANTROLENE SODIUM 20 MG VIAL 252 MG IV PUSH (14:47)
[2022-03-29 14:54] LABS: Potassium 3.4 mmol/L (3.4-5.0)
[2022-03-29 14:57] LABS: Alveolar/Arterial O2 Gradient 378.5 mmHg; Base Excess ABG -3.2 mEq/l (+/-2.0); Carboxyhemoglobin 0.1 % THb (0-2.0); Fractional Inspired Oxygen 100 %; HCO3 ABG 19.5 mEq/l (22.0-26.0); Methemoglobin ABG 0.5 %THb (0-1.5); Oxygen Content ABG 16.2 %vol (16.0-22.0); Oxygen Saturation ABG 99.7 % (95.0-100.0); Oxyhemoglobin 97.7 % THb (90.0-100.0); PCO2 ABG 28.1 mmHg (35.0-45.0); PO2 ABG 306.4 mmHg (80.0-100.0); PO2 FiO2 Ratio Arterial Blood 3.06 %; Reduced Hemoglobin 1.7 %THb (0-5.0); Total Hemoglobin 11.2 g/dL (12.0-18.0)
[2022-03-29 14:58] LABS: Arterial Blood Gas PEEP 5 cmH2O; Arterial Blood Gas Vent Mode CMV; Arterial Blood Gas Ventilator rate 20 /MIN; Device VENTILATOR; Site Drawn RIGHT BRACHIAL
[2022-03-29 14:59] LABS: Creatine Kinase 91 U/L (55-170); Phosphorus 1.8 mg/dL (2.5-4.5)
[2022-03-29 14:59] LABS: Arterial Blood Gas Tidal Volume 500 ml
[2022-03-29 15:11] LABS: Lactic Acid Reflex 4.6 mmol/L (0.7-2.0)
[2022-03-29] MEDS: NOREPINEPHRINE 8 MG/D5W 250 ML 8 MG/250 ML BAG 37.5 MG IV CONT (15:25)
[2022-03-29 15:40] LABS: INR 1.5; Prothrombin Time 17.5 Seconds (11.1-14.7)
--- NOTE | 2022-03-29 16:25 | P.PCNBED_ITS ---
Procedures Central Line Placement Right IJ: Central Line Date: 03/29/22 Central Line Time: 16:05 The patient/family/POA understand(s) and acknowledge(s) the need to proceed with central venous catheter insertion as an important element of the patient's clinical management.: Yes Consent: I have discussed with the patient and/or surrogate, the non-emergent placement o f a central venous catheter, including its clinical necessity/indication and associated potential risks and complications. The patient and/or surrogate understand(s) and acknowledge(s) the need to proceed with central venous catheter insertion as an important element of the patient's clinical management. Time Out Performed: Yes Patient Position: supine Patient placed on monitor/pulse ox: Yes Provider Prep: mask, sterile gown, sterile gloves, Max. sterile barrier precautions, cap and hand hygiene with conventional soap/water or alcohol based hand rub Central line prep: 2% Chlorhexidine scrub Local anesthesia used: lidocaine 1% Amount of anesthesia used (ml): 2 Sterile US Technique with sterile gel/sterile probe covers: Yes Zambian: 12 Length (cm): 16 Depth of Insertion (cm): 16 Post Procedure: sutured in place, good blood return, all ports aspirated, flushed, capped, transparent dressing, hemostatic product, antimicrobial product, securement product and aseptic technique maintained throughout procedure Post procedure x-ray: tip of catheter in good position and no pneumothorax seen Patient tolerated procedure: well Complications: none
--- NOTE | 2022-03-29 16:27 | P.PCNBED_ITS ---
Procedures Arterial Line Arterial Line Date: 03/29/22 Arterial Line Time: 16:25 Discussed with the patient/family/POA, the placement of an arterial catheter, including its clinical necessity/indication and associated potential risks, benefits and alternatives.: Yes Patient/family/POA and/or understands and acknowledges the need to proceed with the arterial catheter insertion as an important element of the patient's clinical management.: Yes Perfomed Emergently - Given emergent patient conditions, temporal constraints may have precluded informed consent: Yes Time Out Performed: Yes Patient Position: supine Funds Development Director Prep: sterile gown, sterile gloves, mask and hat Site: right and femoral Site Prep: chlorhexidine and sterile drape Skin Anesthesia: none Technique used: ultrasound-guided Size (Gauge): 14 Length: 12 cm Closure/Dressing: suture, transparent dressing, hemostatic product, antimicrobial product and securement product Patient tolerated procedure: well Complications: none
--- NOTE | 2022-03-29 16:28 | P.PNCROSS_ITS ---
Event Note Event Note Event Note: Patient was intubated using succinylcholine, approximately 2 hours after which he started developing high fevers of 104? F and 105? F. Patient did not have any rigidity, urine output was clear. Systolic blood pressures are between 180s to 210 mmHg, heart rates were in the 130s to 150s. Diagnosis of malignant hyperthermia was made based on the above, patient did not have any labs drawn as yet. -malignant hypothermia protocol was followed, -patient was quickly given dantrolene 2.5 milligrams/kilograms -I discussed with anesthesiologist to give me the number for [facility] [phone] ([facility]) -I called [facility], discussed with Dr. Larios, cell [phone] from [facility]. His assistance was greatly appreciated, I discussed with him at length regarding our protocol for malignant hyperthermia, he wanted me to check potassium levels q.1 hour for at least 2-4 hours, CK levels every 6 hours for the next 24 hours. Cold isotonic fluid infusion to bring down the temperature. Check EKG and ABGs. If end-tidal CO2 goes above 50-55, re-dose dantrolene 1 mg/kg. Side effects of dantrolene are weakness, loss morning diuresis and volume depletion. -dantrolene was administered, patient's blood pressure and heart rates came down significantly. Patient has been placed on cooling blanket, cold IV fluids were infused. Patient is temperature is a down to 101? F. Plan: Monitor BMP potassium levels, CK levels, will monitor end-tidal CO2 -watch for osmotic diuresis and volume depletion -may require additional isotonic IV fluids -Check ABGs -check EKG
--- NOTE | 2022-03-29 16:36 | ECG_ITS ---
Measurements Intervals [place] Rate: 79 P: DE: 0 QRS: 35 QRSD: 118 T: 134 QT: 384 QTc: 442 Interpretive Statements SINUS RHYTHM WITH BASELINE ARTIFACT LOW QRS VOLTAGE IN EXTREMITY LEADS [QRS DEFLECTION < 0.5 mV IN LIMB LEADS] MODERATE T-WAVE ABNORMALITY, CONSIDER ANTERIOR ISCHEMIA [-0.1+ mV T WAVE IN V3/V4] MODERATE T-WAVE ABNORMALITY, CONSIDER INFERIOR ISCHEMIA [-0.1+ mV T WAVE IN II/aVF] COMPARED TO ECG 03/24/2022 09:39:36 ATRIAL FLUTTER NOW PRESENT Electronically Signed On 03-30-2022 14:48:56 [employer] by Frandy Graves M.D.
[2022-03-29 16:56] LABS: Glucose Point of Care 166 mg/dl (65-105)
[2022-03-29 17:42] LABS: Reflex Lactic Acid Yes or No Add Lactic
[2022-03-29 17:48] LABS: Glucose Point of Care 154 mg/dl (65-105)
[2022-03-29] MEDS: DEXTROSE 5%/0.9% SOD CHL 1,000 ML 75 ML IV CONT (17:52)
[2022-03-29 18:24] LABS: Anion Gap 7 mmol/L (8-16); Blood Urea Nitrogen 6 mg/dL (9-20); Calcium 7.8 mg/dL (8.4-10.2); Carbon Dioxide 18 mmol/L (22-30); Chloride 106 mmol/L (98-107); Estimated CRCL calculation 118 ml/min; Estimated Glomerular Filt Rate > 60; Glucose 179 mg/dL (65-110); Lactic Acid 1.7 mmol/L (0.7-2.0); Sodium 131 mmol/L (137-145)
[2022-03-29 19:34] LABS: Prolactin 13.1 ng/mL (***)
[2022-03-29 21:11] LABS: Alveolar/Arterial O2 Gradient 360.4 mmHg; Base Excess ABG -4.3 mEq/l (+/-2.0); Carboxyhemoglobin 0.2 % THb (0-2.0); Fractional Inspired Oxygen 100 %; HCO3 ABG 19.2 mEq/l (22.0-26.0); Methemoglobin ABG 0.5 %THb (0-1.5); Oxygen Content ABG 18.3 %vol (16.0-22.0); Oxygen Saturation ABG 99.7 % (95.0-100.0); PCO2 ABG 30.5 mmHg (35.0-45.0); PO2 ABG 322.1 mmHg (80.0-100.0); PO2 FiO2 Ratio Arterial Blood 3.22 %; Reduced Hemoglobin 1.3 %THb (0-5.0); Total Hemoglobin 12.7 g/dL (12.0-18.0); pH ABG 7.416 (7.350-7.450)
[2022-03-29 21:13] LABS: Arterial Blood Gas Vent Mode CMV; Arterial Blood Gas Ventilator rate 20 /MIN; Device VENTILATOR; Site Drawn ARTLINE
[2022-03-29 21:14] LABS: Arterial Blood Gas PEEP 5 cmH2O; Arterial Blood Gas Tidal Volume 500 ml
--- NOTE | 2022-03-29 21:16 | PM.CNGS ---
Assessment and Plan Assessment and plan (1) Abnormal chest x-ray: Code(s): R93.89 - Abnormal findings on diagnostic imaging of other specified body structures Status: Acute Assessment and Plan: This was the main reason that I came to see the patient. However, sorting through the situation it appeared that there is not a left-sided pneumothorax. Therefore, no chest tube was placed. After I came to attend to the patient I carefully examined his chest x-ray that was portable. I was unable to see a pneumothorax. We then found the reading of the x-ray to check which side it there was a possible pneumothorax and it was suspected on the left. Patient had not had any procedures on the left neck or left chest therefore I was suspicious that perhaps this was a artifact. I therefore went to Radiology and reviewed the x-ray with Dr. Arredondo by Teleradiology. We agreed that this was only possible and what could help determine it better would be a right lateral decubitus chest x-ray. This was subsequently done and then I would again discuss the situation with Dr. Arredondo He then did not believe there was any left pneumothorax now based on the new good right lateral decubitus view.. Also the patient's vital signs have been stable through this process & he has been having an O2 sat at 100%. However his FiO2 is 100%. I did call Dr. Young our complex manager. We discussed the situation and have decided not to place a chest tube. The nurses have an order that if the patient as a sudden change in vital signs or sudden desat that they can order a stat chest x-ray and any time then contact 1 of us. Also we may plan if patient is stable to proceed with a chest CT to definitively decide if there is any sign of a small pneumothorax in a.m. tomorrow 03/30/2022. (2) Acute respiratory failure: Code(s): J96.00 - Acute respiratory failure, unspecified whether with hypoxia or hypercapnia Status: Acute Assessment and Plan: On mechanical ventilation see complex manager note (3) Intractable epilepsy: Code(s): G40.919 - Epilepsy, unspecified, intractable, without status epilepticus Status: Acute Assessment and Plan: on multiple drugs to suppress these. (4) Leukocytosis: Code(s): D72.829 - Elevated white blood cell count, unspecified Status: Acute Assessment and Plan: Possibly related to pneumonia or other unknown etiology. (5) Breakthrough seizure: Code(s): G40.919 - Epilepsy, unspecified, intractable, without status epilepticus Status: Acute Assessment and Plan: Neurology is on consultation. (6) Liver transplant recipient: Code(s): Z94.4 - Liver transplant status Status: Acute History of Present Illness Consult details Consult date: 03/29/22 Reason for consult: other (Suspected left pneumothorax) Requesting physician: Golden Young MD Narrative: At approximately 1946 this date I was called to attend to this patient because a chest x-ray had just been completed which was read as possible small to moderate size left pneumothorax. The patient is on mechanical ventilation after being intubated earlier today due to worsening respiratory condition. A right-sided IJ central line was also placed at that time. Chest x-ray after those procedures was unremarkable for pneumothorax. It did show lines in appropriate position and some infiltrates in the lungs. When I came to the ICU and inspected the single anterior portable view of the chest I could not see a definite left pneumothorax. Lung markings look like they went clear to the rib margins. Part of the reason for the chest x-ray now was apparent deviation of the trachea toward the right. However, the patient has been having seizures on and off for the last several days. Because of the above I went to Radiology to try to review the x-ray with the radiologist. Our local radiologist were all ou
[2022-03-29] MEDS: NOREPINEPHRINE 8 MG/D5W 250 ML 8 MG/250 ML BAG 41.25 MG IV CONT (21:45)
[2022-03-29] MEDS: MINERAL OIL/WHITE PETROLATUM OINTMENT 1 APPLIC EACH EYE (21:46)
[2022-03-30] VITALS (45 sets, daily range): BP systolic 85–143; BP diastolic 45–112; PULSE 66–88; RESP 18–23; TEMP 37.1–37.7; O2SAT 100; BMI 32.7
--- NOTE | 2022-03-30 | ECHO_ITS ---
Patient Info Name: Yonis Boone Age: 61 years : 1960 Gender: Male Ht: 71 in Wt: 234 lbs BSA: 2.34 m2 HR: 78 bpm BP: 129 / 67 mmHg Heart Rhythm: Indeterminant Exam Date: 03/30/2022 10:14 AM Exam Location: [facility] Patient Status: Inpatient Admit Date: 03/25/2022 Staff Ordering Physician: Golden Young MD Wordpress Developer: Doris Mijares RDCS Attending Provider: Marco Trotter MD Exam Type: CA echo dop color flow w con Study Info Indications - WEAKNESS, SEIZURE, SHOCK Complete two-dimensional, color flow and Doppler transthoracic echocardiogram is performed with contrast to opacify the left ventricle and to improve the deliniation of the left ventricle endocardial borders. Contrast/Agitated Saline Contrast/Ag. Saline: Definity Amount: 3.00 ml Administered By: Doris Mijares RDCS Existing IV Access: Yes IV Access Condition: patent with no signs of infiltration Summary 1. Technically difficult study with limited views. 2. Left ventricular systolic function is normal, estimated at 50-55%. 3. The left ventricular diastolic function is grade I diastolic dysfunction. 4. Right ventricular systolic function is reduced. 5. No significant valvular disease noted. Left Ventricle Left ventricular chamber dimension is normal. Left ventricular systolic function is normal, estimated at 50-55%. The left ventricular diastolic function is grade I diastolic dysfunction. Right Ventricle Right ventricular chamber dimension is normal. Right ventricular systolic function is reduced. Left Atria Left atrial chamber dimension is normal. Right Atria Right atrial chamber dimension is normal. Aortic Valve The aortic valve is probable trileaflet. There is no aortic valve stenosis. There is no aortic valve regurgitation. Pulmonic Valve The pulmonic valve is not well visualized. Mitral Valve The mitral valve has thickened leaflets. There is no mitral valve stenosis. There is trace mitral valve regurgitation. The mitral valve annulus is mildly calcified. Tricuspid Valve The tricuspid valve leaflets are normal. There is no significant tricuspid valve stenosis. There is trace tricuspid valve regurgitation. Pericardium/Pleural There is no pericardial effusion. Aorta The aortic root size at the sinus of Valsalva is normal. Left Ventricular Outflow Tract Name Value Normal LVOT 2D LVOT Diameter 1.99 cm LVOT Doppler LVOT Peak Gradient 2 mmHg LVOT Mean Gradient 1 mmHg LVOT VTI 10.05 cm LVOT VTI/AV VTI Ratio 0.74 LVOT Stroke Volume 31.31 ml LVOT CO 2.41 l/min LVOT CI 1.03 L/min/m2 Pulmonic Valve Name Value Normal RVOT Doppler ------
[2022-03-30] MEDS: levETIRAcetam 1000MG/NACL100ML 1,000 MG/100 ML BAG 200 MG IVPB ×5 (00:09→23:56)
[2022-03-30 00:17] LABS: Glucose Point of Care 237 mg/dl (65-105)
[2022-03-30] MEDS: PROPOFOL IV EMULSION 100 ML 6.05 MG IV CONT (00:17)
[2022-03-30] MEDS: INSULIN ASPART (*BKC) 100 UNITS/ML SUB-Q (00:20)
[2022-03-30] MEDS: NOREPINEPHRINE 8 MG/D5W 250 ML 8 MG/250 ML BAG 41.25 MG IV CONT (03:00)
[2022-03-30 04:53] LABS: Glucose Point of Care 172 mg/dl (65-105)
[2022-03-30] MEDS: PHENYTOIN SODIUM INJ 100 MG/2 ML VIAL (*BKC) IV PUSH ×3 (05:34→21:47)
[2022-03-30] MEDS: CENTRAL LINE FLUSH 10 ML IV PUSH ×7 (05:34→21:47)
[2022-03-30 05:37] LABS: Alveolar/Arterial O2 Gradient 132.7 mmHg; Base Excess ABG -3.3 mEq/l (+/-2.0); Carboxyhemoglobin 0.2 % THb (0-2.0); Fractional Inspired Oxygen 40 %; HCO3 ABG 18.3 mEq/l (22.0-26.0); Methemoglobin ABG 0.3 %THb (0-1.5); Oxygen Content ABG 16.7 %vol (16.0-22.0); Oxygen Saturation ABG 98.8 % (95.0-100.0); Oxyhemoglobin 97.1 % THb (90.0-100.0); PO2 ABG 125.1 mmHg (80.0-100.0); PO2 FiO2 Ratio Arterial Blood 3.13 %; Reduced Hemoglobin 2.4 %THb (0-5.0); Total Hemoglobin 12.1 g/dL (12.0-18.0)
[2022-03-30 05:41] LABS: pH ABG 7.503 (7.350-7.450)
[2022-03-30 05:42] LABS: Device VENTILATOR; Modified Allen's Test Pass; PCO2 ABG 23.8 mmHg (35.0-45.0); Site Drawn LEFT RADIAL
[2022-03-30 05:43] LABS: Arterial Blood Gas PEEP 5 cmH2O; Arterial Blood Gas Tidal Volume 500 ml; Arterial Blood Gas Vent Mode CMV; Arterial Blood Gas Ventilator rate 20 /MIN
[2022-03-30 05:46] LABS: Hematocrit 29.3 % (42.0-52.0); Hemoglobin 10.6 g/dL (14.0-18.0); Mean Corpuscular HGB Conc 36.2 g/dl (32-36); Mean Corpuscular Volume 85.7 fl (80-100); Platelet Count Result 173 k/mm3 (150-375); Red Blood Count 3.42 M/mm3 (4.6-6.20); Red Cell Distribution Width 13.9 % (11.5-14.5); White Blood Count 25.5 K/mm3 (4.5-10.0)
[2022-03-30 05:56] LABS: Lactic Acid Reflex 2.1 mmol/L (0.7-2.0)
[2022-03-30 05:57] LABS: INR 1.5; Prothrombin Time 17.8 Seconds (11.1-14.7)
[2022-03-30 05:58] LABS: Partial Thromboplastin Time 33.4 SECONDS (22.3-36.8)
[2022-03-30 06:01] LABS: Alanine Aminotransferase 17 U/L (6-50); Albumin Level 2.8 g/dL (3.5-5.1); Alkaline Phosphatase 98 U/L (38-126); Anion Gap 6 mmol/L (8-16); Aspartate Amino Transferase 26 U/L (17-59); Bilirubin,Total 0.4 mg/dL (0.2-1.3); Blood Urea Nitrogen 6 mg/dL (9-20); Calcium 8.1 mg/dL (8.4-10.2); Carbon Dioxide 20 mmol/L (22-30); Chloride 107 mmol/L (98-107); Creatine Kinase 205 U/L (55-170); Estimated CRCL calculation 136 ml/min; Estimated Glomerular Filt Rate > 60; Glucose 179 mg/dL (65-110); Magnesium 1.8 mg/dL (1.6-2.3); Phosphorus 1.1 mg/dL (2.5-4.5); Potassium 2.4 mmol/L (3.4-5.0); Sodium 133 mmol/L (137-145)
[2022-03-30] MEDS: POTASSIUM CHLORIDE 20 MEQ PACKET (FOR LIQUID) 40 MEQ FEED TUBE (06:31)
[2022-03-30 07:34] LABS: Band Neutrophils Percent 35 % (0-6); Lymphocytes Absolute Manual 2.55 K/mm3 (1.1-4.5); Metamyelocytes Percent 3 %; Neutrophils Absolute Manual 22.18 K/mm3 (1.3-6.7); Neutrophils Percent Manual 52 % (46-73); Platelet Estimate Adequate (Adequate); Total Cells Counted 100
[2022-03-30 07:36] LABS: Burr Cells 1+ (NORMAL); Poikilocytosis 1+ (NORMAL); Schistocytes None Seen (NORMAL)
[2022-03-30] MEDS: KCL 40 MEQ/WATER 100 ML 100 ML 25 ML IVPB ×2 (07:54→15:33)
[2022-03-30 08:41] LABS: Reflex Lactic Acid Yes or No Add Lactic
[2022-03-30] MEDS: MINERAL OIL/WHITE PETROLATUM OINTMENT 1 APPLIC EACH EYE ×2 (09:12→20:42)
[2022-03-30] MEDS: POTASSIUM/PHOSPHORUS/SODIUM 1.5 GM PACKET 1 PACKET PO ×2 (09:12→15:33)
[2022-03-30] MEDS: LACOSAMIDE IVPB ×2 (09:12→20:42)
[2022-03-30] MEDS: PANTOPRAZOLE SODIUM IV 40 MG VIAL IV PUSH (09:12)
[2022-03-30] MEDS: SODIUM CHLORIDE 0.9% IVPB ×2 (09:12→20:42)
[2022-03-30] MEDS: NOREPINEPHRINE 8 MG/D5W 250 ML 8 MG/250 ML BAG 33.75 MG IV CONT ×2 (09:30→16:35)
[2022-03-30 09:45] LABS: Lactic Acid 2.2 mmol/L (0.7-2.0)
--- NOTE | 2022-03-30 10:52 | WPDNEURCNPN ---
Assessment and Plan Assessment and plan (1) Intractable epilepsy: Code(s): G40.919 - Epilepsy, unspecified, intractable, without status epilepticus Status: Acute (2) Acute respiratory failure: Code(s): J96.00 - Acute respiratory failure, unspecified whether with hypoxia or hypercapnia Status: Acute (3) Liver transplant status: Code(s): Z94.4 - Liver transplant status Status: Chronic (4) Malignant hyperthermia: Code(s): T88.3XXA - Malignant hyperthermia due to anesthesia, initial encounter Status: Acute Plan Yonis Boone is a 61 year old male with a history of HSV encephalitis, epilepsy, and hepatic transplant who initially presented on 03/24 due to altered mental status and weakness of the right side, found to have frequent breakthrough seizures, consistent with epilepsia partialis continua. He is currently on three antiseizure medications and being sedated with propofol. - Obtain routine EEG to evaluate for subclinical seizures - Continue VPA 1g q8hrs, Keppra 1g q6hrs, Phenytoin 100mg q8hrs - Increase Lacosamide to 200mg BID - Can adjust propofol to optimize seizure control - Patient is awaiting transfer to [facility] Neuro ICU - Will need MRI brain when stable Consult date: 03/30/22 Time Seen: 10:52 Reason for consult: Seizure HPI: Yonis Boone is a 61 year old male with a history of HSV encephalitis, epilepsy, and hepatic transplant who initially presented on 03/24 due to altered mental status and weakness of the right side. Patient was being evaluated by physical therapy on the day of admission and they noted that his right side was weak. He was brought to [facility] ED where he appeared encephalopathic, unable to follow commands, and difficulty speaking. He had a CT head which was negative. CTA showed no thrombus but did show severe stenosis of proximal R vertebral artery. There were concerns that patient may have aspirated the night before admission due to cough and hypoxia so he was admitted for treatment of possible aspiration pneumonia. The following day, patient had multiple seizures involving the right upper extremity. Case was discussed with Neuro ICU attending at [facility] hospital. He was loaded with VPA 3g once and started on maintenance VPA 1g q8hrs, Keppra 1g q6hrs, fosphenytoin 100mg q8hrs. He was also accepted for transfer, but is waiting on a bed. He had an EEG done on 03/25 that showed diffuse slowing as well as generalized polyspike and slow wave discharges. He has had intermittent seizures of RUE twitching during the admission. On 03/28, he was restarted on Lacosamide 150mg BID. Patient developed fever and leukocytosis yesterday so he was subsequently intubated. After intubated he had high fevers, with hypertension and tachycardia. He was started on treatment for malignant hyperthermia. ICU team mentioned this morning some concerns for ongoing seizure like activity as noted by artifact seen on telemetry as well as intermittent piloerection. Review of Systems Review of Systems: ROS unobtainable: Yes unobtainable due to endotracheal tube and unobtainable due to mental status PMFSH Past Medical History Medical History Cerebrovascular accident (2011) Mild right sided weakness. Chronic obstructive pulmonary disease Depression Hepatitis C Status post liver transplant in 2007 followed by successful hepatitis C treatment in 2013. Herpes encephalitis Hyperlipidemia Irritable bowel syndrome Peripheral neuropathy Pneumonia due to 2019 novel coronavirus Renal failure Required dialysis before liver transplant. Seizures Surgical History Surgical History History of cholecystectomy History of liver transplant (2007) For cirrhosis and hepatitis C. Family History Family History Father Family history of heart disease i
[2022-03-30] MEDS: ALTEPLASE 2 MG VIAL (CATHFLO) IV PUSH ×2 (11:15→11:16)
[2022-03-30] MEDS: PERFLUTREN LIPID MICROSPHERES 1.5 ML VIAL DILUTED TO 10 ML TOTAL VOLUME IV PUSH (11:30)
--- NOTE | 2022-03-30 11:43 | PCFNICU ---
ICU Rounding Note: Pt current nutrition is Vital AF 1.2 at 20 ml/hr. Last recorded weight is 106.5 kg. Bowel Motility: +BM reported 03/28 Labs Reviewed:PO4 1.1,Na 133, K 2.4,BUN 6, Glu 179, Alb 2.8 Meds Noted:Zosyn, Vancomycin, Keppra,Levophed, Propofol 9.07 ml/oq=259 kcals,Protonix Skin: WNL Additional Notes:Patient remains on mechanical vent. Starting on tube feedings of Vital AF 1.2 at 20 ml/hr advance by 10 ml q 4 hours to goal rate of 65 ml/hr. Flush 30 ml q 4 hours. Agree with diet orders at this time. Will continue to monitor propofol infusion for any tube feeding rate recommendations. Monitoring: Will monitor daily in ICU rounds as reassessing every Monday and Monday.
[2022-03-30] MEDS: DEXTROSE 5%/0.9% SOD CHL 1,000 ML 75 ML IV CONT (11:54)
--- NOTE | 2022-03-30 12:43 | WPDINTPN ---
Progress Note: A&P Assessment and Plan (1) Acute respiratory failure: Code(s): J96.00 - Acute respiratory failure, unspecified whether with hypoxia or hypercapnia Status: Acute Assessment and Plan: 03/29/2022: Patient using accessory muscles for respiration, increased work of breathing, febrile with leukocytosis, chest x-ray showed pneumonia which could be secondary to aspiration intubated for airway protection - 03/29: Intubated for airway protection, after discussing with patient's Elyse -currently on CMV mode of ventilation, peep of 5, 40% FiO2 - Chest x-ray on 03/29 evening showed deviation of the trachea and possible left pneumothorax, surgery was consulted who did not feel there was a pneumothorax, and a supine lateral chest x-ray was repeated which did not show any pneumothorax. Patient was stable on mechanical ventilation and not requiring more oxygen. -continue Zosyn and vancomycin which was started on 03/29/2022 -sedated with propofol -ABGs reviewed, ventilator adjusted -03/30/2022 CT chest/abdomen/pelvis: Elevation the right hemidiaphragm with atelectasis at the bilateral lung bases, right greater than left. 2. No pneumothorax or other acute cardiopulmonary disease. 3. Nasogastric tube tip at the gastric pylorus and would consider withdrawal by [address] the distal tip at the gastric antrum. 4. Bladder wall thickening with surrounding inflammatory stranding and trace amount of likely reactive free fluid in the pelvis suggestive of cystitis. (2) Septic shock: Code(s): A41.9 - Sepsis, unspecified organism; R65.21 - Severe sepsis with septic shock Status: Acute Assessment and Plan: Leukocytosis, fevers could be related to pneumonia secondary to aspiration -continue antibiotics as above -03/29/2022 blood, cultures negative x2 preliminary report -03/29/2022 sputum and urine cultures are pending -leukocytosis trending up -lactic acid of 2.2 -patient remains on Levophed, maintain MAP > 65 mmHg (3) Malignant hyperthermia: Code(s): T88.3XXA - Malignant hyperthermia due to anesthesia, initial encounter Status: Acute Assessment and Plan: Patient received succinylcholine for rapid sequence intubation, thereafter developed fevers of 104 and 105? F, patient was tachycardic and hypertensive. No rigidity -likely cause was malignant hypertension, I called [facility] [place] ([facility]), discussed with Dr. Larios, please see my note of 03/29/2022 -patient was given dantrolene with improvement in hypertension, heart rate in fevers -CK levels, potassium within normal limits (4) Seizure: Code(s): R56.9 - Unspecified convulsions Status: Acute Assessment and Plan: Patient presented to the ED on 03/24/2022 with complains of altered mental status and right upper extremity flaccidity/weakness -on 03/25 early hours patient had multiple seizures lasting for approximately 30 seconds per neurologist -patient was transferred to the ICU for further management -03/25/2022: discussed with neurologist, Dr. Salguero at [facility] who recommended loading with Depacon 3000 mg IV x1 and then Depacon 1000 mg q.8 hours. Keppra 1 g q.6 hours IV and phenytoin 100 IV mg q.8 hours She also accepted patient in consult at [facility] -I spoke to Dr. Rosales, [facility] fellow, who accepted the patient to [facility] under Dr. Don Sam. -currently on Keppra 1 g q.6 hours IV, phenytoin 100 mg q.8 hours IV, Depacon 1000 mg q.8 hours IV -p.r.n. Ativan -: added Vimpat 150 mg IV b.i.d. 03/30: Discussed with neurology will increase Vimpat to 200 mg IV b.i.d. -continue seizure precautions -appreciate neurology evaluation and recommendation -03/25/2022 EEG showed focal structural lesion of the right hemisphere, seizure activity 03/24/2022: Head CT Mild cerebellar and more prominent central and cortical cerebral atrophy. Chroni
[2022-03-30 12:44] LABS: Glucose Point of Care 179 mg/dl (65-105)
[2022-03-30] MEDS: PROPOFOL IV EMULSION 100 ML 9.07 MG IV CONT ×2 (12:51→23:00)
--- NOTE | 2022-03-30 14:22 | WPDNEUROLOGY ---
Neurology EEG Report General Information Date of Study: 03/30/22 TEST Routine EEG DIAGNOSIS Intractable epilepsy CONDITION OF RECORDING Sedated EEG NUMBER [id number] CLINICAL HISTORY Patient with a history of intractable epilepsy. Now having abnormal movements concerning for possible breakthrough seizures while sedated. This is a repeat EEG. EEG DESCRIPTION No posterior dominant rhythm is noted. There is no anterior-posterior gradient. The background consists of mostly generalized, delta and theta range activity with occasional, superimposed fast activity. There are no significant asymmetries within the background. Normal sleep architecture is not present. There are no epileptiform features or electrographic seizures during the course of the recording. Activation procedures could not be performed due to patient's clinical status. IMPRESSION This is an abnormal routine EEG due to the presence of diffuse slowing. This finding can be seen in the setting of encephalopathy. There are no epileptiform discharges or electrographic seizures. Clinical correlation is recommended.
[2022-03-30 14:40] LABS: Potassium 3.2 mmol/L (3.4-5.0)
[2022-03-30 14:47] LABS: Anion Gap 4 mmol/L (8-16); Blood Urea Nitrogen 7 mg/dL (9-20); Calcium 7.5 mg/dL (8.4-10.2); Carbon Dioxide 22 mmol/L (22-30); Chloride 107 mmol/L (98-107); Creatine Kinase 193 U/L (55-170); Estimated CRCL calculation 122 ml/min; Estimated Glomerular Filt Rate > 60; Glucose 180 mg/dL (65-110); Phosphorus 1.4 mg/dL (2.5-4.5); Sodium 133 mmol/L (137-145)
[2022-03-30 18:03] LABS: Glucose Point of Care 158 mg/dl (65-105)
[2022-03-31] VITALS (38 sets, daily range): BP systolic 81–149; BP diastolic 41–80; PULSE 72–105; RESP 18–27; TEMP 36.6–38.3; O2SAT 94–100
[2022-03-31 00:04] LABS: Glucose Point of Care 196 mg/dl (65-105)
[2022-03-31] MEDS: DEXTROSE 5%/0.9% SOD CHL 1,000 ML 75 ML IV CONT (01:39)
[2022-03-31] MEDS: NOREPINEPHRINE 8 MG/D5W 250 ML 8 MG/250 ML BAG 20.63 MG IV CONT (01:39)
[2022-03-31 04:54] LABS: Alveolar/Arterial O2 Gradient 48.7 mmHg; Carboxyhemoglobin 0.3 % THb (0-2.0); Device VENTILATOR; Fractional Inspired Oxygen 30 %; HCO3 ABG 17.8 mEq/l (22.0-26.0); Methemoglobin ABG 0.4 %THb (0-1.5); Oxygen Saturation ABG 98.6 % (95.0-100.0); Oxyhemoglobin 97.3 % THb (90.0-100.0); PCO2 ABG 30.9 mmHg (35.0-45.0); PO2 ABG 128.9 mmHg (80.0-100.0); Site Drawn ARTLINE; pH ABG 7.378 (7.350-7.450)
[2022-03-31 04:55] LABS: Arterial Blood Gas PEEP 5 cmH2O; Arterial Blood Gas Tidal Volume 500 ml; Arterial Blood Gas Vent Mode CMV; Arterial Blood Gas Ventilator rate 18 /MIN
[2022-03-31] MEDS: levETIRAcetam 1000MG/NACL100ML 1,000 MG/100 ML BAG 200 MG IVPB ×4 (06:00→23:46)
[2022-03-31] MEDS: PHENYTOIN SODIUM INJ 100 MG/2 ML VIAL (*BKC) IV PUSH ×3 (06:00→21:23)
[2022-03-31] MEDS: CENTRAL LINE FLUSH 10 ML IV PUSH ×7 (06:01→21:24)
[2022-03-31 06:10] LABS: Hematocrit 26.6 % (42.0-52.0); Hemoglobin 9.3 g/dL (14.0-18.0); Mean Corpuscular Hemoglobin 30.8 pg (26-34); Mean Corpuscular Volume 88.1 fl (80-100); Mean Platelet Volume 9.9 fl (7.4-10.4); Platelet Count Result 119 k/mm3 (150-375); Red Blood Count 3.02 M/mm3 (4.6-6.20); Red Cell Distribution Width 14.8 % (11.5-14.5); White Blood Count 17.5 K/mm3 (4.5-10.0)
[2022-03-31 06:19] LABS: INR 1.3; Prothrombin Time 15.5 Seconds (11.1-14.7)
[2022-03-31 06:20] LABS: Lactic Acid Reflex 1.7 mmol/L (0.7-2.0); Partial Thromboplastin Time 37.2 SECONDS (22.3-36.8)
[2022-03-31 06:22] LABS: Alanine Aminotransferase 17 U/L (6-50); Albumin Level 2.4 g/dL (3.5-5.1); Alkaline Phosphatase 81 U/L (38-126); Anion Gap 6 mmol/L (8-16); Aspartate Amino Transferase 23 U/L (17-59); Bilirubin,Total 0.2 mg/dL (0.2-1.3); Blood Urea Nitrogen 9 mg/dL (9-20); Calcium 7.3 mg/dL (8.4-10.2); Carbon Dioxide 19 mmol/L (22-30); Chloride 111 mmol/L (98-107); Estimated CRCL calculation 88 ml/min; Estimated Glomerular Filt Rate > 60; Glucose 186 mg/dL (65-110); Lipase 27 U/L (23-300); Magnesium 1.8 mg/dL (1.6-2.3); Phosphorus 2.3 mg/dL (2.5-4.5); Potassium 2.6 mmol/L (3.4-5.0); Sodium 136 mmol/L (137-145)
[2022-03-31] MEDS: MAGNESIUM SULF 2 GM/WATER 50ML 2 GM/50 ML BAG IVPB (07:53)
[2022-03-31] MEDS: POTASSIUM CHLORIDE 20 MEQ PACKET (FOR LIQUID) 40 MEQ FEED TUBE (07:53)
[2022-03-31] MEDS: KCL 40 MEQ/WATER 100 ML 100 ML 25 ML IVPB (07:53)
[2022-03-31] MEDS: ASPIRIN 81 MG CHEWABLE TABLET PO (07:56)
[2022-03-31 08:17] LABS: Glucose Point of Care 175 mg/dl (65-105)
[2022-03-31] MEDS: SODIUM CHLORIDE 0.9% IVPB ×2 (08:51→21:13)
[2022-03-31] MEDS: LACOSAMIDE IVPB ×2 (08:51→21:13)
[2022-03-31] MEDS: ENOXAPARIN 40 MG/0.4 ML SYRINGE SUB-Q (08:51)
[2022-03-31] MEDS: MINERAL OIL/WHITE PETROLATUM OINTMENT 1 APPLIC EACH EYE ×2 (08:52→21:22)
[2022-03-31] MEDS: PANTOPRAZOLE SODIUM IV 40 MG VIAL IV PUSH (08:52)
[2022-03-31] MEDS: PROPOFOL IV EMULSION 100 ML 9.07 MG IV CONT (10:11)
--- NOTE | 2022-03-31 10:18 | WPDINTPN ---
Progress Note: A&P Assessment and Plan (1) Acute respiratory failure: Code(s): J96.00 - Acute respiratory failure, unspecified whether with hypoxia or hypercapnia Status: Acute Assessment and Plan: 03/29/2022: Patient using accessory muscles for respiration, increased work of breathing, febrile with leukocytosis, chest x-ray showed pneumonia which could be secondary to aspiration intubated for airway protection - 03/29: Intubated for airway protection, after discussing with patient's Elyse -currently on CMV mode of ventilation, peep of 5, 40% FiO2 - Chest x-ray on 03/29 evening showed deviation of the trachea and possible left pneumothorax, surgery was consulted who did not feel there was a pneumothorax, and a supine lateral chest x-ray was repeated which did not show any pneumothorax. Patient was stable on mechanical ventilation and not requiring more oxygen. -continue Zosyn and vancomycin which was started on 03/29/2022 -sedated with propofol -ABGs reviewed, ventilator adjusted -03/30/2022 CT chest/abdomen/pelvis: Elevation the right hemidiaphragm with atelectasis at the bilateral lung bases, right greater than left. 2. No pneumothorax or other acute cardiopulmonary disease. 3. Nasogastric tube tip at the gastric pylorus and would consider withdrawal by [address] the distal tip at the gastric antrum. 4. Bladder wall thickening with surrounding inflammatory stranding and trace amount of likely reactive free fluid in the pelvis suggestive of cystitis. (2) Seizure: Code(s): R56.9 - Unspecified convulsions Status: Acute Assessment and Plan: Patient presented to the ED on 03/24/2022 with complains of altered mental status and right upper extremity flaccidity/weakness 03/24/2022: Head CT Mild cerebellar and more prominent central and cortical cerebral atrophy. Chronic lacunar infarct right caudate nucleus.No acute intracranial finding 03/24/2022: Head and neck CTA showed Old lacunar infarct in right caudate nucleus.. Mild nonspecific cerebral white matter disease, which likely represents chronic small vessel ischemic disease.. No aneurysm or significant intracranial arterial stenosis.. 0% stenosis of the proximal internal carotid arteries relative to normal distal artery lumen diameters (NASCET criteria). Severe stenosis of proximal right vertebral artery.. Chronic sinusitis -on 03/25 early hours patient had multiple seizures lasting for approximately 30 seconds per neurologist -patient was transferred to the ICU for further management -03/25/2022: discussed with neurologist, Dr. Salguero at [facility] who recommended loading with Depacon 3000 mg IV x1 and then Depacon 1000 mg q.8 hours. Keppra 1 g q.6 hours IV and phenytoin 100 IV mg q.8 hours She also accepted patient in consult at [facility] -I spoke to [facility]ales, [facility] fellow, who accepted the patient to [facility] under Dr. Don Sam. -currently on Keppra 1 g q.6 hours IV, phenytoin 100 mg q.8 hours IV, Depacon 1000 mg q.8 hours IV -: added Vimpat 150 mg IV b.i.d. 03/30: Discussed with neurology will increase Vimpat to 200 mg IV b.i.d. -currently sedated with propofol -continue seizure precautions -appreciate neurology evaluation and recommendation -03/25/2022 EEG showed focal structural lesion of the right hemisphere, seizure activity - 03/30 repeat EEG This is an abnormal routine EEG due to the presence of diffuse slowing. This finding can be seen in the setting of encephalopathy. There are no epileptiform discharges or electrographic seizures. Clinical correlation is recommended. Patient would benefit from continues EEG and is awaiting for bed assignment at [facility] for transfer Continue sedation with propofol and current treatment with AEDs (3) Septic shock: Code(s): A41.9 - Sepsis, unspecified organism; R65.21 - Severe sepsis with septic shock Status: Acute Assessment
--- NOTE | 2022-03-31 10:35 | PCFNICU ---
ICU Rounding Note: Pt current nutrition is Vital AF1.2 at 60 ml/hr. Nutrition recommendation: goal rate at 65 ml/hr. Last recorded weight is 109.6 kg. Bowel Motility:FMS Labs Reviewed:PO4 2.3,K 2.6,Glu 186, Alb 2.4,Hct 26.6,Hgb 9.3 Meds Noted:Zosyn, Vancomycin, Keppra,Levophed, Propofol 9.07 ml/dh=950 kcals,Protonix Skin: WNL Additional Notes:Patient remains on mechanical vent and tube feedings of Vital AF 1.2 at 60 ml/hr and tolerating per nursing. Goal rate at 65 ml/hr. Banatrol Plus TF added today BID for stool bulking. Flush 30 ml q 4 hours. Agree with diet orders. Following daily in ICU rounds. Will monitor daily in ICU rounds as reassessing every Monday and Monday..
[2022-03-31] MEDS: POTASSIUM PHOS,M-BASIC-D-BASIC 20 MMOL in SODIUM CHLORIDE 0.9% IV 250 ML 64.17 MMOL IVPB (11:25)
[2022-03-31 12:01] LABS: Band Neutrophils Percent 45 % (0-6); Eosinophils Absolute Manual 0.52 K/mm3 (0.02-0.5); Eosinophils Percent Manual 3 % (0-4); Metamyelocytes Percent 3 %; Monocytes Absolute Manual 0.52 K/mm3 (0.1-0.90); Monocytes Percent Manual 3 % (3-9); Neutrophils Absolute Manual 15.22 K/mm3 (1.3-6.7); Neutrophils Percent Manual 42 % (46-73); Platelet Estimate Adequate (Adequate); Total Cells Counted 100
[2022-03-31 12:02] LABS: Anisocytosis 1+ (NORMAL); Crenated RBC 2+ (NORMAL); Schistocytes Rare (NORMAL)
[2022-03-31 12:42] LABS: Glucose Point of Care 185 mg/dl (65-105)
[2022-03-31 15:55] LABS: Glucose Point of Care 143 mg/dl (65-105)
[2022-03-31] MEDS: NOREPINEPHRINE 8 MG/D5W 250 ML 8 MG/250 ML BAG 13.13 MG IV CONT (16:42)
[2022-03-31] MEDS: PROPOFOL IV EMULSION 100 ML 12.1 MG IV CONT (19:03)
[2022-03-31 19:15] LABS: Anion Gap 5 mmol/L (8-16); Blood Urea Nitrogen 9 mg/dL (9-20); Calcium 7.1 mg/dL (8.4-10.2); Carbon Dioxide 20 mmol/L (22-30); Chloride 114 mmol/L (98-107); Estimated CRCL calculation 81 ml/min; Estimated Glomerular Filt Rate > 60; Glucose 174 mg/dL (65-110); Potassium 3.4 mmol/L (3.4-5.0); Sodium 139 mmol/L (137-145)
[2022-03-31 19:16] LABS: Triglycerides 81 mg/dL (<150)
[2022-03-31 20:18] LABS: Glucose Point of Care 164 mg/dl (65-105)
[2022-04-01] VITALS (26 sets, daily range): BP systolic 92–157; BP diastolic 50–72; PULSE 80–119; RESP 18–30; TEMP 37.7–38.4; O2SAT 95–100
[2022-04-01 00:18] LABS: Glucose Point of Care 164 mg/dl (65-105)
[2022-04-01] MEDS: PROPOFOL IV EMULSION 100 ML 12.1 MG IV CONT (02:30)
[2022-04-01 04:20] LABS: Glucose Point of Care 192 mg/dl (65-105)
[2022-04-01 05:40] LABS: Basophils Absolute Auto 0.1 K/mm3 (0.0-0.1); Basophils Percent Auto 0.6 % (0.2-1.2); Eosinophils Absolute Auto 0.1 K/mm3 (0-0.3); Eosinophils Percent Auto 1.3 % (0-4.4); Hematocrit 26.6 % (42.0-52.0); Hemoglobin 9.2 g/dL (14.0-18.0); Immature Granulocyte Absolute 0.19 K/mm3 (0.00-0.031); Lymphocytes Absolute Auto 0.35 K/mm3 (0.9-3.2); Lymphocytes Percent Auto 3.7 % (18.3-44.2); Mean Corpuscular HGB Conc 34.6 g/dl (32-36); Mean Corpuscular Hemoglobin 31.5 pg (26-34); Mean Corpuscular Volume 91.1 fl (80-100); Mean Platelet Volume 10.1 fl (7.4-10.4); Monocytes Absolute Auto 0.3 K/mm3 (0.1-0.6); Monocytes Percent Auto 2.7 % (2.6-8.5); Neutrophils Absolute Auto 8.6 K/mm3 (1.3-6.7); Neutrophils Percent Auto 89.7 % (45.5-73.1); Platelet Count Result 101 k/mm3 (150-375); Red Blood Count 2.92 M/mm3 (4.6-6.20); Red Cell Distribution Width 15.6 % (11.5-14.5); White Blood Count 9.6 K/mm3 (4.5-10.0)
[2022-04-01] MEDS: levETIRAcetam 1000MG/NACL100ML 1,000 MG/100 ML BAG 200 MG IVPB ×3 (05:44→17:16)
[2022-04-01 05:52] LABS: Alanine Aminotransferase 18 U/L (6-50); Albumin Level 2.3 g/dL (3.5-5.1); Alkaline Phosphatase 77 U/L (38-126); Anion Gap 4 mmol/L (8-16); Aspartate Amino Transferase 24 U/L (17-59); Bilirubin,Total 0.2 mg/dL (0.2-1.3); Blood Urea Nitrogen 9 mg/dL (9-20); Calcium 7.1 mg/dL (8.4-10.2); Carbon Dioxide 20 mmol/L (22-30); Chloride 113 mmol/L (98-107); Estimated CRCL calculation 75 ml/min; Estimated Glomerular Filt Rate > 60; Glucose 223 mg/dL (65-110); Magnesium 2.1 mg/dL (1.6-2.3); Phosphorus 2.5 mg/dL (2.5-4.5); Potassium 3.1 mmol/L (3.4-5.0); Sodium 137 mmol/L (137-145)
[2022-04-01 05:54] LABS: Lactic Acid Reflex 1.5 mmol/L (0.7-2.0)
[2022-04-01] MEDS: PHENYTOIN SODIUM INJ 100 MG/2 ML VIAL (*BKC) IV PUSH ×3 (05:54→22:00)
[2022-04-01 06:00] LABS: Base Excess ABG -6.5 mEq/l (+/-2.0); Carboxyhemoglobin 0.3 % THb (0-2.0); Fractional Inspired Oxygen 30 %; HCO3 ABG 17.3 mEq/l (22.0-26.0); Methemoglobin ABG 0.4 %THb (0-1.5); Oxygen Content ABG 13.6 %vol (16.0-22.0); Oxygen Saturation ABG 99.1 % (95.0-100.0); Oxyhemoglobin 97.4 % THb (90.0-100.0); PCO2 ABG 28.4 mmHg (35.0-45.0); PO2 ABG 160.5 mmHg (80.0-100.0); PO2 FiO2 Ratio Arterial Blood 5.35 %; Reduced Hemoglobin 1.9 %THb (0-5.0); Total Hemoglobin 9.7 g/dL (12.0-18.0); pH ABG 7.402 (7.350-7.450)
[2022-04-01 06:01] LABS: Arterial Blood Gas PEEP 5 cmH2O; Arterial Blood Gas Vent Mode CMV; Arterial Blood Gas Ventilator rate 18 /MIN; Device VENTILATOR; Site Drawn ARTLINE
[2022-04-01 06:02] LABS: Arterial Blood Gas Tidal Volume 500 ml
[2022-04-01] MEDS: CENTRAL LINE FLUSH 10 ML IV PUSH ×6 (06:53→22:00)
[2022-04-01] MEDS: CALCIUM GLUC 2,000 MG/NS 100ML 2,000 MG/100 ML BAG 100 MG IVPB (08:26)
[2022-04-01] MEDS: POTASSIUM CHLORIDE 20 MEQ PACKET (FOR LIQUID) 40 MEQ FEED TUBE ×2 (09:04→14:39)
[2022-04-01] MEDS: ASPIRIN 81 MG CHEWABLE TABLET PO (09:04)
[2022-04-01] MEDS: PANTOPRAZOLE SODIUM IV 40 MG VIAL IV PUSH (09:05)
[2022-04-01] MEDS: ENOXAPARIN 40 MG/0.4 ML SYRINGE SUB-Q (09:05)
[2022-04-01] MEDS: LACOSAMIDE IVPB ×2 (09:15→21:59)
[2022-04-01] MEDS: SODIUM CHLORIDE 0.9% IVPB ×2 (09:15→21:59)
[2022-04-01] MEDS: INSULIN GLARGINE (*BKC) 100 UNITS/ML 15 UNITS SUB-Q (09:24)
[2022-04-01] MEDS: MINERAL OIL/WHITE PETROLATUM OINTMENT 1 APPLIC EACH EYE ×2 (09:24→20:19)
[2022-04-01 09:28] LABS: Glucose Point of Care 178 mg/dl (65-105)
--- NOTE | 2022-04-01 11:23 | WPDINTPN ---
Progress Note: A&P Assessment and Plan (1) Acute respiratory failure: Code(s): J96.00 - Acute respiratory failure, unspecified whether with hypoxia or hypercapnia Status: Acute Assessment and Plan: 03/29/2022: Patient using accessory muscles for respiration, increased work of breathing, febrile with leukocytosis, chest x-ray showed pneumonia which could be secondary to aspiration intubated for airway protection - 03/29: Intubated for airway protection, after discussing with patient's Elyse -currently on CMV mode of ventilation, peep of 5, 40% FiO2 - Chest x-ray reviewed -continue Zosyn and vancomycin which was started on 03/29/2022 -sedated with propofol -ABGs reviewed, ventilator adjusted by decreasing tidal volume to 320 and decreasing rate to 12 -propofol held for sedation holiday -03/30/2022 CT chest/abdomen/pelvis: Elevation the right hemidiaphragm with atelectasis at the bilateral lung bases, right greater than left. 2. No pneumothorax or other acute cardiopulmonary disease. 3. Nasogastric tube tip at the gastric pylorus and would consider withdrawal by [address] the distal tip at the gastric antrum. 4. Bladder wall thickening with surrounding inflammatory stranding and trace amount of likely reactive free fluid in the pelvis suggestive of cystitis. (2) Seizure: Code(s): R56.9 - Unspecified convulsions Status: Acute Assessment and Plan: Patient presented to the ED on 03/24/2022 with complains of altered mental status and right upper extremity flaccidity/weakness 03/24/2022: Head CT Mild cerebellar and more prominent central and cortical cerebral atrophy. Chronic lacunar infarct right caudate nucleus.No acute intracranial finding 03/24/2022: Head and neck CTA showed Old lacunar infarct in right caudate nucleus.. Mild nonspecific cerebral white matter disease, which likely represents chronic small vessel ischemic disease.. No aneurysm or significant intracranial arterial stenosis.. 0% stenosis of the proximal internal carotid arteries relative to normal distal artery lumen diameters (NASCET criteria). Severe stenosis of proximal right vertebral artery.. Chronic sinusitis -on 03/25 early hours patient had multiple seizures lasting for approximately 30 seconds per neurologist -patient was transferred to the ICU for further management -03/25/2022: discussed with neurologist, Dr. Salguero at [facility] who recommended loading with Depacon 3000 mg IV x1 and then Depacon 1000 mg q.8 hours. Keppra 1 g q.6 hours IV and phenytoin 100 IV mg q.8 hours She also accepted patient in consult at [facility] -I spoke to [facility]ales, [facility] fellow, who accepted the patient to [facility] under Dr. Don Sam. -currently on Keppra 1 g q.6 hours IV, phenytoin 100 mg q.8 hours IV, Depacon 1000 mg q.8 hours IV -: added Vimpat 150 mg IV b.i.d. 03/30: Discussed with neurology will increase Vimpat to 200 mg IV b.i.d. -currently sedated with propofol -continue seizure precautions -appreciate neurology evaluation and recommendation -03/25/2022 EEG showed focal structural lesion of the right hemisphere, seizure activity - 03/30 repeat EEG This is an abnormal routine EEG due to the presence of diffuse slowing. This finding can be seen in the setting of encephalopathy. There are no epileptiform discharges or electrographic seizures. Clinical correlation is recommended. Patient would benefit from continues EEG and is awaiting for bed assignment at [facility] for transfer Continue sedation with propofol and current treatment with AEDs (3) Septic shock: Code(s): A41.9 - Sepsis, unspecified organism; R65.21 - Severe sepsis with septic shock Status: Acute Assessment and Plan: Leukocytosis, fevers likely secondary to pneumonia secondary to aspiration -continue antibiotics as above -03/29/2022 blood, cultures negative x2 preliminary report -03/29/2022 sputum and
--- NOTE | 2022-04-01 11:38 | PCNFU ---
Nutrition Follow-Up Complete: Inadequate Oral Intake as related to mechanical intubation as evidenced by NPO goal; Meet estimated nutritional needs Patient is progressing towards goal. We will continue current goal. Pt current nutrition is Vital AF 1.2 at 65 ml/hr. Last recorded weight is 110.4 kg Bowel Motility:FMS Labs Reviewed:Glu 223, Alb 2.3,Hct 26.6,Hgb 9.2 Meds Noted:Zosyn, Vancomycin, Keppra,Levophed,Protonix Skin: WNL Additional Notes: Patient remains on mechanical vent and tube feedings of Vital AF 1.2 at 65 ml/hr and tolerating. Propofol is paused. Tube feedings providing 1716 kcals/107 gms protein/1160 ml water. Meeting 100% kcal and protein needs at 15 kcal/kg. Flush 30 ml q 4 hours. Banatrol Plus TF BID for stool bulking. Agree with diet orders. Will monitor daily in ICU rounds as reassessing every Monday and Monday.
[2022-04-01 11:54] LABS: Glucose Point of Care 171 mg/dl (65-105)
[2022-04-01] MEDS: ACETAMINOPHEN ELIXIR 325 MG/10.15 ML UDC 650 MG PO (14:39)
[2022-04-01 16:10] LABS: Glucose Point of Care 173 mg/dl (65-105)
[2022-04-01] MEDS: PROPOFOL IV EMULSION 100 ML 3.02 MG IV CONT (17:21)
[2022-04-01 20:34] LABS: Glucose Point of Care 157 mg/dl (65-105)
--- NOTE | 2022-04-01 20:43 | PM.IMPN ---
Progress Note: A&P Assessment and Plan (1) Acute respiratory failure: Code(s): J96.00 - Acute respiratory failure, unspecified whether with hypoxia or hypercapnia Status: Acute Assessment and Plan: 03/29/2022: Patient using accessory muscles for respiration, increased work of breathing, febrile with leukocytosis, chest x-ray showed pneumonia which could be secondary to aspiration intubated for airway protection - 03/29: Intubated for airway protection, after discussing with patient's Elyse -currently on CMV mode of ventilation, peep of 5, 40% FiO2 - Chest x-ray reviewed -continue Zosyn and vancomycin which was started on 03/29/2022 -sedated with propofol -ABGs reviewed, ventilator adjusted by decreasing tidal volume to 320 and decreasing rate to 12 -propofol held for sedation holiday -03/30/2022 CT chest/abdomen/pelvis: Elevation the right hemidiaphragm with atelectasis at the bilateral lung bases, right greater than left. 2. No pneumothorax or other acute cardiopulmonary disease. 3. Nasogastric tube tip at the gastric pylorus and would consider withdrawal by [address] the distal tip at the gastric antrum. 4. Bladder wall thickening with surrounding inflammatory stranding and trace amount of likely reactive free fluid in the pelvis suggestive of cystitis. Per display specialist. (2) Seizure: Code(s): R56.9 - Unspecified convulsions Status: Acute Assessment and Plan: Patient presented to the ED on 03/24/2022 with complains of altered mental status and right upper extremity flaccidity/weakness 03/24/2022: Head CT Mild cerebellar and more prominent central and cortical cerebral atrophy. Chronic lacunar infarct right caudate nucleus.No acute intracranial finding 03/24/2022: Head and neck CTA showed Old lacunar infarct in right caudate nucleus.. Mild nonspecific cerebral white matter disease, which likely represents chronic small vessel ischemic disease.. No aneurysm or significant intracranial arterial stenosis.. 0% stenosis of the proximal internal carotid arteries relative to normal distal artery lumen diameters (NASCET criteria). Severe stenosis of proximal right vertebral artery.. Chronic sinusitis -on 03/25 early hours patient had multiple seizures lasting for approximately 30 seconds per neurologist -patient was transferred to the ICU for further management -03/25/2022: discussed with neurologist, Dr. Salguero at [facility] who recommended loading with Depacon 3000 mg IV x1 and then Depacon 1000 mg q.8 hours. Keppra 1 g q.6 hours IV and phenytoin 100 IV mg q.8 hours She also accepted patient in consult at [facility] -[facility], who accepted the patient to [facility] under Dr. Don Sam. -currently on Keppra 1 g q.6 hours IV, phenytoin 100 mg q.8 hours IV, Depacon 1000 mg q.8 hours IV -: added Vimpat 150 mg IV b.i.d. 03/30: Discussed with neurology will increase Vimpat to 200 mg IV b.i.d. -currently sedated with propofol -continue seizure precautions -appreciate neurology evaluation and recommendation -03/25/2022 EEG showed focal structural lesion of the right hemisphere, seizure activity - 03/30 repeat EEG This is an abnormal routine EEG due to the presence of diffuse slowing. This finding can be seen in the setting of encephalopathy. There are no epileptiform discharges or electrographic seizures. Clinical correlation is recommended. Patient would benefit from continues EEG and is awaiting for bed assignment at [facility] for transfer Continue sedation with propofol and current treatment with AEDs (3) Septic shock: Code(s): A41.9 - Sepsis, unspecified organism; R65.21 - Severe sepsis with septic shock Status: Acute Assessment and Plan: Leukocytosis, fevers likely secondary to pneumonia secondary to aspiration -continue antibiotics as above -03/29/2022 blood, cultures negative x2 preliminary report
[2022-04-02] VITALS (24 sets, daily range): BP systolic 106–136; BP diastolic 52–94; PULSE 91–110; RESP 18–32; TEMP 37.6–38.1; O2SAT 98–100
[2022-04-02] MEDS: levETIRAcetam 1000MG/NACL100ML 1,000 MG/100 ML BAG 200 MG IVPB ×4 (00:57→17:03)
[2022-04-02 01:00] LABS: Glucose Point of Care 170 mg/dl (65-105)
[2022-04-02] MEDS: CENTRAL LINE FLUSH 10 ML IV PUSH ×5 (01:00→21:41)
[2022-04-02 05:04] LABS: Hematocrit 25.4 % (42.0-52.0); Hemoglobin 8.7 g/dL (14.0-18.0); Immature Platelet Fraction Pct 4.6 % (0.9-11.2); Mean Corpuscular HGB Conc 34.3 g/dl (32-36); Mean Corpuscular Hemoglobin 31.2 pg (26-34); Platelet Count Result 118 k/mm3 (150-375); Red Blood Count 2.79 M/mm3 (4.6-6.20); Red Cell Distribution Width 15.9 % (11.5-14.5)
[2022-04-02 05:12] LABS: Alanine Aminotransferase 30 U/L (6-50); Albumin Level 2.3 g/dL (3.5-5.1); Alkaline Phosphatase 70 U/L (38-126); Anion Gap 6 mmol/L (8-16); Aspartate Amino Transferase 45 U/L (17-59); Bilirubin,Total 0.2 mg/dL (0.2-1.3); Blood Urea Nitrogen 12 mg/dL (9-20); Calcium 7.3 mg/dL (8.4-10.2); Carbon Dioxide 20 mmol/L (22-30); Chloride 114 mmol/L (98-107); Estimated CRCL calculation 75 ml/min; Estimated Glomerular Filt Rate > 60; Glucose 139 mg/dL (65-110); Magnesium 2.1 mg/dL (1.6-2.3); Phosphorus 2.7 mg/dL (2.5-4.5); Potassium 3.3 mmol/L (3.4-5.0); Sodium 140 mmol/L (137-145)
[2022-04-02 05:26] LABS: Band Neutrophils Percent 7 % (0-6); Monocytes Percent Manual 7 % (3-9); Neutrophils Percent Manual 70 % (46-73); Total Cells Counted 100
[2022-04-02] MEDS: PHENYTOIN SODIUM INJ 100 MG/2 ML VIAL (*BKC) IV PUSH ×3 (05:35→21:40)
[2022-04-02 05:48] LABS: Alveolar/Arterial O2 Gradient 88.5 mmHg; Carboxyhemoglobin 0.3 % THb (0-2.0); Fractional Inspired Oxygen 30 %; HCO3 ABG 19.3 mEq/l (22.0-26.0); Methemoglobin ABG 0.5 %THb (0-1.5); Oxygen Content ABG 8.8 %vol (16.0-22.0); Oxygen Saturation ABG 96.8 % (95.0-100.0); Oxyhemoglobin 94.8 % THb (90.0-100.0); PCO2 ABG 31.8 mmHg (35.0-45.0); PO2 FiO2 Ratio Arterial Blood 2.93 %; Reduced Hemoglobin 4.4 %THb (0-5.0)
[2022-04-02 05:55] LABS: Glucose Point of Care 147 mg/dl (65-105)
[2022-04-02 05:56] LABS: Device VENTILATOR; Modified Allen's Test Unable to perform; Site Drawn RIGHT RADIAL; Total Hemoglobin 6.5 g/dL (12.0-18.0)
[2022-04-02 06:00] LABS: Arterial Blood Gas Ventilator rate 18 /MIN
[2022-04-02 06:01] LABS: Arterial Blood Gas PEEP 5 cmH2O; Arterial Blood Gas Tidal Volume 450 ml; Arterial Blood Gas Vent Mode CMV
[2022-04-02 08:15] LABS: Glucose Point of Care 150 mg/dl (65-105)
[2022-04-02] MEDS: INSULIN GLARGINE (*BKC) 100 UNITS/ML 15 UNITS SUB-Q (08:23)
[2022-04-02] MEDS: MINERAL OIL/WHITE PETROLATUM OINTMENT 1 APPLIC EACH EYE ×2 (08:23→20:39)
[2022-04-02] MEDS: PANTOPRAZOLE SODIUM IV 40 MG VIAL IV PUSH (08:23)
[2022-04-02] MEDS: POTASSIUM CHLORIDE 20 MEQ PACKET (FOR LIQUID) 40 MEQ FEED TUBE (08:24)
[2022-04-02] MEDS: ENOXAPARIN 40 MG/0.4 ML SYRINGE SUB-Q (08:24)
[2022-04-02] MEDS: CALCIUM GLUC 2,000 MG/NS 100ML 2,000 MG/100 ML BAG 100 MG IVPB (08:24)
[2022-04-02] MEDS: ASPIRIN 81 MG CHEWABLE TABLET PO (08:24)
[2022-04-02] MEDS: LACOSAMIDE IVPB ×2 (09:12→21:40)
[2022-04-02] MEDS: SODIUM CHLORIDE 0.9% IVPB ×2 (09:12→21:40)
--- NOTE | 2022-04-02 11:21 | WPDINTPN ---
Progress Note: A&P Assessment and Plan (1) Acute respiratory failure: Code(s): J96.00 - Acute respiratory failure, unspecified whether with hypoxia or hypercapnia Status: Acute Assessment and Plan: 03/29/2022: Patient using accessory muscles for respiration, increased work of breathing, febrile with leukocytosis, chest x-ray showed pneumonia which could be secondary to aspiration intubated for airway protection - 03/29: Intubated for airway protection, after discussing with patient's Elyse -currently on CMV mode of ventilation, peep of 5, 40% FiO2 - Chest x-ray reviewed -continue Zosyn and vancomycin which was started on 03/29/2022 -sedated with propofol -ABGs reviewed, ventilator adjusted by decreasing tidal volume to 320 and decreasing rate to 12 -propofol held for sedation holiday -03/30/2022 CT chest/abdomen/pelvis: Elevation the right hemidiaphragm with atelectasis at the bilateral lung bases, right greater than left. 2. No pneumothorax or other acute cardiopulmonary disease. 3. Nasogastric tube tip at the gastric pylorus and would consider withdrawal by [address] the distal tip at the gastric antrum. 4. Bladder wall thickening with surrounding inflammatory stranding and trace amount of likely reactive free fluid in the pelvis suggestive of cystitis. (2) Seizure: Code(s): R56.9 - Unspecified convulsions Status: Acute Assessment and Plan: Patient presented to the ED on 03/24/2022 with complains of altered mental status and right upper extremity flaccidity/weakness 03/24/2022: Head CT Mild cerebellar and more prominent central and cortical cerebral atrophy. Chronic lacunar infarct right caudate nucleus.No acute intracranial finding 03/24/2022: Head and neck CTA showed Old lacunar infarct in right caudate nucleus.. Mild nonspecific cerebral white matter disease, which likely represents chronic small vessel ischemic disease.. No aneurysm or significant intracranial arterial stenosis.. 0% stenosis of the proximal internal carotid arteries relative to normal distal artery lumen diameters (NASCET criteria). Severe stenosis of proximal right vertebral artery.. Chronic sinusitis -on 03/25 early hours patient had multiple seizures lasting for approximately 30 seconds per neurologist -patient was transferred to the ICU for further management -03/25/2022: discussed with neurologist, Dr. Salguero at [facility] who recommended loading with Depacon 3000 mg IV x1 and then Depacon 1000 mg q.8 hours. Keppra 1 g q.6 hours IV and phenytoin 100 IV mg q.8 hours She also accepted patient in consult at [facility] -[facility], who accepted the patient to [facility] under Dr. Don Sam. -currently on Keppra 1 g q.6 hours IV, phenytoin 100 mg q.8 hours IV, Depacon 1000 mg q.8 hours IV -: added Vimpat 150 mg IV b.i.d. 03/30: Discussed with neurology will increase Vimpat to 200 mg IV b.i.d. -currently sedated with propofol -continue seizure precautions -appreciate neurology evaluation and recommendation -03/25/2022 EEG showed focal structural lesion of the right hemisphere, seizure activity - 03/30 repeat EEG This is an abnormal routine EEG due to the presence of diffuse slowing. This finding can be seen in the setting of encephalopathy. There are no epileptiform discharges or electrographic seizures. Clinical correlation is recommended. Patient would benefit from continues EEG and is awaiting for bed assignment at [facility] for transfer. We checked with [place] and it was see transfer center again today and they still do not have a bed available for him Continue sedation with propofol and current treatment with AEDs (3) Septic shock: Code(s): A41.9 - Sepsis, unspecified organism; R65.21 - Severe sepsis with septic shock Status: Acute Assessment and Plan: Leukocytosis, fevers likely secondary to pneumonia secondary to asp
[2022-04-02 12:08] LABS: Glucose Point of Care 183 mg/dl (65-105)
[2022-04-02 13:47] LABS: Triglycerides 104 mg/dL (<150)
[2022-04-02 14:13] LABS: Vancomycin Trough 22.3 ug/mL (10.0-20.0)
[2022-04-02] MEDS: PROPOFOL IV EMULSION 100 ML 6.05 MG IV CONT (14:22)
[2022-04-02 16:13] LABS: Glucose Point of Care 134 mg/dl (65-105)
--- NOTE | 2022-04-02 19:47 | PM.IMPN ---
Progress Note: A&P Assessment and Plan (1) Acute respiratory failure: Code(s): J96.00 - Acute respiratory failure, unspecified whether with hypoxia or hypercapnia Status: Acute Assessment and Plan: 03/29:Patient using accessory muscles for respiration, increased work of breathing, febrile with leukocytosis, chest x-ray showed pneumonia which could be secondary to aspiration. Patient was intubated for airway protection -03/30 CT chest/abdomen/pelvis: Elevation the right hemidiaphragm with atelectasis at the bilateral lung bases, right greater than left. 2. No pneumothorax or other acute cardiopulmonary disease. 3. Nasogastric tube tip at the gastric pylorus and would consider withdrawal by [address] the distal tip at the gastric antrum. 4. Bladder wall thickening with surrounding inflammatory stranding and trace amount of likely reactive free fluid in the pelvis suggestive of cystitis. -currently on CMV mode of ventilation, peep of 5, 30% FiO2 -continue Zosyn and vancomycin which was started on 03/29 (2) Seizure: Code(s): R56.9 - Unspecified convulsions Status: Acute Assessment and Plan: Patient presented to the ED on 03/24/2022 with complains of altered mental status and right upper extremity flaccidity/weakness -Head CT 03/24 mild cerebellar and more prominent central and cortical cerebral atrophy. Chronic lacunar infarct right caudate nucleus.No acute intracranial finding -Head and neck CTA 03/24 showed old lacunar infarct in right caudate nucleus.. Mild nonspecific cerebral white matter disease, which likely represents chronic small vessel ischemic disease.. No aneurysm or significant intracranial arterial stenosis.. 0% stenosis of the proximal internal carotid arteries relative to normal distal artery lumen diameters (NASCET criteria). Severe stenosis of proximal right vertebral artery.. Chronic sinusitis -on 03/25 early hours patient had multiple seizures lasting for approximately 30 seconds per neurologist -patient was transferred to the ICU for further management -03/25 EEG showed focal structural lesion of the right hemisphere, seizure activity -03/25: discussed with neurologist, Dr. Salguero at [facility] who recommended loading with Depacon 3000 mg IV x1 and then Depacon 1000 mg q.8 hours. Keppra 1 g q.6 hours IV and phenytoin 100 IV mg q.8 hours She also accepted patient in consult at [facility]. I spoke to Dr. Rosales, [facility] fellow, who accepted the patient to [facility] under Dr. Don Sam. -03/28: added Vimpat 150 mg IV b.i.d. -03/30: Discussed with neurology will increase Vimpat to 200 mg IV b.i.d. -03/30 repeat EEG: abnormal routine EEG due to the presence of diffuse slowing c/w encephalopathy.No epileptiform discharges or electrographic seizures -currently on Keppra 1 g q.6 hours IV, phenytoin 100 mg q.8 hours IV, Depacon 1000 mg q.8 hours IV -continue seizure precautions -appreciate neurology evaluation and recommendation -Patient would benefit from continues EEG and is awaiting for bed assignment at [facility] for transfer (3) Septic shock: Code(s): A41.9 - Sepsis, unspecified organism; R65.21 - Severe sepsis with septic shock Status: Acute Assessment and Plan: Leukocytosis and fevers likely secondary to pneumonia secondary to aspiration -BCx 03/29 growing EColi. Sensitivities pending. -UCx 07/10 negative -Sputum Cx 03/30 negative -BCx 04/01 growing gram positive cocci in clusters (anaerobic and only 1 of3 sets) -WBC normalized but still has fevers -Levophed off 04/01 -continue IV abx (4) Malignant hyperthermia: Code(s): T88.3XXA - Malignant hyperthermia due to anesthesia, initial encounter Status: Acute Assessment and Plan: Patient received succinylcholine for rapid sequence intubation on 03/29 thereafter developed fevers up to 105? F -patient was tachycardic and hypertensive but no rigidity felt t
[2022-04-02 21:05] LABS: Glucose Point of Care 159 mg/dl (65-105)
[2022-04-03] VITALS (19 sets, daily range): BP systolic 100–149; BP diastolic 52–81; PULSE 89–110; RESP 20–31; TEMP 37.5–38.1; O2SAT 96–100
[2022-04-03] MEDS: levETIRAcetam 1000MG/NACL100ML 1,000 MG/100 ML BAG 200 MG IVPB ×4 (01:20→18:16)
[2022-04-03 01:37] LABS: Glucose Point of Care 134 mg/dl (65-105)
[2022-04-03 04:30] LABS: Hematocrit 22.8 % (42.0-52.0); Hemoglobin 7.6 g/dL (14.0-18.0); Immature Platelet Fraction Pct 3.8 % (0.9-11.2); Mean Corpuscular HGB Conc 33.3 g/dl (32-36); Mean Corpuscular Hemoglobin 30.8 pg (26-34); Mean Corpuscular Volume 92.3 fl (80-100); Mean Platelet Volume 10.1 fl (7.4-10.4); Platelet Count Result 117 k/mm3 (150-375); Red Blood Count 2.47 M/mm3 (4.6-6.20); Red Cell Distribution Width 16.2 % (11.5-14.5); White Blood Count 8.7 K/mm3 (4.5-10.0)
[2022-04-03 04:38] LABS: Alanine Aminotransferase 22 U/L (6-50); Albumin Level 2.2 g/dL (3.5-5.1); Alkaline Phosphatase 52 U/L (38-126); Anion Gap 4 mmol/L (8-16); Aspartate Amino Transferase 24 U/L (17-59); Bilirubin,Total < 0.1 mg/dL (0.2-1.3); Blood Urea Nitrogen 19 mg/dL (9-20); Calcium 7.3 mg/dL (8.4-10.2); Carbon Dioxide 21 mmol/L (22-30); Chloride 111 mmol/L (98-107); Estimated CRCL calculation 82 ml/min; Estimated Glomerular Filt Rate > 60; Glucose 122 mg/dL (65-110); Phosphorus 2.5 mg/dL (2.5-4.5); Potassium 3.2 mmol/L (3.4-5.0); Sodium 136 mmol/L (137-145)
[2022-04-03 05:10] LABS: Band Neutrophils Percent 3 % (0-6); Eosinophils Absolute Manual 0.87 K/mm3 (0.02-0.5); Eosinophils Percent Manual 10 % (0-4); Lymphocytes Absolute Manual 2.17 K/mm3 (1.1-4.5); Lymphocytes Percent Manual 25 % (18-44); Monocytes Absolute Manual 1.13 K/mm3 (0.1-0.90); Monocytes Percent Manual 13 % (3-9); Neutrophils Absolute Manual 4.52 K/mm3 (1.3-6.7); Neutrophils Percent Manual 49 % (46-73); Total Cells Counted 100
[2022-04-03 05:11] LABS: Anisocytosis 1+ (NORMAL); Atypical Lymphocytes Present; Schistocytes None Seen (NORMAL)
[2022-04-03 05:38] LABS: Alveolar/Arterial O2 Gradient 67.6 mmHg; Base Excess ABG -3.8 mEq/l (+/-2.0); Carboxyhemoglobin 0.2 % THb (0-2.0); Fractional Inspired Oxygen 30 %; HCO3 ABG 20.7 mEq/l (22.0-26.0); Methemoglobin ABG 0.6 %THb (0-1.5); Oxygen Content ABG 9.9 %vol (16.0-22.0); Oxygen Saturation ABG 97.9 % (95.0-100.0); PCO2 ABG 34.6 mmHg (35.0-45.0); PO2 ABG 105.6 mmHg (80.0-100.0); PO2 FiO2 Ratio Arterial Blood 3.52 %; Reduced Hemoglobin 3.2 %THb (0-5.0); pH ABG 7.395 (7.350-7.450)
[2022-04-03 05:39] LABS: Arterial Blood Gas Ventilator rate 18 /MIN; Device VENTILATOR; Modified Allen's Test Unable to perform; Site Drawn ARTLINE
[2022-04-03 05:40] LABS: Arterial Blood Gas PEEP 5 cmH2O; Arterial Blood Gas Tidal Volume 450 ml; Arterial Blood Gas Vent Mode CMV
[2022-04-03] MEDS: PHENYTOIN SODIUM INJ 100 MG/2 ML VIAL (*BKC) IV PUSH ×3 (06:15→22:13)
[2022-04-03] MEDS: CENTRAL LINE FLUSH 10 ML IV PUSH ×6 (06:18→22:14)
[2022-04-03 08:44] LABS: Glucose Point of Care 147 mg/dl (65-105)
[2022-04-03] MEDS: ENOXAPARIN 40 MG/0.4 ML SYRINGE SUB-Q (08:55)
[2022-04-03] MEDS: PANTOPRAZOLE SODIUM IV 40 MG VIAL IV PUSH (08:55)
[2022-04-03] MEDS: MINERAL OIL/WHITE PETROLATUM OINTMENT 1 APPLIC EACH EYE ×2 (08:55→20:08)
[2022-04-03] MEDS: ASPIRIN 81 MG CHEWABLE TABLET PO (08:56)
[2022-04-03] MEDS: LACOSAMIDE IVPB ×2 (09:42→20:50)
[2022-04-03] MEDS: SODIUM CHLORIDE 0.9% IVPB ×2 (09:42→20:50)
[2022-04-03] MEDS: INSULIN GLARGINE (*BKC) 100 UNITS/ML 15 UNITS SUB-Q (09:44)
--- NOTE | 2022-04-03 11:15 | WPDINTPN ---
Progress Note: A&P Assessment and Plan (1) Acute respiratory failure: Code(s): J96.00 - Acute respiratory failure, unspecified whether with hypoxia or hypercapnia Status: Acute Assessment and Plan: 03/29/2022: Patient using accessory muscles for respiration, increased work of breathing, febrile with leukocytosis, chest x-ray showed pneumonia which could be secondary to aspiration intubated for airway protection - 03/29: Intubated for airway protection, after discussing with patient's Elyse -currently on CMV mode of ventilation, peep of 5, 40% FiO2 - Chest x-ray reviewed -continue Zosyn and vancomycin which was started on 03/29/2022 -sedated with propofol -ABGs reviewed, ventilator adjusted by decreasing tidal volume to 320 and decreasing rate to 12 -propofol held for sedation holiday -03/30/2022 CT chest/abdomen/pelvis: Elevation the right hemidiaphragm with atelectasis at the bilateral lung bases, right greater than left. 2. No pneumothorax or other acute cardiopulmonary disease. 3. Nasogastric tube tip at the gastric pylorus and would consider withdrawal by [address] the distal tip at the gastric antrum. 4. Bladder wall thickening with surrounding inflammatory stranding and trace amount of likely reactive free fluid in the pelvis suggestive of cystitis. (2) Seizure: Code(s): R56.9 - Unspecified convulsions Status: Acute Assessment and Plan: Patient presented to the ED on 03/24/2022 with complains of altered mental status and right upper extremity flaccidity/weakness 03/24/2022: Head CT Mild cerebellar and more prominent central and cortical cerebral atrophy. Chronic lacunar infarct right caudate nucleus.No acute intracranial finding 03/24/2022: Head and neck CTA showed Old lacunar infarct in right caudate nucleus.. Mild nonspecific cerebral white matter disease, which likely represents chronic small vessel ischemic disease.. No aneurysm or significant intracranial arterial stenosis.. 0% stenosis of the proximal internal carotid arteries relative to normal distal artery lumen diameters (NASCET criteria). Severe stenosis of proximal right vertebral artery.. Chronic sinusitis -on 03/25 early hours patient had multiple seizures lasting for approximately 30 seconds per neurologist -patient was transferred to the ICU for further management -03/25/2022: discussed with neurologist, Dr. Salguero at [facility] who recommended loading with Depacon 3000 mg IV x1 and then Depacon 1000 mg q.8 hours. Keppra 1 g q.6 hours IV and phenytoin 100 IV mg q.8 hours She also accepted patient in consult at [facility] -[facility] who [facility] the patient to [facility] under Dr. Don Sam. -currently on Keppra 1 g q.6 hours IV, phenytoin 100 mg q.8 hours IV, Depacon 1000 mg q.8 hours IV -: added Vimpat 150 mg IV b.i.d. 03/30: Discussed with neurology will increase Vimpat to 200 mg IV b.i.d. -currently sedated with propofol -continue seizure precautions -appreciate neurology evaluation and recommendation -03/25/2022 EEG showed focal structural lesion of the right hemisphere, seizure activity - 03/30 repeat EEG This is an abnormal routine EEG due to the presence of diffuse slowing. This finding can be seen in the setting of encephalopathy. There are no epileptiform discharges or electrographic seizures. Clinical correlation is recommended. Patient would benefit from continues EEG and is awaiting for bed assignment at [facility] for transfer. We checked with [place] and it was see transfer center again today and they still do not have a bed available for him Continue sedation with propofol and current treatment with AEDs (3) Septic shock: Code(s): A41.9 - Sepsis, unspecified organism; R65.21 - Severe sepsis with septic shock Status: Acute Assessment and Plan: Leukocytosis, fevers likely secondary to pneumonia secondary to asp
[2022-04-03 12:08] LABS: Appearance Urine Clear (Clear); Bilirubin Urine Negative (Negative); Blood Urine 2+ (Negative); Color Urine Yellow (Yellow); Glucose Urine UA Negative (Negative); Ketones Urine Negative (Negative); Leukocyte Esterase Ur 2+ LEU/UL (Negative); Nitrate Urine Negative (Negative); Protein Urine 2+ mg/dL (Negative); Urobilinogen Urine 0.2 mg/dL (<2.0); pH Urine 6.5 (5.0-9.0)
[2022-04-03 12:13] LABS: Bacteria Urine Trace /hpf; RBC Urine >75 /hpf (0-2); Squamous Epithelial Cell Urine Rare /hpf (Few); WBC Urine >75 /hpf
[2022-04-03 12:15] LABS: Add Urine Microscopic? YES
[2022-04-03 12:17] LABS: Creatine Kinase 81 U/L (55-170)
[2022-04-03 12:27] LABS: Glucose Point of Care 142 mg/dl (65-105)
[2022-04-03] MEDS: ACYCLOVIR SODIUM IVPB 800 MG in DEXTROSE 5% IN WATER 250 ML 266 MG IVPB ×2 (15:19→21:50)
[2022-04-03] MEDS: ALTEPLASE 2 MG VIAL (CATHFLO) IV PUSH (16:42)
[2022-04-03 17:59] LABS: Glucose Point of Care 132 mg/dl (65-105)
--- NOTE | 2022-04-03 19:58 | PM.IMPN ---
Progress Note: A&P Assessment and Plan (1) Septic shock: Code(s): A41.9 - Sepsis, unspecified organism; R65.21 - Severe sepsis with septic shock Status: Acute Assessment and Plan: Leukocytosis and fevers likely secondary to pneumonia secondary to aspiration -BCx 03/29 growing ESBL EColi sensitive to Gent. Imipenem, Zosyn and Bactrim -UCx 03/29 negative -Sputum Cx 03/30 negative -BCx 04/01 growing Staph hominis in anaerobic bottle only in 1 of the sets (source was Rt IJ) -WBC normalized but still has fevers -Levophed off 04/01 -continue IV abx with Zosyn and Vanco -consider changing to Primaxin and/or removing central line -LP being considered; acyclovir started. (2) Acute respiratory failure: Code(s): J96.00 - Acute respiratory failure, unspecified whether with hypoxia or hypercapnia Status: Acute Assessment and Plan: On 03/29, Patient developed respiratory distress and febrile with leukocytosis. CXR showed pneumonia which could be secondary to aspiration. Patient was intubated for airway protection -03/30 CT chest/abdomen/pelvis:? 1. Elevation the right hemidiaphragm with atelectasis at the bilateral lung bases, right greater than left. 2. No pneumothorax or other acute cardiopulmonary disease. 3. Nasogastric tube tip at the gastric pylorus and would consider withdrawal by [address] the distal tip at the gastric antrum. 4. Bladder wall thickening with surrounding inflammatory stranding and trace amount of likely reactive free fluid in the pelvis suggestive of cystitis. -continue mechanical ventilation -continue Zosyn and vancomycin which was started on 03/29 (3) Seizure: Code(s): R56.9 - Unspecified convulsions Status: Acute Assessment and Plan: Patient presented to the ED on 03/24/2022 with complains of altered mental status and right upper extremity flaccidity/weakness -Head CT 03/24 mild cerebellar and more prominent central and cortical cerebral atrophy. Chronic lacunar infarct right caudate nucleus.No acute intracranial finding -Head and neck CTA 03/24 showed old lacunar infarct in right caudate nucleus.. Mild nonspecific cerebral white matter disease, which likely represents chronic small vessel ischemic disease.. No aneurysm or significant intracranial arterial stenosis.. 0% stenosis of the proximal internal carotid arteries relative to normal distal artery lumen diameters (NASCET criteria). Severe stenosis of proximal right vertebral artery.. Chronic sinusitis -on 03/25 early hours patient had multiple seizures lasting for approximately 30 seconds per neurologist -patient was transferred to the ICU for further management -03/25 EEG showed focal structural lesion of the right hemisphere, seizure activity -03/25: discussed with neurologist, Dr. Salguero at? [facility] who recommended loading with Depacon 3000 mg IV x1 and then Depacon 1000 mg q.8 hours.? Keppra 1 g q.6 hours IV and phenytoin 100 IV mg q.8 hours She also accepted patient in consult at [facility]. I spoke to Dr. Rosales, [facility] fellow, who accepted the patient to [facility] under Dr. Don Sam. -03/28: added Vimpat 150 mg IV b.i.d. -03/30: Discussed with neurology will increase Vimpat to 200 mg IV b.i.d. -03/30 repeat EEG: abnormal routine EEG due to the presence of diffuse slowing c/w encephalopathy.No epileptiform discharges or electrographic seizures -currently on Keppra, Lacosamide and VPA. 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 F -patient
[2022-04-03 23:25] LABS: Glucose Point of Care 166 mg/dl (65-105)
[2022-04-04] VITALS (27 sets, daily range): BP systolic 102–141; BP diastolic 57–100; PULSE 91–115; RESP 19–36; TEMP 37.2–38.2; O2SAT 97–100
[2022-04-04] MEDS: levETIRAcetam 1000MG/NACL100ML 1,000 MG/100 ML BAG 200 MG IVPB ×4 (00:10→17:35)
[2022-04-04 04:12] LABS: Basophils Percent Auto 0.1 % (0.2-1.2); Eosinophils Absolute Auto 0.4 K/mm3 (0-0.3); Eosinophils Percent Auto 3.7 % (0-4.4); Hematocrit 21.1 % (42.0-52.0); Immature Granulocyte Absolute 2.61 K/mm3 (0.00-0.031); Immature Granulocyte Percent A 25.7 % (0-0.5); Lymphocytes Absolute Auto 1.83 K/mm3 (0.9-3.2); Mean Corpuscular HGB Conc 33.6 g/dl (32-36); Mean Corpuscular Hemoglobin 31.1 pg (26-34); Mean Corpuscular Volume 92.5 fl (80-100); Mean Platelet Volume 9.8 fl (7.4-10.4); Monocytes Absolute Auto 1.2 K/mm3 (0.1-0.6); Monocytes Percent Auto 12.2 % (2.6-8.5); Neutrophils Absolute Auto 4.1 K/mm3 (1.3-6.7); Neutrophils Percent Auto 40.3 % (45.5-73.1); Platelet Count Result 117 k/mm3 (150-375); Red Blood Count 2.28 M/mm3 (4.6-6.20); Red Cell Distribution Width 16.1 % (11.5-14.5); White Blood Count 10.2 K/mm3 (4.5-10.0)
[2022-04-04 04:24] LABS: Alanine Aminotransferase 17 U/L (6-50); Albumin Level 2.3 g/dL (3.5-5.1); Alkaline Phosphatase 50 U/L (38-126); Anion Gap 4 mmol/L (8-16); Aspartate Amino Transferase 27 U/L (17-59); Bilirubin,Total < 0.1 mg/dL (0.2-1.3); Blood Urea Nitrogen 22 mg/dL (9-20); Calcium 7.3 mg/dL (8.4-10.2); Carbon Dioxide 24 mmol/L (22-30); Chloride 108 mmol/L (98-107); Estimated CRCL calculation 77 ml/min; Estimated Glomerular Filt Rate > 60; Glucose 134 mg/dL (65-110); Magnesium 2.1 mg/dL (1.6-2.3); Phosphorus 3.6 mg/dL (2.5-4.5); Potassium 3.2 mmol/L (3.4-5.0); Sodium 136 mmol/L (137-145)
[2022-04-04 04:29] LABS: Hemoglobin A1C 5.5 % (<5.7)
[2022-04-04 05:01] LABS: Hemoglobin 7.1 g/dL (14.0-18.0)
[2022-04-04 05:02] LABS: Alveolar/Arterial O2 Gradient 67.2 mmHg; Base Excess ABG -5.6 mEq/l (+/-2.0); Carboxyhemoglobin 0.3 % THb (0-2.0); Fractional Inspired Oxygen 30 %; HCO3 ABG 18.7 mEq/l (22.0-26.0); Methemoglobin ABG 0.7 %THb (0-1.5); Oxygen Content ABG 8.5 %vol (16.0-22.0); Oxygen Saturation ABG 98.1 % (95.0-100.0); PCO2 ABG 30.6 mmHg (35.0-45.0); PO2 ABG 110.7 mmHg (80.0-100.0); PO2 FiO2 Ratio Arterial Blood 3.69 %; pH ABG 7.403 (7.350-7.450)
[2022-04-04 05:03] LABS: Site Drawn RIGHT RADIAL
[2022-04-04 05:04] LABS: Arterial Blood Gas PEEP 5 cmH2O; Arterial Blood Gas Vent Mode CMV; Device VENTILATOR; Modified Allen's Test Unable to perform
[2022-04-04 05:05] LABS: Arterial Blood Gas Tidal Volume 450 ml; Arterial Blood Gas Ventilator rate 18 /MIN
[2022-04-04] MEDS: PHENYTOIN SODIUM INJ 100 MG/2 ML VIAL (*BKC) IV PUSH ×3 (05:16→21:22)
[2022-04-04] MEDS: CENTRAL LINE FLUSH 10 ML IV PUSH ×7 (05:17→20:49)
[2022-04-04] MEDS: ACYCLOVIR SODIUM IVPB 800 MG in DEXTROSE 5% IN WATER 250 ML 266 MG IVPB ×3 (05:52→21:19)
--- NOTE | 2022-04-04 08:42 | PC.NURSE ---
[facility] transfer center called for update on patient and notified me that [facility] is still at capacity but patient remains on waitlist
[2022-04-04] MEDS: POTASSIUM CHLORIDE 20 MEQ PACKET (FOR LIQUID) 40 MEQ FEED TUBE ×2 (08:50→13:35)
[2022-04-04] MEDS: PANTOPRAZOLE SODIUM IV 40 MG VIAL IV PUSH (08:50)
[2022-04-04] MEDS: LACOSAMIDE IVPB ×2 (08:50→20:49)
[2022-04-04] MEDS: SODIUM CHLORIDE 0.9% IVPB ×2 (08:50→20:49)
[2022-04-04] MEDS: MINERAL OIL/WHITE PETROLATUM OINTMENT 1 APPLIC EACH EYE ×2 (08:50→20:49)
[2022-04-04] MEDS: PROPOFOL IV EMULSION 100 ML 3.02 MG IV CONT (09:55)
--- NOTE | 2022-04-04 10:59 | PCFNICU ---
ICU Rounding Note: Pt current nutrition is Vital AF 1.2 at 65 ml/hr. Last recorded weight is 114.2 kg. Bowel Motility:+BM reported 04/01 Labs Reviewed:Glu 134, K 3.2,BUN 22, Na 136, Hct 21.1,Hgb 7.1 Meds Noted:Zosyn, Vancomycin, Keppra,Propofol at 5 mcgs or 3.02 ml/hr=79 kcals,Protonix Skin: WNL Additional Notes: Patient remains on mechanical vent. Tube feedings currently on hold for Lumbar Puncture. Plans to restart tube feedings of Vital AF 1.2 at 65 ml/hr. Flush 30 ml q 4 hours. Patient on propofol for procedure only. FMS discontinued, last BM noted 04/01. Banatrol Plus discontinued. Agree with diet orders. Following daily in ICU rounds. Will reassessing every Monday and Monday.
[2022-04-04 11:50] LABS: Triglycerides 83 mg/dL (<150)
--- NOTE | 2022-04-04 11:51 | WPDINTPN ---
Progress Note: A&P Assessment and Plan (1) Acute respiratory failure: Code(s): J96.00 - Acute respiratory failure, unspecified whether with hypoxia or hypercapnia Status: Acute Assessment and Plan: 03/29/2022: Patient using accessory muscles for respiration, increased work of breathing, febrile with leukocytosis, chest x-ray showed pneumonia which could be secondary to aspiration intubated for airway protection - 03/29: Intubated for airway protection, after discussing with patient's Elyse -currently on CMV mode of ventilation, peep of 5, 40% FiO2 - Chest x-ray reviewed -continue Zosyn and vancomycin which was started on 03/29/2022 -sedated with propofol -ABGs reviewed, ventilator adjusted by decreasing tidal volume to 320 and decreasing rate to 12 -propofol held for sedation holiday -03/30/2022 CT chest/abdomen/pelvis: Elevation the right hemidiaphragm with atelectasis at the bilateral lung bases, right greater than left. 2. No pneumothorax or other acute cardiopulmonary disease. 3. Nasogastric tube tip at the gastric pylorus and would consider withdrawal by [address] the distal tip at the gastric antrum. 4. Bladder wall thickening with surrounding inflammatory stranding and trace amount of likely reactive free fluid in the pelvis suggestive of cystitis. (2) Seizure: Code(s): R56.9 - Unspecified convulsions Status: Acute Assessment and Plan: Patient presented to the ED on 03/24/2022 with complains of altered mental status and right upper extremity flaccidity/weakness 03/24/2022: Head CT Mild cerebellar and more prominent central and cortical cerebral atrophy. Chronic lacunar infarct right caudate nucleus.No acute intracranial finding 03/24/2022: Head and neck CTA showed Old lacunar infarct in right caudate nucleus.. Mild nonspecific cerebral white matter disease, which likely represents chronic small vessel ischemic disease.. No aneurysm or significant intracranial arterial stenosis.. 0% stenosis of the proximal internal carotid arteries relative to normal distal artery lumen diameters (NASCET criteria). Severe stenosis of proximal right vertebral artery.. Chronic sinusitis -on 03/25 early hours patient had multiple seizures lasting for approximately 30 seconds per neurologist -patient was transferred to the ICU for further management -03/25/2022: discussed with neurologist, Dr. Salguero at [facility] who recommended loading with Depacon 3000 mg IV x1 and then Depacon 1000 mg q.8 hours. Keppra 1 g q.6 hours IV and phenytoin 100 IV mg q.8 hours She also accepted patient in consult at [facility] -[facility], who accepted the patient to [facility] under Dr. Don Sam. -currently on Keppra 1 g q.6 hours IV, phenytoin 100 mg q.8 hours IV, Depacon 1000 mg q.8 hours IV -: added Vimpat 150 mg IV b.i.d. 03/30: Discussed with neurology will increase Vimpat to 200 mg IV b.i.d. -currently sedated with propofol -continue seizure precautions -appreciate neurology evaluation and recommendation -03/25/2022 EEG showed focal structural lesion of the right hemisphere, seizure activity - 03/30 repeat EEG This is an abnormal routine EEG due to the presence of diffuse slowing. This finding can be seen in the setting of encephalopathy. There are no epileptiform discharges or electrographic seizures. Clinical correlation is recommended. Patient would benefit from continues EEG and is awaiting for bed assignment at [facility] for transfer. We checked with [facility] again today and it was see transfer center again today and they still do not have a bed available for him. He would also need a new MRI to rule out a new CVA. Unfortunately I am unable to perform a MRI on a vented patient at [facility] Continue sedation holiday from propofol and current treatment with AEDs (3) Septic shock: Code(s): A41.9 - Sepsis, unspecifi
[2022-04-04 12:15] LABS: Glucose CSF 80 mg/dL (40-70); Total Protein CSF 43 mg/dL (12-60)
[2022-04-04 12:32] LABS: Glucose Point of Care 88 mg/dl (65-105)
[2022-04-04 12:48] LABS: Appearance CSF Clear (Clear); CSF source CSF; Color CSF Colorless (Colorless)
[2022-04-04 12:54] LABS: Lymphocytes CSF 98 % (40-80); Monocytes CSF 2 % (15-45); Nucleated Cell CSF 4 /uL (0-5); Red Blood Cell CSF 0 (0-2)
[2022-04-04 15:29] LABS: Total Hemoglobin 7.2 g/dL (12.0-18.0)
[2022-04-04 17:32] LABS: Glucose Point of Care 124 mg/dl (65-105)
[2022-04-04 20:53] LABS: Glucose Point of Care 174 mg/dl (65-105)
[2022-04-04] MEDS: INSULIN GLARGINE (*BKC) 100 UNITS/ML 15 UNITS SUB-Q (20:55)
[2022-04-05] VITALS (24 sets, daily range): BP systolic 107–143; BP diastolic 58–79; PULSE 99–119; RESP 12–28; TEMP 37.5–38.4; O2SAT 97–100
[2022-04-05 00:10] LABS: Glucose Point of Care 135 mg/dl (65-105)
[2022-04-05] MEDS: levETIRAcetam 1000MG/NACL100ML 1,000 MG/100 ML BAG 200 MG IVPB ×4 (00:32→17:03)
[2022-04-05 05:36] LABS: Alveolar/Arterial O2 Gradient 56.9 mmHg; Carboxyhemoglobin 0.2 % THb (0-2.0); Fractional Inspired Oxygen 30 %; HCO3 ABG 20.8 mEq/l (22.0-26.0); Methemoglobin ABG 0.4 %THb (0-1.5); Oxygen Content ABG 10.7 %vol (16.0-22.0); Oxygen Saturation ABG 98.5 % (95.0-100.0); Oxyhemoglobin 96.5 % THb (90.0-100.0); PCO2 ABG 31.9 mmHg (35.0-45.0); PO2 ABG 119.5 mmHg (80.0-100.0); PO2 FiO2 Ratio Arterial Blood 3.98 %; Reduced Hemoglobin 2.9 %THb (0-5.0); pH ABG 7.433 (7.350-7.450)
[2022-04-05 05:38] LABS: Device VENTILATOR; Modified Allen's Test Pass; Site Drawn RIGHT RADIAL
[2022-04-05 05:39] LABS: Arterial Blood Gas Ventilator rate 18 /MIN; Total Hemoglobin 7.7 g/dL (12.0-18.0)
[2022-04-05 05:40] LABS: Arterial Blood Gas PEEP 5 cmH2O; Arterial Blood Gas Tidal Volume 450 ml; Arterial Blood Gas Vent Mode CMV
[2022-04-05 06:08] LABS: Basophils Percent Auto 0.1 % (0.2-1.2); Eosinophils Absolute Auto 0.4 K/mm3 (0-0.3); Eosinophils Percent Auto 3.1 % (0-4.4); Hematocrit 21.5 % (42.0-52.0); Hemoglobin 7.1 g/dL (14.0-18.0); Immature Granulocyte Absolute 3.39 K/mm3 (0.00-0.031); Immature Granulocyte Percent A 25.4 % (0-0.5); Lymphocytes Absolute Auto 2.26 K/mm3 (0.9-3.2); Lymphocytes Percent Auto 16.9 % (18.3-44.2); Mean Corpuscular Hemoglobin 30.7 pg (26-34); Mean Corpuscular Volume 93.1 fl (80-100); Mean Platelet Volume 9.3 fl (7.4-10.4); Monocytes Percent Auto 14.7 % (2.6-8.5); Neutrophils Absolute Auto 5.3 K/mm3 (1.3-6.7); Neutrophils Percent Auto 39.8 % (45.5-73.1); Platelet Count Result 162 k/mm3 (150-375); Red Blood Count 2.31 M/mm3 (4.6-6.20); Red Cell Distribution Width 15.8 % (11.5-14.5); White Blood Count 13.4 K/mm3 (4.5-10.0)
[2022-04-05] MEDS: ACYCLOVIR SODIUM IVPB 800 MG in DEXTROSE 5% IN WATER 250 ML 266 MG IVPB ×3 (06:09→21:12)
[2022-04-05] MEDS: PHENYTOIN SODIUM INJ 100 MG/2 ML VIAL (*BKC) IV PUSH ×3 (06:10→21:12)
[2022-04-05] MEDS: CENTRAL LINE FLUSH 10 ML IV PUSH ×7 (06:10→21:12)
[2022-04-05 06:21] LABS: Alanine Aminotransferase 16 U/L (6-50); Albumin Level 2.4 g/dL (3.5-5.1); Alkaline Phosphatase 55 U/L (38-126); Anion Gap 4 mmol/L (8-16); Aspartate Amino Transferase 40 U/L (17-59); Bilirubin,Total < 0.1 mg/dL (0.2-1.3); Blood Urea Nitrogen 22 mg/dL (9-20); Calcium 7.6 mg/dL (8.4-10.2); Carbon Dioxide 25 mmol/L (22-30); Chloride 112 mmol/L (98-107); Estimated CRCL calculation 82 ml/min; Estimated Glomerular Filt Rate > 60; Glucose 143 mg/dL (65-110); Potassium 3.7 mmol/L (3.4-5.0); Sodium 141 mmol/L (137-145)
[2022-04-05] MEDS: LACOSAMIDE IVPB ×2 (08:43→20:47)
[2022-04-05] MEDS: SODIUM CHLORIDE 0.9% IVPB ×2 (08:43→20:47)
[2022-04-05] MEDS: ASPIRIN 81 MG CHEWABLE TABLET PO (08:44)
[2022-04-05] MEDS: PANTOPRAZOLE SODIUM IV 40 MG VIAL IV PUSH (08:44)
[2022-04-05] MEDS: FUROSEMIDE INJ 40 MG/4 ML VIAL IV PUSH (09:08)
--- NOTE | 2022-04-05 09:46 | WPDINTPN ---
Progress Note: A&P Assessment and Plan (1) Acute respiratory failure: Code(s): J96.00 - Acute respiratory failure, unspecified whether with hypoxia or hypercapnia Status: Acute Assessment and Plan: 03/29/2022: Patient using accessory muscles for respiration, increased work of breathing, febrile with leukocytosis, chest x-ray showed pneumonia which could be secondary to aspiration intubated for airway protection - 03/29: Intubated for airway protection, after discussing with patient's Elyse -currently on CMV mode of ventilation, peep of 5, 30% FiO2 - Chest x-ray reviewed -continue Zosyn and vancomycin which was started on 03/29/2022 -sedated with propofol -ABGs reviewed, -off propofol, no seizures noted -patient placed on ASV mode of ventilation, his use of accessory muscles has resolved, patient is more comfortable -03/30/2022 CT chest/abdomen/pelvis: Elevation the right hemidiaphragm with atelectasis at the bilateral lung bases, right greater than left. 2. No pneumothorax or other acute cardiopulmonary disease. 3. Nasogastric tube tip at the gastric pylorus and would consider withdrawal by [address] the distal tip at the gastric antrum. 4. Bladder wall thickening with surrounding inflammatory stranding and trace amount of likely reactive free fluid in the pelvis suggestive of cystitis. (2) Seizure: Code(s): R56.9 - Unspecified convulsions Status: Acute Assessment and Plan: Patient presented to the ED on 03/24/2022 with complains of altered mental status and right upper extremity flaccidity/weakness 03/24/2022: Head CT Mild cerebellar and more prominent central and cortical cerebral atrophy. Chronic lacunar infarct right caudate nucleus.No acute intracranial finding 03/24/2022: Head and neck CTA showed Old lacunar infarct in right caudate nucleus.. Mild nonspecific cerebral white matter disease, which likely represents chronic small vessel ischemic disease.. No aneurysm or significant intracranial arterial stenosis.. 0% stenosis of the proximal internal carotid arteries relative to normal distal artery lumen diameters (NASCET criteria). Severe stenosis of proximal right vertebral artery.. Chronic sinusitis -on 03/25 early hours patient had multiple seizures lasting for approximately 30 seconds per neurologist -patient was transferred to the ICU for further management -03/25/2022: discussed with neurologist, Dr. Salguero at [facility] who recommended loading with Depacon 3000 mg IV x1 and then Depacon 1000 mg q.8 hours. Keppra 1 g q.6 hours IV and phenytoin 100 IV mg q.8 hours She also accepted patient in consult at [facility] -[facility] who [facility] the patient to [facility] under Dr. Don Sam. -currently on Keppra 1 g q.6 hours IV, phenytoin 100 mg q.8 hours IV, Depacon 1000 mg q.8 hours IV -: added Vimpat 150 mg IV b.i.d. 03/30: Discussed with neurology will increase Vimpat to 200 mg IV b.i.d. -OFF propofol -continue seizure precautions -appreciate neurology evaluation and recommendation -03/25/2022 EEG showed focal structural lesion of the right hemisphere, seizure activity - 03/30 repeat EEG This is an abnormal routine EEG due to the presence of diffuse slowing. This finding can be seen in the setting of encephalopathy. There are no epileptiform discharges or electrographic seizures. Clinical correlation is recommended. Patient would benefit from continues EEG and is awaiting for bed assignment at [facility] for transfer. We checked with [facility] again today they still do not have a bed available for him. He would also need a new MRI to rule out a new CVA. Unfortunately I am unable to perform a MRI on a vented patient at [facility] Continue sedation holiday from propofol and current treatment with AEDs (3) Septic shock: Code(s): A41.9 - Sepsis, unspecified organism; R65.21 - Severe se
--- NOTE | 2022-04-05 11:19 | PCNFU ---
Nutrition Follow-Up Complete: Inadequate Oral Intake as related to mechanical intubation as evidenced by NPO goal: Meet estimated nutritional needs Patient is progressing towards goal. We will continue current goal. Pt current nutrition is Vital AF 1.2 at 65 ml/hr. Last recorded weight is 114 kg. Bowel Motility:+BM reported 04/04 Labs Reviewed:Glu 143, BUN 22, Alb 2.4.Jct 21.5,Hgb 7.1 Meds Noted:Zosyn, Vancomycin, Keppra,Protonix Skin: WNL Additional Notes: Patient remains on mechanical vent and tube feedings of Vital AF 1.2 at 65 ml/hr and tolerating. Current tube feeding is providing 1716 kcals/107 gms protein/1160 ml water. Meeting 100% kcal and protein needs at 15 kcal/kg. Flush 30 ml q 4 hours. Agree with diet orders. Will monitor daily in ICU rounds as reassessing every Monday and Monday.
[2022-04-05] MEDS: POTASSIUM CHLORIDE 20 MEQ PACKET (FOR LIQUID) 40 MEQ FEED TUBE (11:57)
[2022-04-05] MEDS: ACETAMINOPHEN ELIXIR 325 MG/10.15 ML UDC 650 MG PO ×2 (11:58→18:41)
[2022-04-05 12:15] LABS: Glucose Point of Care 137 mg/dl (65-105)
[2022-04-05 13:59] LABS: Total Hemoglobin 6.1 g/dL (12.0-18.0)
--- NOTE | 2022-04-05 15:48 | PC.NURSE ---
[facility] transfer center called for update on patient and notified me that they [facility] is still at capacity but patient remains on their waitlist
[2022-04-05 17:28] LABS: Glucose Point of Care 117 mg/dl (65-105)
[2022-04-05 19:41] LABS: Vancomycin Trough 20.2 ug/mL (10.0-20.0)
--- NOTE | 2022-04-05 20:18 | PM.IMPN ---
Progress Note: A&P Assessment and Plan (1) Septic shock: Code(s): A41.9 - Sepsis, unspecified organism; R65.21 - Severe sepsis with septic shock Status: Acute Assessment and Plan: Leukocytosis and fevers likely secondary to pneumonia secondary to aspiration -BCx 03/29 growing ESBL EColi sensitive to Gent, Imipenem, Zosyn and Bactrim -UCx negative 03/29 and again 04/03 -Sputum Cx 03/30 negative -BCx 04/01 growing Staph hominis/Pepper Epi in anaerobic bottle only in 1 of the sets (source was Rt IJ) -WBC did normalized but now back up to 13K and still having fevers -Levophed off 04/01 -LP 04/04: 0 RBCs/4 WBCs. Normal protein, glucose elevated at 80 (serum was 88). Acyclovir added -continue IV Vanco (03/29); changed to impienem on 04/04 -consider removing central line (2) Acute respiratory failure: Code(s): J96.00 - Acute respiratory failure, unspecified whether with hypoxia or hypercapnia Status: Acute Assessment and Plan: On 03/29, Patient developed respiratory distress and febrile with leukocytosis. CXR showed pneumonia which could be secondary to aspiration. Patient was intubated for airway protection -03/30 CT chest/abdomen/pelvis:? 1. Elevation the right hemidiaphragm with atelectasis at the bilateral lung bases, right greater than left. 2. No pneumothorax or other acute cardiopulmonary disease. 3. Nasogastric tube tip at the gastric pylorus and would consider withdrawal by [address] the distal tip at the gastric antrum. 4. Bladder wall thickening with surrounding inflammatory stranding and trace amount of likely reactive free fluid in the pelvis suggestive of cystitis. -continue to wean mechanical ventilation -continue IV ax (3) Seizure: Code(s): R56.9 - Unspecified convulsions Status: Acute Assessment and Plan: Patient presented to the ED on 03/24 with complains of altered mental status and right upper extremity flaccidity/weakness -Head CT 03/24 mild cerebellar and more prominent central and cortical cerebral atrophy. Chronic lacunar infarct right caudate nucleus.No acute intracranial finding -Head and neck CTA 03/24 showed old lacunar infarct in right caudate nucleus.. Mild nonspecific cerebral white matter disease, which likely represents chronic small vessel ischemic disease. No aneurysm or significant intracranial arterial stenosis.. 0% stenosis of the proximal internal carotid arteries relative to normal distal artery lumen diameters (NASCET criteria). Severe stenosis of proximal right vertebral artery.. Chronic sinusitis -on 03/25 early hours patient had multiple seizures lasting for approximately 30 seconds per neurologist -patient was transferred to the ICU for further management -03/25 EEG showed focal structural lesion of the right hemisphere, seizure activity -03/25: discussed with neurologist, Dr. Salguero at? [facility] who recommended loading with Depacon 3000 mg IV x1 and then Depacon 1000 mg q.8 hours.? Keppra 1 g q.6 hours IV and phenytoin 100 IV mg q.8 hours She also accepted patient in consult at [facility]. I spoke to Dr. Rosales, [facility] fellow, who accepted the patient to [facility] under Dr. Don Sam. -03/28: added Vimpat 150 mg IV b.i.d. -03/30: Discussed with neurology will increase Vimpat to 200 mg IV b.i.d. -03/30 repeat EEG: abnormal routine EEG due to the presence of diffuse slowing c/w encephalopathy.No epileptiform discharges or electrographic seizures -currently on Keppra, Lacosamide and VPA. 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
[2022-04-05] MEDS: MINERAL OIL/WHITE PETROLATUM OINTMENT 1 APPLIC EACH EYE (20:47)
[2022-04-05 20:53] LABS: Glucose Point of Care 156 mg/dl (65-105)
[2022-04-05] MEDS: INSULIN GLARGINE (*BKC) 100 UNITS/ML 15 UNITS SUB-Q (21:12)
[2022-04-05 23:27] LABS: Glucose Point of Care 139 mg/dl (65-105)
[2022-04-06] VITALS (25 sets, daily range): BP systolic 109–151; BP diastolic 60–76; PULSE 100–124; RESP 10–20; TEMP 37.7–38.8; O2SAT 99–100
[2022-04-06] MEDS: levETIRAcetam 1000MG/NACL100ML 1,000 MG/100 ML BAG 200 MG IVPB ×4 (00:05→17:53)
[2022-04-06] MEDS: ACETAMINOPHEN ELIXIR 325 MG/10.15 ML UDC 650 MG PO ×3 (00:54→17:55)
[2022-04-06 05:11] LABS: Alveolar/Arterial O2 Gradient 58.5 mmHg; Carboxyhemoglobin 0.3 % THb (0-2.0); Fractional Inspired Oxygen 30 %; Methemoglobin ABG 0.4 %THb (0-1.5); Oxygen Content ABG 11.1 %vol (16.0-22.0); Oxygen Saturation ABG 98.3 % (95.0-100.0); Oxyhemoglobin 96.5 % THb (90.0-100.0); PCO2 ABG 36.6 mmHg (35.0-45.0); PO2 ABG 112.4 mmHg (80.0-100.0); PO2 FiO2 Ratio Arterial Blood 3.75 %; Reduced Hemoglobin 2.8 %THb (0-5.0); pH ABG 7.452 (7.350-7.450)
[2022-04-06 05:12] LABS: Arterial Blood Gas PEEP 5 cmH2O; Arterial Blood Gas Vent Mode ASV; Device VENTILATOR; Modified Allen's Test Pass; Site Drawn RIGHT RADIAL
[2022-04-06 05:18] LABS: Hematocrit 21.3 % (42.0-52.0); Mean Corpuscular HGB Conc 33.3 g/dl (32-36); Mean Corpuscular Hemoglobin 31.4 pg (26-34); Mean Corpuscular Volume 94.2 fl (80-100); Mean Platelet Volume 8.9 fl (7.4-10.4); Platelet Count Result 224 k/mm3 (150-375); Red Blood Count 2.26 M/mm3 (4.6-6.20); Red Cell Distribution Width 15.5 % (11.5-14.5); White Blood Count 19.9 K/mm3 (4.5-10.0)
[2022-04-06 05:28] LABS: Hemoglobin 7.1 g/dL (14.0-18.0)
[2022-04-06 05:31] LABS: Alanine Aminotransferase 13 U/L (6-50); Albumin Level 2.5 g/dL (3.5-5.1); Alkaline Phosphatase 53 U/L (38-126); Anion Gap 4 mmol/L (8-16); Aspartate Amino Transferase 34 U/L (17-59); Bilirubin,Total < 0.1 mg/dL (0.2-1.3); Blood Urea Nitrogen 22 mg/dL (9-20); Calcium 7.6 mg/dL (8.4-10.2); Carbon Dioxide 26 mmol/L (22-30); Chloride 107 mmol/L (98-107); Estimated CRCL calculation 82 ml/min; Estimated Glomerular Filt Rate > 60; Glucose 123 mg/dL (65-110); Phosphorus 3.6 mg/dL (2.5-4.5); Potassium 3.5 mmol/L (3.4-5.0); Sodium 137 mmol/L (137-145)
[2022-04-06] MEDS: ACYCLOVIR SODIUM IVPB 800 MG in DEXTROSE 5% IN WATER 250 ML 266 MG IVPB ×3 (05:35→21:56)
[2022-04-06 05:55] LABS: Band Neutrophils Percent 12 % (0-6); Eosinophils Absolute Manual 0.39 K/mm3 (0.02-0.5); Eosinophils Percent Manual 2 % (0-4); Hypochromasia 2+ (NORMAL); Lymphocytes Absolute Manual 3.18 K/mm3 (1.1-4.5); Metamyelocytes Percent 4 %; Monocytes Absolute Manual 1.79 K/mm3 (0.1-0.90); Monocytes Percent Manual 9 % (3-9); Neutrophils Absolute Manual 13.73 K/mm3 (1.3-6.7); Neutrophils Percent Manual 57 % (46-73); Platelet Estimate Adequate (Adequate); Total Cells Counted 100
[2022-04-06 05:56] LABS: Schistocytes None Seen (NORMAL)
[2022-04-06 05:57] LABS: Anisocytosis 2+ (NORMAL)
[2022-04-06] MEDS: CENTRAL LINE FLUSH 10 ML IV PUSH ×7 (06:00→21:59)
[2022-04-06] MEDS: PHENYTOIN SODIUM INJ 100 MG/2 ML VIAL (*BKC) IV PUSH ×3 (06:00→22:00)
[2022-04-06] MEDS: POTASSIUM CHLORIDE 20 MEQ PACKET (FOR LIQUID) 40 MEQ FEED TUBE ×2 (09:20→18:35)
[2022-04-06] MEDS: LACOSAMIDE IVPB ×2 (09:20→21:55)
[2022-04-06] MEDS: SODIUM CHLORIDE 0.9% IVPB ×2 (09:20→21:55)
[2022-04-06] MEDS: PANTOPRAZOLE SODIUM IV 40 MG VIAL IV PUSH (09:20)
[2022-04-06] MEDS: MINERAL OIL/WHITE PETROLATUM OINTMENT 1 APPLIC EACH EYE ×2 (09:21→21:56)
[2022-04-06] MEDS: ASPIRIN 81 MG CHEWABLE TABLET PO (09:21)
[2022-04-06] MEDS: FUROSEMIDE INJ 40 MG/4 ML VIAL IV PUSH (09:22)
--- NOTE | 2022-04-06 09:56 | WPDINTPN ---
Progress Note: A&P Assessment and Plan (1) Acute respiratory failure: Code(s): J96.00 - Acute respiratory failure, unspecified whether with hypoxia or hypercapnia Status: Acute Assessment and Plan: 03/29/2022: Patient using accessory muscles for respiration, increased work of breathing, febrile with leukocytosis, chest x-ray showed pneumonia which could be secondary to aspiration intubated for airway protection - 03/29: Intubated for airway protection, after discussing with patient's Elyse -currently on CMV mode of ventilation, peep of 5, 30% FiO2 - Chest x-ray this morning: Airspace opacities in the perihilar regions and at the lung bases with mild worsening, consistent with atelectasis versus pneumonia.. Chronic mild elevation of right hemidiaphragm. -ABGs reviewed, -off propofol, no seizures noted -04/05: patient placed on ASV mode of ventilation, his use of accessory muscles has resolved, patient is more comfortable -continue same ventilatory mode -03/30/2022 CT chest/abdomen/pelvis: Elevation the right hemidiaphragm with atelectasis at the bilateral lung bases, right greater than left. 2. No pneumothorax or other acute cardiopulmonary disease. 3. Nasogastric tube tip at the gastric pylorus and would consider withdrawal by [address] the distal tip at the gastric antrum. 4. Bladder wall thickening with surrounding inflammatory stranding and trace amount of likely reactive free fluid in the pelvis suggestive of cystitis. (2) Seizure: Code(s): R56.9 - Unspecified convulsions Status: Acute Assessment and Plan: Patient presented to the ED on 03/24/2022 with complains of altered mental status and right upper extremity flaccidity/weakness 03/24/2022: Head CT Mild cerebellar and more prominent central and cortical cerebral atrophy. Chronic lacunar infarct right caudate nucleus.No acute intracranial finding 03/24/2022: Head and neck CTA showed Old lacunar infarct in right caudate nucleus.. Mild nonspecific cerebral white matter disease, which likely represents chronic small vessel ischemic disease.. No aneurysm or significant intracranial arterial stenosis.. 0% stenosis of the proximal internal carotid arteries relative to normal distal artery lumen diameters (NASCET criteria). Severe stenosis of proximal right vertebral artery.. Chronic sinusitis -on 03/25 early hours patient had multiple seizures lasting for approximately 30 seconds per neurologist -patient was transferred to the ICU for further management -03/25/2022: discussed with neurologist, Dr. Salguero at [facility] who recommended loading with Depacon 3000 mg IV x1 and then Depacon 1000 mg q.8 hours. Keppra 1 g q.6 hours IV and phenytoin 100 IV mg q.8 hours She also accepted patient in consult at [facility] -[facility], who accepted the patient to [facility] under Dr. Don Sam. -currently on Keppra 1 g q.6 hours IV, phenytoin 100 mg q.8 hours IV, Depacon 1000 mg q.8 hours IV -: added Vimpat 150 mg IV b.i.d. 03/30: Discussed with neurology will increase Vimpat to 200 mg IV b.i.d. -OFF propofol -continue seizure precautions -appreciate neurology evaluation and recommendation -03/25/2022 EEG showed focal structural lesion of the right hemisphere, seizure activity - 03/30 repeat EEG This is an abnormal routine EEG due to the presence of diffuse slowing. This finding can be seen in the setting of encephalopathy. There are no epileptiform discharges or electrographic seizures. Clinical correlation is recommended. Patient would benefit from continues EEG and is awaiting for bed assignment at [facility] for transfer. We checked with [facility] again today they still do not have a bed available for him. He would also need a new MRI to rule out a new CVA. Unfortunately I am unable to perform a MRI on a vented patient at [facility] Continue sedation holiday
--- NOTE | 2022-04-06 11:58 | PCFNICU ---
ICU Rounding Note: Pt current nutrition is Vital AF 1.2 at 65 ml/hr. Last recorded weight is 114 kg. Bowel Motility:FMS Labs Reviewed:Glu 123, BUN 22, Alb 2.5 Meds Noted:Zosyn, Vancomycin, Keppra,Protonix Skin: WNL Additional Notes:Patient remains on mechanical vent and tube feedings of Vital AF 1.2 at 65 ml/hr and tolerating. Flush 30 ml q 4 hours. Banatrol Plus BID for stool bulking. Plans for CT scan today. Agree with diet orders. Monitoring: Will monitor daily in ICU rounds as reassessing every Monday and Monday.
--- NOTE | 2022-04-06 12:57 | PM.IMPN ---
Progress Note: A&P Assessment and Plan (1) Septic shock: Code(s): A41.9 - Sepsis, unspecified organism; R65.21 - Severe sepsis with septic shock Status: Acute Assessment and Plan: Leukocytosis and fevers likely from pneumonia secondary to aspiration -BCx 03/29 growing ESBL EColi sensitive to Gent, Imipenem, Zosyn and Bactrim -UCx negative 03/29 and again 04/03 -Sputum Cx 03/30 negative -BCx 04/01 growing Staph hominis/Pepper Epi in anaerobic bottle only in 1 of the sets (source was Rt IJ) -WBC did normalized but now back up to 20K (with 12% bands) and still having fevers -Levophed off 04/01 -LP 04/04: 0 RBCs/4 WBCs. Normal protein, glucose elevated at 80 (serum was 88). Acyclovir added -CT Ch/A/P - No PE but does show colitis. CT Head no change. -Consider colitis as etiology of continued fevers but would expect Vanco/Prim to be able to treat this. Consider fungal as well. Consider drug fever as well -continue IV Vanco (03/29) and acyclovir (04/04) and impienem (04/04) -consider removing central line (2) Acute respiratory failure: Code(s): J96.00 - Acute respiratory failure, unspecified whether with hypoxia or hypercapnia Status: Acute Assessment and Plan: On 03/29, Patient developed respiratory distress and febrile with leukocytosis. CXR showed pneumonia which could be secondary to aspiration. Patient was intubated for airway protection -04/06 CT chest/abdomen/pelvis showing No PE and no significant pulmonary abnormalities -continue to wean mechanical ventilation -continue IV ax (3) Seizure: Code(s): R56.9 - Unspecified convulsions Status: Acute Assessment and Plan: Patient presented to the ED on 03/24 with complains of altered mental status and right upper extremity flaccidity/weakness -Head CT 03/24 mild cerebellar and more prominent central and cortical cerebral atrophy. Chronic lacunar infarct right caudate nucleus.No acute intracranial finding -Head and neck CTA 03/24 showed old lacunar infarct in right caudate nucleus.. Mild nonspecific cerebral white matter disease, which likely represents chronic small vessel ischemic disease. No aneurysm or significant intracranial arterial stenosis.. 0% stenosis of the proximal internal carotid arteries relative to normal distal artery lumen diameters (NASCET criteria). Severe stenosis of proximal right vertebral artery.. Chronic sinusitis -on 03/25 early hours patient had multiple seizures lasting for approximately 30 seconds per neurologist -patient was transferred to the ICU for further management -03/25 EEG showed focal structural lesion of the right hemisphere, seizure activity -03/25: discussed with neurologist, Dr. Salguero at? [facility] who recommended loading with Depacon 3000 mg IV x1 and then Depacon 1000 mg q.8 hours.? Keppra 1 g q.6 hours IV and phenytoin 100 IV mg q.8 hours She also accepted patient in consult at [facility]. I spoke to Dr. Rosales, [facility] fellow, who accepted the patient to [facility] under Dr. Don Sam. -03/28: added Vimpat 150 mg IV b.i.d. -03/30: Discussed with neurology will increase Vimpat to 200 mg IV b.i.d. -03/30 repeat EEG: abnormal routine EEG due to the presence of diffuse slowing c/w encephalopathy.No epileptiform discharges or electrographic seizures -currently on Keppra, Lacosamide and VPA. PB on hold -continue seizure precautions -appreciate neurology evaluation and recommendation -Patient would benefit from continues EEG and is awaiting for bed assignment at [facility] for transfer (4) Malignant hyperthermia: Code(s): T88.3XXA - Malignant hyperthermia due to anesthesia, initial encounter Status: Acute Assessment and Plan: Patient received succinylcholine for rapid sequence intubation on 03/29 thereafter developed fevers up to 105? F -patient was tachycardic and hypertensive but no rigidity and felt to have malignant hypertension -
[2022-04-06 13:56] LABS: Glucose Point of Care 113 mg/dl (65-105)
[2022-04-06 18:02] LABS: Glucose Point of Care 120 mg/dl (65-105)
[2022-04-06 19:20] LABS: IFOB Positive Control Positive; Immunochemical Fecal Occult Bl Positive (N)
[2022-04-06 19:24] LABS: Triglycerides 109 mg/dL (<150)
[2022-04-06] MEDS: INSULIN GLARGINE (*BKC) 100 UNITS/ML 15 UNITS SUB-Q (21:55)
[2022-04-06 22:39] LABS: Toxigenic C. Diff POSITIVE (NEGATIVE)
[2022-04-07] VITALS (28 sets, daily range): BP systolic 87–155; BP diastolic 51–96; PULSE 90–116; RESP 10–29; TEMP 37.4–38.1; O2SAT 95–100
[2022-04-07] MEDS: levETIRAcetam 1000MG/NACL100ML 1,000 MG/100 ML BAG 200 MG IVPB ×4 (00:58→18:00)
[2022-04-07 00:59] LABS: Glucose Point of Care 170 mg/dl (65-105)
[2022-04-07] MEDS: ACYCLOVIR SODIUM IVPB 800 MG in DEXTROSE 5% IN WATER 250 ML 266 MG IVPB ×3 (05:00→21:53)
[2022-04-07 05:46] LABS: Alveolar/Arterial O2 Gradient 93.5 mmHg; Base Excess ABG 0.2 mEq/l (+/-2.0); Carboxyhemoglobin 0.2 % THb (0-2.0); Fractional Inspired Oxygen 30 %; HCO3 ABG 24.4 mEq/l (22.0-26.0); Methemoglobin ABG 0.2 %THb (0-1.5); Oxygen Content ABG 12.4 %vol (16.0-22.0); Oxygen Saturation ABG 95.6 % (95.0-100.0); Oxyhemoglobin 93.4 % THb (90.0-100.0); PCO2 ABG 37.8 mmHg (35.0-45.0); PO2 FiO2 Ratio Arterial Blood 2.53 %; Reduced Hemoglobin 6.2 %THb (0-5.0); Total Hemoglobin 9.4 g/dL (12.0-18.0); pH ABG 7.428 (7.350-7.450)
[2022-04-07 05:47] LABS: Device VENTILATOR; Modified Allen's Test Unable to perform; Site Drawn RIGHT RADIAL
[2022-04-07 05:48] LABS: Arterial Blood Gas PEEP 5 cmH2O; Arterial Blood Gas Tidal Volume 450 ml; Arterial Blood Gas Vent Mode CMV; Arterial Blood Gas Ventilator rate 18 /MIN
[2022-04-07] MEDS: CENTRAL LINE FLUSH 10 ML IV PUSH ×7 (05:50→21:54)
[2022-04-07 05:54] LABS: Mean Corpuscular HGB Conc 31.7 g/dl (32-36); Mean Corpuscular Hemoglobin 31.1 pg (26-34); Mean Corpuscular Volume 98.1 fl (80-100); Mean Platelet Volume 9.3 fl (7.4-10.4); Platelet Count Result 306 k/mm3 (150-375); Red Blood Count 2.12 M/mm3 (4.6-6.20); Red Cell Distribution Width 15.4 % (11.5-14.5); White Blood Count 21.9 K/mm3 (4.5-10.0)
[2022-04-07 06:41] LABS: Alanine Aminotransferase 11 U/L (6-50); Albumin Level 2.4 g/dL (3.5-5.1); Alkaline Phosphatase 51 U/L (38-126); Anion Gap 4 mmol/L (8-16); Aspartate Amino Transferase 22 U/L (17-59); Bilirubin,Total 0.1 mg/dL (0.2-1.3); Blood Urea Nitrogen 26 mg/dL (9-20); Calcium 7.6 mg/dL (8.4-10.2); Carbon Dioxide 23 mmol/L (22-30); Chloride 105 mmol/L (98-107); Estimated CRCL calculation 82 ml/min; Estimated Glomerular Filt Rate > 60; Glucose 125 mg/dL (65-110); Phosphorus 3.8 mg/dL (2.5-4.5); Potassium 3.6 mmol/L (3.4-5.0); Sodium 132 mmol/L (137-145)
[2022-04-07] MEDS: PHENYTOIN SODIUM INJ 100 MG/2 ML VIAL (*BKC) IV PUSH ×3 (06:48→21:54)
[2022-04-07] MEDS: metroNIDAZOLE 500 MG/ISO 100ML 500 MG/100 ML BAG 100 MG IVPB ×3 (09:45→21:55)
[2022-04-07] MEDS: SODIUM CHLORIDE 0.9% IV 250 ML 30 ML IV CONT (09:46)
[2022-04-07] MEDS: FIDAXOMICIN 200 MG TABLET PO ×2 (09:48→21:59)
[2022-04-07] MEDS: PANTOPRAZOLE SODIUM IV 40 MG VIAL IV PUSH ×2 (09:48→21:53)
[2022-04-07] MEDS: MINERAL OIL/WHITE PETROLATUM OINTMENT 1 APPLIC EACH EYE ×2 (09:48→21:52)
[2022-04-07] MEDS: LACOSAMIDE IVPB ×2 (09:48→21:52)
[2022-04-07] MEDS: SODIUM CHLORIDE 0.9% IVPB ×2 (09:48→21:52)
[2022-04-07] MEDS: ASPIRIN 81 MG CHEWABLE TABLET PO (09:49)
[2022-04-07] MEDS: ENOXAPARIN 40 MG/0.4 ML SYRINGE SUB-Q (09:49)
[2022-04-07 10:00] LABS: Hematocrit 20.8 % (42.0-52.0); Hemoglobin 6.6 g/dL (14.0-18.0)
[2022-04-07 10:20] LABS: Band Neutrophils Percent 10 % (0-6); Eosinophils Absolute Manual 0.43 K/mm3 (0.02-0.5); Eosinophils Percent Manual 2 % (0-4); Lymphocytes Absolute Manual 4.16 K/mm3 (1.1-4.5); Monocytes Absolute Manual 1.75 K/mm3 (0.1-0.90); Monocytes Percent Manual 8 % (3-9); Myelocytes Percent 4 %; Neutrophils Absolute Manual 14.67 K/mm3 (1.3-6.7); Neutrophils Percent Manual 57 % (46-73); Platelet Estimate Adequate (Adequate); Total Cells Counted 100
[2022-04-07 10:21] LABS: Schistocytes None Seen (NORMAL)
[2022-04-07 10:22] LABS: Burr Cells 1+ (NORMAL); Hypochromasia 1+ (NORMAL)
--- NOTE | 2022-04-07 11:28 | WPDINTPN ---
Progress Note: A&P Assessment and Plan (1) Anemia: Code(s): D64.9 - Anemia, unspecified Status: Acute Assessment and Plan: Patient dropped his hemoglobin 6.6 requiring 1 unit of packed RBCs -hold anticoagulation -he to for occult blood is positive -will have GI evaluate the patient possible GI bleed -enter hemoglobin closely (2) C. difficile colitis: Code(s): A04.72 - Enterocolitis due to Clostridium difficile, not specified as recurrent Status: Acute Assessment and Plan: Patient with diarrhea, has received multiple antibiotics for his fevers -C diff was positive on 04/06/2022 -started on vancomycin and fidaxomicin along with Flagyl -will continue to monitor (3) Acute respiratory failure: Code(s): J96.00 - Acute respiratory failure, unspecified whether with hypoxia or hypercapnia Status: Acute Assessment and Plan: 03/29/2022: Patient using accessory muscles for respiration, increased work of breathing, febrile with leukocytosis, chest x-ray showed pneumonia which could be secondary to aspiration intubated for airway protection - 03/29: Intubated for airway protection, after discussing with patient's Elyse -currently on CMV mode of ventilation, peep of 5, 30% FiO2 - Chest x-ray this morning: Airspace opacities in the perihilar regions and at the lung bases with mild worsening, consistent with atelectasis versus pneumonia.. Chronic mild elevation of right hemidiaphragm. -ABGs reviewed, -off propofol, no seizures noted -04/05: patient placed on ASV mode of ventilation, his use of accessory muscles has resolved, patient is more comfortable -continue same ventilatory mode -03/30/2022 CT chest/abdomen/pelvis: Elevation the right hemidiaphragm with atelectasis at the bilateral lung bases, right greater than left. 2. No pneumothorax or other acute cardiopulmonary disease. 3. Nasogastric tube tip at the gastric pylorus and would consider withdrawal by [address] the distal tip at the gastric antrum. 4. Bladder wall thickening with surrounding inflammatory stranding and trace amount of likely reactive free fluid in the pelvis suggestive of cystitis. (4) Seizure: Code(s): R56.9 - Unspecified convulsions Status: Acute Assessment and Plan: Patient presented to the ED on 03/24/2022 with complains of altered mental status and right upper extremity flaccidity/weakness 03/24/2022: Head CT Mild cerebellar and more prominent central and cortical cerebral atrophy. Chronic lacunar infarct right caudate nucleus.No acute intracranial finding 03/24/2022: Head and neck CTA showed Old lacunar infarct in right caudate nucleus.. Mild nonspecific cerebral white matter disease, which likely represents chronic small vessel ischemic disease.. No aneurysm or significant intracranial arterial stenosis.. 0% stenosis of the proximal internal carotid arteries relative to normal distal artery lumen diameters (NASCET criteria). Severe stenosis of proximal right vertebral artery.. Chronic sinusitis -on 03/25 early hours patient had multiple seizures lasting for approximately 30 seconds per neurologist -patient was transferred to the ICU for further management -03/25/2022: discussed with neurologist, Dr. Salguero at [facility] who recommended loading with Depacon 3000 mg IV x1 and then Depacon 1000 mg q.8 hours. Keppra 1 g q.6 hours IV and phenytoin 100 IV mg q.8 hours She also accepted patient in consult at [facility] -I [facility]ales, [facility] fellow, who accepted the patient to [facility] under Dr. Don Sam. -currently on Keppra 1 g q.6 hours IV, phenytoin 100 mg q.8 hours IV, Depacon 1000 mg q.8 hours IV -012/05: added Vimpat 150 mg IV b.i.d. 03/30: Discussed with neurology will increase Vimpat to 200 mg IV b.i.d. -OFF propofol -continue seizure precautions -appreciate neurology evaluation and recommendation -03/25/2022 EEG showed focal structural lesion of
--- NOTE | 2022-04-07 11:38 | PCFNICU ---
ICU Rounding Note: Pt current nutrition is Vital AF 1.2 at 65 ml/hr. Last recorded weight is 113.4 kg. Bowel Motility: FMS Labs Reviewed:Glu 125, BUN 26, Na 132, Alb 2.4 Meds Noted:Zosyn, Vancomycin, Keppra,Protonix Skin: WNL Additional Notes: Patient remains on mechanical vent and tube feeding of Vital AF 1.2 at 65 ml/hr and tolerating. Colitis and Cdiff + Banatrol Plus added BID for stool bulking. Agree with diet orders. Following daily in ICU rounds. Will monitor daily in ICU rounds as reassessing every Monday and Monday.
[2022-04-07 12:13] LABS: Glucose Point of Care 119 mg/dl (65-105)
[2022-04-07] MEDS: VANCOMYCIN ORAL 125 MG/2.5 ML SYRUP PO ×2 (12:31→18:00)
[2022-04-07] MEDS: ACETAMINOPHEN ELIXIR 325 MG/10.15 ML UDC 650 MG PO (12:31)
[2022-04-07 17:15] LABS: VDRL Quantitative CSF Nonreactive (Nonreactive)
--- NOTE | 2022-04-07 17:54 | WPDGICN ---
Assessment and Plan Assessment and plan (1) Anemia: Code(s): D64.9 - Anemia, unspecified Status: Acute Assessment and Plan: he has had gradual drop in his blood counts. In January his hemoglobin is 14.8 on admission here was 13.7 as been consistently dropping. Was 7.6 yesterday and today it is down to 6.6. A fecal occult blood test however was negative. He is on heparin. He also has been started on Plavix. Head and neck CTA did show severe stenosis of the right proximal vertebral artery. (2) Acute respiratory failure: Code(s): J96.00 - Acute respiratory failure, unspecified whether with hypoxia or hypercapnia Status: Acute Assessment and Plan: As noted above he did develop acute respiratory failure on March 29. He also had leukocytosis. Was felt that he may have had aspiration. He has been intubated since then for airway protection and is on antibiotics at this time. CT scan was negative for pulmonary embolism. (3) Cerebrovascular accident: Code(s): I63.9 - Cerebral infarction, unspecified Status: Acute Assessment and Plan: He has history of recent herpes encephalitis it is felt that the his presenting symptoms are due to an acute cerebrovascular accident (4) Seizure: Code(s): R56.9 - Unspecified convulsions Status: Acute Assessment and Plan: she has been controlled with Keppra. The staff has been in consultation with Neurology at [facility]. (5) Liver transplant status: Code(s): Z94.4 - Liver transplant status Status: Chronic Assessment and Plan: He has had a liver transplant. At this point however I do not think that there is any problem related to that. Plan I agree with treatment for the C diff colitis. We will continue to watch his hemoglobin hematocrit. There is no sign of bleeding by occult blood or by stool color. If counts continue to drop however I would consider performing an EGD to rule out stress ulcers and such. GI Consult Note Consult date/time: 04/07/22 17:54 HPI: Yonis Boone is a 61 year old male who was admitted on March 25 with initially some altered mental status, complaints of right upper extremity flaccidity and some difficulty speaking. He also developed seizures shortly after admission. He was then transferred to intensive care unit and ultimately was intubated because of acute respiratory failure with hypoxia. A chest x-ray showed pneumonia which could be due to aspiration. He also had a CT scan chest showed colitis; Probable mild wall thickening of the distal sigmoid colon and rectum with minimal pericolonic inflammatory stranding. No abscess or free air. No bowel obstruction. HE HAS BEEN FOUND TO BE POSITIVE FOR C DIFF. he is on multiple antibiotics that would help including vancomycin orally and also Dificid which is currently the drug of choice. He is also receiving intravenous metronidazole but I suspect that is due to his sepsis and is an adjunct to his other antibiotics. At this time I am asked to see him because of anemia. His blood counts have been dropping although occult blood has been done and is negative. The staff reports no evidence of gastrointestinal bleeding. He does have an orogastric tube for which she is receiving feedings. Review of Systems Review of Systems: ROS unobtainable: Yes unobtainable due to endotracheal tube PMFSH Past Medical History Medical History Cerebrovascular accident (2011) Mild right sided weakness. Chronic obstructive pulmonary disease Depression Hepatitis C Status post liver transplant in 2007 followed by successful hepatitis C treatment in 2013. Herpes encephalitis Hyperlipidemia Irritable bowel syndrome Peripheral neuropathy Pneumonia due to 2019 novel coronavirus Renal failure Required dialysis before liver transplant. Seizures Surgical Histor
[2022-04-07 18:28] LABS: Glucose Point of Care 126 mg/dl (65-105)
[2022-04-07 19:43] LABS: Cryptococcus Antigen Not Detected (Not Detected); Cryptococcus Specimen Source CSF
[2022-04-07] MEDS: INSULIN GLARGINE (*BKC) 100 UNITS/ML 15 UNITS SUB-Q (21:55)
[2022-04-08] VITALS (21 sets, daily range): BP systolic 112–167; BP diastolic 56–92; PULSE 87–120; RESP 10–23; TEMP 37.1–37.8; O2SAT 98–100
[2022-04-08] MEDS: VANCOMYCIN ORAL 125 MG/2.5 ML SYRUP PO ×2 (00:46→06:37)
[2022-04-08] MEDS: levETIRAcetam 1000MG/NACL100ML 1,000 MG/100 ML BAG 200 MG IVPB ×5 (00:46→23:52)
[2022-04-08 00:57] LABS: Glucose Point of Care 128 mg/dl (65-105)
[2022-04-08] MEDS: ACYCLOVIR SODIUM IVPB 800 MG in DEXTROSE 5% IN WATER 250 ML 266 MG IVPB ×3 (05:00→22:45)
[2022-04-08] MEDS: CENTRAL LINE FLUSH 10 ML IV PUSH ×7 (05:38→22:51)
[2022-04-08] MEDS: metroNIDAZOLE 500 MG/ISO 100ML 500 MG/100 ML BAG 100 MG IVPB ×3 (06:00→23:00)
--- NOTE | 2022-04-08 06:08 | PC.NURSE ---
Updated [facility] transfer line. No beds available but is still on the list.
[2022-04-08 06:10] LABS: Alveolar/Arterial O2 Gradient 29.8 mmHg; Base Excess ABG -0.3 mEq/l (+/-2.0); Carboxyhemoglobin 0.3 % THb (0-2.0); Fractional Inspired Oxygen 30 %; Methemoglobin ABG 0.5 %THb (0-1.5); Modified Allen's Test Pass; Oxygen Content ABG 10.7 %vol (16.0-22.0); Oxygen Saturation ABG 99.1 % (95.0-100.0); Oxyhemoglobin 97.2 % THb (90.0-100.0); PCO2 ABG 31.7 mmHg (35.0-45.0); PO2 ABG 146.9 mmHg (80.0-100.0); Site Drawn RIGHT RADIAL; Total Hemoglobin 7.6 g/dL (12.0-18.0); pH ABG 7.478 (7.350-7.450)
[2022-04-08 06:11] LABS: Arterial Blood Gas PEEP 10 cmH2O; Arterial Blood Gas Vent Mode ASV; Device VENTILATOR
[2022-04-08 06:31] LABS: Basophils Absolute Auto 0.1 K/mm3 (0.0-0.1); Basophils Percent Auto 0.3 % (0.2-1.2); Eosinophils Absolute Auto 0.4 K/mm3 (0-0.3); Eosinophils Percent Auto 2.5 % (0-4.4); Immature Granulocyte Absolute 1.52 K/mm3 (0.00-0.031); Immature Granulocyte Percent A 9.8 % (0-0.5); Lymphocytes Absolute Auto 2.13 K/mm3 (0.9-3.2); Lymphocytes Percent Auto 13.7 % (18.3-44.2); Mean Corpuscular HGB Conc 33.2 g/dl (32-36); Mean Corpuscular Hemoglobin 30.6 pg (26-34); Mean Corpuscular Volume 92.3 fl (80-100); Mean Platelet Volume 9.1 fl (7.4-10.4); Monocytes Absolute Auto 1.7 K/mm3 (0.1-0.6); Monocytes Percent Auto 10.7 % (2.6-8.5); Neutrophils Absolute Auto 9.8 K/mm3 (1.3-6.7); Nucleated Red Blood Cells Perc 0.3 % (0.0-0.2); Platelet Count Result 348 k/mm3 (150-375); Red Blood Count 2.22 M/mm3 (4.6-6.20); Red Cell Distribution Width 15.9 % (11.5-14.5); White Blood Count 15.6 K/mm3 (4.5-10.0)
[2022-04-08] MEDS: PHENYTOIN SODIUM INJ 100 MG/2 ML VIAL (*BKC) IV PUSH ×3 (06:38→22:49)
[2022-04-08 06:44] LABS: Alanine Aminotransferase 10 U/L (6-50); Albumin Level 2.4 g/dL (3.5-5.1); Alkaline Phosphatase 54 U/L (38-126); Anion Gap 3 mmol/L (8-16); Aspartate Amino Transferase 22 U/L (17-59); Bilirubin,Total 0.1 mg/dL (0.2-1.3); Blood Urea Nitrogen 26 mg/dL (9-20); Calcium 7.6 mg/dL (8.4-10.2); Carbon Dioxide 26 mmol/L (22-30); Chloride 105 mmol/L (98-107); Estimated CRCL calculation 82 ml/min; Estimated Glomerular Filt Rate > 60; Glucose 125 mg/dL (65-110); Phosphorus 3.9 mg/dL (2.5-4.5); Potassium 3.2 mmol/L (3.4-5.0); Sodium 134 mmol/L (137-145)
[2022-04-08 07:52] LABS: Hematocrit 20.5 % (42.0-52.0); Hemoglobin 6.8 g/dL (14.0-18.0)
[2022-04-08] MEDS: FUROSEMIDE INJ 40 MG/4 ML VIAL IV PUSH (08:47)
[2022-04-08] MEDS: ASPIRIN 81 MG CHEWABLE TABLET PO (08:47)
[2022-04-08] MEDS: FIDAXOMICIN 200 MG TABLET PO ×2 (08:47→20:02)
[2022-04-08] MEDS: POTASSIUM CHLORIDE 20 MEQ PACKET (FOR LIQUID) 40 MEQ FEED TUBE (08:50)
[2022-04-08] MEDS: KCL 40 MEQ/WATER 100 ML 100 ML 25 ML IVPB (08:50)
[2022-04-08] MEDS: ENOXAPARIN 40 MG/0.4 ML SYRINGE SUB-Q (08:51)
[2022-04-08] MEDS: SODIUM CHLORIDE 0.9% IV 250 ML 30 ML IV CONT (08:51)
[2022-04-08] MEDS: MINERAL OIL/WHITE PETROLATUM OINTMENT 1 APPLIC EACH EYE (08:51)
[2022-04-08] MEDS: PANTOPRAZOLE SODIUM IV 40 MG VIAL IV PUSH ×2 (08:52→20:03)
[2022-04-08] MEDS: LACOSAMIDE IVPB ×2 (08:52→20:13)
[2022-04-08] MEDS: SODIUM CHLORIDE 0.9% IVPB ×2 (08:52→20:13)
[2022-04-08 09:04] LABS: Herpes Simplex Type 1 DNA PCR Not Detected (Not Detected); Herpes Simplex Type 2 DNA PCR Not Detected (Not Detected)
--- NOTE | 2022-04-08 11:26 | PCNFU ---
Nutrition Follow-Up Complete: Inadequate Oral Intake as related to mechanical intubation as evidenced by NPO Goal: Meet estimated nutritional needs Patient is meeting current goal.We will continue current goal. Pt current nutrition is Vital AF 1.2 at 65 ml/hr. Last recorded weight is 113.8 kg. Bowel Motility:FMS Labs Reviewed:Glu 125, Na 134, Alb 2.4 Meds Noted:Zosyn, Vancomycin, Keppra,Protonix Skin: WNL Additional Notes: Patient remains on mechanical vent and tube feedings of Vital AF 1.2 at 65 ml/hr. Tube feeding is providing 1716 kcals/107 gms protein/1160 ml water, meeting 100% kcal at 15 kcal/kg and 100% protein needs. Flush 30 ml q 4 hours. Diarrhea has slowed, Banatrol has been discontinued. Agree with diet orders. Will monitor daily in ICU rounds as reassessing every Monday and Monday.
--- NOTE | 2022-04-08 11:35 | WPDINTPN ---
Progress Note: A&P Assessment and Plan (1) Anemia: Code(s): D64.9 - Anemia, unspecified Status: Acute Assessment and Plan: Patient dropped his hemoglobin 6.6 requiring 1 unit of packed RBCs -continue to hold anticoagulation -stool for occult blood is positive -appreciate GI evaluation and recommendations, patient will likely need EGD -monitor hemoglobin q.12 hours -continue Protonix IV q.12 hours (2) C. difficile colitis: Code(s): A04.72 - Enterocolitis due to Clostridium difficile, not specified as recurrent Status: Acute Assessment and Plan: Patient with diarrhea, has received multiple antibiotics for his fevers during the course of her stay in the hospital -C diff was positive on 04/06/2022 -started on vancomycin and fidaxomicin along with Flagyl, will discontinue vancomycin -white blood cell count trending down -fevers improving -diarrhea improving -continue to monitor (3) Acute respiratory failure: Code(s): J96.00 - Acute respiratory failure, unspecified whether with hypoxia or hypercapnia Status: Acute Assessment and Plan: 03/29/2022: Patient using accessory muscles for respiration, increased work of breathing, febrile with leukocytosis, chest x-ray showed pneumonia which could be secondary to aspiration intubated for airway protection - 03/29: Intubated for airway protection, after discussing with patient's Elyse -currently on CMV mode of ventilation, peep of 5, 30% FiO2 - Chest x-ray this morning: Airspace opacities in the perihilar regions and at the lung bases with mild worsening, consistent with atelectasis versus pneumonia.. Chronic mild elevation of right hemidiaphragm. -ABGs reviewed, -off propofol, no seizures noted -04/05: patient placed on ASV mode of ventilation, his use of accessory muscles has resolved, patient is more comfortable -continue same ventilatory mode -will place patient on pressure support ventilation today on 04/08 -03/30/2022 CT chest/abdomen/pelvis: Elevation the right hemidiaphragm with atelectasis at the bilateral lung bases, right greater than left. 2. No pneumothorax or other acute cardiopulmonary disease. 3. Nasogastric tube tip at the gastric pylorus and would consider withdrawal by [address] the distal tip at the gastric antrum. 4. Bladder wall thickening with surrounding inflammatory stranding and trace amount of likely reactive free fluid in the pelvis suggestive of cystitis. (4) Seizure: Code(s): R56.9 - Unspecified convulsions Status: Acute Assessment and Plan: Patient presented to the ED on 03/24/2022 with complains of altered mental status and right upper extremity flaccidity/weakness 03/24/2022: Head CT Mild cerebellar and more prominent central and cortical cerebral atrophy. Chronic lacunar infarct right caudate nucleus.No acute intracranial finding 03/24/2022: Head and neck CTA showed Old lacunar infarct in right caudate nucleus.. Mild nonspecific cerebral white matter disease, which likely represents chronic small vessel ischemic disease.. No aneurysm or significant intracranial arterial stenosis.. 0% stenosis of the proximal internal carotid arteries relative to normal distal artery lumen diameters (NASCET criteria). Severe stenosis of proximal right vertebral artery.. Chronic sinusitis -on 03/25 early hours patient had multiple seizures lasting for approximately 30 seconds per neurologist -patient was transferred to the ICU for further management -03/25/2022: discussed with neurologist, Dr. Salguero at [facility] who recommended loading with Depacon 3000 mg IV x1 and then Depacon 1000 mg q.8 hours. Keppra 1 g q.6 hours IV and phenytoin 100 IV mg q.8 hours She also accepted patient in consult at [facility] -[facility], who accepted the patient to [facility] under Dr. Don Sam. -currently on Keppra 1 g q.6 hours IV, phenytoin 100 mg q.8 hours IV,
[2022-04-08 12:46] LABS: Hematocrit 23.6 % (42.0-52.0); Hemoglobin 7.9 g/dL (14.0-18.0)
[2022-04-08 12:52] LABS: Glucose Point of Care 114 mg/dl (65-105)
[2022-04-08 13:05] LABS: Epstein Barr Virus DNA PCR Not Detected (Not Detected); Source Epstein Barr Virus CSF
--- NOTE | 2022-04-08 15:55 | PC.NURSE ---
Nursing staff noted patient's ventilator alarming. Patient noted to have self extubated. Lisbeth Epps at bedside to assess. Dr. Young notified. Patient respirations non-labored on room air. O2 Sat 97-100%. Will continue to monitor.
[2022-04-08 18:27] LABS: Glucose Point of Care 77 mg/dl (65-105)
[2022-04-09] VITALS (14 sets, daily range): BP systolic 139–176; BP diastolic 71–107; PULSE 89–127; RESP 16–23; TEMP 37.3–37.8; O2SAT 94–100
[2022-04-09 00:25] LABS: Glucose Point of Care 120 mg/dl (65-105)
[2022-04-09] MEDS: ACYCLOVIR SODIUM IVPB 800 MG in DEXTROSE 5% IN WATER 250 ML 266 MG IVPB ×3 (06:06→22:29)
[2022-04-09] MEDS: PHENYTOIN SODIUM INJ 100 MG/2 ML VIAL (*BKC) IV PUSH ×3 (06:06→22:57)
[2022-04-09] MEDS: CENTRAL LINE FLUSH 10 ML IV PUSH ×6 (06:09→20:52)
[2022-04-09 06:14] LABS: Alveolar/Arterial O2 Gradient 42.7 mmHg; Base Excess ABG 1.8 mEq/l (+/-2.0); Carboxyhemoglobin 0.6 % THb (0-2.0); Fractional Inspired Oxygen 21 %; HCO3 ABG 25.9 mEq/l (22.0-26.0); Methemoglobin ABG 0.3 %THb (0-1.5); Oxygen Content ABG 3.8 %vol (16.0-22.0); Oxygen Saturation ABG 93.2 % (95.0-100.0); Oxyhemoglobin 89.7 % THb (90.0-100.0); PCO2 ABG 37.3 mmHg (35.0-45.0); PO2 ABG 62.4 mmHg (80.0-100.0); PO2 FiO2 Ratio Arterial Blood 2.97 %; Reduced Hemoglobin 9.4 %THb (0-5.0)
[2022-04-09] MEDS: levETIRAcetam 1000MG/NACL100ML 1,000 MG/100 ML BAG 200 MG IVPB ×3 (06:16→17:06)
[2022-04-09 06:25] LABS: Device ROOM AIR; Modified Allen's Test Pass; Site Drawn RIGHT RADIAL; Total Hemoglobin 2.9 g/dL (12.0-18.0)
[2022-04-09 06:33] LABS: Hematocrit 23.9 % (42.0-52.0); Hemoglobin 7.8 g/dL (14.0-18.0); Mean Corpuscular HGB Conc 32.6 g/dl (32-36); Mean Corpuscular Hemoglobin 30.6 pg (26-34); Mean Corpuscular Volume 93.7 fl (80-100); Mean Platelet Volume 9.2 fl (7.4-10.4); Platelet Count Result 453 k/mm3 (150-375); Red Blood Count 2.55 M/mm3 (4.6-6.20); Red Cell Distribution Width 15.8 % (11.5-14.5)
[2022-04-09 06:43] LABS: Alanine Aminotransferase 10 U/L (6-50); Albumin Level 2.5 g/dL (3.5-5.1); Alkaline Phosphatase 84 U/L (38-126); Anion Gap 4 mmol/L (8-16); Aspartate Amino Transferase 25 U/L (17-59); Bilirubin,Total 0.3 mg/dL (0.2-1.3); Blood Urea Nitrogen 24 mg/dL (9-20); Carbon Dioxide 27 mmol/L (22-30); Chloride 112 mmol/L (98-107); Estimated CRCL calculation 83 ml/min; Estimated Glomerular Filt Rate > 60; Glucose 110 mg/dL (65-110); Magnesium 1.9 mg/dL (1.6-2.3); Phosphorus 4.4 mg/dL (2.5-4.5); Potassium 3.6 mmol/L (3.4-5.0); Sodium 143 mmol/L (137-145)
[2022-04-09] MEDS: metroNIDAZOLE 500 MG/ISO 100ML 500 MG/100 ML BAG 100 MG IVPB ×3 (06:55→23:30)
[2022-04-09 08:53] LABS: Band Neutrophils Percent 17 % (0-6); Eosinophils Absolute Manual 0.15 K/mm3 (0.02-0.5); Eosinophils Percent Manual 1 % (0-4); Hypochromasia 1+ (NORMAL); Metamyelocytes Percent 1 %; Monocytes Percent Manual 4 % (3-9); Myelocytes Percent 2 %; Neutrophils Percent Manual 63 % (46-73); Platelet Estimate Increased (Adequate); Schistocytes None Seen (NORMAL); Total Cells Counted 100
[2022-04-09] MEDS: KCL 40 MEQ/WATER 100 ML 100 ML 25 ML IVPB (09:05)
[2022-04-09] MEDS: SODIUM CHLORIDE 0.9% IVPB ×2 (09:06→21:54)
[2022-04-09] MEDS: FUROSEMIDE INJ 40 MG/4 ML VIAL IV PUSH (09:06)
[2022-04-09] MEDS: LACOSAMIDE IVPB ×2 (09:06→21:54)
[2022-04-09] MEDS: PANTOPRAZOLE SODIUM IV 40 MG VIAL IV PUSH ×2 (09:07→20:52)
[2022-04-09] MEDS: hydrALAZINE HCL 20 MG/ML VIAL 10 MG IV PUSH (11:39)
--- NOTE | 2022-04-09 11:58 | WPDINTPN ---
Progress Note: A&P Assessment and Plan (1) Anemia: Code(s): D64.9 - Anemia, unspecified Status: Acute Assessment and Plan: 04/07: Patient dropped his hemoglobin 6.6 requiring 1 unit of packed RBCs, 04 08 patient dropped his hemoglobin to 6.8 and was given another unit of packed RBCs. -holding all anticoagulation -stool for occult blood is positive -appreciate GI evaluation and recommendations, patient will likely need EGD -hemoglobin this morning is stable -continue Protonix IV q.12 hours (2) C. difficile colitis: Code(s): A04.72 - Enterocolitis due to Clostridium difficile, not specified as recurrent Status: Acute Assessment and Plan: Patient with diarrhea, has received multiple antibiotics for his fevers during the course of her stay in the hospital -C diff was positive on 04/06/2022 -continue fidaxomicin along with Flagyl, -white blood cell count trending down -fevers improving -diarrhea improving -continue to monitor (3) Acute respiratory failure: Code(s): J96.00 - Acute respiratory failure, unspecified whether with hypoxia or hypercapnia Status: Acute Assessment and Plan: 03/29/2022: Patient using accessory muscles for respiration, increased work of breathing, febrile with leukocytosis, chest x-ray showed pneumonia which could be secondary to aspiration intubated for airway protection - 03/29: Intubated for airway protection, after discussing with patient's Elyse - Chest x-ray this morning: Mild atelectasis of the lung bases.. Endotracheal and nasogastric tube removal. - 06/09: Self extubated -currently on room air with adequate O2 sats -encourage incentive spirometry -PT/OT follow patient, up in chair with assistance -speech to follow for bedside swallow test -03/30/2022 CT chest/abdomen/pelvis: Elevation the right hemidiaphragm with atelectasis at the bilateral lung bases, right greater than left. 2. No pneumothorax or other acute cardiopulmonary disease. 3. Nasogastric tube tip at the gastric pylorus and would consider withdrawal by [address] the distal tip at the gastric antrum. 4. Bladder wall thickening with surrounding inflammatory stranding and trace amount of likely reactive free fluid in the pelvis suggestive of cystitis. (4) Seizure: Code(s): R56.9 - Unspecified convulsions Status: Acute Assessment and Plan: Patient presented to the ED on 03/24/2022 with complains of altered mental status and right upper extremity flaccidity/weakness 03/24/2022: Head CT Mild cerebellar and more prominent central and cortical cerebral atrophy. Chronic lacunar infarct right caudate nucleus.No acute intracranial finding 03/24/2022: Head and neck CTA showed Old lacunar infarct in right caudate nucleus.. Mild nonspecific cerebral white matter disease, which likely represents chronic small vessel ischemic disease.. No aneurysm or significant intracranial arterial stenosis.. 0% stenosis of the proximal internal carotid arteries relative to normal distal artery lumen diameters (NASCET criteria). Severe stenosis of proximal right vertebral artery.. Chronic sinusitis -on 03/25 early hours patient had multiple seizures lasting for approximately 30 seconds per neurologist -patient was transferred to the ICU for further management -03/25/2022: discussed with neurologist, Dr. Salguero at [facility] who recommended loading with Depacon 3000 mg IV x1 and then Depacon 1000 mg q.8 hours. Keppra 1 g q.6 hours IV and phenytoin 100 IV mg q.8 hours She also accepted patient in consult at [facility] -I spoke to Dr. Rosales, [facility] fellow, who accepted the patient to [facility] under Dr. Don Sam. -currently on Keppra 1 g q.6 hours IV, phenytoin 100 mg q.8 hours IV, Depacon 1000 mg q.8 hours IV -: added Vimpat 150 mg IV b.i.d. 03/30: Discussed with neurology will increase Vimpat to 200 mg IV b.i.d. -continue seizure precautions -appreciate n
[2022-04-09 14:04] LABS: Glucose Point of Care 89 mg/dl (65-105)
--- NOTE | 2022-04-09 14:19 | PCSTNOTE ---
Attempted bedside swallowing evaluation. Patient sleeping and was not able to awaken. Responded ok baby multiple times but kept eyes shut. Opened eyes briefly and accepted a single ice chip by spoon but refused more. Will try to evaluate again tomorrow.
--- NOTE | 2022-04-09 14:27 | WPDNEUROPN ---
Subjective Date/time seen: 04/09/22 14:27 Interval history: patient self extubated yesterday remained hemodynamically stable awake alert on the room air and on examination today he recognized the physician as we have treated him before for the epilepsy general medical treatment continued as such he is awake alert following the instructions fairly well and there is no change in the neurological deficit Objective Data Vital Signs Vital Signs: Vital Signs - 24 hr 04/08/22 16:00 04/08/22 16:00 04/08/22 16:00 Temperature 37.4 C Pulse Rate 104 H 104 H 104 H Respiratory Rate 20 20 Blood Pressure 150/79 H Pulse Oximetry 100 100 Oxygen Delivery Room Air Fraction of Inspired Oxygen 04/08/22 18:00 04/08/22 18:00 04/08/22 20:00 Temperature 37.6 C H Pulse Rate 113 H 114 H 116 H Respiratory Rate 17 Blood Pressure 153/76 H Pulse Oximetry 100 Oxygen Delivery Fraction of Inspired Oxygen 04/08/22 20:00 04/08/22 20:00 04/08/22 22:00 Temperature 37.7 C H 37.8 C H Pulse Rate 116 H 116 H 120 H Respiratory Rate 21 H 21 H 23 H Blood Pressure 155/81 H 160/86 H Pulse Oximetry 98 98 99 Oxygen Delivery Room Air Fraction of Inspired Oxygen 04/09/22 00:00 04/09/22 02:00 04/08/22 22:00 Temperature 37.6 C 37.6 C H Pulse Rate 126 H 114 H 120 H Respiratory Rate 22 H 23 H Blood Pressure 139/71 148/88 H Pulse Oximetry 100 96 Oxygen Delivery Fraction of Inspired Oxygen 04/09/22 00:00 04/09/22 03:58 04/09/22 04:00 Temperature 37.6 C Pulse Rate 109 H Respiratory Rate 21 H Blood Pressure 156/84 H Pulse Oximetry 94 Oxygen Delivery Room Air Room Air Fraction of Inspired Oxygen 04/09/22 06:00 04/08/22 20:35 04/09/22 00:00 Temperature 37.5 C Pulse Rate 104 H 127 H Respiratory Rate 22 H Blood Pressure 157/79 H Pulse Oximetry 95 98 Oxygen Delivery Room Air Fraction of Inspired Oxygen 04/09/22 02:00 04/09/22 04:00 04/09/22 06:00 Temperature Pulse Rate 115 H 112 H 103 H Respiratory Rate Blood Pressure Pulse Oximetry Oxygen Delivery Fraction of Inspired Oxygen 04/09/22 08:00 04/09/22 08:00 04/09/22 08:00 Temperature 37.3 C Pulse Rate 109 H 105 H 105 H Respiratory Rate 20 20 Blood Pressure 153/107 H Pulse Oximetry 96 96 Oxygen Delivery Room Air Fraction of Inspired Oxygen 30 04/09/22 10:00 04/09/22 10:00 Temperature 37.3 C Pulse Rate 106 H 106 H Respiratory Rate 20 Blood Pressure 168/93 H Pulse Oximetry 98 Oxygen Delivery Fraction of Inspired Oxygen Intake/Output Intake/Output: Intake & Output 04/06/22 04/07/22 04/08/22 04/09/22 23:59 23:59 23:59 23:59 Intake Total 3784 4694 2682 1042 Output Total 2550 2550 4900 2250 Balance 1234 7163 -[id number] -4789 Meds/Results Medications: Active Medications Generic Name Dose Route Start Last Admin Trade Name Freq PRN Reason Stop Dose Admin Acetaminophen 650 mg 04/01/22 13:48 04/07/22 12:31 Acetaminophen Elixir 325 Mg/10.15 Ml Udc PO 650 mg Q6H PRN Administration Mild Pain (1-3) or Fever Alteplase, Recombinant 2 mg 04/03/22 16:29 04/03/22 16:42 Alteplase 2 Mg Vial (Cathflo) IV PUSH 2 mg ONCE PRN Administration Line Occlusion Aspirin 81 mg 03/25/22 08:00 04/09/22 09:06 Aspirin 81 Mg Chewable Tablet PO Not Given DAILY@0800 JULIOCESAR Bisacodyl 5 mg 03/25/22 00:42 Bisacodyl 10 Mg Suppository RECTAL BID PRN Constipation Cyclosporine 75 mg 03/31/22 09:00 04/03/22 09:45 Cyclosporine (Sandimmune) Cap 25 Mg Capsule FEED TUBE 75 mg Q12HR JULIOCESAR Administration Dextrose 12.5 gm 03/25/22 11:10 Dextrose 50% 25 Gm/50 Ml Syringe IV PUSH PRN PRN Hypoglycemia Protocol Escitalopram Oxalate 10 mg 03/25/22 09:00 03/25/22 09:49 Escitalopram Oxalate 10 Mg Tablet PO 10 mg DAILY JULIOCESAR Administration Fidaxomicin 200 mg 04/07/22 09:00 04/09/22 11:09 Fidaxomicin 200 Mg T
--- NOTE | 2022-04-09 15:40 | PM.IMPN ---
Progress Note: A&P Assessment and Plan (1) Anemia: Code(s): D64.9 - Anemia, unspecified Status: Acute Assessment and Plan: hemoglobin on admission was normal Trend reviewed with continued decline throughout the hospital stay all the way down to 6.6 requiring transfusion. Post transfusion hemoglobin had remained stable now. Continue to monitor -holding all anticoagulation -stool for occult blood is positive -appreciate GI evaluation and recommendations, patient will likely need EGD -hemoglobin this morning is stable -continue Protonix IV q.12 hours (2) C. difficile colitis: Code(s): A04.72 - Enterocolitis due to Clostridium difficile, not specified as recurrent Status: Acute Assessment and Plan: Patient with diarrhea, has received multiple antibiotics for his fevers during the course of her stay in the hospital -C diff was positive on 04/06/2022 -continue fidaxomicin along with Flagyl, -white blood cell count trending down -fevers improving -diarrhea improving -continue to monitor (3) Acute respiratory failure: Code(s): J96.00 - Acute respiratory failure, unspecified whether with hypoxia or hypercapnia Status: Acute Assessment and Plan: 03/29/2022: Patient using accessory muscles for respiration, increased work of breathing, febrile with leukocytosis, chest x-ray showed pneumonia which could be secondary to aspiration intubated for airway protection - 03/29: Intubated for airway protection, after discussing with patient's Elyse - Chest x-ray this morning: Mild atelectasis of the lung bases.. Endotracheal and nasogastric tube removal. - 04/08: Self extubated -currently on room air with adequate O2 sats -encourage incentive spirometry -PT/OT follow patient, up in chair with assistance -speech to follow for bedside swallow test -03/30/2022 CT chest/abdomen/pelvis: Elevation the right hemidiaphragm with atelectasis at the bilateral lung bases, right greater than left. 2. No pneumothorax or other acute cardiopulmonary disease. 3. Nasogastric tube tip at the gastric pylorus and would consider withdrawal by [address] the distal tip at the gastric antrum. 4. Bladder wall thickening with surrounding inflammatory stranding and trace amount of likely reactive free fluid in the pelvis suggestive of cystitis. (4) Seizure: Code(s): R56.9 - Unspecified convulsions Status: Acute Assessment and Plan: Patient presented to the ED on 03/24/2022 with complains of altered mental status and right upper extremity flaccidity/weakness 03/24/2022: Head CT Mild cerebellar and more prominent central and cortical cerebral atrophy. Chronic lacunar infarct right caudate nucleus.No acute intracranial finding 03/24/2022: Head and neck CTA showed Old lacunar infarct in right caudate nucleus.. Mild nonspecific cerebral white matter disease, which likely represents chronic small vessel ischemic disease.. No aneurysm or significant intracranial arterial stenosis.. 0% stenosis of the proximal internal carotid arteries relative to normal distal artery lumen diameters (NASCET criteria). Severe stenosis of proximal right vertebral artery.. Chronic sinusitis -on 03/25 early hours patient had multiple seizures lasting for approximately 30 seconds per neurologist -patient was transferred to the ICU for further management -03/25/2022: discussed with neurologist, Dr. Salguero at [facility] who recommended loading with Depacon 3000 mg IV x1 and then Depacon 1000 mg q.8 hours. Keppra 1 g q.6 hours IV and phenytoin 100 IV mg q.8 hours She also accepted patient in consult at [facility] -I spoke to [facility] Roasles, [facility] fellow, who accepted the patient to [facility] under Dr. Don Sma. -currently on Keppra 1 g q.6 hours IV, phenytoin 100 mg q.8 hours IV, Depacon 1000 mg q.8 hours IV -: added Vimpat 150 mg IV b.i.d. 03/30: Discussed with neurology Increased Vimpat to 20
[2022-04-09 17:13] LABS: Glucose Point of Care 127 mg/dl (65-105)
[2022-04-09 23:45] LABS: Glucose Point of Care 126 mg/dl (65-105)
[2022-04-10] VITALS (57 sets, daily range): BP systolic 119–171; BP diastolic 74–87; PULSE 70–112; RESP 11–37; TEMP 37.1–37.6; O2SAT 91–100; BMI 10.0
[2022-04-10] MEDS: levETIRAcetam 1000MG/NACL100ML 1,000 MG/100 ML BAG 200 MG IVPB ×5 (00:35→23:57)
[2022-04-10] MEDS: ALTEPLASE 2 MG VIAL (CATHFLO) IV PUSH ×2 (01:15→01:16)
--- NOTE | 2022-04-10 01:30 | PC.NURSE ---
[facility] transfer center called to update that they are still awaiting an open bed at [facility]. Pt is still on the waiting list.
[2022-04-10] MEDS: CENTRAL LINE FLUSH 10 ML IV PUSH ×6 (05:02→21:29)
[2022-04-10] MEDS: PHENYTOIN SODIUM INJ 100 MG/2 ML VIAL (*BKC) IV PUSH ×3 (05:04→21:30)
[2022-04-10 05:26] LABS: Alanine Aminotransferase 11 U/L (6-50); Albumin Level 2.7 g/dL (3.5-5.1); Alkaline Phosphatase 65 U/L (38-126); Anion Gap 6 mmol/L (8-16); Aspartate Amino Transferase 31 U/L (17-59); Basophils Absolute Auto 0.1 K/mm3 (0.0-0.1); Basophils Percent Auto 0.8 % (0.2-1.2); Bilirubin,Total 0.3 mg/dL (0.2-1.3); Blood Urea Nitrogen 21 mg/dL (9-20); Calcium 8.5 mg/dL (8.4-10.2); Carbon Dioxide 30 mmol/L (22-30); Chloride 110 mmol/L (98-107); Eosinophils Absolute Auto 0.3 K/mm3 (0-0.3); Eosinophils Percent Auto 2.1 % (0-4.4); Estimated CRCL calculation 75 ml/min; Estimated Glomerular Filt Rate > 60; Glucose 105 mg/dL (65-110); Hematocrit 24.9 % (42.0-52.0); Hemoglobin 8.2 g/dL (14.0-18.0); Immature Granulocyte Absolute 1.13 K/mm3 (0.00-0.031); Immature Granulocyte Percent A 7.1 % (0-0.5); Lymphocytes Absolute Auto 2.08 K/mm3 (0.9-3.2); Magnesium 1.9 mg/dL (1.6-2.3); Mean Corpuscular HGB Conc 32.9 g/dl (32-36); Mean Corpuscular Hemoglobin 30.3 pg (26-34); Mean Corpuscular Volume 91.9 fl (80-100); Monocytes Absolute Auto 1.5 K/mm3 (0.1-0.6); Monocytes Percent Auto 9.5 % (2.6-8.5); Neutrophils Absolute Auto 10.8 K/mm3 (1.3-6.7); Neutrophils Percent Auto 67.5 % (45.5-73.1); Nucleated Red Blood Cells Perc 0.1 % (0.0-0.2); Phosphorus 4.6 mg/dL (2.5-4.5); Platelet Count Result 485 k/mm3 (150-375); Potassium 3.2 mmol/L (3.4-5.0); Red Blood Count 2.71 M/mm3 (4.6-6.20); Red Cell Distribution Width 15.2 % (11.5-14.5); Sodium 146 mmol/L (137-145)
[2022-04-10] MEDS: metroNIDAZOLE 500 MG/ISO 100ML 500 MG/100 ML BAG 100 MG IVPB ×3 (05:33→21:33)
[2022-04-10] MEDS: ACYCLOVIR SODIUM IVPB 800 MG in DEXTROSE 5% IN WATER 250 ML 266 MG IVPB ×3 (06:45→21:24)
[2022-04-10] MEDS: LACOSAMIDE IVPB ×2 (08:46→20:54)
[2022-04-10] MEDS: SODIUM CHLORIDE 0.9% IVPB ×2 (08:46→20:54)
[2022-04-10] MEDS: PANTOPRAZOLE SODIUM IV 40 MG VIAL IV PUSH ×2 (08:51→20:06)
[2022-04-10] MEDS: hydrALAZINE HCL 20 MG/ML VIAL 10 MG IV PUSH (08:51)
--- NOTE | 2022-04-10 11:43 | PCSTNOTE ---
Bedside swallowing evaluation. Patient refused. Woke up for about 30 seconds and refused to try to eat or drink. Will attempt evaluation again tomorrow.
--- NOTE | 2022-04-10 12:30 | PM.IMPN ---
Progress Note: A&P Assessment and Plan (1) Anemia: Code(s): D64.9 - Anemia, unspecified Status: Acute Assessment and Plan: hemoglobin on admission was normal Trend reviewed with continued decline throughout the hospital stay all the way down to 6.6 requiring transfusion. Post transfusion hemoglobin had remained stable now. Continue to monitor -holding all anticoagulation -stool for occult blood is positive -appreciate GI evaluation and recommendations, patient will likely need EGD -hemoglobin this morning is stable -continue Protonix IV q.12 hours (2) C. difficile colitis: Code(s): A04.72 - Enterocolitis due to Clostridium difficile, not specified as recurrent Status: Acute Assessment and Plan: Patient with diarrhea, has received multiple antibiotics for his fevers during the course of her stay in the hospital -C diff was positive on 04/06/2022 -continue fidaxomicin along with Flagyl, -white blood cell count trending down -fevers improving -diarrhea improving -continue to monitor (3) Acute respiratory failure: Code(s): J96.00 - Acute respiratory failure, unspecified whether with hypoxia or hypercapnia Status: Acute Assessment and Plan: 03/29/2022: Patient using accessory muscles for respiration, increased work of breathing, febrile with leukocytosis, chest x-ray showed pneumonia which could be secondary to aspiration intubated for airway protection - 03/29: Intubated for airway protection, after discussing with patient's Elyse - Chest x-ray this morning: Mild atelectasis of the lung bases.. Endotracheal and nasogastric tube removal. - 04/08: Self extubated -currently on room air with adequate O2 sats -encourage incentive spirometry -PT/OT follow patient, up in chair with assistance -speech to follow for bedside swallow test -03/30/2022 CT chest/abdomen/pelvis: Elevation the right hemidiaphragm with atelectasis at the bilateral lung bases, right greater than left. 2. No pneumothorax or other acute cardiopulmonary disease. 3. Nasogastric tube tip at the gastric pylorus and would consider withdrawal by [address] the distal tip at the gastric antrum. 4. Bladder wall thickening with surrounding inflammatory stranding and trace amount of likely reactive free fluid in the pelvis suggestive of cystitis. Respiratory culture with E coli. Will initiate ceftriaxone (4) Seizure: Code(s): R56.9 - Unspecified convulsions Status: Acute Assessment and Plan: Patient presented to the ED on 03/24/2022 with complains of altered mental status and right upper extremity flaccidity/weakness 03/24/2022: Head CT Mild cerebellar and more prominent central and cortical cerebral atrophy. Chronic lacunar infarct right caudate nucleus.No acute intracranial finding 03/24/2022: Head and neck CTA showed Old lacunar infarct in right caudate nucleus.. Mild nonspecific cerebral white matter disease, which likely represents chronic small vessel ischemic disease.. No aneurysm or significant intracranial arterial stenosis.. 0% stenosis of the proximal internal carotid arteries relative to normal distal artery lumen diameters (NASCET criteria). Severe stenosis of proximal right vertebral artery.. Chronic sinusitis -on 03/25 early hours patient had multiple seizures lasting for approximately 30 seconds per neurologist -patient was transferred to the ICU for further management -03/25/2022: discussed with neurologist, Dr. Salguero at [facility] who recommended loading with Depacon 3000 mg IV x1 and then Depacon 1000 mg q.8 hours. Keppra 1 g q.6 hours IV and phenytoin 100 IV mg q.8 hours She also accepted patient in consult at [facility] -I spoke to [facility]ales, [facility], who accepted the patient to [facility] under Dr. Don Sam. -currently on Keppra 1 g q.6 hours IV, phenytoin 100 mg q.8 hours IV, Depacon 1000 mg q.8 hours IV -012/05: added Vimpat 150 mg IV
[2022-04-10 12:47] LABS: Glucose Point of Care 89 mg/dl (65-105)
[2022-04-10] MEDS: KCL 40 MEQ/WATER 100 ML 100 ML 25 ML IVPB (13:45)
[2022-04-10 17:28] LABS: Glucose Point of Care 94 mg/dl (65-105)
[2022-04-11] VITALS (13 sets, daily range): BP systolic 123–177; BP diastolic 44–96; PULSE 78–101; RESP 18–24; TEMP 37.2–37.7; O2SAT 96–100
[2022-04-11 00:06] LABS: Glucose Point of Care 76 mg/dl (65-105)
[2022-04-11 05:23] LABS: Alanine Aminotransferase 11 U/L (6-50); Albumin Level 2.7 g/dL (3.5-5.1); Alkaline Phosphatase 60 U/L (38-126); Anion Gap 3 mmol/L (8-16); Aspartate Amino Transferase 21 U/L (17-59); Bilirubin,Total 0.2 mg/dL (0.2-1.3); Blood Urea Nitrogen 17 mg/dL (9-20); Calcium 8.1 mg/dL (8.4-10.2); Carbon Dioxide 30 mmol/L (22-30); Chloride 113 mmol/L (98-107); Estimated CRCL calculation 75 ml/min; Estimated Glomerular Filt Rate > 60; Glucose 91 mg/dL (65-110); Magnesium 1.9 mg/dL (1.6-2.3); Sodium 146 mmol/L (137-145)
[2022-04-11 05:25] LABS: Hematocrit 25.7 % (42.0-52.0); Hemoglobin 8.2 g/dL (14.0-18.0); Mean Corpuscular HGB Conc 31.9 g/dl (32-36); Mean Corpuscular Hemoglobin 30.8 pg (26-34); Mean Corpuscular Volume 96.6 fl (80-100); Mean Platelet Volume 8.9 fl (7.4-10.4); Platelet Count Result 424 k/mm3 (150-375); Red Blood Count 2.66 M/mm3 (4.6-6.20); Red Cell Distribution Width 14.9 % (11.5-14.5); White Blood Count 11.8 K/mm3 (4.5-10.0)
[2022-04-11] MEDS: ACYCLOVIR SODIUM IVPB 800 MG in DEXTROSE 5% IN WATER 250 ML 266 MG IVPB (05:44)
[2022-04-11] MEDS: CENTRAL LINE FLUSH 10 ML IV PUSH ×7 (05:46→20:04)
[2022-04-11] MEDS: levETIRAcetam 1000MG/NACL100ML 1,000 MG/100 ML BAG 200 MG IVPB ×3 (05:48→17:15)
[2022-04-11] MEDS: metroNIDAZOLE 500 MG/ISO 100ML 500 MG/100 ML BAG 100 MG IVPB (05:49)
[2022-04-11] MEDS: PHENYTOIN SODIUM INJ 100 MG/2 ML VIAL (*BKC) IV PUSH ×3 (05:56→21:37)
[2022-04-11 05:59] LABS: Glucose Point of Care 88 mg/dl (65-105)
[2022-04-11 06:24] LABS: Anisocytosis 2+ (NORMAL); Band Neutrophils Percent 3 % (0-6); Eosinophils Absolute Manual 0.82 K/mm3 (0.02-0.5); Eosinophils Percent Manual 7 % (0-4); Hypochromasia 2+ (NORMAL); Lymphocytes Absolute Manual 2.24 K/mm3 (1.1-4.5); Metamyelocytes Percent 2 %; Monocytes Absolute Manual 0.47 K/mm3 (0.1-0.90); Monocytes Percent Manual 4 % (3-9); Neutrophils Absolute Manual 8.02 K/mm3 (1.3-6.7); Neutrophils Percent Manual 65 % (46-73); Total Cells Counted 100
[2022-04-11 06:25] LABS: Schistocytes None Seen (NORMAL)
[2022-04-11] MEDS: LACOSAMIDE IVPB ×2 (08:28→20:53)
[2022-04-11] MEDS: SODIUM CHLORIDE 0.9% IVPB ×2 (08:28→20:53)
[2022-04-11] MEDS: PANTOPRAZOLE SODIUM IV 40 MG VIAL IV PUSH ×2 (08:28→20:03)
[2022-04-11] MEDS: FIDAXOMICIN 200 MG TABLET PO ×2 (08:30→20:03)
[2022-04-11] MEDS: ASPIRIN 81 MG CHEWABLE TABLET PO (08:30)
[2022-04-11] MEDS: POTASSIUM CHLORIDE INJ 40 MEQ in SODIUM CHLORIDE 0.9% IV 500 ML 130 MEQ IVPB (10:31)
--- NOTE | 2022-04-11 11:00 | PCSTNOTE ---
Please refer to the Bedside Swallow Evaluation in the EMR. Please note, silent aspiration cannot be ruled out at bedside.
--- NOTE | 2022-04-11 12:04 | P.PNIM_ITS ---
Progress Note: A&P Assessment and Plan (1) Anemia: Code(s): D64.9 - Anemia, unspecified Status: Acute Assessment and Plan: ?hemoglobin on admission was normal Trend reviewed with continued decline throughout the hospital stay all the way down to 6.6 requiring transfusion. Post transfusion hemoglobin had remained stable now.? Continue to monitor -holding all anticoagulation -stool for occult blood is positive -appreciate GI evaluation and recommendations, patient will likely need EGD -hemoglobin this morning is stable -continue Protonix IV q.12 hours (2) C. difficile colitis: Code(s): A04.72 - Enterocolitis due to Clostridium difficile, not specified as recurrent Status: Acute Assessment and Plan: Patient with diarrhea, has received multiple antibiotics for his fevers during the course of her stay in the hospital -C diff was positive on 04/06/2022 -continue fidaxomicin and add p.o. vancomycin -white blood cell count trending down -fevers improving -diarrhea improved -continue to monitor (3) Acute respiratory failure: Code(s): J96.00 - Acute respiratory failure, unspecified whether with hypoxia or hypercapnia Status: Acute Assessment and Plan: 05/30/2021:? Patient using accessory muscles for respiration, increased work of breathing, febrile with leukocytosis, chest x-ray showed pneumonia which could be secondary to aspiration intubated for airway protection -?03/29:? Intubated?for airway protection, after discussing with patient's Elyse - Chest x-ray this morning:?Mild atelectasis of the lung bases.. Endotracheal and nasogastric tube removal. -?04/08:? Self extubated -encourage incentive spirometry -PT/OT follow patient, up in chair with assistance -03/30/2022 CT chest/abdomen/pelvis:?Elevation the right hemidiaphragm with atelectasis at the bilateral lung bases, right greater than left. 2. No pneumothorax or other acute cardiopulmonary disease. 3. Nasogastric tube tip at the gastric pylorus and would consider withdrawal by [address] the distal tip at the gastric antrum. 4. Bladder wall thickening with surrounding inflammatory stranding and trace amount of likely reactive free fluid in the pelvis suggestive of cystitis. Respiratory culture with E coli.? Start Imipenem (4) Seizure: Code(s): R56.9 - Unspecified convulsions Status: Acute Assessment and Plan: Patient presented to the ED on 03/24/2022 with complains of altered mental status and right upper extremity flaccidity/weakness 03/24/2022:? Head CT?Mild cerebellar and more prominent central and cortical cerebral atrophy. Chronic lacunar infarct right caudate nucleus.No acute intracranial finding 03/24/2022: Head and neck CTA showed Old lacunar infarct in right caudate nucleus.. Mild nonspecific cerebral white matter disease, which likely represents chronic small vessel ischemic disease.. No aneurysm or significant intracranial arterial stenosis.. 0% stenosis of the proximal internal carotid arteries relative to normal distal artery lumen diameters (NASCET criteria). Severe stenosis of proximal right vertebral artery.. Chronic sinusitis -on 03/25 early hours patient had multiple seizures lasting for approximately 30 seconds per neurologist -patient was transferred to the ICU for further management -03/25/2022: discussed with neurologist, Dr. Salguero at? [facility] who recommended loading with Depacon 3000 mg IV x1 and then Depacon 1000 mg q.8 hours.? Keppra 1 g q.6 hours IV and phenytoin 100 IV mg q.8 hours She also accepted patient in consult at [facility] -currently on Keppra 1
--- NOTE | 2022-04-11 12:11 | PCFNICU ---
ICU Rounding Note: Pt current nutrition is Soft and Bite Sized, Level 6/Heart Healthy. Last recorded weight is 165.5 kg. Bowel Motility:+BM noted 04/11 Labs Reviewed:Na 146, Alb 2.7 Meds Noted:Keppra, Protonix, Zosyn, Flagyl Skin: Unstageable-Saccum. Additional Notes:Patient self extubated on 04/08. Speech eval recommending Soft and Bite Sized, Level 6. Protein Modular of Oscar BID added for wound healing providing an additional 90 kcals and 2.5 gms protein. Diet supplement of Ensure compact BID providing an additional 220 kcals and 9 gms protein. Agree with diet orders. Will monitor every 5 days.
[2022-04-11 12:18] LABS: Glucose Point of Care 82 mg/dl (65-105)
[2022-04-11] MEDS: POTASSIUM CHLORIDE 20 MEQ PACKET (FOR LIQUID) 40 MEQ PO (13:24)
[2022-04-11] MEDS: KCL 40 MEQ/WATER 100 ML 100 ML 25 ML IVPB (15:50)
[2022-04-11] MEDS: VANCOMYCIN ORAL 125 MG/2.5 ML SYRUP PO (17:15)
[2022-04-11] MEDS: GLUCOSE ORAL GEL 15 GM OF GLUCSE IN 37.5 GM TUBE PO (18:03)
[2022-04-11 18:16] LABS: Glucose Point of Care 69 mg/dl (65-105)
[2022-04-11 18:33] LABS: Glucose Point of Care 103 mg/dl (65-105)
[2022-04-12] VITALS (13 sets, daily range): BP systolic 99–148; BP diastolic 49–85; PULSE 68–94; RESP 18–25; TEMP 36.6–37.5; O2SAT 95–100
[2022-04-12] MEDS: levETIRAcetam 1000MG/NACL100ML 1,000 MG/100 ML BAG 200 MG IVPB ×4 (00:12→17:38)
[2022-04-12] MEDS: VANCOMYCIN ORAL 125 MG/2.5 ML SYRUP PO ×4 (00:25→17:42)
[2022-04-12 01:03] LABS: Glucose Point of Care 79 mg/dl (65-105)
[2022-04-12] MEDS: CENTRAL LINE FLUSH 10 ML IV PUSH ×7 (05:37→21:16)
[2022-04-12] MEDS: PHENYTOIN SODIUM INJ 100 MG/2 ML VIAL (*BKC) IV PUSH ×3 (05:43→21:17)
[2022-04-12 05:55] LABS: Glucose Point of Care 77 mg/dl (65-105)
[2022-04-12] MEDS: PANTOPRAZOLE SODIUM IV 40 MG VIAL IV PUSH ×2 (08:49→21:18)
[2022-04-12] MEDS: ASPIRIN 81 MG CHEWABLE TABLET PO (08:49)
[2022-04-12] MEDS: FIDAXOMICIN 200 MG TABLET PO ×2 (08:49→21:17)
[2022-04-12 08:52] LABS: Hematocrit 26.6 % (42.0-52.0); Hemoglobin 8.7 g/dL (14.0-18.0); Mean Corpuscular HGB Conc 32.7 g/dl (32-36); Mean Corpuscular Hemoglobin 31.4 pg (26-34); Mean Platelet Volume 8.4 fl (7.4-10.4); Platelet Count Result 362 k/mm3 (150-375); Red Blood Count 2.77 M/mm3 (4.6-6.20); Red Cell Distribution Width 14.2 % (11.5-14.5); White Blood Count 10.4 K/mm3 (4.5-10.0)
[2022-04-12] MEDS: SODIUM CHLORIDE 0.9% IVPB ×2 (09:06→21:40)
[2022-04-12] MEDS: LACOSAMIDE IVPB ×2 (09:06→21:40)
[2022-04-12 09:07] LABS: Ammonia 14 umol/L (9-30)
[2022-04-12 09:08] LABS: Magnesium 1.7 mg/dL (1.6-2.3)
[2022-04-12 09:10] LABS: Anion Gap 5 mmol/L (8-16); Blood Urea Nitrogen 14 mg/dL (9-20); Calcium 8.1 mg/dL (8.4-10.2); Carbon Dioxide 31 mmol/L (22-30); Chloride 107 mmol/L (98-107); Estimated CRCL calculation 100 ml/min; Estimated Glomerular Filt Rate > 60; Glucose 84 mg/dL (65-110); Potassium 3.4 mmol/L (3.4-5.0); Sodium 143 mmol/L (137-145)
--- NOTE | 2022-04-12 10:21 | WPDINTPN ---
Progress Note: A&P Assessment and Plan (1) Anemia: Code(s): D64.9 - Anemia, unspecified Status: Acute Assessment and Plan: ?hemoglobin on admission was normal Trend reviewed with continued decline throughout the hospital stay all the way down to 6.6 requiring transfusion. Post transfusion hemoglobin had remained stable now.? Continue to monitor -holding all anticoagulation -stool for occult blood is positive -appreciate GI evaluation and recommendations, patient will likely need EGD -hemoglobin this morning is stable -continue Protonix IV q.12 hours (2) C. difficile colitis: Code(s): A04.72 - Enterocolitis due to Clostridium difficile, not specified as recurrent Status: Acute Assessment and Plan: Patient with diarrhea, has received multiple antibiotics for his fevers during the course of her stay in the hospital -C diff was positive on 04/06/2022 -continue fidaxomicin and add p.o. vancomycin -white blood cell count trending down -fevers improving -diarrhea improved -continue to monitor (3) Acute respiratory failure: Code(s): J96.00 - Acute respiratory failure, unspecified whether with hypoxia or hypercapnia Status: Acute Assessment and Plan: 05/30/2021:? Patient using accessory muscles for respiration, increased work of breathing, febrile with leukocytosis, chest x-ray showed pneumonia which could be secondary to aspiration intubated for airway protection -?03/29:? Intubated?for airway protection, after discussing with patient's Elyse - Chest x-ray this morning:?Mild atelectasis of the lung bases.. Endotracheal and nasogastric tube removal. -?04/08:? Self extubated -encourage incentive spirometry -PT/OT follow patient, up in chair with assistance -03/30/2022 CT chest/abdomen/pelvis:?Elevation the right hemidiaphragm with atelectasis at the bilateral lung bases, right greater than left. 2. No pneumothorax or other acute cardiopulmonary disease. 3. Nasogastric tube tip at the gastric pylorus and would consider withdrawal by [address] the distal tip at the gastric antrum. 4. Bladder wall thickening with surrounding inflammatory stranding and trace amount of likely reactive free fluid in the pelvis suggestive of cystitis. Respiratory culture with E coli.? Start Imipenem (4) Seizure: Code(s): R56.9 - Unspecified convulsions Status: Acute Assessment and Plan: Patient presented to the ED on 03/24/2022 with complains of altered mental status and right upper extremity flaccidity/weakness 03/24/2022:? Head CT?Mild cerebellar and more prominent central and cortical cerebral atrophy. Chronic lacunar infarct right caudate nucleus.No acute intracranial finding 03/24/2022: Head and neck CTA showed Old lacunar infarct in right caudate nucleus.. Mild nonspecific cerebral white matter disease, which likely represents chronic small vessel ischemic disease.. No aneurysm or significant intracranial arterial stenosis.. 0% stenosis of the proximal internal carotid arteries relative to normal distal artery lumen diameters (NASCET criteria). Severe stenosis of proximal right vertebral artery.. Chronic sinusitis -on 03/25 early hours patient had multiple seizures lasting for approximately 30 seconds per neurologist -patient was transferred to the ICU for further management -03/25/2022: discussed with neurologist, Dr. Salguero at? [facility] who recommended loading with Depacon 3000 mg IV x1 and then Depacon 1000 mg q.8 hours.? Keppra 1 g q.6 hours IV and phenytoin 100 IV mg q.8 hours She also accepted patient in consult at [facility] -currently on Keppra 1 g q.6 hours IV,? phenytoin 100 mg q.8 hours IV, Depacon 1000 mg q.8 hours IV -: added Vimpat 150 mg IV b.i.d. 03/30: Discussed with neurology Increased Vimpat to 200 mg IV b.i.d. -continue seizure precautions -appreciate neurology evaluation and recommendation -03/25/2022 EEG showed focal structural lesion
[2022-04-12] MEDS: POTASSIUM CHLORIDE 20 MEQ PACKET (FOR LIQUID) 40 MEQ PO (11:04)
[2022-04-12] MEDS: MAGNESIUM SULF 2 GM/WATER 50ML 2 GM/50 ML BAG IVPB (11:04)
[2022-04-12 11:30] LABS: Glucose Point of Care 98 mg/dl (65-105)
[2022-04-12 18:09] LABS: Glucose Point of Care 85 mg/dl (65-105)
[2022-04-13] VITALS: BP 113/56; PULSE 108; PULSE 91; RESP 20; TEMP 37.1; O2SAT 98
--- NOTE | 2022-04-13 00:27 | PM.DS ---
DS: Admitting Diagnosis Discharge Date 04/13/2022 Admitting Diagnosis (1) Hypoxia: (2) Abnormal chest x-ray: (3) Lactic acidosis: (4) Seizures: (5) Liver transplant status: ? ? ? DS: Discharge Diagnosis Discharge Diagnosis (1) Anemia: Code(s): D64.9 - Anemia, unspecified Status: Acute Assessment and Plan: ?hemoglobin on admission was normal Trend reviewed with continued decline throughout the hospital stay all the way down to 6.6 requiring transfusion. Post transfusion hemoglobin had remained stable now.? Continue to monitor -holding all anticoagulation -stool for occult blood is positive -appreciate GI evaluation and recommendations, patient will likely need EGD -hemoglobin this morning is stable -continue Protonix IV q.12 hours (2) C. difficile colitis: Code(s): A04.72 - Enterocolitis due to Clostridium difficile, not specified as recurrent Status: Acute Assessment and Plan: Patient with diarrhea, has received multiple antibiotics for his fevers during the course of her stay in the hospital -C diff was positive on 04/06/2022 -continue fidaxomicin and add p.o. vancomycin -white blood cell count trending down -fevers improving -diarrhea improved -continue to monitor (3) Acute respiratory failure: Code(s): J96.00 - Acute respiratory failure, unspecified whether with hypoxia or hypercapnia Status: Acute Assessment and Plan: 05/30/2021:? Patient using accessory muscles for respiration, increased work of breathing, febrile with leukocytosis, chest x-ray showed pneumonia which could be secondary to aspiration intubated for airway protection -?03/29:? Intubated?for airway protection, after discussing with patient's Elyse - Chest x-ray this morning:?Mild atelectasis of the lung bases.. Endotracheal and nasogastric tube removal. -?04/08:? Self extubated -encourage incentive spirometry -PT/OT follow patient, up in chair with assistance -03/30/2022 CT chest/abdomen/pelvis:?Elevation the right hemidiaphragm with atelectasis at the bilateral lung bases, right greater than left. 2. No pneumothorax or other acute cardiopulmonary disease. 3. Nasogastric tube tip at the gastric pylorus and would consider withdrawal by [address] the distal tip at the gastric antrum. 4. Bladder wall thickening with surrounding inflammatory stranding and trace amount of likely reactive free fluid in the pelvis suggestive of cystitis. Respiratory culture with E coli.? Start Imipenem (4) Seizure: Code(s): R56.9 - Unspecified convulsions Status: Acute Assessment and Plan: Patient presented to the ED on 03/24/2022 with complains of altered mental status and right upper extremity flaccidity/weakness 03/24/2022:? Head CT?Mild cerebellar and more prominent central and cortical cerebral atrophy. Chronic lacunar infarct right caudate nucleus.No acute intracranial finding 03/24/2022: Head and neck CTA showed Old lacunar infarct in right caudate nucleus.. Mild nonspecific cerebral white matter disease, which likely represents chronic small vessel ischemic disease.. No aneurysm or significant intracranial arterial stenosis.. 0% stenosis of the proximal internal carotid arteries relative to normal distal artery lumen diameters (NASCET criteria). Severe stenosis of proximal right vertebral artery.. Chronic sinusitis -on 03/25 early hours patient had multiple seizures lasting for approximately 30 seconds per neurologist -patient was transferred to the ICU for further management -03/25/2022: discussed with neurologist, Dr. Salguero at? [facility] who recommended loading with Depacon 3000 mg IV x1 and then Depacon 1000 mg q.8 hours.? Keppra 1 g q.6 hours IV and phenytoin 100 IV mg q.8 hours She also accepted patient in consult at [facility] -currently on Keppra 1 g q.6 hours IV,? phenytoin 100 mg q.8 hours IV, Depacon 1000 mg q.8 hours IV -: added Vimpat 150 mg IV b.i.d. 03/30:
[2022-04-13] MEDS: VANCOMYCIN ORAL 125 MG/2.5 ML SYRUP PO (00:57)
[2022-04-13] MEDS: levETIRAcetam 1000MG/NACL100ML 1,000 MG/100 ML BAG 200 MG IVPB (00:57)
[2022-04-13 02:00] VITALS: PULSE 90
[2022-04-13 02:43] LABS: Glucose Point of Care 96 mg/dl (65-105)
--- NOTE | 2022-04-16 19:27 | PM.TDS ---
Transfer Discharge Sum: Prov Provider Date of admission: 03/25/22 15:06 Primary care physician: Maria L Benavides, PA Admitting clinician: Marco Trotter MD Consults: 03/24/22 12:02 Consult to Physician Routine Comment: Spoke w/ [id number] 03/24 (, ) Consulting Provider: Margarito Felipe teacher physically impaired/MD group to consult: pravin Reason for consultation: seizure Has provider been notified: Yes 03/25/22 Consult to Physician Routine Comment: icu admission Consulting Provider: Golden Young teacher physically impaired/MD group to consult: icu direct care professional Reason for consultation: icu admission Has provider been notified: Yes 03/28/22 Consult to Physician Routine Comment: spoke with office @ [id number] ([facility]) Consulting Provider: One[address] Reason for consultation: pulled jewell out Has provider been notified: Yes 04/07/22 07:21 Consult to Physician Routine Comment: spoke w dr @ 0820 ([facility]) Consulting Provider: Alon Finney teacher physically impaired/MD group to consult: GI Reason for consultation: anemia, GI bleed Has provider been notified: Yes 04/09/22 Wound/ET Consult Routine Reason for Consult:: Open area to coccyx DS: Admitting Diagnosis Discharge Date 04/13/22 Admitting Diagnosis (1) Hypoxia: (2) Abnormal chest x-ray: (3) Lactic acidosis: (4) Seizures: (5) Liver transplant status: ? ? ? DS: Discharge Diagnosis Discharge Diagnosis (1) Anemia: Code(s): D64.9 - Anemia, unspecified Status: Acute Assessment and Plan: ?hemoglobin on admission was normal Trend reviewed with continued decline throughout the hospital stay all the way down to 6.6 requiring transfusion. Post transfusion hemoglobin had remained stable now.? Continue to monitor -holding all anticoagulation -stool for occult blood is positive -appreciate GI evaluation and recommendations, patient will likely need EGD -hemoglobin this morning is stable -continue Protonix IV q.12 hours (2) C. difficile colitis: Code(s): A04.72 - Enterocolitis due to Clostridium difficile, not specified as recurrent Status: Acute Assessment and Plan: Patient with diarrhea, has received multiple antibiotics for his fevers during the course of her stay in the hospital -C diff was positive on 04/06/2022 -continue fidaxomicin and add p.o. vancomycin -white blood cell count trending down -fevers improving -diarrhea improved -continue to monitor (3) Acute respiratory failure: Code(s): J96.00 - Acute respiratory failure, unspecified whether with hypoxia or hypercapnia Status: Acute Assessment and Plan: 05/30/2021:? Patient using accessory muscles for respiration, increased work of breathing, febrile with leukocytosis, chest x-ray showed pneumonia which could be secondary to aspiration intubated for airway protection -?03/29:? Intubated?for airway protection, after discussing with patient's Elyse - Chest x-ray this morning:?Mild atelectasis of the lung bases.. Endotracheal and nasogastric tube removal. -?04/08:? Self extubated -encourage incentive spirometry -PT/OT follow patient, up in chair with assistance -03/30/2022 CT chest/abdomen/pelvis:?Elevation the right hemidiaphragm with atelectasis at the bilateral lung bases, right greater than left. 2. No pneumothorax or other acute cardiopulmonary disease. 3. Nasogastric tube tip at the gastric pylorus and would consider withdrawal by [address] the distal tip at the gastric antrum. 4. Bladder wall thickening with surrounding inflammatory stranding and trace amount of likely reactive free fluid in the pelvis suggestive of cystitis. Respiratory culture with E coli.? Start Imipenem (4) Seizure: Code(s): R56.9 - Unspecified convulsions Status: Acute Assessment and Plan: Patient presented to the ED on 03/24/2022 with complains of altered mental status and right upper extremity flaccidity/weakness 03/24/2022:? Head CT?Mild cerebellar and mor
== END 2022-04-13 02:40 | disposition short-term general hospital (02) | DRG 870 ==
LOC: ANHED 09:59 → ANH3MEDSUR 13:28 → ANHICU 03-25 10:01
PROVIDERS: Internal Medicine; Physician Assistant; Admitting Provider Internal Medicine; Emergency Provider Emergency Medicine; PCP Physician Assistant; Visit Provider Internal Medicine
DX: A41.9 Sepsis, unspecified organism (principal); J69.0 Pneumonitis due to inhalation of food and vomit; J96.00 Acute respiratory failure, unspecified whether with hypoxia or hypercapnia; R65.21 Severe sepsis with septic shock; G40.919 Epilepsy, unspecified, intractable, without status epilepticus; Z94.4 Liver transplant status; I69.351 Hemiplegia and hemiparesis following cerebral infarction affecting right dominant side; T83.83XA Hemorrhage due to genitourinary prosthetic devices, implants and grafts, initial encounter; T88.3XXA Malignant hyperthermia due to anesthesia, initial encounter; G93.40 Encephalopathy, unspecified; A04.72 Enterocolitis due to Clostridium difficile, not specified as recurrent; Z16.12 Extended spectrum beta lactamase (ESBL) resistance; I82.621 Acute embolism and thrombosis of deep veins of right upper extremity; J44.9 Chronic obstructive pulmonary disease, unspecified; K58.9 Irritable bowel syndrome, unspecified; Z20.822 Contact with and (suspected) exposure to COVID-19; I65.01 Occlusion and stenosis of right vertebral artery; I10 Essential (primary) hypertension; Z75.1 Person awaiting admission to adequate facility elsewhere; R73.9 Hyperglycemia, unspecified; B96.20 Unspecified Escherichia coli [E. coli] as the cause of diseases classified elsewhere; D64.9 Anemia, unspecified; Z83.3 Family history of diabetes mellitus; Z79.82 Long term (current) use of aspirin; Z79.899 Other long term (current) drug therapy
CPT/HCPCS: 31500; 36415; 36430; 36569; 36600; 62328; 70450; 70496; 70498; 70551; 71045; 71250; 71275; 74176; 74177; 76857; 80048; 80053; 80158; 80185; 80202; 81001; 82140; 82274; 82375; 82550; 82805; 82945; 82948; 83036; 83050; 83605; 83690; 83735; 84100; 84132; 84145; 84146; 84157; 84443; 84478; 84484; 85014; 85018; 85025; 85027; 85055; 85610; 85730; 86140; 86403; 86592; 86617; 86850; 86900; 86901; 86923; 87015; 87040; 87070; 87077; 87086; 87102; 87116; 87186; 87205; 87206; 87493; 87529; 87636; 87798; 89051; 92610; 93005; 93970; 94002; 94003; 95816; 96365; 96375; 96376; 97162; 97167; 99285; A9270; C1751; C8929; C9113; C9254; G0378; J0131; J0133; J0330; J0360; J0610; J0696; J0743; J1165; J1650; J1815; J1940; J1953; J2060; J2543; J2704; J2997; J3370; J3475; J3480; J7030; J7040; J7042; J7050; J7060; J7515; P9016; Q9957; Q9967

== ENCOUNTER 2022-05-04 10:33 | Emergency (ER) | payer MEDICARE, MEDICAID, SELFPAY ==
--- NOTE | ~2022-05-04 | CT_ITS ---
EXAMINATION: CT brain wo con INDICATION: Head injury COMPARISON: 04/06/2022 TECHNIQUE: Standard unenhanced head CT. The dose-length product (DLP) was 681.00 mGy-cm. The mA was a djusted according to patient size. Iterative reconstruction technique was employed. FINDINGS: There is no acute intraparenchymal hemorrhage. No evidence of mass lesion. No evidence of a cute infarction. An old lacunar infarct is again 7noted in the right caudate. There is mild periventr icular and subcortical hypodensity probably related to small vessel ischemic disease. There is modera te prominence of the sulci and ventricles related to cerebral atrophy. Intracranial calcified cerebra l atherosclerosis is noted. There are no extra-axial collections. There is no mass effect or midline shift. The orbits and soft tissues are unremarkable. There is mild mucosal thickening of the paranasa l sinuses. IMPRESSION: 1. No acute intracranial abnormality. 2. Age related findings. Reviewed, dictated and finalized at location B. RAM SUPPORT SPECIALIST
--- NOTE | ~2022-05-04 | XR_ITS ---
EXAMINATION: XR abdomen/kub 1V INDICATION: Chronic pain TECHNIQUE: Supine views of the abdomen were obtained on 2 radiographs. COMPARISON: None FINDINGS: A moderate volume of colonic stool is present. Surgical clips are noted in the upper abdome n as well as in the right pelvis. The bowel gas pattern is normal. There is mild osteoarthritis of th e hips. Bone islands are noted in the right femoral neck in the right inferior pubic ramus. IMPRESSION: 1. No radiographic correlate for the patient's symptoms. Reviewed, dictated and finalized at location B. TY DIRECTOR
--- NOTE | ~2022-05-04 | CT_ITS ---
EXAMINATION: CT cervical spine wo con DATE: 05/04/2022 11:10 INDICATION: Head injury TECHNIQUE: Computed tomography (CT) of the cervical spine was performed without intravenous contrast. The dose-length product (DLP) was 527.08 mGy-cm. Automated exposure control and iterative reconstruc tion technique were employed. COMPARISON: None FINDINGS: No fracture, dislocation, or subluxation. The vertebral body heights are normal. There is m ild loss of intervertebral disc space height at C4-5 and C5-6. Small degenerative osteophytes project from the anterior endplates of multiple vertebral bodies. The odontoid process is intact. The prever tebral soft tissues are normal. There is mild multilevel facet and uncovertebral joint osteoarthritis . IMPRESSION: 1. Mild cervical spondylosis without acute findings. Reviewed, dictated and finalized at location B. DEALER
--- NOTE | ~2022-05-04 | XR_ITS ---
EXAMINATION: XR chest 1V portable Exam Date/Time: 05/04/2022 13:45 RESEARCH BIOSTATISTICIAN HISTORY: Fall WEAKNESS NOTED AND SOME CONFUSION Comparison: 03/31/2022. RESULT: Lines, tubes, and devices: None. Lungs and pleura: Persistent right hemidiaphragm elevation and volume loss, worst in the right lung with crowding and bibasilar atelectasis. Electronic device projects over the left chest, presumably e xternal.. Cardiomediastinal silhouette: Stable. Other: No acute osseous or upper abdominal finding. IMPRESSION: No acute cardiopulmonary process. Reviewed, dictated and finalized at location K. ARCH BIOSTATISTICIAN
[2022-05-04 10:33] VITALS: BP 103/73; PULSE 102; RESP 15; TEMP 36.4; O2SAT 99
--- NOTE | 2022-05-04 10:40 | ECG_ITS ---
Measurements Intervals [place] Rate: 0 P: GA: 0 QRS: QRSD: 0 T: QT: 0 QTc: 0 Interpretive Statements SINUS RHYTHM INCOMPLETE RIGHT BUNDLE BRANCH BLOCK DELAYED PRECORDIAL R/S TRANSITION BORDERLINE ST-T WAVE ABNORMALITY- DIFFUSE LEADS BASELINE ARTIFACT- I, II, AVR, AVL, AVF, V2-V6 ABNORMAL ECG COMPARED TO ECG 03/29/2022 17:02:10 NO SIGNIFICANT CHANGES Electronically Signed On 05-04-2022 11:47:31 TIER IN by Jonathon Payne D.O.
--- NOTE | 2022-05-04 10:53 | ED.FALL ---
HPI - Fall General Chief Complaint: Fall Stated Complaint: FELL OUT OF W/C Time Seen by Provider: 05/04/22 10:41 Source: patient and EMS Mode of arrival: EMS Limitations: no limitations History of Present Illness HPI Narrative: Patient is 61 years old white male came from halfway because of falling out of his wheelchair facedown first. Patient was moving his wheelchair back to his room somehow fell out of. No loss of consciousness. The halfway nurse reported that there is no difference today about the patient compared to 2 days ago when she saw him last. Patient complaining of headache after the fall. Related Data Home Medications Medication Instructions Recorded Confirmed aspirin 81 mg tablet 81 mg PO DAILY 10/28/19 03/24/22 gabapentin 800 mg tablet 100 mg PO TID 10/28/19 03/24/22 levetiracetam 1,000 mg tablet 1,000 mg PO BID 11/05/21 03/25/22 cyclosporine 100 mg capsule 75 mg PO Q12H 11/26/21 03/25/22 (Sandimmune) lacosamide 150 mg tablet (Vimpat) 150 mg PO BID 02/03/22 03/25/22 Saccharomyces boulardii 250 mg 250 mg PO BID 03/24/22 03/25/22 capsule budesonide-formoterol HFA 160 1 puff inhalation DAILY 03/24/22 03/25/22 mcg-4.5 mcg/actuation aerosol inhaler (Symbicort) escitalopram oxalate 10 mg tablet 10 mg PO DAILY 03/24/22 03/25/22 (Lexapro) hydrocodone 5 mg-acetaminophen 325 1 tablet PO Q8H 03/24/22 03/24/22 mg tablet ipratropium 0.5 mg-albuterol 3 mg 3 ml inhalation QID PRN SOB 03/24/22 03/25/22 (2.5 mg base)/3 mL nebulization soln omeprazole 20 mg capsule,delayed 20 mg PO DAILY 03/24/22 03/25/22 release phenytoin sodium extended 100 mg 100 mg PO TID 03/24/22 03/25/22 capsule (Dilantin Extended) acetaminophen 325 mg tablet (Mapap 650 mg PO Q4H PRN Mild Pain (1-3) 03/25/22 03/25/22 (acetaminophen)) Or Fever albuterol sulfate 90 mcg/actuation 2 puff inhalation Q4H PRN SOB 03/25/22 03/25/22 aerosol inhaler bisacodyl 10 mg rectal suppository 5 mg RECTAL BID PRN Constipation 03/25/22 03/24/22 Allergies Allergy/AdvReac Type Severity Reaction Status Date / Time succinylcholine AdvReac Severe Malignant Verified 03/30/22 08:33 Hyperthermia Review of Systems Review of Systems: All systems reviewed & are unremarkable except as noted in HPI and below PMFSH Past Medical History Medical History Cerebrovascular accident (2011) Mild right sided weakness. Chronic obstructive pulmonary disease Depression Hepatitis C Status post liver transplant in 2007 followed by successful hepatitis C treatment in 2013. Herpes encephalitis Hyperlipidemia Irritable bowel syndrome Peripheral neuropathy Pneumonia due to 2019 novel coronavirus Renal failure Required dialysis before liver transplant. Seizures Surgical History Surgical History History of cholecystectomy History of liver transplant (2007) For cirrhosis and hepatitis C. Family History Family History Father Family history of heart disease in male family member before age 55 Mother Family history of liver disease Sibling Diabetes mellitus Social History Social History Social History: Surrogate decision maker: Elyse Boone, . Code status: Full code. Smoking packs per day: 1 Smoking cigarettes per day: 20.0 Years smoked: 23 Smoking pack-years: 23.00 Smoking status: Unknown if ever smoked Second hand tobacco smoke exposure: No Additional smoking assessment comments: Quit in 1997. Alcohol intake: never Alcohol use details: Quit in 1996. Substance use: never Additional living arrangements comments: Lives with , sister, [id number]. Additional occupation/education comments: Disabled. Spiritual care concerns: No Exam Narrative: General appearance: Well-developed,
[2022-05-04 11:40] LABS: Appearance Urine Clear (Clear); Bilirubin Urine Negative (Negative); Blood Urine Negative (Negative); Color Urine Yellow (Yellow); Glucose Urine UA Negative (Negative); Ketones Urine Negative (Negative); Leukocyte Esterase Ur Negative LEU/UL (Negative); Nitrate Urine Negative (Negative); Protein Urine Negative (Negative); Specific Grav Ur 1.015 (1.001-1.035); Urobilinogen Urine 0.2 mg/dL (<2.0)
[2022-05-04 11:50] LABS: Add Urine Microscopic? NO
[2022-05-04 11:54] LABS: Basophils Absolute Auto 0.1 K/mm3 (0.0-0.1); Basophils Percent Auto 0.4 % (0.2-1.2); Eosinophils Absolute Auto 0.1 K/mm3 (0-0.3); Eosinophils Percent Auto 0.7 % (0-4.4); Hematocrit 41.3 % (42.0-52.0); Hemoglobin 13.2 g/dL (14.0-18.0); Immature Granulocyte Absolute 0.11 K/mm3 (0.00-0.031); Immature Granulocyte Percent A 0.8 % (0-0.5); Lymphocytes Absolute Auto 1.46 K/mm3 (0.9-3.2); Lymphocytes Percent Auto 10.3 % (18.3-44.2); Mean Corpuscular Hemoglobin 31.4 pg (26-34); Mean Corpuscular Volume 98.3 fl (80-100); Mean Platelet Volume 9.4 fl (7.4-10.4); Monocytes Absolute Auto 0.6 K/mm3 (0.1-0.6); Monocytes Percent Auto 4.4 % (2.6-8.5); Neutrophils Absolute Auto 11.9 K/mm3 (1.3-6.7); Neutrophils Percent Auto 83.4 % (45.5-73.1); Platelet Count Result 218 k/mm3 (150-375); Red Cell Distribution Width 15.4 % (11.5-14.5); White Blood Count 14.2 K/mm3 (4.5-10.0)
[2022-05-04 12:11] LABS: Alanine Aminotransferase 14 U/L (6-50); Albumin Level 3.7 g/dL (3.5-5.1); Alkaline Phosphatase 125 U/L (38-126); Anion Gap 9 mmol/L (8-16); Aspartate Amino Transferase 25 U/L (17-59); Bilirubin,Total 0.5 mg/dL (0.2-1.3); Blood Urea Nitrogen 14 mg/dL (9-20); Calcium 8.8 mg/dL (8.4-10.2); Carbon Dioxide 22 mmol/L (22-30); Chloride 107 mmol/L (98-107); Estimated CRCL calculation 75 ml/min; Estimated Glomerular Filt Rate > 60; Glucose 114 mg/dL (65-110); Potassium 5.7 mmol/L (3.4-5.0); Sodium 138 mmol/L (137-145)
[2022-05-04 12:13] LABS: Influenza A QL RT-PCR Negative (Negative); Influenza B QL RT-PCR Negative (Negative); RSV RNA, RT-PCR Negative (Negative); SARS-CoV-2 RNA PCR Negative
[2022-05-04 12:20] LABS: Troponin I < 0.012 ng/mL (0.000-0.034)
--- NOTE | 2022-05-04 12:44 | PC.NURSE ---
Lab called for blood draw.
[2022-05-04 13:14] VITALS: BP 151/96; PULSE 120; RESP 20; O2SAT 97
[2022-05-04 13:28] VITALS: TEMP 37.2
[2022-05-04 15:09] LABS: Phenytoin Dilantin 5 ug/mL (10-20)
[2022-05-04] MEDS: PHENYTOIN SODIUM INJ (*BKC) 1,000 MG in SODIUM CHLORIDE 0.9% IV 100 ML 360 MG IVPB (15:48)
--- NOTE | 2022-05-04 16:43 | PC.NURSE ---
Went to discharge patient and he was acting not responding to this RN. MD was called and patient came back around. Dr Nettles states patient could have had seizure due to patient having a history of seizures. Patient is currently responding to verbal stimuli, but is not yet back to baseline. Per Dr Nettles, we will watch patient for at least 30 minutes before attempting to discharge.
[2022-05-04 17:30] VITALS: BP 109/16; PULSE 134; RESP 18; O2SAT 100
[2022-05-04 19:15] VITALS: BP 117/55; PULSE 125; RESP 20; O2SAT 98
== END 2022-05-04 19:18 ==
PROVIDERS: Emergency Provider Emergency Medicine; PCP Physician Assistant
DX: E87.5 Hyperkalemia (principal); D72.829 Elevated white blood cell count, unspecified; R79.89 Other specified abnormal findings of blood chemistry; Z20.822 Contact with and (suspected) exposure to COVID-19; I69.951 Hemiplegia and hemiparesis following unspecified cerebrovascular disease affecting right dominant side; J44.9 Chronic obstructive pulmonary disease, unspecified; E78.5 Hyperlipidemia, unspecified; K58.9 Irritable bowel syndrome, unspecified; Z94.4 Liver transplant status; Z87.01 Personal history of pneumonia (recurrent); Z86.16 Personal history of COVID-19; Z86.19 Personal history of other infectious and parasitic diseases; Z87.891 Personal history of nicotine dependence; Z79.82 Long term (current) use of aspirin; M47.812 Spondylosis without myelopathy or radiculopathy, cervical region; V00.811A Fall from moving wheelchair (powered), initial encounter; I45.10 Unspecified right bundle-branch block; R94.31 Abnormal electrocardiogram [ECG] [EKG]
CPT/HCPCS: 36415; 70450; 71045; 72125; 74018; 80053; 80185; 80186; 81003; 84484; 85025; 87637; 93005; 96365; 99284; J1165